=== PATIENT | male | born 1940 | race Caucasian/White ===

== ENCOUNTER 2018-12-15 08:56 | Observation (INO) | payer MEDICARE, OTHER, SELFPAY ==
[2018-12-15] VITALS (13 sets, daily range): BP systolic 107–144; BP diastolic 47–74; PULSE 48–70; RESP 13–21; TEMP 36.6–36.9; O2SAT 93–100; BMI 23.6; BMI 24.3
--- NOTE | 2018-12-15 09:21 | ED.RN ---
PT WAS DIAPHORETIC AND FLUSH PRIOR TO SYNCOPAL EPISODE. PT SAID IT WAS KIND OF CLOUDY.
--- NOTE | 2018-12-15 09:26 | RAD_ITS ---
STUDY: X-RAY CHEST REASON FOR EXAM: Male, 78 years old. Chest pain with syncope today. TECHNIQUE: Single AP portable view of the chest. COMPARISON: July 23, 2015. FINDINGS: Cardiac monitoring leads are present. The lungs are clear and expanded. There is no demonstrated pleural abnormality. There is mild cardiac enlargement. Normal mediastinum and alex. Normal visualized pulmonary arteries. There is atherosclerotic tortuosity of the aortic arch and descending thoracic aorta. Normal visualized thoracic spine. Normal visualized ribs, clavicles, and shoulders. There is no demonstrated abnormality of the visualized soft tissue structures of the upper abdomen. RAD/Chest 1 View (Portable) IMPRESSION: Mild cardiomegaly. Electronically Signed: Beatriz Ospina MD at 9:53 EST , Service support ,
--- NOTE | 2018-12-15 09:26 | EKG12_ITS ---
Test Reason : SYNCOPE Blood Pressure : / mmHG Vent. Rate : 051 BPM Atrial Rate : 051 BPM P-R Int : 184 ms QRS Dur : 090 ms QT Int : 450 ms P-R-T Axes : 075 059 038 degrees QTc Int : 414 ms Sinus bradycardia Otherwise normal ECG Confirmed by KRYSTYNA ADAMSON MD ([id number]), editorial cartoonist SYLVIE NUNO ([id number]) on 12/17/2018 1:05:16 PM Referred By: MR Confirmed By:KRYSTYNA ADAMSON MD
[2018-12-15 09:48] LABS: Absolute Neutrophil Count 3.8 X10^3/uL (2.0-7.7); Basophil# 0.02 X10^3/uL; Basophil% 0.4 % (0-1); Eosinophil# 0.22 X10^3/uL; Eosinophils% 4.4 % (0-5); Hematocrit 35.9 % (40-54); Hemoglobin 11.4 g/dl (13.0-16.5); Mean Corp Hgb Conc 31.8 g/gl (32-36); Mean Corpuscular Volume 100.8 fL (80-94); Mean Platelet Vol. 9.6 fl (6.2-12.0); Monocyte# 0.39 X10^3/uL; Monocyte% 7.8 % (0-10); Neutrophil # 3.75 X10^3/uL (2.7-7.7); Neutrophil % 75.2 % (47-70); Platelet Count 154 K/mm3 (150-450); RBC Distribution Width SD 52.2 fl (35.1-43.9); Red Blood Count 3.56 M/mm3 (4.6-6.2)
[2018-12-15 09:49] LABS: Differential Indicated SCAN CRITERIA MET; POSITIVE COUNT NO; POSITIVE DIFFERENTIAL YES; POSITIVE MORPHOLOGY NO
[2018-12-15 09:56] LABS: Anion Gap 8 (5-15); BUN 55 mg/dL (7-18); Chloride 111 mmol/L (98-107); EST Glomerular Filtration Rate 27 mL/min (>60); Est Glom Filt Rate - Afr Amer 32 mL/min (>60); Estimated Creatinine Clearance 23.96 ml/min; Glucose 120 mg/dL (74-106); Potassium 4.4 mmol/L (3.5-5.1); Sodium Level 141 mmol/L (136-145)
[2018-12-15 10:05] LABS: Differential Comment SCANNED
--- NOTE | 2018-12-15 10:16 | ED.DCSUM_ITS ---
- ER Visit Summary Date of Service: 12/15/18 Chief Complaint: Syncope History of Present Illness: The patient is a 78 M presenting for evaluation secondary to syncope. Patient has a underlying history of coronary artery disease chronic kidney disease and hypertension. Patient states that he shoveled so this morning was actually doing quite well. He was standing in adventism and had a unprovoked episode of syncope. Patient states that he suddenly started to feel foggy and lightheaded, and then his caught him as he passed out. He did not injure himself. He denies any pain currently. He denies any prodrome such as chest pain shortness of breath numbness weakness or visual changes. Patient states that he is on metoprolol for blood pressure control, and did not have any sort of changes in his medications or medication errors. He denies feeling ill recently. Review of systems otherwise negative. Physical Examination: Vital signs notable for heart rate of 48. Well-nourished male no acute distress. No conjunctival pallor. Moist mucous membranes. No JVD. Heart was bradycardic and regular. Lungs clear. Abdomen soft nontender no palpable abdominal masses or pulsatile mass. Extremities nontender nonedematous, peripheral pulses 2+ and symmetric. Skin normal color no rash. Patient was alert and oriented, NIH stroke scale was 0. Test Results: EKG demonstrates sinus bradycardia with a rate of [address] segments normal T waves. CBC shows mild anemia 11.4, chemistry shows chronic renal insufficiency creatinine 2.5 most recent we have in the system was 2.4, troponin negative chest x-ray shows some cardiomegaly Emergency Department Course and Treatment: Patient presented for evaluation secondary to a syncopal episode. Workup was negative as noted above. Patient is [place] syncope positive as he has bradycardia on EKG, coronary disease, and I am also concerned because this was an unprovoked event. I believe he requires admission for observation potential echocardiogram and cardiac consultation. I discussed this with hospitalist. Disposition: Admission Impression: 1. Syncope 2. Sinus bradycardia next line 3. History of coronary artery disease 4. Chronic kidney disease This note was generated with [employer] dictation software. It may contain incorrect words, spelling, and punctuation that were not noted in review of the chart prior to signing ED Disposition - Plan for ED Patient: Chief Complaint: Syncope Referrals: Tip Borden III, MD [Primary Care Provider] -
--- NOTE | 2018-12-15 10:30 | PCM.HP.STD ---
Problem List (1) Syncope Status: Acute (2) Sinus bradycardia Status: Chronic (3) Diabetes mellitus type 2 Status: Chronic (4) CKD (chronic kidney disease), stage III Status: Chronic (5) Coronary artery disease Status: Chronic (6) History of coronary artery stent placement Status: Chronic History of Present Illness Date of Admission: 12/15/18 Chief Complaint: Syncope for about 1 minute The patient is a 78 year old M with history of coronary artery disease history of coronary artery disease status post stents about 10 years ago, CKD stage III, hypertension, diabetes mellitus type 2 diet controlled was brought in by EMS for sudden syncope in the chart. Patient was in usual health before that. He stood up for a few minutes, then felt foggy/cloudiness and then suddenly passed out. His caught him therefore no injury/fall. He denies prodromal symptoms including dizzy, lightheadedness, missed heartbeat/chest pressure or shortness of breath passing out. As per his he was moderately pale. The patient did not had acute cardiac event probably last 10 years including ACS/IA. Denies history of peripheral arterial disease, stroke. EMS EKG shows sinus bradycardia, 45 bpm, AL interval 124 ms, QTC 452 ms. ER EKG shows sinus bradycardia at 45 bpm. EKG normal sinus rhythm at 68 bpm on June 2002. Basic workup was within normal limit except CKD with creatinine 2.5 which is baseline 2.43 on June,. Denies lower urinary tract symptoms, abdominal pain or change in bowel habits. [] Past Medical History Past Medical History (Chronic Problems): Chronic Problems Sinus bradycardia (Chronic) Diabetes mellitus type 2 (Chronic) CKD (chronic kidney disease), stage III (Chronic) Coronary artery disease (Chronic) History of coronary artery stent placement (Chronic) Allergies Penicillins Allergy (Verified 12/15/18 09:05) Unknown Home Medications: Ambulatory Orders Medication Instructions Recorded Aspirin [Aspirin, Baby] 81 mg PO DAILY@0800 12/15/18 Hydrochlorothiazide 12.5 mg PO DAILY 12/15/18 Labetalol [Trandate (Beta Silvestre)] 100 mg PO DAILY 12/15/18 Simvastatin 40 mg PO DAILY 12/15/18 Smoking Status: Never smoker - *Family History Paternal History Items: No pertinent history Review of Systems Constitutional: Denies: Chills, Fever, Weight Change HEENT: Denies: Head Aches, Sinus Congestion, Sinus Drainage Cardiovascular: Reports: Syncope. Denies: Chest Pain, Palpitations Respiratory: Denies: Cough, Shortness of breath at rest, Sputum production Gastrointestinal: Denies: Abdominal Pain, Nausea, Vomiting Genitourinary: Denies: Dysuria Musculoskeletal: Denies: Joint Pain, Joint Tenderness Skin: Denies: Rash, Wounds Neurological: Denies: Numbness, Tingling, Focal weakness Psychiatric: Denies: Anxiety, Depression, Homicidal Ideations, Suicidal Ideations Hematologic/ Lymphatic: Denies: Easy Bruising, Easy Bleeding VTE Information - Inpt Only VTE Present on Admission: No VTE Mechan Device Prophylaxis: None VTE Pharm Prophylaxis ordered?: Yes Patient Problems: Active and Suspected Problems Syncope (Acute) - Physical Exam General: Alert, Oriented x3, Cooperative HEENT: Atraumatic, PERRLA, EOMI, Normocephalic Oral: Dry Mucosa Neck: Supple, No JVD, Negative Carotid Bruits Lungs: Clear to auscultation, Normal air movement, No rhonchi, No wheeze, No rales Cardiovascular: Normal S1, Normal S2, No murmurs, Bradycardic Abdomen: Bowel Sounds Present, Soft, Non Tender, Non-Distended Extremities: No edema, Capillary Refill Less than 3 Seconds Skin: No rashes, No breakdown Musculoskeletal: No Tenderness to Palpation of Joints or Extremities, Arthritic Changes Neurological: Cranial nerves II-XII grossly intact, Deep Tendon Reflexes 2+/4 and Symmetrical, Neuro grossly intact, Motor Exam 5/5 strength throughout Psych/Mental Status: Normal Affect, Appropriate Vital Signs Temp Pulse Resp BP Pulse Ox 97.8 F 54 L 15 118/64 97 12/15/18 09:01 12/15/18 10:09 12/15/18 10:09 12/15/18 09:57 12/15/18 10:09 Oxygen Flow Rate (L/min) 4 Oxygen Delivery Method Room Air Weight: 160 lb Body Mass Index (BMI) 23.6 Laboratory Tests Past 24 Hrs 12/15/18 12/15/18 09:30 09:30 WBC 5.0 RBC 3.56 L Hgb 11.4 L Hct 35.9 L MCV 100.8 H MCH 32.0 MCHC 31.8 L RDW 14.0 RDW Differential 52.2 H Plt Count 154 MPV 9.6 Immature Gran % (Auto) 0.200 Neut % (Auto) 75.2 H Lymph % (Auto) 12.0 L [place] % (Auto) 7.8 Eos % (Auto) 4.4 Baso % (Auto) 0.4 Absolute Neuts (auto) 3.8 Absolute Lymphs (auto) 0.60 L Total Counted Not Reportable Differential Comment SCANNED Sodium 141 Potassium 4.4 Chloride 111 H Carbon Dioxide 22.0 Anion Gap 8 BUN 55 H Creatinine 2.50 H Estim Creat Clear Calc 23.96 Est GFR (MDRD) Af Amer 32 L Est GFR (MDRD) Non-Af 27 L BUN/Creatinine Ratio 22.0 H Glucose 120 H Calcium 8.0 L Troponin I < 0.015 Assessment/Plan All Active Problems Syncope (Acute) The patient is a 78 year old M with history of coronary artery disease history of coronary artery disease status post stents about 10 years ago, CKD stage III, hypertension, diabetes mellitus type 2 diet controlled was brought in by EMS for sudden syncope in the chart. Patient was in usual health before that. He stood up for a few minutes, then felt foggy/cloudiness and then suddenly passed out. His caught him therefore no injury/fall. He denies prodromal symptoms including dizzy, lightheadedness, missed heartbeat/chest pressure or shortness of breath passing out. As per his he was moderately pale. The patient did not had acute cardiac event probably last 10 years including ACS/IA. Denies history of peripheral arterial disease, stroke. No seizure-like movements. Denies recent flulike symptoms, fever. Denies lower urinary tract symptoms, abdominal pain or change in bowel habits. EMS EKG shows sinus bradycardia, 45 bpm, AL interval 124 ms, QTC 452 ms. ER EKG shows sinus bradycardia at 45 bpm. EKG normal sinus rhythm at 68 bpm on June 2002. Basic workup was within normal limit except CKD with creatinine 2.5 which is baseline 2.43 on June,. 1. Syncope and collapse, exact etiology unclear but possible cardiogenic due to sinus bradycardia/medication related: Patient is being admitted in PCU. Patient is on HCTZ and labetalol. Hold labetalol and HCTZ. Cardiac monitoring. Serial troponin enzymes. 2D echo ordered. Patient follows extension specialist Dr. Jaffe and he had echo about Ismael time 2018. Try to get medical record. Chest x-ray shows mild cardiomegaly. IV fluid normal saline 20 mils per hour 2. Coronary artery status post stents, hypertension: Denies chest pain/pressure or shortness of breath. Stable. Rest as above 3. Sinus bradycardia probably secondary to labetalol: Hold it. 4. Diabetes mellitus type 2, diet and exercise controlled: Glucose in BMP is 120. 5. CKD stage III: BUN/creatinine 55/2.5. Stable since June 2015, previous BUN/creatinine 43/2.43 BUN. Slightly elevated probably secondary to dehydration or HCTZ 6. DVT prophylaxis: On Lovenox 30 mg subcu daily adjusted to creatinine clearance. This note was generated with [employer] dictation software. Every effort was made to ensure accuracy, however computerized staff research associate mistakes may persist. Code Visit OBSV E&M: 66358 Initial observation care L3
[2018-12-15 11:56] LABS: Magnesium 2.4 mg/dL (1.6-2.6); Thyroid Stim Hormone (TSH) 1.34 uIU/mL (0.358-3.74)
[2018-12-15] MEDS: 0.9% Normal Saline 1,000 ML 100 ML IV ×2 (12:00→22:00)
[2018-12-15] MEDS: Enoxaparin 30 MG/0.3 ML Syringe SC (14:16)
[2018-12-16 02:05] VITALS: BP 124/74; PULSE 57; RESP 16; TEMP 36.9; O2SAT 97
[2018-12-16 03:16] VITALS: PULSE 49
--- NOTE | 2018-12-16 05:55 | ECHOD_ITS ---
Reason For Study: Syncope Procedure This was a 2D Doppler, Color Flow transthoracic echocardiogram. Exam performed portable in patient room. Left Ventricle Normal LV size. Mild concentric left ventricular hypertrophy. Left ventricular systolic function is normal. The estimated ejection fraction is 60 %. Stage 1 diastolic dysfunction. No regional wall motion abnormalities noted. Right Ventricle Normal RV size. Normal systolic function. Atria Normal left atrium. Normal right atrium. Mitral Valve Normal mitral valve. Mild (1+) eccentric mitral valve insufficiency. Tricuspid Valve Normal tricuspid valve. Mild (1+) tricuspid valve insufficiency. Pulmonary artery systolic pressure is 34 mmHg. Aortic Valve Trisinus/trileaflet aortic valve. Pulmonic Valve Normal pulmonic valve. Great Vessels Normal aortic root. The pulmonary artery is normal size. Normal inferior vena cava. Pericardium/Pleural No pericardial effusion. Medication Performed a rapid injection of agitated mix of 9 cc saline and 1cc air to assess for atrial septal defect. MMode/2D Measurements & Calculations LVIDd: 4.8 cm IVSd: 1.2 cm Ao root diam: 2.5 cm LVIDs: 2.6 cm LVPWd: 1.3 cm RVDd: 3.4 cm FS: 46.3 % LAV(MOD-bp): 62.8 ml LVAd ap4: 27.0 cm2 SV(MOD-sp4): 53.0 ml LAV(MOD-bp) Indexed: 33.8 ml/m2 EDV(MOD-sp4): 75.5 ml LAV(MOD-sp2): 76.0 ml EDV(sp4-el): 75.4 ml LAV(MOD-sp4): 51.0 ml LVAs ap4: 13.4 cm2 ESV(MOD-sp4): 22.5 ml ESV(sp4-el): 22.4 ml EF(MOD-sp4): 70.2 % EF(sp4-el): 70.3 % SV(sp4-el): 53.1 ml LA A4 area: 20.4 cm2 LA dimension(2D): 4.4 cm RA A4 area: 18.5 cm2 Doppler Measurements & Calculations MV E max quintin: 99.9 cm/sec Lat Peak E' Quintin: 7.0 cm/sec Med Peak E' Qiuntin: 7.9 cm/sec MV A max quintin: 84.3 cm/sec E/E' lat: 14.2 E/E' med: 12.6 MV E/A: 1.2 Ao V2 max: 171.7 cm/sec LV V1 max: 113.9 cm/sec PA V2 max: 78.3 cm/sec Ao max P.8 mmHg LV V1 max P.2 mmHg Ao V2 mean: 123.1 cm/sec Ao mean P.7 mmHg Ao V2 VTI: 40.2 cm TR max quintin: 270.1 cm/sec TR max P.2 mmHg Interpretation Summary Normal LV size. Mild concentric left ventricular hypertrophy. Left ventricular systolic function is normal. The estimated ejection fraction is 60 %. Stage 1 diastolic dysfunction. Mild (1+) eccentric mitral valve insufficiency. Pulmonary artery systolic pressure is 34 mmHg. Ordering Physician: Joseluis Hernandez Referring Physician: Tip Borden Performed By: Elin Harrington, ANTHONY, RVT
[2018-12-16 07:13] VITALS: PULSE 52
[2018-12-16 09:00] VITALS: BP 147/73; PULSE 53; RESP 16; TEMP 36.7; O2SAT 98
[2018-12-16 11:25] VITALS: PULSE 57
[2018-12-16 14:11] VITALS: BP 138/82; PULSE 57; RESP 16; TEMP 37.1; O2SAT 98
--- NOTE | 2018-12-16 14:11 | DCINST_ITS ---
- Discharge Diagnoses Current Active Problems: Current Active and Chronic Problems Syncope (Acute) Sinus bradycardia (Chronic) Diabetes mellitus type 2 (Chronic) CKD (chronic kidney disease), stage III (Chronic) Coronary artery disease (Chronic) History of coronary artery stent placement (Chronic) You will use the following diet at home:: No restrictions Your food should be the consistency of: Regular Your liquids should be the consistency of: Regular/Thin Discharge Activity: Return to Normal Activity Call your doctor if you observe: Fever of 101 or Higher, Shortness of breath, Fainting spells, Chest pain Instructions: What Is Syncope?, Understanding Dizziness, Balance Problems, and Fainting, Possible Causes of Dizziness or Fainting Allergies/Adverse Reactions: Allergies Penicillins Allergy (Verified 12/15/18 09:05) Unknown Medications to take at Discharge Aspirin [Aspirin, Baby] 81 mg PO DAILY@0800 12/15/18 Labetalol [Trandate (Beta Silvestre)] 100 mg PO DAILY 12/15/18 Simvastatin 40 mg PO QHS 12/15/18 Primary Care Physician: Tip Borden III, MD [Primary Care Provider] - Within 1 Week Test Results: Test results from this visit will be discussed in further detail at your follow- up appointment, if applicable.
--- NOTE | 2018-12-16 14:11 | PCM.DC.SUM ---
Discharge Date and Diagnosis - Problem List Patient Problems: Active and Suspected Problems Syncope (Acute) Date of Admission: 12/15/18 Date of Discharge: 12/16/18 - Primary Discharge Diagnosis Active and Suspected Problems Syncope (Acute) - Secondary Discharge Diagnosis Chronic Problems Sinus bradycardia (Chronic) Diabetes mellitus type 2 (Chronic) CKD (chronic kidney disease), stage III (Chronic) Coronary artery disease (Chronic) History of coronary artery stent placement (Chronic) Hospital Course and Treatment Imaging Results: 12/16/18 05:55 Echo Complete [ECHO] AM (NON MEDS) Clinical Impression(s) from Imaging Studies Chest X-Ray 12/15/18 09:26 IMPRESSION: Mild cardiomegaly. Electronically Signed: Beatriz Ospina MD at 9:53 EST , Service support , Operations: None Procedures: None Summary of Care Provided: The patient is a 78 year old M presents with syncope. Patient was then mass where he had a syncopal episode when he was standing. Patient was in his normal state of health preceding that. That day, patient had had breakfast but then went and did some shoveling of snow. Patient does endorse that he has been consuming less fluids over the past few weeks due to urinary frequency. Patient was noted to be bradycardic into the 50s but has otherwise remained stable. Orthostatic vital signs were evaluated and were negative. His HCTZ and labetalol were held upon admission. Patient is continue to remain bradycardic but is otherwise feeling well. Patient will be resumed back on his labetalol but advised to hold off on his HCTZ for now. Patient follow-up with his primary care provider in the next coming weeks to see if the HCTZ would need to be resumed or if labetalol would need to be reduced or discontinued. [] Patient Problems: Active and Suspected Problems Syncope (Acute) - Physical Exam General: Alert, No apparent distress HEENT: Atraumatic, Normocephalic Oral: Moist Mucosa, No Gingival or Mucosal Lesions/ Ulcerations Neck: No Nodes, Thyroid Normal Size and Texture Lungs: Clear to auscultation, Normal air movement, No rhonchi, No wheeze Cardiovascular: Regular rate, Regular Rhythm, Normal S1, Normal S2, No murmurs Vital Signs Temp Pulse Resp BP Pulse Ox 36.7 C 57 L 16 147/73 H 98 12/16/18 09:00 12/16/18 11:25 12/16/18 09:00 12/16/18 09:00 12/16/18 09:00 Oxygen Flow Rate (L/min) 4 Oxygen Delivery Method Room Air Weight: 72.575 kg Body Mass Index (BMI) 24.3 Orthostatic Vital Signs Start: 12/15/18 12:10 Freq: q24h Status: Active Protocol: Activity Type Activity Date Activity User E-Sign Co-Sign Detail Recorded Client Recorded Date Recorded By Document 12/15/18 13:39 MLB [id number] 12/15/18 13:40 MLB 12/15/18 13:39 Orthostatic Vitals Standing -Blood Pressure (90/60-120/80) 113/64 -Extremity Use Right Arm -Pulse Rate (60-100) 70 Sitting -Blood Pressure (90/60-120/80) 112/64 -Extremity Use Right Arm -Pulse Rate (60-100) 67 Lying -Blood Pressure (90/60-120/80) 107/61 -Extremity Use Right Arm -Pulse Rate (60-100) 61 Intake and Output for Last 24 Hours 12/14/18 12/15/18 12/16/18 23:59 23:59 23:59 Intake Total 1010 / 1010 1064 / 1064 Balance 1010 / 1010 1064 / 1064 Laboratory Tests Past 24 Hrs 12/15/18 15:30 Troponin I 0.023 Discharge Diet: No Restrictions Discharge Activity: Return to Normal Activity Call your doctor if you observe: Fever of 101 or Higher, Shortness of breath, Fainting spells, Chest pain Home Medications: Medications to take at Discharge Aspirin [Aspirin, Baby] 81 mg PO DAILY@0800 12/15/18 Labetalol [Trandate (Beta Silvestre)] 100 mg PO DAILY 12/15/18 Simvastatin 40 mg PO QHS 12/15/18 Primary Care Physician: Tip Borden III, MD [Primary Care Provider] - Within 1 Week Patient Instructions: What Is Syncope?, Understanding Dizziness, Balance Problems, and Fainting, Possible Causes of Dizziness or Fainting Disposition: Home Minutes spent on discharge:: 32 Patient Condition:: Good Medical Necessity - Tobacco Use Smoking Status: Never smoker Meaningful Use Info Meaningful Use Diagnoses (Choose all that apply): None applicable Code Visit OBSV E&M: 36740 Observation care discharge
--- NOTE | 2018-12-16 14:15 | DS.PCM_ITS ---
Discharge Date and Diagnosis - Problem List Patient Problems: Active and Suspected Problems Syncope (Acute) Date of Admission: 12/15/18 Date of Discharge: 12/16/18 - Primary Discharge Diagnosis Active and Suspected Problems Syncope (Acute) - Secondary Discharge Diagnosis Chronic Problems Sinus bradycardia (Chronic) Diabetes mellitus type 2 (Chronic) CKD (chronic kidney disease), stage III (Chronic) Coronary artery disease (Chronic) History of coronary artery stent placement (Chronic) Hospital Course and Treatment Imaging Results: 12/16/18 05:55 Echo Complete [ECHO] AM (NON MEDS) Clinical Impression(s) from Imaging Studies Chest X-Ray 12/15/18 09:26 IMPRESSION: Mild cardiomegaly. Electronically Signed: Beatriz Ospina MD at 9:53 EST , Service support , Operations: None Procedures: None Summary of Care Provided: The patient is a 78 year old M presents with syncope. Patient was then mass where he had a syncopal episode when he was standing. Patient was in his normal state of health preceding that. That day, patient had had breakfast but then went and did some shoveling of snow. Patient does endorse that he has been consuming less fluids over the past few weeks due to urinary frequency. Patient was noted to be bradycardic into the 50s but has otherwise remained stable. Orthostatic vital signs were evaluated and were negative. His HCTZ and labetalol were held upon admission. Patient is continue to remain bradycardic but is otherwise feeling well. Patient will be resumed back on his labetalol but advised to hold off on his HCTZ for now. Patient follow-up with his primary care provider in the next coming weeks to see if the HCTZ would need to be resumed or if labetalol would need to be reduced or discontinued. [] Patient Problems: Active and Suspected Problems Syncope (Acute) - Physical Exam General: Alert, No apparent distress HEENT: Atraumatic, Normocephalic Oral: Moist Mucosa, No Gingival or Mucosal Lesions/ Ulcerations Neck: No Nodes, Thyroid Normal Size and Texture Lungs: Clear to auscultation, Normal air movement, No rhonchi, No wheeze Cardiovascular: Regular rate, Regular Rhythm, Normal S1, Normal S2, No murmurs Vital Signs Temp Pulse Resp BP Pulse Ox 36.7 C 57 L 16 147/73 H 98 12/16/18 09:00 12/16/18 11:25 12/16/18 09:00 12/16/18 09:00 12/16/18 09:00 Oxygen Flow Rate (L/min) 4 Oxygen Delivery Method Room Air Weight: 72.575 kg Body Mass Index (BMI) 24.3 Orthostatic Vital Signs Start: 12/15/18 12:10 Freq: q24h Status: Active Protocol: Activity Type Activity Date Activity User E-Sign Co-Sign Detail Recorded Client Recorded Date Recorded By Document 12/15/18 13:39 MLB [id number] 12/15/18 13:40 MLB 12/15/18 13:39 Orthostatic Vitals Standing -Blood Pressure (90/60-120/80) 113/64 -Extremity Use Right Arm -Pulse Rate (60-100) 70 Sitting -Blood Pressure (90/60-120/80) 112/64 -Extremity Use Right Arm -Pulse Rate (60-100) 67 Lying -Blood Pressure (90/60-120/80) 107/61 -Extremity Use Right Arm -Pulse Rate (60-100) 61 Intake and Output for Last 24 Hours 12/14/18 12/15/18 12/16/18 23:59 23:59 23:59 Intake Total 1010 / 1010 1064 / 1064 Balance 1010 / 1010 1064 / 1064 Laboratory Tests Past 24 Hrs 12/15/18 15:30 Troponin I 0.023 Discharge Diet: No Restrictions Discharge Activity: Return to Normal Activity Call your doctor if you observe: Fever of 101 or Higher, Shortness of breath, Fainting spells, Chest pain Home Medications: Medications to take at Discharge Aspirin [Aspirin, Baby] 81 mg PO DAILY@0800 12/15/18 Labetalol [Trandate (Beta Silvestre)] 100 mg PO DAILY 12/15/18 Simvastatin 40 mg PO QHS 12/15/18 Primary Care Physician: Tip Borden III, MD [Primary Care Provider] - Within 1 Week Patient Instructions: What Is Syncope?, Understanding Dizziness, Balance Problems, and Fainting, Possible Causes of Dizziness or Fainting Disposition: Home Minutes spent on discharge:: 32 Patient Condition:: Good Medical Necessity - Tobacco Use Smoking Status: Never smoker Meaningful Use Info Meaningful Use Diagnoses (Choose all that apply): None applicable Code Visit OBSV E&M: 46063 Observation care discharge
--- NOTE | 2018-12-16 14:23 | CASEMGMT ---
This RN CM to room to discuss discharge plan with pt at this time and pt states no concerns with going home at this time and states no needs at this time. Pt is sitting up on side of bed anxious for discharge at this time. Pt voices no further questions/concerns/needs at this time. [place] [facility]LE[facility]
--- OUTSIDE RECORDS SUMMARY | 2019-02-17 11:06 | XMS RPT_ITS ---
:1940 Author Organization [facility] Care Team Providers Name Role Phone Cebul III, Tip Primary Care Unavailable David, Joseluis Admitting Unavailable Eder Blackwell Attending Unavailable David, Joseluis Admitting Unavailable David, Joseluis Attending Unavailable Cebul III, Tip Primary Care Unavailable David, Joseluis Consulting Unavailable David, Joseluis Admitting Unavailable Eder Blackwell Attending Unavailable Cebul III, Tip Primary Care Unavailable Eder Blackwell Consulting Unavailable SOFIA KINCAID Attending Unavailable SOFIA KINCAID Referring Unavailable CEBUL III, TIP A Referring Unavailable CEBUL III, TIP A Attending Unavailable CEBUL III, TIP A Referring Unavailable CEBUL III, TIP A Referring Unavailable CEBUL III, TIP A Attending Unavailable CEBUL III, TIP A Referring Unavailable CEBUL III, TIP A Referring Unavailable SOFIA KINCAID Attending Unavailable SOFIA KINCAID Referring Unavailable CEBUL III, TIP A Attending Unavailable SOFIA KINCAID Attending Unavailable SOFIA KINCAID Referring Unavailable CEBUL, TIP Primary Care Unavailable SOFIA KINCAID Attending Unavailable SOFIA KINCAID Referring Unavailable CEBUL, TIP Primary Care Unavailable PROBLEMS PROBLEMS DATE TYPE CONDITION / CODE ATTENDING STATUS SOURCE 10/26/2018 Active Encounter for NA Active [place] screening for Clinic Main malignant neoplasm [place] of colon / Repository Z12.11(ICD-10) 04/06/2018 Active Other shipping and receiving NA Active [place] (current) drug Clinic Main therapy / [place] Z79.899(ICD-10) Repository 03/04/2018 Active Atherosclerotic CODI, 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 [facility] Other [place] coronary [place] artery without Repository angina pectoris / I25.10(ICD-10) 03/04/2018 Active Essential (primary) CODI, Active [place] hypertension / [facility] Other I10(ICD-10) [place] Repository 03/04/2018 Admitting Unknown / CODI, Active [place] [facility] diagnosis UNK(Unknown) [facility] Repository PROCEDURES PROCEDURES No Procedure Records FoundRESULTS RESULTS 12 LEAD ELECTROCARDIOGRAM Observed: 12/17/2018 Status: F Source: [place] 1:05 PM [facility] Cardiovascular Services [address] [place] [id number] 12 Lead EKG 12/15/18 0922 MR#: [id number] Acct: [id number] Name: LELA SALCIDO Rep #: [id number] : 1940 78 From: Jay Ojeda MD Attending Dr: Eder Blackwell DO Status: DIS MIKO Ordering Dr: Aiden Burdick MD Date: 12/15/18 Location: [facility] Sex: M C Admitted: 12/15/18 Test Reason : SYNCOPE Blood Pressure : / mmHG Vent. Rate : 051 BPM Atrial Rate : 051 BPM P-R Int : 184 ms QRS Dur : 090 ms QT Int : 450 ms P-R-T Axes : 075 059 038 degrees QTc Int : 414 ms Sinus bradycardia Otherwise normal ECG Confirmed by JAY OJEDA MD ([id number]), tape editor SYLVIE NUNO ([id number]) on 12/17/2018 1:05:16 PM Referred By: MR Confirmed By:JAY OJEDA MD 12/17/18 1305 Date Jay Ojeda MD CC: Eder Blackwell DO; Tip Borden III, MD; Aiden Burdick Signed CNOV Observed: 12/16/2018 Status: COMPLETED Source: [place] 7:00 PM [facility] REPOSITORY [facility] LELA SALCIDO ([id number]) 1940 M Date Time Provider Department 12/16/18 7:00 PM TIP BORDEN III [facility] During your visit today, we recorded the following information about you: Temperature Pulse Respiration Blood pressure 96.9 degrees 68/minute 10/minute 153/78 Weight 72.6 kg Tip Borden III MD 12/16/2018 7:21 PM Signed SUBJECTIVE: This is a 78 year old male that is here today for 1. Hospital discharge f/u: 12/15/18: orthostatic syncope while standing in zoroastrian. Admitted overnight and given 2 L IV fluids. Doing well now. ER record reviewed. Lab: troponin normal mild qylptc90.4 EKG= sinus bradycardia, 51. creat2.5. 2. hypertension 3. diabetes mellitus II--stable diet and regular walking. 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 simvastatin (ZOCOR) 40 mg tablet TAKE 1 TABLET AT BEDTIME labetalol (TRANDATE) 100 mg tablet Take 1 tablet by mouth twice daily. aspirin, enteric coated (ADULT LOW DOSE ASPIRIN) 81 mg ORAL EC tablet Take one(1) tablet daily, occasional takes 2 tabs daily. Hydrochlorothiazide 12.5 mg capsule Take 1 capsule by mouth once daily. (Patient not taking: Reported on 12/16/2018 ) blood sugar diagnostic (FREESTYLE TEST) test strip Use as instructed once daily No current facility-administered medications on file prior to visit. FAMILY HISTORY Problem Relation Age of Onset - Diabetes Mother - Heart Mother - Heart Father - Hypertension Mother - Heart Brother coronary stent - Prostate Cancer Father - Prostate Cancer Brother - other (diabetes mellitus [Other]) Daughter Social History Substance Use Topics - Smoking status: Never Smoker - Smokeless tobacco: Former User Types: Chew - Alcohol use Yes Comment: occasionally BP 153/78 Pulse 68 Temp 36.1 ?C (96.9 ?F) (Left Tympanic) Resp 10 Wt 72.6 kg (160 lb) BMI 25.06 kg/m? . OBJECTIVE: APPEARANCE Well appearing, alert, in no acute distress, well- hydrated, well nourished. NECK Supple, no adenopathy; thyroid symmetric, normal size, no bruits HEART RRR with normal S1 and S2, no murmurs, no gallops, no JVD appreciated ASSESSMENT: diabetes mellitus II with CKD IV--well controlled orthostatic hypotension--resolved hypertension--not at goal hyperlipidemia--at goal mild anemia due to ASA PLAN: stay well hydrated discontinue HCTZ and simvastatin start amlodipine 5mg daily--nurse BP check in 3 wks start atorvastatin 20 mg every evening same other medications only take asa 81mg daily CLIVE Scanlon MD, III MD 12/16/2018 6:54 PM Signed PLAN: stay well hydrated discontinue HCTZ and simvastatin start amlodipine 5mg daily--nurse BP check in 3 wks start atorvastatin 20 mg every evening same other medications Tip Borden III MD Referring Provider: SELF [200] Allergies As of Date: 12/16/2018 Noted Allergy Reaction AUGMENTIN (AMOXICILLIN-POT CLAVUL*07/26/2015 16 - Unknown Comments: Pt had fever Date Reviewed: 12/16/2018 Reviewed by: Amara Fowler Ma - Fully Assessed Reason for Visit: Hospital Follow Up [177] Primary Visit Diagnosis:Hospital discharge follow-up [Z09] Other Visit Diagnoses: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, without long- term current use of insulin (HCC) [E11.22, N18.4] Essential hypertension, benign [I10] Order(s):amLODIPine (NORVASC) 5 mg tabletTake 1 tablet by mouth once daily.Disp: 30 tabletRfl: 12 atorvastatin (LIPITOR) 20 mg tabletTake 1 tablet by mouth once daily. For cholesterol.Disp: 30 tabletRfl: 12 aspirin, enteric coated (ADULT LOW DOSE ASPIRIN) 81 mg EC tabletTake 1 tablet by mouth once daily.Disp: Rfl: 0 Prescriptions as of 12/16/2018 Sig: ASPIRIN 81 MG TABLET,DELAYED * Take 1 tablet by mouth once d* TAMSULOSIN 0.4 MG CAPSULE Take 1 capsule by mouth daily* LABETALOL 100 MG TABLET Take 1 tablet by mouth twice * AMLODIPINE 5 MG TABLET Take 1 tablet by mouth once d* ATORVASTATIN 20 MG TABLET Take 1 tablet by mouth once d* BLOOD SUGAR DIAGNOSTIC STRIPS Use as instructed once daily Problem List As Of Date 12/16/2018 Noted Resolved Unspecified hemorrhoids without mention of comp* 12/25/2014 BENIGN HYPERTENSION [I10] Hyperlipidemia LDL goal <100 [E78.5] INVALID FOR* Disorders of bursae and tendons in shoulder reg*INVALID FOR*12/25/2014 Controlled type 2 diabetes mellitus with stage *INVALID FOR* Coronary atherosclerosis [I25.10] INVALID FOR* Cyst of epididymis [N50.3] INVALID FOR*05/07/2017 Cancer of skin of neck [C44.40] INVALID FOR* Atherosclerosis of coronary artery of [place] he*INVALID FOR* Hyperkalemia [E87.5] INVALID FOR*05/07/2017 Benign non-nodular prostatic hyperplasia with l*INVALID FOR* Other instructions from your clinician: PLAN: stay well hydrated discontinue HCTZ and simvastatin start amlodipine 5mg daily--nurse BP check in 3 wks start atorvastatin 20 mg every evening same other medications Tip Borden III MD Prescriptions ordered this encounter Disp Refills Start End AMLODIPINE 5 MG TABLET 30 t* 12 12/16/2018 Route: ORAL Sig: Take 1 tablet by mouth once daily. ATORVASTATIN 20 MG TABLET 30 t* 12 12/16/2018 Route: ORAL Sig: Take 1 tablet by mouth once daily. For cholesterol. ASPIRIN 81 MG TABLET,DELAYED RELEASE 0 12/16/2018 Class: Med Update Route: ORAL Sig: Take 1 tablet by mouth once daily. Medications Discontinued During This Encounter simvastatin (ZOCOR) 40 mg tablet 30 t* 11 08/19/2018 12/16/2018 Sig: TAKE 1 TABLET AT BEDTIME Disc: Clinical Decision Hydrochlorothiazide 12.5 mg capsule 30 c* 12 07/17/2018 12/16/2018 Route: ORAL Sig: Take 1 capsule by mouth once daily. Patient not taking: Reported on 12/16/2018 Disc: Clinical Decision aspirin, enteric coated (ADULT LOW D* 0 10/03/2010 12/16/2018 Class: Med Update Route: ORAL Sig: Take one(1) tablet daily, occasional takes 2 tabs daily. Disc: Reason for discontinue is not on file. Encounter Status:Closed by TIP BORDEN III, MD on 12/16/18 PROGRESS Observed: 12/16/2018 Status: COMPLETED Source: [place] 6:33 PM [facility] [place] REPOSIT[facility] ID: [id number] Author: Tip Borden III Service: (none) Author Type: Physician Type: Progress Notes Filed: 12/16/2018 7:21 PM Note Text: SUBJECTIVE: This is a 78 year old male that is here today for 1. Hospital discharge f/u: 12/15/18: orthostatic syncope while standing in zoroastrian. Admitted overnight and given 2 L IV fluids. Doing well now. ER record reviewed. Lab: troponin normal mild fujmqa18.4 EKG= sinus bradycardia, 51. creat2.5. 2. hypertension 3. diabetes mellitus II--stable diet and regular walking. 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 simvastatin (ZOCOR) 40 mg tablet TAKE 1 TABLET AT BEDTIME labetalol (TRANDATE) 100 mg tablet Take 1 tablet by mouth twice daily. aspirin, enteric coated (ADULT LOW DOSE ASPIRIN) 81 mg ORAL EC tablet Take one(1) tablet daily, occasional takes 2 tabs daily. Hydrochlorothiazide 12.5 mg capsule Take 1 capsule by mouth once daily. (Patient not taking: Reported on 12/16/2018 ) blood sugar diagnostic (FREESTYLE TEST) test strip Use as instructed once daily No current facility-administered medications on file prior to visit. FAMILY HISTORY Problem Relation Age of Onset - Diabetes Mother - Heart Mother - Heart Father - Hypertension Mother - Heart Brother coronary stent - Prostate Cancer Father - Prostate Cancer Brother - other (diabetes mellitus [Other]) Daughter Social History Substance Use Topics - Smoking status: Never Smoker - Smokeless tobacco: Former User Types: Chew - Alcohol use Yes Comment: occasionally BP 153/78 Pulse 68 Temp 36.1 ?C (96.9 ?F) (Left Tympanic) Resp 10 Wt 72.6 kg (160 lb) BMI 25.06 kg/m? . OBJECTIVE: APPEARANCE Well appearing, alert, in no acute distress, well-hydrated, well nourished. NECK Supple, no adenopathy; thyroid symmetric, normal size, no bruits HEART RRR with normal S1 and S2, no murmurs, no gallops, no JVD appreciated ASSESSMENT: diabetes mellitus II with CKD IV--well controlled orthostatic hypotension--resolved hypertension--not at goal hyperlipidemia--at goal mild anemia due to ASA PLAN: stay well hydrated discontinue HCTZ and simvastatin start amlodipine 5mg daily--nurse BP check in 3 wks start atorvastatin 20 mg every evening same other medications only take asa 81mg daily Tip Borden III MD ECHOCARDIOGRAM COMPLETE Observed: 12/16/2018 Status: F Source: [place] 3:39 PM [facility] [place] [facility] Cardiovascular [place] [address] Echo Complete 12/16/18819 MR#: [id number] Acct: [id number] Name: LELA SALCIDO Rep #: [id number] : 1940 78 From: Jay Ojeda MD Attending Dr: Eder Blackwell DO Status: ADM MIKO Ordering Dr: Joseluis Hernandez MD Date: 12/16/18 Location: [facility] Sex: M C Admitted: 12/15/18 Reason For Study: Syncope Procedure This was a 2D Doppler, Color Flow transthoracic echocardiogram. Exam performed portable in patient room. Left Ventricle Normal LV size. Mild concentric left ventricular hypertrophy. Left ventricular systolic function is normal. The estimated ejection fraction is 60 %. Stage 1 diastolic dysfunction. No regional wall motion abnormalities noted. Right Ventricle Normal RV size. Normal systolic function. Atria Normal left atrium. Normal right atrium. Mitral Valve Normal mitral valve. Mild (1+) eccentric mitral valve insufficiency. Tricuspid Valve Normal tricuspid valve. Mild (1+) tricuspid valve insufficiency. Pulmonary artery systolic pressure is 34 mmHg. Aortic Valve Trisinus/trileaflet aortic valve. Pulmonic Valve Normal pulmonic valve. Great Vessels Normal aortic root. The pulmonary artery is normal size. Normal inferior vena cava. Pericardium/Pleural No pericardial effusion. Medication Performed a rapid injection of agitated mix of 9 cc saline and 1cc air to assess for atrial septal defect. MMode/2D Measurements AND Calculations LVIDd: 4.8 cm IVSd: 1.2 cm Ao root diam: 2.5 cm LVIDs: 2.6 cm LVPWd: 1.3 cm RVDd: 3.4 cm FS: 46.3 % LAV(MOD-bp): 62.8 ml LVAd ap4: 27.0 cm2 SV(MOD-sp4): 53.0 ml LAV(MOD-bp) Indexed: 33.8 ml/m2 EDV(MOD-sp4): 75.5 ml LAV(MOD-sp2): 76.0 ml EDV(sp4-el): 75.4 ml LAV(MOD-sp4): 51.0 ml LVAs ap4: 13.4 cm2 ESV(MOD-sp4): 22.5 ml ESV(sp4-el): 22.4 ml EF(MOD-sp4): 70.2 % EF(sp4-el): 70.3 % SV(sp4-el): 53.1 ml LA A4 area: 20.4 cm2 LA dimension(2D): 4.4 cm RA A4 area: 18.5 cm2 Doppler Measurements AND Calculations MV E max quintin: 99.9 cm/sec Lat Peak E' Quintin: 7.0 cm/sec Med Peak E' Quintin: 7.9 cm/sec MV A max quintin: 84.3 cm/sec E/E' lat: 14.2 E/E' med: 12.6 MV E/A: 1.2 Ao V2 max: 171.7 cm/sec LV V1 max: 113.9 cm/sec PA V2 max: 78.3 cm/sec Ao max P.8 mmHg LV V1 max P.2 mmHg Ao V2 mean: 123.1 cm/sec Ao mean P.7 mmHg Ao V2 VTI: 40.2 cm TR max quintin: 270.1 cm/sec TR max P.2 mmHg Interpretation Summary Normal LV size. Mild concentric left ventricular hypertrophy. Left ventricular systolic function is normal. The estimated ejection fraction is 60 %. Stage 1 diastolic dysfunction. Mild (1+) eccentric mitral valve insufficiency. Pulmonary artery systolic pressure is 34 mmHg. Ordering Physician: Joseluis Hernandez Referring Physician: Tip Borden Performed By: Elin Harrington, ANTHONY, RVT 12/16/18 1538 Date Jay Ojeda MD CC: Eder Blackwell DO; Tip Borden III, MD; Joseluis Hernandez MD Date Dictated: 12/16/18819 Date Transcribed: 12/16/181537 Visual Stylist: Signed DISCHARGE SUMMARY Observed: 12/16/2018 Status: F Source: [place] 2:16 PM [facility] Medical Records Department [address] [place] [address] Discharge Summary 12/16/18 1411 MR#: [id number] Acct: [id number] Name: LELA SALCIDO Rep #: [id number] : 1940 78 From: Eder Blackwell DO PCP: Tip Borden III, MD Status: ADM MIKO Y Location: [place] [address] Discharge Date and Diagnosis - Problem List Patient Problems: Active and Suspected Problems Syncope (Acute) Date of Admission: 12/15/18 Date of Discharge: 12/16/18 - Primary Discharge Diagnosis Active and Suspected Problems Syncope (Acute) - Secondary Discharge Diagnosis Chronic Problems Sinus bradycardia (Chronic) Diabetes mellitus type 2 (Chronic) CKD (chronic kidney disease), stage III (Chronic) Coronary artery disease (Chronic) History of coronary artery stent placement (Chronic) Hospital Course and Treatment Imaging Results: 12/16/18 05:55 Echo Complete [ECHO] AM (NON MEDS) Clinical Impression(s) from Imaging Studies Chest X-Ray 12/15/18 09:26 IMPRESSION: Mild cardiomegaly. Electronically Signed: Beatriz Ospina MD at 9:53 EST , Service support , Operations: None Procedures: None Summary of Care Provided: The patient is a 78 year old M presents with syncope. Patient was then mass where he had a syncopal episode when he was standing. Patient was in his normal state of health preceding that. That day, patient had had breakfast but then went and did some shoveling of snow. Patient does endorse that he has been consuming less fluids over the past few weeks due to urinary frequency. Patient was noted to be bradycardic into the 50s but has otherwise remained stable. Orthostatic vital signs were evaluated and were negative. His HCTZ and labetalol were held upon admission. Patient is continue to remain bradycardic but is otherwise feeling well. Patient will be resumed back on his labetalol but advised to hold off on his HCTZ for now. Patient follow-up with his primary care provider in the next coming weeks to see if the HCTZ would need to be resumed or if labetalol would need to be reduced or discontinued. [] Patient Problems: Active and Suspected Problems Syncope (Acute) - Physical Exam General: Alert, No apparent distress HEENT: Atraumatic, Normocephalic Oral: Moist Mucosa, No Gingival or Mucosal Lesions/ Ulcerations Neck: No Nodes, Thyroid Normal Size and Texture Lungs: Clear to auscultation, Normal air movement, No rhonchi, No wheeze Cardiovascular: Regular rate, Regular Rhythm, Normal S1, Normal S2, No murmurs Vital Signs Temp Pulse Resp BP Pulse Ox 36.7 C 57 L 16 147/73 H 98 12/16/18 09:00 12/16/18 11:25 12/16/18 09:00 12/16/18 09:00 12/16/18 09:00 Oxygen Flow Rate (L/min) 4 Oxygen Delivery Method Room Air Weight: 72.575 kg Body Mass Index (BMI) 24.3 Orthostatic Vital Signs Start: 12/15/18 12:10 Freq: q24h Status: Active Protocol: Activity Type Activity Date Activity User E-Sign Co-Sign Detail Recorded Client Recorded Date Recorded By Document 12/15/18 13:39 MLB [id number] 12/15/18 13:40 MLB Orthostatic Vitals Standing -Blood Pressure (90/60-120/80) 113/64 -Extremity Use Right Arm -Pulse Rate (60-100) 70 Sitting -Blood Pressure (90/60-120/80) 112/64 Intake and Output for Last 24 Hours Intake Total 1010 / 1010 1064 / 1064 Balance 1010 / 1010 1064 / 1064 Laboratory Tests Past 24 Hrs Troponin I 0.023 Discharge Diet: No Restrictions Discharge Activity: Return to Normal Activity Call your doctor if you observe: Fever of 101 or Higher, Shortness of breath, Fainting spells, Chest pain Home Medications: Medications to take at Discharge Aspirin [Aspirin, Baby] 81 mg PO DAILY@0800 12/15/18 Labetalol [Trandate (Beta Silvestre)] 100 mg PO DAILY 12/15/18 Simvastatin 40 mg PO QHS 12/15/18 Primary Care Physician: Tip Borden III, MD [Primary Care Provider] - Within 1 Week Patient Instructions: What Is Syncope?, Understanding Dizziness, Balance Problems, and Fainting, Possible Causes of Dizziness or Fainting Disposition: Home Minutes spent on discharge:: 32 Patient Condition:: Good Medical Necessity - Tobacco Use Smoking Status: Never smoker Meaningful Use Info Meaningful Use Diagnoses (Choose all that apply): None applicable Code Visit OBSV E AND M: [id number] Observation care discharge 12/16/18 1416 <Electronically signed by Eder Blackwell DO> Date Eder Blackwell DO Cosign Signature (if applicable): Date CC: Eder Blackwell DO; Tip Borden III, MD; Sofia Kincaid MD Signed DISCHARGE INSTRUCTION Observed: 12/16/2018 Status: F Source: [place] 2:11 PM [facility] Medical Records Department [address] [place] [address] Instructions for Home/Discharge Instructions 12/16/18 1410 MR#: [id number] Acct: [id number] Name: LELA SALCIDO Rep #: [id number] : 1940 78 From: Eder Blackwell DO PCP: Tip Borden III, MD Status: ADM MIKO - Discharge Diagnoses Current Active Problems: Current Active and Chronic Problems Syncope (Acute) Sinus bradycardia (Chronic) Diabetes mellitus type 2 (Chronic) CKD (chronic kidney disease), stage III (Chronic) Coronary artery disease (Chronic) History of coronary artery stent placement (Chronic) You will use the following diet at home:: No restrictions Your food should be the consistency of: Regular Your liquids should be the consistency of: Regular/Thin Discharge Activity: Return to Normal Activity Call your doctor if you observe: Fever of 101 or Higher, Shortness of breath, Fainting spells, Chest pain Instructions: What Is Syncope?, Understanding Dizziness, Balance Problems, and Fainting, Possible Causes of Dizziness or Fainting Allergies/Adverse Reactions: Allergies Penicillins Allergy (Verified 12/15/18 09:05) Unknown Medications to take at Discharge Aspirin [Aspirin, Baby] 81 mg PO DAILY@0800 12/15/18 Labetalol [Trandate (Beta Silvestre)] 100 mg PO DAILY 12/15/18 Simvastatin 40 mg PO QHS 12/15/18 Primary Care Physician: Tip Borden III, MD [Primary Care Provider] - Within 1 Week Test Results: Test results from this visit will be discussed in further detail at your follow-up appointment, if applicable. 12/16/18 1411 <Electronically signed by Eder Blackwell DO> Date Eder Blackwell DO CC: Tip Borden III, MD Signed EMERGENCY DEPARTMENT Observed: 12/15/2018 Status: F Source: [place] SUMMARY 4:16 PM [facility] Medical Records Department [address] [place] [address] Emergency Department Summary 12/15/18 1013 MR#: [id number] Acct: [id number] Name: LELA SALCIDO Rep #: [id number] : 1940 78 From: Aiden Burdick MD PCP: Tip Borden III, MD Status: ADM MIKO - ER Visit Summary Date of Service: 12/15/18 Chief Complaint: Syncope History of Present Illness: The patient is a 78 M presenting for evaluation secondary to syncope. Patient has a underlying history of coronary artery disease chronic kidney disease and hypertension. Patient states that he shoveled so this morning was actually doing quite well. He was standing in zoroastrian and had a unprovoked episode of syncope. Patient states that he suddenly started to feel foggy and lightheaded, and then his caught him as he passed out. He did not injure himself. He denies any pain currently. He denies any prodrome such as chest pain shortness of breath numbness weakness or visual changes. Patient states that he is on metoprolol for blood pressure control, and did not have any sort of changes in his medications or medication errors. He denies feeling ill recently. Review of systems otherwise negative. Physical Examination: Vital signs notable for heart rate of 48. Well-nourished male no acute distress. No conjunctival pallor. Moist mucous membranes. No JVD. Heart was bradycardic and regular. Lungs clear. Abdomen soft nontender no palpable abdominal masses or pulsatile mass. Extremities nontender nonedematous, peripheral pulses 2+ and symmetric. Skin normal color no rash. Patient was alert and oriented, NIH stroke scale was 0. Test Results: EKG demonstrates sinus bradycardia with a rate of [address] segments normal T waves. CBC shows mild anemia 11.4, chemistry shows chronic renal insufficiency creatinine 2.5 most recent we have in the system was 2.4, troponin negative chest x-ray shows some cardiomegaly Emergency Department Course and Treatment: Patient presented for evaluation secondary to a syncopal episode. Workup was negative as noted above. Patient is [place] syncope positive as he has bradycardia on EKG, coronary disease, and I am also concerned because this was an unprovoked event. I believe he requires admission for observation potential echocardiogram and cardiac consultation. I discussed this with hospitalist. Disposition: Admission Impression: 1. Syncope 2. Sinus bradycardia next line 3. History of coronary artery disease 4. Chronic kidney disease This note was generated with [employer] software. It may contain incorrect words, spelling, and punctuation that were not noted in review of the chart prior to signing ED Disposition - Plan for ED Patient: Chief Complaint: Syncope Referrals: Tip Borden III, MD [Primary Care Provider] - What to do if you have Problems For any increased pain, shortness of breath, bleeding, nausea or vomiting, chest pain, or any unexpected problems, contact your Primary Care Provider. Call [facility] ([phone]) or report to the closest Emergency Room. Call 911 if necessary. 12/15/18 1616 <Electronically signed by Aiden Burdick MD> Date Aiden Burdick MD Cosigner Signature (If Indicated): Date CC: Tip Borden III, MD TROPONIN-I Collected: 12/15/2018 Status: F Source: [place] 3:[place] PM [facility] [place] Order Comment: 'TROP' Serial specimen #1, #2 or #3: 3 TYPE CODE TESTS RESULT OUT OF RANGE REFERENCE UNITS LAB L501.4010 <0.045 ng/mL Normal 0.023 TROPONIN-I Result Comment: TROPONIN-I EXPECTED VALUES <0.045 Negative 0.045 - 0.590 Consistent with Cardiac Damage > OR = 0.600 Critical Value Not every elevated troponin is indicative of IL. These values should be used with clinical judgement in examining the patient's clinical picture for diagnosis. To establish a diagnosis of IL versus myocardial injury, there must be a demonstrated rise and/or fall in the troponin values, in addition to ischemic symptoms, EKG changes, new regional wall motion abnormality, and/or angiographical evidence. PLEASE NOTE: REFERENCE RANGES EDITED 18 Performed By: #### L501.4010 #### [facility] [address] [place], [address] TROPONIN-I Collected: 12/15/2018 Status: F Source: [place] 12:10 PM [facility] [place] Order Comment: 'TROP' Serial specimen #1, #2 or #3: 2 TYPE CODE TESTS RESULT OUT OF RANGE REFERENCE UNITS LAB L501.4010 <0.045 ng/mL Normal < 0.015 TROPONIN-I Result Comment: TROPONIN-I EXPECTED VALUES <0.045 Negative 0.045 - 0.590 Consistent with Cardiac Damage > OR = 0.600 Critical Value Not every elevated troponin is indicative of IL. These values should be used with clinical judgement in examining the patient's clinical picture for diagnosis. To establish a diagnosis of IL versus myocardial injury, there must be a demonstrated rise and/or fall in the troponin values, in addition to ischemic symptoms, EKG changes, new regional wall motion abnormality, and/or angiographical evidence. PLEASE NOTE: REFERENCE RANGES EDITED 18 Performed By: #### L501.4010 #### [facility] [address] [place], [address] HISTORY AND PHYSICAL Observed: 12/15/2018 Status: F Source: [place] EXAM 11:41 AM [facility] [place] [facility] Medical Records Department [address] [place] [id number] History and Physical 12/15/18 1030 MR#: [id number] Acct: [id number] Name: LELA SALCIDO Rep #: [id number] : 1940 78 From: Joseluis Hernandez MD PCP: Tip Borden III, MD Status: ADM MIKO Y Location: [place] [address] Problem List (1) Syncope Status: Acute (2) Sinus bradycardia Status: Chronic (3) Diabetes mellitus type 2 Status: Chronic (4) CKD (chronic kidney disease), stage III Status: Chronic (5) Coronary artery disease Status: Chronic (6) History of coronary artery stent placement Status: Chronic History of Present Illness Date of Admission: 12/15/18 Chief Complaint: Syncope for about 1 minute The patient is a 78 year old M with history of coronary artery disease history of coronary artery disease status post stents about 10 years ago, CKD stage III, hypertension, diabetes mellitus type 2 diet controlled was brought in by EMS for sudden syncope in the chart. Patient was in usual health before that. He stood up for a few minutes, then felt foggy/cloudiness and then suddenly passed out. His caught him therefore no injury/fall. He denies prodromal symptoms including dizzy, lightheadedness, missed heartbeat/chest pressure or shortness of breath passing out. As per his he was moderately pale. The patient did not had acute cardiac event probably last 10 years including ACS/IL. Denies history of peripheral arterial disease, stroke. EMS EKG shows sinus bradycardia, 45 bpm, NE interval 124 ms, QTC 452 ms. ER EKG shows sinus bradycardia at 45 bpm. EKG normal sinus rhythm at 68 bpm on June 2002. Basic workup was within normal limit except CKD with creatinine 2.5 which is baseline 2.43 on June,. Denies lower urinary tract symptoms, abdominal pain or change in bowel habits. [] Past Medical History Past Medical History (Chronic Problems): Chronic Problems Sinus bradycardia (Chronic) Diabetes mellitus type 2 (Chronic) CKD (chronic kidney disease), stage III (Chronic) Coronary artery disease (Chronic) History of coronary artery stent placement (Chronic) Allergies Penicillins Allergy (Verified 12/15/18 09:05) Unknown Home Medications: Ambulatory Orders Medication Instructions Recorded Aspirin [Aspirin, Baby] 81 mg PO DAILY@0800 12/15/18 Smoking Status: Never smoker - *Family History Paternal History Items: No pertinent history Review of Systems Constitutional: Denies: Chills, Fever, Weight Change HEENT: Denies: Head Aches, Sinus Congestion, Sinus Drainage Cardiovascular: Reports: Syncope. Denies: Chest Pain, Palpitations Respiratory: Denies: Cough, Shortness of breath at rest, Sputum production Gastrointestinal: Denies: Abdominal Pain, Nausea, Vomiting Genitourinary: Denies: Dysuria Musculoskeletal: Denies: Joint Pain, Joint Tenderness Skin: Denies: Rash, Wounds Neurological: Denies: Numbness, Tingling, Focal weakness Psychiatric: Denies: Anxiety, Depression, Homicidal Ideations, Suicidal Ideations Hematologic/ Lymphatic: Denies: Easy Bruising, Easy Bleeding VTE Information - Inpt Only VTE Present on Admission: No VTE Mechan Device Prophylaxis: None VTE Pharm Prophylaxis ordered?: Yes Patient Problems: Active and Suspected Problems Syncope (Acute) - Physical Exam General: Alert, Oriented x3, Cooperative HEENT: Atraumatic, PERRLA, EOMI, Normocephalic Oral: Dry Mucosa Neck: Supple, No JVD, Negative Carotid Bruits Lungs: Clear to auscultation, Normal air movement, No rhonchi, No wheeze, No rales Cardiovascular: Normal S1, Normal S2, No murmurs, Bradycardic Abdomen: Bowel Sounds Present, Soft, Non Tender, Non-Distended Extremities: No edema, Capillary Refill Less than 3 Seconds Skin: No rashes, No breakdown Musculoskeletal: No Tenderness to Palpation of Joints or Extremities, Arthritic Changes Neurological: Cranial nerves II-XII grossly intact, Deep Tendon Reflexes 2+/4 and Symmetrical, Neuro grossly intact, Motor Exam 5/5 strength throughout Psych/Mental Status: Normal Affect, Appropriate Vital Signs Temp Pulse Resp BP Pulse Ox 97.8 F 54 L 15 118/64 97 12/15/18 09:01 12/15/18 10:09 12/15/18 10:09 12/15/18 09:57 12/15/18 10:09 Oxygen Flow Rate (L/min) 4 Oxygen Delivery Method Room Air Weight: 160 lb Body Mass Index (BMI) 23.6 Laboratory Tests Past 24 Hrs Assessment/Plan All Active Problems Syncope (Acute) The patient is a 78 year old M with history of coronary artery disease history of coronary artery disease status post stents about 10 years ago, CKD stage III, hypertension, diabetes mellitus type 2 diet controlled was brought in by EMS for sudden syncope in the chart. Patient was in usual health before that. He stood up for a few minutes, then felt foggy/cloudiness and then suddenly passed out. His caught him therefore no injury/fall. He denies prodromal symptoms including dizzy, lightheadedness, missed heartbeat/chest pressure or shortness of breath passing out. As per his he was moderately pale. The patient did not had acute cardiac event probably last 10 years including ACS/IL. Denies history of peripheral arterial disease, stroke. No seizure-like movements. Denies recent flulike symptoms, fever. Denies lower urinary tract symptoms, abdominal pain or change in bowel habits. EMS EKG shows sinus bradycardia, 45 bpm, NE interval 124 ms, QTC 452 ms. ER EKG shows sinus bradycardia at 45 bpm. EKG normal sinus rhythm at 68 bpm on June 2002. Basic workup was within normal limit except CKD with creatinine 2.5 which is baseline 2.43 on June,. 1. Syncope and collapse, exact etiology unclear but possible cardiogenic due to sinus bradycardia/medication related: Patient is being admitted in PCU. Patient is on HCTZ and labetalol. Hold labetalol and HCTZ. Cardiac monitoring. Serial troponin enzymes. 2D echo ordered. Patient follows kiln packer Dr. Jaffe and he had echo about Ismael2017. Try to get medical record. Chest x-ray shows mild cardiomegaly. IV fluid normal saline 20 mils per hour 2. Coronary artery status post stents, hypertension: Denies chest pain/pressure or shortness of breath. Stable. Rest as above 3. Sinus bradycardia probably secondary to labetalol: Hold it. 4. Diabetes mellitus type 2, diet and exercise controlled: Glucose in BMP is 120. 5. CKD stage III: BUN/creatinine 55/2.5. Stable since June 2015, previous BUN/creatinine 43/2.43 BUN. Slightly elevated probably secondary to dehydration or HCTZ 6. DVT prophylaxis: On Lovenox 30 mg subcu daily adjusted to creatinine clearance. This note was generated with evly dictation software. Every effort was made to ensure accuracy, however computerized vegetable packer mistakes may persist. Code Visit OBSV E AND M: [id number] Initial observation care L3 12/15/18 1141 <Electronically signed by Joseluis Hernandez MD> Date Joseluis Hernandez MD Cosigner Signature: Date (if applicable) CC: Tip Borden III, MD; Joselusi Hernandez MD Signed CBC W/DIFF, AUTOMATED Collected: 12/15/2018 Status: F Source: [place] 9:30 AM [facility] [place] TYPE CODE TESTS RESULT OUT OF RANGE REFERENCE UNITS LAB L100.1000 4.4-11.0 K/mm3 Normal WBC 5.0 LAB L100.1200 4.6-6.2 M/mm3 Low RBC 3.56 LAB L100.1300 13.0-16.5 g/dl Low HGB 11.4 LAB L100.1400 40-54 % Low HCT 35.9 LAB L100.1500 80-94 fL High MCV 100.8 LAB L100.1600 27.0-32.0 pg Normal MCH 32.0 LAB L100.1700 32-36 g/gl Low MCHC 31.8 LAB L100.1810 11.6-14.6 % Normal RDW CV 14.0 LAB L100.1820 35.1-43.9 fl High RDW SD 52.2 LAB L100.1900 150-450 K/mm3 Normal PLT 154 LAB L100.2000 6.2-12.0 fl Normal MPV 9.6 LAB L100.2100 47-70 % High NEUT% 75.2 LAB L100.2200 19-41 % Low LY% 12.0 LAB L100.2300 0-10 % Normal MONO% 7.8 LAB L100.2400 0-5 % Normal EO% 4.4 LAB L100.2500 0-1 % Normal BASO% 0.4 LAB L100.2550 0.0-0.9 % Normal IM GRAN % 0.200 Result Comment: IG% - Immature Granulocytes (promyelocytes, myelocytes and metamyelocytes) > 1% indicates that a LEFT SHIFT is Present. LAB L100.2620 2.0-7.7 X10 3/uL Normal Absolute Neut 3.8 LAB L100.2720 0.83-4.51 X10 3/ul Low Absolute Lymph 0.60 LAB L100.4500 Normal SMEAR COMMENT SCANNED Performed By: #### L100.0100 #### [facility] [place], [address] BASIC METABOLIC Collected: 12/15/2018 Status: F Source: [place] PROFILE (BMP) 9:30 AM [facility] [place] TYPE CODE TESTS RESULT OUT OF RANGE REFERENCE UNITS LAB L501.0100 74-106 mg/dL High GLU 120 Result Comment: Fasting Glucose result from 100 to 125 mg/dL suggests IMPAIRED HOMEOSTASIS per A.D.A. criteria. Please note revised GLUCOSE reference range effective 2017. LAB L501.1000 7-18 mg/dL High BUN 55 LAB L501.1100 0.70-1.30 mg/dL High CREAT,SERUM 2.50 Result Comment: The validity of the calculated GFR AND GFRAA in patients over 70 years has not been determined. Clinical correlation is essential. LAB L501.1110 >60 mL/min Low EST GFR 27 Result Comment: Non- GFR Calc LAB L501.1115 >60 mL/min Low EST GFR - AA 32 Result Comment: GFR Calc LAB L501.1255 ml/min Normal Estimated CRCL 23.96 LAB L501.1300 10-20 RATIO High BUN/CRE 22.0 LAB L501.2200 8.5-10 mg/dL Low .1 CA 8.0 LAB L501.5300 136-14 mmol/L Normal 5 NA 141 LAB L501.5600 3.5-5. mmol/L Normal 1 K 4.4 LAB L501.5900 98-107 mmol/L High CL 111 LAB L501.6100 21.0-3 mmol/L Normal 2.0 CO2 22.0 LAB L501.6200 5-15 Normal GAP 8 Performed By: #### L500.2500, L501.4010 #### [facility] [address], [address] TROPONIN-I Collected: 12/15/2018 Status: F Source: [place] 9:30 AM [facility] [place] [place] TYPE CODE TESTS RESULT OUT OF RANGE REFERENCE UNITS LAB L501.4010 <0.045 ng/mL Normal < 0.015 TROPONIN-I Result Comment: TROPONIN-I EXPECTED VALUES <0.045 Negative 0.045 - 0.590 Consistent with Cardiac Damage > OR = 0.600 Critical Value Not every elevated troponin is indicative of IL. These values should be used with clinical judgement in examining the patient's clinical picture for diagnosis. To establish a diagnosis of IL versus myocardial injury, there must be a demonstrated rise and/or fall in the troponin values, in addition to ischemic symptoms, EKG changes, new regional wall motion abnormality, and/or angiographical evidence. PLEASE NOTE: REFERENCE RANGES EDITED 18 Performed By: #### L500.2500, L501.4010 #### [facility] [address] [place], [address] MAGNESIUM Collected: 12/15/2018 Status: F Source: [place] 9:30 AM [facility] [place] TYPE CODE TESTS RESULT OUT OF RANGE REFERENCE UNITS LAB L501.5200 1.6-2.6 mg/dL Normal MG 2.4 Performed By: #### L501.5200, L501.9520 #### [facility] [address] [place], [address] THYROID STIM HORMONE Collected: 12/15/2018 Status: F Source: [place] (TSH) 9:30 AM [facility] [place] TYPE CODE TESTS RESULT OUT OF RANGE REFERENCE UNITS LAB L501.9520 0.358-3.74 uIU/mL Normal TSH 1.34 Performed By: #### L501.5200, L501.9520 #### [facility] [address] [place], [address] CHEST 1 VIEW Observed: 12/15/2018 Status: F Source: [place] (PORTABLE) 9:27 AM [facility] [place] [facility] Imaging Services [address] [place] [address] Chest 1 View (Portable) MR#: [id number] Acct: [id number] Name: LELA SALCIDO Rep #: [id number] : 1940 M 78 From: Beatriz Ospina MD PCP: Tip Borden III, MD Status: REG ER Study: Chest 1 View (Portable) Date of Exam: 12/15/18 Exam# [id number] Ordering Dr: Aiden Burdick MD STUDY: X-RAY CHEST REASON FOR EXAM: Male, 78 years old. Chest pain with syncope today. TECHNIQUE: Single AP portable view of the chest. COMPARISON: July 23, 2015. FINDINGS: Cardiac monitoring leads are present. The lungs are clear and expanded. There is no demonstrated pleural abnormality. There is mild cardiac enlargement. Normal mediastinum and alex. Normal visualized pulmonary arteries. There is atherosclerotic tortuosity of the aortic arch and descending thoracic aorta. Normal visualized thoracic spine. Normal visualized ribs, clavicles, and shoulders. There is no demonstrated abnormality of the visualized soft tissue structures of the upper abdomen. RAD/Chest 1 View (Portable) IMPRESSION: Mild cardiomegaly. Electronically Signed: Beatriz Ospina MD at 9:53 EST , Service support , CC: Tip Borden III, MD; Aiden Burdick Visual Stylist: Signed EKG1 Observed: 11/04/2018 Status: F Source: [place] 2:11 PM [facility] REPOSITORY NAME : LELA SALCIDO PID : [id number] : 1940 Gender : Male Race : ORD : Procedure Date : Nov 04 2018 14:11:47 Edit Date : Nov 05 2018 16:28:48 Diagnosis:SINUS BRADYCARDIA OTHERWISE NORMAL ECG NO SIGNIFICANT CHANGE FROM PREVIOUS ECG Confirmed by SOFIA KINCAID MD ([id number]) on 11/05/2018 4:28:40 PM Ventricular Rate : 55 BPM Atrial Rate : 55 BPM P-R Interval : 170 ms QRS Duration : 98 ms Q-T Interval : 438 ms QTC Calculation(Bezet) : 419 ms P Pel[place] : 61 degrees R Pel[place] : 71 degrees T [place] : 42 degrees Test Reason : Location : 136 : [place] Overread By : SOFIA KINCAID MD Edited By : SOFIA KINCAID MD Referred By : SOFIA KINCAID Acquired by : DOTTIE HANCOCK Observed: 11/04/2018 Status: COMPLETED Source: [place] 2:00 PM [facility] REPOSITORY Nurse Visit (CAWSTR) OMARILELA ([id number]) 1940 M Date Time Provider Department 11/04/18 2:00 PM [facility] During your visit today, we recorded the following information about you: Galileo Song MA 11/05/2018 1:43 PM Signed EKG completed and given to Dr Kincaid for review. Galileo Song MA Referring Provider: SOFIA KINCAID [[id number]] Allergies As of Date: 11/04/2018 Noted Allergy Reaction AUGMENTIN (AMOXICILLIN-POT CLAVUL*07/26/2015 16 - Unknown Comments: Pt had fever Date Reviewed: 11/04/2018 Reviewed by: Galileo Song MA - Fully Assessed Reason for Visit: Allied Health Visit [5] Visit Diagnoses:ASHD (arteriosclerotic heart disease) [I25.10] Hypertension, essential [I10] Prescriptions as of 11/04/2018 Sig: * ASPIRIN 81 MG TABLET,DELAYED * Take one(1) tablet daily, occ* BLOOD SUGAR DIAGNOSTIC STRIPS Use as instructed once daily HYDROCHLOROTHIAZIDE 12.5 MG C* Take 1 capsule by mouth once * LABETALOL 100 MG TABLET Take 1 tablet by mouth twice * SIMVASTATIN 40 MG TABLET TAKE 1 TABLET AT BEDTIME TAMSULOSIN 0.4 MG CAPSULE Take 1 capsule by mouth daily* Problem List As Of Date 11/04/2018 Noted Resolved Unspecified hemorrhoids without mention of comp* 12/25/2014 BENIGN HYPERTENSION [I10] Hyperlipidemia LDL goal <100 [E78.5] INVALID FOR* Disorders of bursae and tendons in shoulder reg*INVALID FOR*12/25/2014 Type 2 diabetes mellitus with stage 3 chronic k*INVALID FOR* Coronary atherosclerosis [I25.10] INVALID FOR* Cyst of epididymis [N50.3] INVALID FOR*05/07/2017 Cancer of skin of neck [C44.40] INVALID FOR* Atherosclerosis of coronary artery of [place] he*INVALID FOR* Hyperkalemia [E87.5] INVALID FOR*05/07/2017 Benign non-nodular prostatic hyperplasia with l*INVALID FOR* Visit Notes: >> Galileo Gonzalezershot STEPHANIE Phani Nov 05, 2018 1:42 PM Status: Signed EKG completed and given to Dr Kinciad for review. Galileo Song MA Encounter Status:Closed by NOHEMI STEPHANIEGALILEO on 11/05/18 CNOV Observed: 11/04/2018 Status: COMPLETED Source: [place] 1:30 PM [facility] REPOSITORY Office Visit (CAWSTR) OMARILELA Navarrete ([id number]) 1940 M Date Time Provider Department 11/04/18 1:30 PM SOFIA KINCAID CAWSTR During your visit today, we recorded the following information about you: Pulse Blood pressure Weight Height 62/minute 123/71 74.2 kg 1.702 m Sofia Kincaid MD 11/04/2018 4:37 PM Signed PERTINENT CARDIAC HISTORY ASHD - PCI Cx/RCA 2007 HTN HL DM CRF ADHERENCE TO GUIDELINES YULIYA-I or ARB for HF with prior LVEF<40 (NQF 0081) - CRF ASA or Plavix for ASHD (NQF 0067) - met Beta silvestre for ASHD with prior IL or prior LVEF<40 (NQF 0070) - N/A Beta silvestre for HF with prior LVEF<40 (NQF 0083) - N/A YULIYA-I or ARB for ASHD with DM or prior LVEF<40 (NQF 0066) - CRF Statin therapy for ASHD or FHL or DM - met BMI documented and plan if >25 (NQF 0421) - lifestyle recommendation form Tobacco use screening and referral (NQF 0028) - lifestyle recommendation form Recommendation for whole food, plant based diet - lifestyle recommendation form CLINICAL IMPRESSION/PLAN: Lela Navarrete Omari is doing well. His coronary disease is stable. Blood pressure is well-controlled. I recommend he continue his current medication. If there is increased chest pain or shortness of breath or if he develops exercise intolerance, he has been advised to contact me. I recommend he be seen in 12 months or as needed. Written and verbal health teaching given to patient, patient verbalizes understanding and agrees with treatment plan. DIAGNOSIS FOR VISIT: ASHD HISTORY OF PRESENT ILLNESS Lela Salcido returns for follow-up of his coronary disease and hypertension. He reports stable exercise tolerance. He's had no chest discomfort. He denies orthopnea, edema, syncope, palpitations, TIAs, amaurosis and claudication. ALLERGIES: ALLERGIES Allergen Reactions - Augmentin [Amoxicil* Unknown Pt had fever CURRENT OUTPATIENT MEDICATIONS: tamsulosin ER (FLOMAX) 0.4 mg cap Take 1 capsule by mouth daily at bedtime. simvastatin (ZOCOR) 40 mg tablet TAKE 1 TABLET AT BEDTIME Hydrochlorothiazide 12.5 mg capsule Take 1 capsule by mouth once daily. labetalol (TRANDATE) 100 mg tablet Take 1 tablet by mouth twice daily. blood sugar diagnostic (FREESTYLE TEST) test strip Use as instructed once daily aspirin, enteric coated (ADULT LOW DOSE ASPIRIN) 81 mg ORAL EC tablet Take one(1) tablet daily, occasional takes 2 tabs daily. PHYSICAL EXAMINATION: VITAL SIGNS: BP 123/71 Pulse 62 Ht 5' 7 (1.70m) Wt 163 lb 9.6 oz (74.2kg) BMI 25.62 kg/(m2). Chest: Clear to auscultation. Trachea is midline. Air entry is equal. Cardiac: Regular rhythm. S1 and S2 are normal. PMI is nondisplaced. There are no murmurs, rubs or gallops. Carotids are brisk without bruits. JVP is less than 10 cm. Abdomen: Soft and nontender. There are no pulsatile masses or bruits. No liver enlargement. Bowel sounds are active. Extremities: No edema. Pulses are intact and symmetrical. Recent labs were reviewed. Renal function is stable, but moderately impaired. LDL was 48. EKG shows sinus bradycardia and is otherwise within normal limits and unchanged. Electronically Signed: Sofia Kincaid MD November 04, 2018 1:27 PM CC: CLIVE Scanlon MD, MD 11/04/2018 1:28 PM Signed LIFESTYLE CHANGE A healthy lifestyle is the most important component of your overall treatment plan. Please give serious thought to the following areas and commit to making mcc changes. EAT A WHOLE FOOD, PLANT BASED DIET The nutrition your body gets is more important than the medicine you take. What matters most is the overall way you eat. We encourage you to minimize the use of animal products (which include dairy and all meats except fatty fish) and use whole, unprocessed plant foods to provide your protein, vitamins and other nutrients. We have a lot of information to share with you on this topic. This is not a diet. It is a way of life that you will keep with you. EXERCISE REGULARLY It is not important to spend hours in the gym, lifting weights and perspiring heavily. A total of 2-3 hours per week of aerobic (causing you to be moderately short of breath) exercise is sufficient to improve your health. Talk to us before you begin a new exercise program, if you have heart disease or experience shortness of breath or chest pain. REDUCE STRESS Chronic emotional and physical stress leads to disease. Ways of reducing stress include meditation, visualization, prayer, yoga and other forms of relaxation therapy. Consistency is the kemp. Find a technique that works for you and do it every day. CULTIVATE RELATIONSHIPS Loneliness and isolation have a major negative impact on health. Seek out others who can love, care for and nurture you. Avoid hurtful relationships. MAINTAIN IDEAL BODY WEIGHT The best way to do this is to do all the things above. Our bodies naturally find the right weight if we keep moving and feed ourselves the right food. If your BMI is greater than 25, we strongly recommend a referral to a weight management program. Please speak to us or your family physician about available programs. AVOID NICOTINE IN ALL FORMS This includes all tobacco products, whether chewed, smoked, vaped, or rubbed on the skin. Smoking cessation programs, which can make use of tobacco substitutes, medications to suppress cravings and behavior management, are available. Please contact your family physician about programs in your area. Referring Provider: SOFIA KINCAID [[id number]] Allergies As of Date: 11/04/2018 Noted Allergy Reaction AUGMENTIN (AMOXICILLIN-POT CLAVUL*07/26/2015 16 - Unknown Comments: Pt had fever Date Reviewed: 11/04/2018 Reviewed by: Galileo Song MA - Fully Assessed Reason for Visit: Established Patient [175] Primary Visit Diagnosis:ASHD (arteriosclerotic heart disease) [I25.10] Other Visit Diagnosis:Hypertension, essential [I10] Order(s):ECG COMPLETE W INTERPRETATION [ECG01] Order #: [id number] FUTURE Prescriptions as of 11/04/2018 Sig: TAMSULOSIN 0.4 MG CAPSULE Take 1 capsule by mouth daily* SIMVASTATIN 40 MG TABLET TAKE 1 TABLET AT BEDTIME HYDROCHLOROTHIAZIDE 12.5 MG C* Take 1 capsule by mouth once * LABETALOL 100 MG TABLET Take 1 tablet by mouth twice * BLOOD SUGAR DIAGNOSTIC STRIPS Use as instructed once daily * ASPIRIN 81 MG TABLET,DELAYED * Take one(1) tablet daily, occ* Problem List As Of Date 11/04/2018 Noted Resolved Unspecified hemorrhoids without mention of comp* 12/25/2014 BENIGN HYPERTENSION [I10] Hyperlipidemia LDL goal <100 [E78.5] INVALID FOR* Disorders of bursae and tendons in shoulder reg*INVALID FOR*12/25/2014 Type 2 diabetes mellitus with stage 3 chronic k*INVALID FOR* Coronary atherosclerosis [I25.10] INVALID FOR* Cyst of epididymis [N50.3] INVALID FOR*05/07/2017 Cancer of skin of neck [C44.40] INVALID FOR* Atherosclerosis of coronary artery of [place] he*INVALID FOR* Hyperkalemia [E87.5] INVALID FOR*05/07/2017 Benign non-nodular prostatic hyperplasia with l*INVALID FOR* Other instructions from your clinician: LIFESTYLE CHANGE A healthy lifestyle is the most important component of your overall treatment plan. Please give serious thought to the following areas and commit to making shipping and receiving changes. EAT A WHOLE FOOD, PLANT BASED DIET The nutrition your body gets is more important than the medicine you take. What matters most is the overall way you eat. We encourage you to minimize the use of animal products (which include dairy and all meats except fatty fish) and use whole, unprocessed plant foods to provide your protein, vitamins and other nutrients. We have a lot of information to share with you on this topic. This is not a diet. It is a way of life that you will keep with you. EXERCISE REGULARLY It is not important to spend hours in the gym, lifting weights and perspiring heavily. A total of 2-3 hours per week of aerobic (causing you to be moderately short of breath) exercise is sufficient to improve your health. Talk to us before you begin a new exercise program, if you have heart disease or experience shortness of breath or chest pain. REDUCE STRESS Chronic emotional and physical stress leads to disease. Ways of reducing stress include meditation, visualization, prayer, yoga and other forms of relaxation therapy. Consistency is the kemp. Find a technique that works for you and do it every day. CULTIVATE RELATIONSHIPS Loneliness and isolation have a major negative impact on health. Seek out others who can love, care for and nurture you. Avoid hurtful relationships. MAINTAIN IDEAL BODY WEIGHT The best way to do this is to do all the things above. Our bodies naturally find the right weight if we keep moving and feed ourselves the right food. If your BMI is greater than 25, we strongly recommend a referral to a weight management program. Please speak to us or your family physician about available programs. AVOID NICOTINE IN ALL FORMS This includes all tobacco products, whether chewed, smoked, vaped, or rubbed on the skin. Smoking cessation programs, which can make use of tobacco substitutes, medications to suppress cravings and behavior management, are available. Please contact your family physician about programs in your area. Encounter Status:Closed by SOFIA KINCAID MD on 11/04/18 PROGRESS Observed: 11/04/2018 Status: COMPLETED Source: [place] 1:27 PM [facility] REPOSITORY [facility] ID: [id number] Author: Sofia Kincaid Service: (none) Author Type: Physician Type: Progress Notes Filed: 11/04/2018 4:37 PM Note Text: PERTINENT CARDIAC HISTORY ASHD - PCI Cx/RCA 2007 HTN HL DM CRF ADHERENCE TO GUIDELINES YULIYA-I or ARB for HF with prior LVEF<40 (NQF 0081) - CRF ASA or Plavix for ASHD (NQF 0067) - met Beta silvestre for ASHD with prior IL or prior LVEF<40 (NQF 0070) - N/A Beta silvestre for HF with prior LVEF<40 (NQF 0083) - N/A YULIYA-I or ARB for ASHD with DM or prior LVEF<40 (NQF 0066) - CRF Statin therapy for ASHD or FHL or DM - met BMI documented and plan if >25 (NQF 0421) - lifestyle recommendation form Tobacco use screening and referral (NQF 0028) - lifestyle recommendation form Recommendation for whole food, plant based diet - lifestyle recommendation form CLINICAL IMPRESSION/PLAN: Lela Salcido is doing well. His coronary disease is stable. Blood pressure is well-controlled. I recommend he continue his current medication. If there is increased chest pain or shortness of breath or if he develops exercise intolerance, he has been advised to contact me. I recommend he be seen in 12 months or as needed. Written and verbal health teaching given to patient, patient verbalizes understanding and agrees with treatment plan. DIAGNOSIS FOR VISIT: ASHD HISTORY OF PRESENT ILLNESS Lela Salcido returns for follow-up of his coronary disease and hypertension. He reports stable exercise tolerance. He's had no chest discomfort. He denies orthopnea, edema, syncope, palpitations, TIAs, amaurosis and claudication. ALLERGIES: ALLERGIES Allergen Reactions - Augmentin [Amoxicil* Unknown Pt had fever CURRENT OUTPATIENT MEDICATIONS: tamsulosin ER (FLOMAX) 0.4 mg cap Take 1 capsule by mouth daily at bedtime. simvastatin (ZOCOR) 40 mg tablet TAKE 1 TABLET AT BEDTIME Hydrochlorothiazide 12.5 mg capsule Take 1 capsule by mouth once daily. labetalol (TRANDATE) 100 mg tablet Take 1 tablet by mouth twice daily. blood sugar diagnostic (FREESTYLE TEST) test strip Use as instructed once daily aspirin, enteric coated (ADULT LOW DOSE ASPIRIN) 81 mg ORAL EC tablet Take one(1) tablet daily, occasional takes 2 tabs daily. PHYSICAL EXAMINATION: VITAL SIGNS: BP 123/71 Pulse 62 Ht 5' 7 (1.70m) Wt 163 lb 9.6 oz (74.2kg) BMI 25.62 kg/(m2). Chest: Clear to auscultation. Trachea is midline. Air entry is equal. Cardiac: Regular rhythm. S1 and S2 are normal. PMI is nondisplaced. There are no murmurs, rubs or gallops. Carotids are brisk without bruits. JVP is less than 10 cm. Abdomen: Soft and nontender. There are no pulsatile masses or bruits. No liver enlargement. Bowel sounds are active. Extremities: No edema. Pulses are intact and symmetrical. Recent labs were reviewed. Renal function is stable, but moderately impaired. LDL was 48. EKG shows sinus bradycardia and is otherwise within normal limits and unchanged. Electronically Signed: Sofia Kincaid MD November 04, 2018 1:27 PM CC: Tip Borden III MD FECAL OCCULT BLD Collected: 10/26/2018 Status: F Source: [facility] 7:00 AM [facility] REPOSITORY TYPE CODE TESTS RESULT OUT OF REFERENCE UNITS RANGE LAB IFO Negative Immuno Negative FOB Result Comment: This test was developed and its performance characteristics determined by [facility]'s [facility] [place] ([facility]). It has not been cleared or approved by the FDA. [facility] is regulated under CLIA as qualified to perform high-complexity testing. This test is used for clinical purposes. It should not be regarded as investigational or for research. Performed By: #### IFOBT #### [facility] [address] [place], [place] [address] CNOV Observed: 10/23/2018 Status: COMPLETED Source: [place] 3:20 PM [facility] REPOSITORY Office Visit (FAMPWS) LELA SALCIDO ([id number]) 1940 M Date Time Provider Department 10/23/18 3:20 PM [facility]ORD[facility] III [facility] During your visit today, we recorded the following information about you: Pulse Respiration Blood pressure Weight 52/minute 16/minute 139/72 72.6 kg Tip Borden III MD 10/23/2018 3:17 PM Signed SUBJECTIVE: This is a 78 year old male that is here today for Chronic Medical Conditions. 1. diabetes mellitus--very disciplined diet. Still walking daily 2. hypertension. no chest pain, angina, QUIROZ PAST MEDICAL HISTORY Diagnosis Date - Benign non-nodular prostatic hyperplasia with lower urinary tract symptoms 07/19/2016 - Cyst of epididymis 06/23/2015 - Diverticulosis of colon (without mention of hemorrhage) Diverticulosis - Essential hypertension, benign - Hyperlipidemia LDL goal <100 11/10/2005 - Mild renal insufficiency 06/29/2014 - Other and unspecified hyperlipidemia - Type 2 diabetes mellitus with stage 3 chronic kidney disease (HCC) 11/10/2005 - Type II or unspecified type diabetes mellitus without mention of complication, not stated as uncontrolled - Unspecified hemorrhoids without mention of complication Hemorrhoids Current Outpatient Prescriptions on File Prior to Visit: simvastatin (ZOCOR) 40 mg tablet TAKE 1 TABLET AT BEDTIME Hydrochlorothiazide 12.5 mg capsule Take 1 capsule by mouth once daily. labetalol (TRANDATE) 100 mg tablet Take 1 tablet by mouth twice daily. tamsulosin ER (FLOMAX) 0.4 mg cp24 Take 1 capsule by mouth daily at bedtime. blood sugar diagnostic (FREESTYLE TEST) test strip Use as instructed once daily aspirin, enteric coated (ADULT LOW DOSE ASPIRIN) 81 mg ORAL EC tablet Take one(1) tablet daily, occasional takes 2 tabs daily. No current facility-administered medications on file prior to visit. FAMILY HISTORY Problem Relation Age of Onset - Diabetes Mother - Heart Mother - Heart Father - Hypertension Mother - Heart Brother coronary stent - Prostate Cancer Father - Prostate Cancer Brother - other (diabetes mellitus [Other]) Daughter Social History Substance Use Topics - Smoking status: Never Smoker - Smokeless tobacco: Former User Types: Chew - Alcohol use Yes Comment: occasionally BP 139/72 (BP Site: Left Arm, BP Position: Sitting, BP Cuff Size: Regular Adult) Pulse (!) 52 Resp 16 Wt 72.6 kg (160 lb) BMI 25.06 kg/m? OBJECTIVE: APPEARANCE Well appearing, alert, in no acute distress, well- hydrated, well nourished. Lab Results for LELA SALCIDO ( ) as of 10/23/2018 15:10 Ref. Range 10/12/2018 07:45 Hemoglobin A1C Latest Ref Range: 4.3 - 5.6 % 5.7 (H) Estimated Average Glucose Latest Units: mg/dL 117 ASSESSMENT: diabetes mellitus II--at goal hypertension--at goal PLAN: healthy diabetic diet and regular exercise same medications stool for colon cancer screening CLIVE Scanlon MD, III MD 10/23/2018 3:15 PM Signed PLAN: healthy diabetic diet and regular exercise same medications stool for colon cancer screening Tip Borden III MD Referring Provider: TIP BORDEN III [[id number]] Allergies As of Date: 10/23/2018 Noted Allergy Reaction AUGMENTIN (AMOXICILLIN-POT CLAVUL*07/26/2015 16 - Unknown Comments: Pt had fever Date Reviewed: 10/23/2018 Reviewed by: Jailene Esquivel - Fully Assessed Reason for Visit: Recheck [92] Cmt: 6 month Primary Visit Diagnosis:Type 2 diabetes mellitus with stage 3 chronic kidney disease, without long-term current use of insulin (HCC) [E11.22, N18.3] Other Visit Diagnoses:Essential hypertension, benign [I10] Hyperlipidemia LDL goal <100 [E78.5] Benign non-nodular prostatic hyperplasia with lower urinary tract symptoms [N40.1] Screening for colon cancer [Z12.11] Order(s):tamsulosin ER (FLOMAX) 0.4 mg capTake 1 capsule by mouth daily at bedtime.Disp: 30 capsuleRfl: 11 FECAL OCCULT BLOOD TEST [SQIFOBT] Order #: [id number] FUTURE Prescriptions as of 10/23/2018 Sig: TAMSULOSIN 0.4 MG CAPSULE Take 1 capsule by mouth daily* SIMVASTATIN 40 MG TABLET TAKE 1 TABLET AT BEDTIME HYDROCHLOROTHIAZIDE 12.5 MG C* Take 1 capsule by mouth once * LABETALOL 100 MG TABLET Take 1 tablet by mouth twice * BLOOD SUGAR DIAGNOSTIC STRIPS Use as instructed once daily * ASPIRIN 81 MG TABLET,DELAYED * Take one(1) tablet daily, occ* Problem List As Of Date 10/23/2018 Noted Resolved Unspecified hemorrhoids without mention of comp* 12/25/2014 BENIGN HYPERTENSION [I10] Priority: Moderate Hyperlipidemia LDL goal <100 [E78.5] INVALID FOR* Priority: Moderate Disorders of bursae and tendons in shoulder reg*INVALID FOR*12/25/2014 Type 2 diabetes mellitus with stage 3 chronic k*INVALID FOR* Priority: Moderate Coronary atherosclerosis [I25.10] INVALID FOR* Priority: Severe Cyst of epididymis [N50.3] INVALID FOR*05/07/2017 Cancer of skin of neck [C44.40] INVALID FOR* Atherosclerosis of coronary artery of [place] he*INVALID FOR* Hyperkalemia [E87.5] INVALID FOR*05/07/2017 Benign non-nodular prostatic hyperplasia with l*INVALID FOR* Other instructions from your clinician: PLAN: healthy diabetic diet and regular exercise same medications stool for colon cancer screening Tip Borden III MD Prescriptions ordered this encounter Disp Refills Start End TAMSULOSIN 0.4 MG CAPSULE 30 c* 11 10/23/2018 Route: ORAL Sig: Take 1 capsule by mouth daily at bedtime. Medications Discontinued During This Encounter tamsulosin ER (FLOMAX) 0.4 mg cp24 30 c* 11 01/21/2018 10/23/2018 Sig: Take 1 capsule by mouth daily at bedtime. Disc: Reason for discontinue is not on file. Encounter Status:Closed by TIP BORDEN III, MD on 10/23/18 PROGRESS Observed: 10/23/2018 Status: COMPLETED Source: [place] 3:08 PM [facility] REPOSITORY [facility] ID: [id number] Author: Tip Borden III Service: (none) Author Type: Physician Type: Progress Notes Filed: 10/23/2018 3:17 PM Note Text: SUBJECTIVE: This is a 78 year old male that is here today for Chronic Medical Conditions. 1. diabetes mellitus--very disciplined diet. Still walking daily 2. hypertension. no chest pain, angina, QUIROZ PAST MEDICAL HISTORY Diagnosis Date - Benign non-nodular prostatic hyperplasia with lower urinary tract symptoms 07/19/2016 - Cyst of epididymis 06/23/2015 - Diverticulosis of colon (without mention of hemorrhage) Diverticulosis - Essential hypertension, benign - Hyperlipidemia LDL goal <100 11/10/2005 - Mild renal insufficiency 06/29/2014 - Other and unspecified hyperlipidemia - Type 2 diabetes mellitus with stage 3 chronic kidney disease (HCC) 11/10/2005 - Type II or unspecified type diabetes mellitus without mention of complication, not stated as uncontrolled - Unspecified hemorrhoids without mention of complication Hemorrhoids Current Outpatient Prescriptions on File Prior to Visit: simvastatin (ZOCOR) 40 mg tablet TAKE 1 TABLET AT BEDTIME Hydrochlorothiazide 12.5 mg capsule Take 1 capsule by mouth once daily. labetalol (TRANDATE) 100 mg tablet Take 1 tablet by mouth twice daily. tamsulosin ER (FLOMAX) 0.4 mg cp24 Take 1 capsule by mouth daily at bedtime. blood sugar diagnostic (FREESTYLE TEST) test strip Use as instructed once daily aspirin, enteric coated (ADULT LOW DOSE ASPIRIN) 81 mg ORAL EC tablet Take one(1) tablet daily, occasional takes 2 tabs daily. No current facility-administered medications on file prior to visit. FAMILY HISTORY Problem Relation Age of Onset - Diabetes Mother - Heart Mother - Heart Father - Hypertension Mother - Heart Brother coronary stent - Prostate Cancer Father - Prostate Cancer Brother - other (diabetes mellitus [Other]) Daughter Social History Substance Use Topics - Smoking status: Never Smoker - Smokeless tobacco: Former User Types: Chew - Alcohol use Yes Comment: occasionally BP 139/72 (BP Site: Left Arm, BP Position: Sitting, BP Cuff Size: Regular Adult) Pulse (!) 52 Resp 16 Wt 72.6 kg (160 lb) BMI 25.06 kg/m? OBJECTIVE: APPEARANCE Well appearing, alert, in no acute distress, well-hydrated, well nourished. Lab Results for LELA SALCIDO ( ) as of 10/23/2018 15:10 Ref. Range 10/12/2018 07:45 Hemoglobin A1C Latest Ref Range: 4.3 - 5.6 % 5.7 (H) Estimated Average Glucose Latest Units: mg/dL 117 ASSESSMENT: diabetes mellitus II--at goal hypertension--at goal PLAN: healthy diabetic diet and regular exercise same medications stool for colon cancer screening Tip Borden III HEMOGLOBIN A1C Collected: 10/12/2018 Status: F Source: [place] 7:45 AM [facility] REPOSITORY TYPE CODE TESTS RESULT OUT OF REFERENCE UNITS RANGE LAB HGBA1C 4.3-5.6 % High Hemoglobin A1c 5.7 Result Comment: [place] [employer] guidelines indicate that patients with HgbA1c in the range 5.7-6.4% are at increased risk for development of diabetes, and intervention by lifestyle modification may be beneficial. HgbA1c greater or equal to 6.5% is considered diagnostic of diabetes. LAB HBA0 mg/dL Est. Average Glucose 117 Result Comment: eAG: (Estimated average glucose) is a calculated value from HgbA1c and is appliance service representative of the average blood glucose level in the last 2-3 month period. Performed By: #### HBA1C #### [facility] [address] [place] [id number] CNPTOUTREACH Observed: 10/08/2018 Status: COMPLETED Source: [place] 12:00 AM [facility] REPOSITORY Patient Outreach (FAMPST) OMARILELA Rosalba ([id number]) 1940 M Date Time Provider Department 10/08/18 TIP BORDEN III During your visit today, we recorded the following information about you: Allergies As of Date: 10/08/2018 Noted Allergy Reaction AUGMENTIN (AMOXICILLIN-POT CLAVUL*07/26/2015 16 - Unknown Comments: Pt had fever Date Reviewed: 04/15/2018 Reviewed by: Monica ([facility]) STEPHANIE Lake - Fully Assessed Visit Diagnosis:Medication management [Z79.899] Order(s):HGB A1C [[id number]] Order #: [id number] FUTURE Prescriptions as of 10/08/2018 Sig: * ASPIRIN 81 MG TABLET,DELAYED * Take one(1) tablet daily, occ* BLOOD SUGAR DIAGNOSTIC STRIPS Use as instructed once daily HYDROCHLOROTHIAZIDE 12.5 MG C* Take 1 capsule by mouth once * LABETALOL 100 MG TABLET Take 1 tablet by mouth twice * SIMVASTATIN 40 MG TABLET TAKE 1 TABLET AT BEDTIME X TAMSULOSIN 0.4 MG CAPSULE Take 1 capsule by mouth daily* Problem List As Of Date 10/08/2018 Noted Resolved Unspecified hemorrhoids without mention of comp* 12/25/2014 BENIGN HYPERTENSION [I10] Hyperlipidemia LDL goal <100 [E78.5] INVALID FOR* Disorders of bursae and tendons in shoulder reg*INVALID FOR*12/25/2014 Type 2 diabetes mellitus with stage 3 chronic k*INVALID FOR* Coronary atherosclerosis [I25.10] INVALID FOR* Cyst of epididymis [N50.3] INVALID FOR*05/07/2017 Cancer of skin of neck [C44.40] INVALID FOR* Atherosclerosis of coronary artery of [place] he*INVALID FOR* Hyperkalemia [E87.5] INVALID FOR*05/07/2017 Benign non-nodular prostatic hyperplasia with l*INVALID FOR* Encounter Status:Closed by ZULEIKA JONES on 11/08/18 CNNURSE Observed: 08/22/2018 Status: COMPLETED Source: [place] 2:15 PM [facility] REPOSITORY Nurse Visit (FAMPWS) OMARILELA Navarrete ([id number]) 1940 M Date Time Provider Department 08/22/18 2:15 PM [place] NURSE ARISTEO During your visit today, we recorded the following information about you: Temperature 97.8 degrees Bob Escobar RESOLUTION EXPERT 08/22/2018 1:40 PM Signed 78 year old male here for INACTIVATED INFLUENZA VACCINE. 2721-3260 Season Patient is identified by name and date of : Yes [] CONTRAINDICATIONS color enhanced section Age less than 6 months? No Allergy to eggs, chicken, chicken feathers, or chicken dander? No Allergy to thimerosal (a preservative) or formaldehyde, gelatin? No History of severe reaction to any vaccine component or a previous dose of influenza vaccination? No History of Guillain-Claverack Syndrome within 6 weeks after a previous influenza vaccine? No Patient is not moderately or severely ill? No Current temperature greater or equal to 100.4F? No History of Bone Marrow Transplant prior 6 months or solid organ transplant in the past 3 months ? No History of fainting after a prior injection or medical procedure? No- ? If patient has fainted in the past, the CDC recommends sitting or lying down for 15 minutes after the vaccination. [] VERIFICATION color enhanced section Was the answer Yes for any of the above contraindications? No contraindications present. Acceptable to proceed with vaccine. Patient/guardian agrees the above answers are true to the best of their knowledge? Yes Flu vaccine information sheet given? Yes See immunization activity in [facility] for details of immunizations adminstered today. Patient age: [age] year old For The 1795-1526 Flu Season 6-35 months old: Fluzone 0.25 ml - IM (Preservative Free) 3 years of age: Fluzone 0.5 ml - IM (Preservative Free) 3 years and older: Fluzone 0.5 ml- IM-(with Preservatives) 65+ years old: 2-49 years old Fluzone High-Dose 0.5 ml - IM (Preservative Free) FLUMIST- intranasal REMEMBER: If patient is less than 9 years of age and this is the first vaccine of Influenza to be received in any flu season, they should receive a second dose in one months time. Referring Provider: TIP BORDEN III [[id number]] Allergies As of Date: 08/22/2018 Noted Allergy Reaction AUGMENTIN (AMOXICILLIN-POT CLAVUL*07/26/2015 16 - Unknown Comments: Pt had fever Date Reviewed: 04/15/2018 Reviewed by: Monica ([facility]) STEPHANIE Lake - Fully Assessed Reason for Visit: Imm/Inj [58] Cmt: Flu Vaccine Primary Visit Diagnosis:Need for vaccination [Z23] Order(s):INFLUENZA SEASONAL HIGH DOSE AGE 65+ [[id number]] Order #: [id number] Prescriptions as of 08/22/2018 Sig: SIMVASTATIN 40 MG TABLET TAKE 1 TABLET AT BEDTIME HYDROCHLOROTHIAZIDE 12.5 MG C* Take 1 capsule by mouth once * LABETALOL 100 MG TABLET Take 1 tablet by mouth twice * TAMSULOSIN 0.4 MG CAPSULE Take 1 capsule by mouth daily* BLOOD SUGAR DIAGNOSTIC STRIPS Use as instructed once daily * ASPIRIN 81 MG TABLET,DELAYED * Take one(1) tablet daily, occ* Problem List As Of Date 08/22/2018 Noted Resolved Unspecified hemorrhoids without mention of comp* 12/25/2014 BENIGN HYPERTENSION [I10] Priority: Moderate Hyperlipidemia LDL goal <100 [E78.5] INVALID FOR* Priority: Moderate Disorders of bursae and tendons in shoulder reg*INVALID FOR*12/25/2014 Type 2 diabetes mellitus with stage 3 chronic k*INVALID FOR* Priority: Moderate Coronary atherosclerosis [I25.10] INVALID FOR* Priority: Severe Cyst of epididymis [N50.3] INVALID FOR*05/07/2017 Cancer of skin of neck [C44.40] INVALID FOR* Atherosclerosis of coronary artery of [place] he*INVALID FOR* Hyperkalemia [E87.5] INVALID FOR*05/07/2017 Benign non-nodular prostatic hyperplasia with l*INVALID FOR* Encounter Status:Closed by BOB ESCOBAR LPN on 08/22/18 PROGRESS Observed: 08/22/2018 Status: COMPLETED Source: [place] 1:39 PM [facility] REPOSITORY [facility] ID: [id number] Author: Bob Escobar LPN Service: (none) Author Type: (none) Type: Progress Notes Filed: 08/22/2018 1:40 PM Note Text: 78 year old male here for INACTIVATED INFLUENZA VACCINE. 8715-1038 Season Patient is identified by name and date of : Yes [] CONTRAINDICATIONS color enhanced section Age less than 6 months? No Allergy to eggs, chicken, chicken feathers, or chicken dander? No Allergy to thimerosal (a preservative) or formaldehyde, gelatin? No History of severe reaction to any vaccine component or a previous dose of influenza vaccination? No History of Guillain-Claverack Syndrome within 6 weeks after a previous influenza vaccine? No Patient is not moderately or severely ill? No Current temperature greater or equal to 100.4F? No History of Bone Marrow Transplant prior 6 months or solid organ transplant in the past 3 months ? No History of fainting after a prior injection or medical procedure? No- ? If patient has fainted in the past, the CDC recommends sitting or lying down for 15 minutes after the vaccination. [] VERIFICATION color enhanced section Was the answer Yes for any of the above contraindications? No contraindications present. Acceptable to proceed with vaccine. Patient/guardian agrees the above answers are true to the best of their knowledge? Yes Flu vaccine information sheet given? Yes See immunization activity in [facility] for details of immunizations adminstered today. Patient age: [age] year old For The 3168-7468 Flu Season 6-35 months old: Fluzone 0.25 ml - IM (Preservative Free) 3 years of age: Fluzone 0.5 ml - IM (Preservative Free) 3 years and older: Fluzone 0.5 ml- IM-(with Preservatives) 65+ years old: 2-49 years old Fluzone High-Dose 0.5 ml - IM (Preservative Free) FLUMIST- intranasal REMEMBER: If patient is less than 9 years of age and this is the first vaccine of Influenza to be received in any flu season, they should receive a second dose in one months time. PROGRESS Observed: 04/15/2018 Status: COMPLETED Source: [place] 2:23 PM [facility] REPOSITORY HNO ID: [id number] Author: Tip Borden III Service: (none) Author Type: Physician Type: Progress Notes Filed: 04/15/2018 6:35 PM Note Text: SUBJECTIVE: This is a 78 year old male that is here today for Chronic Medical Conditions. 1. diabetes mellitus with CKD III: good diet, reg exercise. lost 3 lbs 2. CKD III. Walks 5 mi/day. No chest pain, angina, QUIROZ, abd pain, change in BM. 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 blood sugar diagnostic (FREESTYLE TEST) test strip Use as instructed once daily simvastatin (ZOCOR) 40 mg tablet Take 1 tablet by mouth daily at bedtime. Hydrochlorothiazide 12.5 mg capsule Take 1 capsule by mouth once daily. labetalol (TRANDATE) 200 mg tablet Take 0.5 tablets by mouth twice daily. aspirin, enteric coated (ADULT LOW DOSE ASPIRIN) 81 mg ORAL EC tablet Take one(1) tablet daily, occasional takes 2 tabs daily. No current facility-administered medications on file prior to visit. FAMILY HISTORY Problem Relation Age of Onset - Diabetes Mother - Heart Mother - Heart Father - Hypertension Mother - Heart Brother coronary stent - Prostate Cancer Father - Prostate Cancer Brother - diabetes mellitus [Other] [OTHER] Daughter Social History Substance Use Topics - Smoking status: Never Smoker - Smokeless tobacco: Former User Types: Chew - Alcohol use Yes Comment: occasionally BP 124/67 Pulse (!) 55 Resp 18 Wt 72.6 kg (160 lb) BMI 25.06 kg/m? OBJECTIVE: APPEARANCE Well appearing, alert, in no acute distress, well-hydrated, well nourished. NECK Supple, no adenopathy; thyroid symmetric, normal size, no bruits HEART RRR with normal S1 and S2, no murmurs, no gallops, no JVD appreciated LUNG clear to auscultation ABDOMEN bowel sounds normoactive, no bruits, soft, non-tender, non-distended, without organomegaly or palpable masses, no tenderness to palpation BACK: no pain to palpation EXTREMITIES Extremities normal, No deformities, No skin discoloration, No edema, Normal pulses bilaterally. and Feet: Shoes and socks removed, No deformities, ulcers, calluses, normal distal pulses and sensitive to 10 gm monofilament NEURO Awake, alert and oriented x 3, Normal gait and No involuntary motions. Lab Results for LELA SALCIDO ( ) as of 04/15/2018 14:40 Ref. Range 04/06/2018 07:39 04/06/2018 08:00 Sodium Latest Ref Range: 136 - 144 mmol/L 140 Potassium Latest Ref Range: 3.7 - 5.1 mmol/L 4.8 Chloride Latest Ref Range: 97 - 105 mmol/L 105 CO2 Latest Ref Range: 22 - 30 mmol/L 23 BUN Latest Ref Range: 9 - 24 mg/dL 42 (H) Creatinine Latest Ref Range: 0.73 - 1.22 mg/dL 2.29 (H) Glucose Latest Ref Range: 74 - 99 mg/dL 90 Calcium Latest Ref Range: 8.5 - 10.2 mg/dL 9.1 Anion Gap Latest Ref Range: 9 - 18 mmol/L 12 eGFR- Unknown 34 eGFR-All Other Races Latest Units: . 28 Cholesterol, Total Latest Ref Range: <200 mg/dL 100 Triglyceride Latest Ref Range: <150 mg/dL 36 Fasting Time Latest Units: hrs 12 HDL Cholesterol Latest Ref Range: >39 mg/dL 45 LDL Cholesterol Latest Ref Range: <100 mg/dL 48 VLDL Cholesterol Latest Ref Range: <30 mg/dL 7 TC:HDL Ratio Latest Ref Range: <5.10 2.22 LDL:HDL Ratio Latest Ref Range: <2.54 1.07 Non HDL Cholesterol Latest Ref Range: <130 mg/dL 55 Creatinine, Ur Random (UCRR) Latest Ref Range: 20 - 300 mg/dL 44.7 Hematocrit Latest Ref Range: 39.0 - 51.0 % 36.4 (L) Hemoglobin A1C Latest Ref Range: 4.3 - 5.6 % 5.7 (H) Estimated Average Glucose Latest Units: mg/dL 117 WBC Latest Ref Range: 3.70 - 11.00 k/uL 4.75 RBC Latest Ref Range: 4.20 - 6.00 m/uL 3.54 (L) Hemoglobin Latest Ref Range: 13.0 - 17.0 g/dL 11.2 (L) Platelet Count Latest Ref Range: 150 - 400 k/uL 185 MCV Latest Ref Range: 80.0 - 100.0 fL 102.8 (H) MCH Latest Ref Range: 26.0 - 34.0 pG 31.6 MCHC Latest Ref Range: 30.5 - 36.0 g/dL 30.8 MPV Latest Ref Range: 9.0 - 12.7 fL 10.0 RDW-CV Latest Ref Range: 11.5 - 15.0 % 13.8 Absolute nRBC Latest Ref Range: <0.01 k/uL <0.01 Albumin/Creat Ratio Latest Ref Range: 0 - 30 mg/g Not calculated Albumin, Urine Random Latest Ref Range: 0.0 - 23.0 mg/L <12.0 ASSESSMENT: diabetes mellitus II with CKD III--at goal/stable hypertension--at goal hyperlipidemia--at goal PLAN: healthy diet and regular exercise same medications return to office with labs 6 mos CLIVE Scanlon MD III CNOV Observed: 04/15/2018 Status: COMPLETED Source: [place] 2:00 PM [facility] REPOSITORY Office Visit (FAMPWS) OMARILELA Navarrete ([id number]) 1940 M Date Time Provider Department 04/15/18 2:00 PM TIP BORDEN III FAMTristenWS During your visit today, we recorded the following information about you: Pulse Respiration Blood pressure Weight 55/minute 18/minute 124/67 72.6 kg Tip Borden III MD 04/15/2018 6:35 PM Signed SUBJECTIVE: This is a 78 year old male that is here today for Chronic Medical Conditions. 1. diabetes mellitus with CKD III: good diet, reg exercise. lost 3 lbs 2. CKD III. Walks 5 mi/day. No chest pain, angina, QUIROZ, abd pain, change in BM. 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 blood sugar diagnostic (FREESTYLE TEST) test strip Use as instructed once daily simvastatin (ZOCOR) 40 mg tablet Take 1 tablet by mouth daily at bedtime. Hydrochlorothiazide 12.5 mg capsule Take 1 capsule by mouth once daily. labetalol (TRANDATE) 200 mg tablet Take 0.5 tablets by mouth twice daily. aspirin, enteric coated (ADULT LOW DOSE ASPIRIN) 81 mg ORAL EC tablet Take one(1) tablet daily, occasional takes 2 tabs daily. No current facility-administered medications on file prior to visit. FAMILY HISTORY Problem Relation Age of Onset - Diabetes Mother - Heart Mother - Heart Father - Hypertension Mother - Heart Brother coronary stent - Prostate Cancer Father - Prostate Cancer Brother - diabetes mellitus [Other] [OTHER] Daughter Social History Substance Use Topics - Smoking status: Never Smoker - Smokeless tobacco: Former User Types: Chew - Alcohol use Yes Comment: occasionally BP 124/67 Pulse (!) 55 Resp 18 Wt 72.6 kg (160 lb) BMI 25.06 kg/m? OBJECTIVE: APPEARANCE Well appearing, alert, in no acute distress, well- hydrated, well nourished. NECK Supple, no adenopathy; thyroid symmetric, normal size, no bruits HEART RRR with normal S1 and S2, no murmurs, no gallops, no JVD appreciated LUNG clear to auscultation ABDOMEN bowel sounds normoactive, no bruits, soft, non-tender, non-distended, without organomegaly or palpable masses, no tenderness to palpation BACK: no pain to palpation EXTREMITIES Extremities normal, No deformities, No skin discoloration, No edema, Normal pulses bilaterally. and Feet: Shoes and socks removed, No deformities, ulcers, calluses, normal distal pulses and sensitive to 10 gm monofilament NEURO Awake, alert and oriented x 3, Normal gait and No involuntary motions. Lab Results for LELA SALCIDO ( ) as of 04/15/2018 14:40 Ref. Range 04/06/2018 07:39 04/06/2018 08:00 Sodium Latest Ref Range: 136 - 144 mmol/L 140 Potassium Latest Ref Range: 3.7 - 5.1 mmol/L 4.8 Chloride Latest Ref Range: 97 - 105 mmol/L 105 CO2 Latest Ref Range: 22 - 30 mmol/L 23 BUN Latest Ref Range: 9 - 24 mg/dL 42 (H) Creatinine Latest Ref Range: 0.73 - 1.22 mg/dL 2.29 (H) Glucose Latest Ref Range: 74 - 99 mg/dL 90 Calcium Latest Ref Range: 8.5 - 10.2 mg/dL 9.1 Anion Gap Latest Ref Range: 9 - 18 mmol/L 12 eGFR- Unknown 34 eGFR-All Other Races Latest Units: . 28 Cholesterol, Total Latest Ref Range: <200 mg/dL 100 Triglyceride Latest Ref Range: <150 mg/dL 36 Fasting Time Latest Units: hrs 12 HDL Cholesterol Latest Ref Range: >39 mg/dL 45 LDL Cholesterol Latest Ref Range: <100 mg/dL 48 VLDL Cholesterol Latest Ref Range: <30 mg/dL 7 TC:HDL Ratio Latest Ref Range: <5.10 2.22 LDL:HDL Ratio Latest Ref Range: <2.54 1.07 Non HDL Cholesterol Latest Ref Range: <130 mg/dL 55 Creatinine, Ur Random (UCRR) Latest Ref Range: 20 - 300 mg/dL 44.7 Hematocrit Latest Ref Range: 39.0 - 51.0 % 36.4 (L) Hemoglobin A1C Latest Ref Range: 4.3 - 5.6 % 5.7 (H) Estimated Average Glucose Latest Units: mg/dL 117 WBC Latest Ref Range: 3.70 - 11.00 k/uL 4.75 RBC Latest Ref Range: 4.20 - 6.00 m/uL 3.54 (L) Hemoglobin Latest Ref Range: 13.0 - 17.0 g/dL 11.2 (L) Platelet Count Latest Ref Range: 150 - 400 k/uL 185 MCV Latest Ref Range: 80.0 - 100.0 fL 102.8 (H) MCH Latest Ref Range: 26.0 - 34.0 pG 31.6 MCHC Latest Ref Range: 30.5 - 36.0 g/dL 30.8 MPV Latest Ref Range: 9.0 - 12.7 fL 10.0 RDW-CV Latest Ref Range: 11.5 - 15.0 % 13.8 Absolute nRBC Latest Ref Range: <0.01 k/uL <0.01 Albumin/Creat Ratio Latest Ref Range: 0 - 30 mg/g Not calculated Albumin, Urine Random Latest Ref Range: 0.0 - 23.0 mg/L <12.0 ASSESSMENT: diabetes mellitus II with CKD III--at goal/stable hypertension--at goal hyperlipidemia--at goal PLAN: healthy diet and regular exercise same medications return to office with labs 6 mos CLIVE Scanlon MD, III MD Frank A Cebul, III MD 04/15/2018 2:46 PM Signed PLAN: healthy diet and regular exercise same medications return to office with labs 6 mos Tip Borden III MD Referring Provider: SELF [200] Allergies As of Date: 04/15/2018 Noted Allergy Reaction AUGMENTIN (AMOXICILLIN-POT CLAVUL*07/26/2015 16 - Unknown Comments: Pt had fever Date Reviewed: 04/15/2018 Reviewed by: Monica ([facility]) STEPHANIE Lake - Fully Assessed Reason for Visit: Physical [83] Primary Visit Diagnosis:Hyperlipidemia LDL goal <100 [E78.5] Other Visit Diagnoses:Essential hypertension, benign [I10] Type 2 diabetes mellitus with stage 3 chronic kidney disease, without long-term current use of insulin (HCC) [E11.22, N18.3] Atherosclerosis of coronary artery of [place] heart without angina pectoris, unspecified vessel or lesion type [I25.10] Order(s):labetalol (TRANDATE) 100 mg tabletTake 1 tablet by mouth twice daily.Disp: 60 tabletRfl: 11 Prescriptions as of 04/15/2018 Sig: TAMSULOSIN 0.4 MG CAPSULE Take 1 capsule by mouth daily* BLOOD SUGAR DIAGNOSTIC STRIPS Use as instructed once daily SIMVASTATIN 40 MG TABLET Take 1 tablet by mouth daily * HYDROCHLOROTHIAZIDE 12.5 MG C* Take 1 capsule by mouth once * * ASPIRIN 81 MG TABLET,DELAYED * Take one(1) tablet daily, occ* LABETALOL 100 MG TABLET Take 1 tablet by mouth twice * Problem List As Of Date 04/15/2018 Noted Resolved Unspecified hemorrhoids without mention of comp* 12/25/2014 BENIGN HYPERTENSION [I10] Priority: Moderate Hyperlipidemia LDL goal <100 [E78.5] INVALID FOR* Priority: Moderate Disorders of bursae and tendons in shoulder reg*INVALID FOR*12/25/2014 Type 2 diabetes mellitus with stage 3 chronic k*INVALID FOR* Priority: Moderate Coronary atherosclerosis [I25.10] INVALID FOR* Priority: Severe Cyst of epididymis [N50.3] INVALID FOR*05/07/2017 Cancer of skin of neck [C44.40] INVALID FOR* Atherosclerosis of coronary artery of [place] he*INVALID FOR* Hyperkalemia [E87.5] INVALID FOR*05/07/2017 Benign non-nodular prostatic hyperplasia with l*INVALID FOR* Other instructions from your clinician: PLAN: healthy diet and regular exercise same medications return to office with labs 6 mos Tip Borden III MD Prescriptions ordered this encounter Disp Refills Start End LABETALOL 100 MG TABLET 60 t* 11 04/15/2018 Route: ORAL Sig: Take 1 tablet by mouth twice daily. Medications Discontinued During This Encounter labetalol (TRANDATE) 200 mg tablet 60 t* 3 06/20/2017 04/15/2018 Class: Med Update Route: ORAL Sig: Take 0.5 tablets by mouth twice daily. Disc: Clinical Decision Encounter Status:Closed by TIP BORDEN III, MD on 04/15/18 PROGRESS Observed: 04/10/2018 Status: COMPLETED Source: [place] 6:32 PM [facility] REPOSITORY HNO ID: [id number] Author: Tip Borden III Service: (none) Author Type: Physician Type: Progress Notes Filed: 04/10/2018 6:32 PM Note Text: good diabetic control with stable renal function. Will discuss in detail at upcoming appt Tip Borden III MD ALBUMIN/CREAT RATIO Collected: 04/06/2018 Status: F Source: [place] 8:00 AM [facility] REPOSITORY TYPE CODE TESTS RESULT OUT OF REFERENCE UNITS RANGE LAB UCRR 20-300 mg/dL 44.7 Creatinine,Ur ine,Ran LAB UALBR 0.0-23.0 mg/L <12.0 Albumin Urine Random LAB UALBCR 0-30 mg/g Not Albumin/Creat calculated Ratio Performed By: #### UACR #### [facility] [address], [place] [address] CBC Collected: 04/06/2018 Status: F Source: [place] 7:39 AM [facility] REPOSITORY TYPE CODE TESTS RESULT OUT OF REFERENCE UNITS RANGE LAB WBC 3.70-11.00 k/uL WBC 4.75 LAB RBC 4.20-6.00 m/uL Low RBC 3.54 LAB HGB 13.0-17.0 g/dL Low Hemoglobin 11.2 LAB HCT 39.0-51.0 % Low Hematocrit 36.4 LAB MCV 80.0-100.0 fL MCV High 102.8 LAB MCH 26.0-34.0 pG MCH 31.6 LAB MCHC 30.5-36.0 g/dL MCHC 30.8 LAB RDWCV 11.5-15.0 % RDW-CV 13.8 LAB PLTCT 150-400 k/uL Platelet Count 185 LAB MPV 9.0-12.7 fL MPV 10.0 LAB ABSNUC <0.01 k/uL Absolute nRBC <0.01 Performed By: #### CBC, BMP, LIPB, HBA1C #### [facility] [address] [place], [place] [address] BASIC METABOLIC PANL Collected: 04/06/2018 Status: F Source: [place] 7:39 AM [facility] REPOSITORY TYPE CODE TESTS RESULT OUT OF REFERENCE UNITS RANGE LAB GLU 74-99 mg/dL Glucose 90 Result Comment: The [place] Diabetes Association (ADA) provides guidance for cutoff values for fasting glucose and random glucose. The ADA defines fasting as no caloric intake for at least 8 hours. Fas ting plasma glucose results between 100 to 125 mg/dL indicate increased risk for diabetes (prediabetes). Fasting plasma glucose results greater than or equal to 126 mg/dL meet the criteria for diagnosis of diabetes. In the absence of unequivocal hyperglycemia, results should be confirmed by repeat testing. In a patient with classic symptoms of hyperglycemia or hyperglycemic crisis, random plasma glucose results greater than or equal to 200 mg/dL meet the criteria for diagnosis of diabetes. Reference: Standards of Medical Care in Diabetes 2016, [place] [employer] Association. Diabetes Care. 2016.39(Suppl 1). LAB BUN 9-24 mg/dL BUN High 42 LAB CRET 0.73-1.22 mg/dL Creatinine High 2.29 LAB NA 136-144 mmol/L Sodium 140 LAB K 3.7-5.1 mmol/L Potassium 4.8 LAB CL 97-105 mmol/L Chloride 105 LAB CO2 22-30 mmol/L CO2 23 LAB AGAP 9-18 mmol/L Anion Gap 12 LAB CA 8.5-10.2 mg/dL Calcium, Total 9.1 LAB GFRAA eGFR- Amer. 34 LAB GFRNAA . eGFR-All Other Races 28 Result Comment: eGFR (Estimated GFR) Units of measure: mL/min/1.73 meters squared eGFR is derived from the reexpressed MDRD Study equation using the following parameters: serum creatinine, age, gender and race. The creatinine assay has been calibrated to be traceable to IDMS. An eGFR <60 mL/min/1.73m2 for >3 months is consistent with chronic kidney disease. Refer to KDOQI guidelines for clinical interpretation. In patients with unstable renal function, e.g. those with acute kidney injury, the eGFR may not accurately reflect actual GFR. Performed By: #### CBC, BMP, LIPB, HBA1C #### [facility] [address] [place] [id number] LIPID PANEL, BASIC Collected: 04/06/2018 Status: F Source: [place] 7:39 AM [facility] REPOSITORY TYPE CODE TESTS RESULT OUT OF REFERENCE UNITS RANGE LAB CHOL <200 mg/dL Cholesterol 100 Result Comment: <200 mg/dL, Desirable 200-239 mg/dL, Borderline high >239 mg/dL, High LAB TRIGLY <150 mg/dL Triglyceride 36 Result Comment: <150 mg/dL, Normal 150-199 mg/dL, Borderline high 200-499 mg/dL, High >499 mg/dL, Very high LAB HDL >39 mg/dL HDL-Cholesterol 45 Result Comment: 40-59 mg/dL, Acceptable >59 mg/dL, High: Negative risk factor for coronary heart disease <40 mg/dL, Low: Positive risk factor for coronary heart disease LAB LDL <100 mg/dL LDL-Cholesterol 48 Result Comment: <100 mg/dL, Optimal 100-129 mg/dL, Near optimal/above optimal 130-159 mg/dL, Borderline high 160-189 mg/dL, High >189 mg/dL, Very high Secondary prevention optimal LDL Cholesterol levels are recommended to be < 70 mg/dL LAB NONHDL <130 mg/dL Non HDL Cholesterol 55 Result Comment: <130 mg/dL, Optimal 130-159 mg/dL, Near optimal/above optimal 160-189 mg/dL, Borderline high 190-219 mg/dL, High >219 mg/dL, Very high Secondary prevention optimal non HDL Cholesterol levels are recommended to be < 100 mg/dL LAB FT hrs Fasting Time 12 LAB VLDL <30 mg/dL VLDL Cholesterol 7 LAB TCHDL <5.10 TC:HDL Ratio 2.22 LAB LDLHDL <2.54 LDL:HDL Ratio 1.07 Result Comment: Reference: 1. National Cholesterol Education Program ATP III Guideline At-A-Glance Quick Desk Reference: National Heart, Lung, and Blood [place]. National Institutes of Health. 2001: NIH Publication No. 01-3305. 2. An International Atherosclerosis Society position paper: global recommendations for the management of dyslipidemia: executive summary, Atherosclerosis. 2014: 232(2):410-413. Performed By: #### CBC, BMP, LIPB, HBA1C #### [facility] [address] [place], [place] [address] HEMOGLOBIN A1C Collected: 04/06/2018 Status: F Source: [place] 7:39 AM [facility] REPOSITORY TYPE CODE TESTS RESULT OUT OF REFERENCE UNITS RANGE LAB HGBA1C 4.3-5.6 % High Hemoglobin A1c 5.7 LAB HBA0 mg/dL Est. Average Glucose 117 Result Comment: eAG: (Estimated average glucose) is a calculated value from HgbA1c and is appliance service representative of the average blood glucose level in the last 2-3 month period. Performed By: #### CBC, BMP, LIPB, HBA1C #### [facility] [address] [place], [place] [address] CNPTOUTREACH Observed: 04/02/2018 Status: COMPLETED Source: [place] 12:00 AM [facility] REPOSITORY Patient Outreach (INTMWH) LELA SALCIDO ([id number]) 1940 M Date Time Provider Department 04/02[facility] During your visit today, we recorded the following information about you: Allergies As of Date: 04/02/2018 Noted Allergy Reaction AUGMENTIN (AMOXICILLIN-POT CLAVUL*07/26/2015 16 - Unknown Comments: Pt had fever Date Reviewed: 03/04/2018 Reviewed by: Sherita Tenorio) Leticia - Fully Assessed Visit Diagnosis:Medication management [Z79.899] Order(s):CBC [SQCBC] Order #: [id number] FUTURE ALBUMIN/CREAT RATIO RND UR [SQUACR] Order #: [id number] FUTURE BASIC METABOLIC PNL [SQBMP] Order #: [id number] FUTURE HGB A1C [RNOKK0Q] Order #: [id number] FUTURE LIPID PANEL BASIC [SQLIPB] Order #: [id number] FUTURE Prescriptions as of 04/02/2018 Sig: TAMSULOSIN 0.4 MG CAPSULE Take 1 capsule by mouth daily* BLOOD SUGAR DIAGNOSTIC STRIPS Use as instructed once daily X SIMVASTATIN 40 MG TABLET Take 1 tablet by mouth daily * X HYDROCHLOROTHIAZIDE 12.5 MG C* Take 1 capsule by mouth once * X LABETALOL 200 MG TABLET Take 0.5 tablets by mouth twi* * ASPIRIN 81 MG TABLET,DELAYED * Take one(1) tablet daily, occ* Problem List As Of Date 04/02/2018 Noted Resolved Unspecified hemorrhoids without mention of comp* 12/25/2014 BENIGN HYPERTENSION [I10] Priority: Moderate Hyperlipidemia LDL goal <100 [E78.5] INVALID FOR* Priority: Moderate Disorders of bursae and tendons in shoulder reg*INVALID FOR*12/25/2014 Type 2 diabetes mellitus with stage 3 chronic k*INVALID FOR* Priority: Moderate Coronary atherosclerosis [I25.10] INVALID FOR* Priority: Severe Cyst of epididymis [N50.3] INVALID FOR*05/07/2017 Cancer of skin of neck [C44.40] INVALID FOR* Atherosclerosis of coronary artery of [place] he*INVALID FOR* Hyperkalemia [E87.5] INVALID FOR*05/07/2017 Benign non-nodular prostatic hyperplasia with l*INVALID FOR* Encounter Status:Closed by ZULEIKA JONES on 09/06/18 PROGRESS Observed: 03/04/2018 Status: COMPLETED Source: [place] 3:27 PM [facility] REPOSITORY O ID: [id number] Author: Sofia Kincaid Service: (none) Author Type: Physician Type: Progress Notes Filed: 03/04/2018 5:46 PM Note Text: PERTINENT CARDIAC HISTORY ASHD - PCI Cx/RCA 2007 HTN HL DM CRF ADHERENCE TO GUIDELINES YULIYA-I or ARB for HF with prior LVEF<40 (NQF 0081) - CRF ASA or Plavix for ASHD (NQF 0067) - met Beta silvestre for ASHD with prior IL or prior LVEF<40 (NQF 0070) - N/A Beta silvestre for HF with prior LVEF<40 (NQF 0083) - N/A YULIYA-I or ARB for ASHD with DM or prior LVEF<40 (NQF 0066) - CRF Statin therapy for ASHD or FHL or DM - met BMI documented and plan if >25 (NQF 0421) - lifestyle recommendation form Tobacco use screening and referral (NQF 0028) - lifestyle recommendation form Recommendation for whole food, plant based diet - lifestyle recommendation form CLINICAL IMPRESSION/PLAN: Lela Salcido is doing well. He's been advised to continue his current medication. I've encouraged him to be active and let us know of any chest discomfort. I will see him in 8 months or as needed. Written and verbal health teaching given to patient, patient verbalizes understanding and agrees with treatment plan. DIAGNOSIS FOR VISIT: ASHD Hypertension HISTORY OF PRESENT ILLNESS Lela Salcido returns for follow-up of his coronary disease and hypertension. He reports stable exercise tolerance. He's had no chest discomfort. He denies orthopnea, edema, syncope, palpitations, TIAs, amaurosis ALLERGIES: ALLERGIES Allergen Reactions - Augmentin [Amoxicil* Unknown Pt had fever CURRENT OUTPATIENT MEDICATIONS: tamsulosin ER (FLOMAX) 0.4 mg cp24 Take 1 capsule by mouth daily at bedtime. blood sugar diagnostic (FREESTYLE TEST) test strip Use as instructed once daily simvastatin (ZOCOR) 40 mg tablet Take 1 tablet by mouth daily at bedtime. Hydrochlorothiazide 12.5 mg capsule Take 1 capsule by mouth once daily. labetalol (TRANDATE) 200 mg tablet Take 0.5 tablets by mouth twice daily. aspirin, enteric coated (ADULT LOW DOSE ASPIRIN) 81 mg ORAL EC tablet Take one(1) tablet daily, occasional takes 2 tabs daily. PHYSICAL EXAMINATION: VITAL SIGNS: BP 146/78 Pulse 54 Wt 163 lb 12.8 oz (74.3kg) Chest: Clear to percussion and auscultation. Trachea is midline. Air entry is equal. Cardiac: Regular rhythm. S1 and S2 are normal. PMI is nondisplaced. There are no murmurs, rubs or gallops. Carotids are brisk without bruits. JVP is less than 10 cm. Abdomen: Soft and nontender. There are no pulsatile masses or bruits. No liver enlargement. Bowel sounds are active. Extremities: No edema. Pulses are intact and symmetrical. Recent labs reviewed. Renal function is moderately, but improved. LDL was 30 and TSH normal. Electronically Signed: Sofia Kincaid MD March 04, 2018 3:27 PM CC: Tip Borden, III MD SPEAROV Observed: 03/04/2018 Status: COMPLETED Source: [place] 3:00 PM CLINIC OTHER CAMPUS REPOSITORY Office Visit (AGCARDWST) SALCIDOLELA PHAM ([id number]) 1940 M Date Time Provider Department 03/04/18 3:00 PM SOFIA KINCAID AGCARDWST During your visit today, we recorded the following information about you: Pulse Blood pressure Weight 54/minute 146/78 74.3 kg Sofia Kincaid MD 03/04/2018 5:46 PM Signed PERTINENT CARDIAC HISTORY ASHD - PCI Cx/RCA 2007 HTN HL DM CRF ADHERENCE TO GUIDELINES YULIYA-I or ARB for HF with prior LVEFANDlt;40 (NQF 0081) - CRF ASA or Plavix for ASHD (NQF 0067) - met Beta silvestre for ASHD with prior IL or prior LVEFANDlt;40 (NQF 0070) - N/A Beta silvestre for HF with prior LVEFANDlt;40 (NQF 0083) - N/A YULIYA-I or ARB for ASHD with DM or prior LVEFANDlt;40 (NQF 0066) - CRF Statin therapy for ASHD or FHL or DM - met BMI documented and plan if ANDgt;25 (NQF 0421) - lifestyle recommendation form Tobacco use screening and referral (NQF 0028) - lifestyle recommendation form Recommendation for whole food, plant based diet - lifestyle recommendation form CLINICAL IMPRESSION/PLAN: Lela Salcido is doing well. He's been advised to continue his current medication. I've encouraged him to be active and let us know of any chest discomfort. I will see him in 8 months or as needed. Written and verbal health teaching given to patient, patient verbalizes understanding and agrees with treatment plan. DIAGNOSIS FOR VISIT: ASHD Hypertension HISTORY OF PRESENT ILLNESS Lela Salcido returns for follow-up of his coronary disease and hypertension. He reports stable exercise tolerance. He's had no chest discomfort. He denies orthopnea, edema, syncope, palpitations, TIAs, amaurosis ALLERGIES: ALLERGIES Allergen Reactions - Augmentin [Amoxicil* Unknown Pt had fever CURRENT OUTPATIENT MEDICATIONS: tamsulosin ER (FLOMAX) 0.4 mg cp24 Take 1 capsule by mouth daily at bedtime. blood sugar diagnostic (FREESTYLE TEST) test strip Use as instructed once daily simvastatin (ZOCOR) 40 mg tablet Take 1 tablet by mouth daily at bedtime. Hydrochlorothiazide 12.5 mg capsule Take 1 capsule by mouth once daily. labetalol (TRANDATE) 200 mg tablet Take 0.5 tablets by mouth twice daily. aspirin, enteric coated (ADULT LOW DOSE ASPIRIN) 81 mg ORAL EC tablet Take one(1) tablet daily, occasional takes 2 tabs daily. PHYSICAL EXAMINATION: VITAL SIGNS: BP 146/78 Pulse 54 Wt 163 lb 12.8 oz (74.3kg) Chest: Clear to percussion and auscultation. Trachea is midline. Air entry is equal. Cardiac: Regular rhythm. S1 and S2 are normal. PMI is nondisplaced. There are no murmurs, rubs or gallops. Carotids are brisk without bruits. JVP is less than 10 cm. Abdomen: Soft and nontender. There are no pulsatile masses or bruits. No liver enlargement. Bowel sounds are active. Extremities: No edema. Pulses are intact and symmetrical. Recent labs reviewed. Renal function is moderately, but improved. LDL was 30 and TSH normal. Electronically Signed: Sofia Kincaid MD March 04, 2018 3:27 PM CC: CLIVE Scanlon MD, MD 03/04/2018 3:28 PM Signed LIFESTYLE CHANGE A healthy lifestyle is the most important component of your overall treatment plan. Please give serious thought to the following areas and commit to making mcc changes. EAT A WHOLE FOOD, PLANT BASED DIET The nutrition your body gets is more important than the medicine you take. What matters most is the overall way you eat. We encourage you to minimize the use of animal products (which include dairy and all meats except fatty fish) and use whole, unprocessed plant foods to provide your protein, vitamins and other nutrients. We have a lot of information to share with you on this topic. We also hold Shared Medical Appointments, where you can come visit with Dr. Kincaid in the company of other patients and spend over an hour talking about the challenges of changing the way you eat. This is not a ANDquot;dietANDquot;. It is a way of life that you will keep with you. EXERCISE REGULARLY It is not important to spend hours in the gym, lifting weights and perspiring heavily. A total of 2-3 hours per week of aerobic (causing you to be moderately short of breath) exercise is sufficient to improve your health. Talk to us before you begin a new exercise program, if you have heart disease or experience shortness of breath or chest pain. REDUCE STRESS Chronic emotional and physical stress leads to disease. Ways of reducing stress include meditation, visualization, prayer, yoga and other forms of relaxation therapy. Consistency is the kemp. Find a technique that works for you and do it every day. CULTIVATE RELATIONSHIPS Loneliness and isolation have a major negative impact on health. Seek out others who can love, care for and nurture you. Avoid hurtful relationships. MAINTAIN IDEAL BODY WEIGHT The best way to do this is to do all the things above. Our bodies naturally find the right weight if we keep moving and feed ourselves the right food. If your BMI is greater than 25, we strongly recommend a referral to a weight management program. Please speak to us or your family physician about available programs. AVOID NICOTINE IN ALL FORMS This includes all tobacco products, whether chewed, smoked, vaped, or rubbed on the skin. Smoking cessation programs, which can make use of tobacco substitutes, medications to suppress cravings and behavior management, are available. Please contact your family physician about programs in your area. Referring Provider: SOFIA KINCAID [[id number]] Allergies As of Date: 03/04/2018 Noted Allergy Reaction AUGMENTIN (AMOXICILLIN-POT CLAVUL*07/26/2015 16 - Unknown Comments: Pt had fever Date Reviewed: 03/04/2018 Reviewed by: Sherita (Wanda) Leticia - Fully Assessed Reason for Visit: Recheck [92] Primary Visit Diagnosis:ASHD (arteriosclerotic heart disease) [I25.10] Other Visit Diagnosis:Hypertension, essential [I10] Prescriptions as of 03/04/2018 Sig: TAMSULOSIN 0.4 MG CAPSULE Take 1 capsule by mouth daily* BLOOD SUGAR DIAGNOSTIC STRIPS Use as instructed once daily SIMVASTATIN 40 MG TABLET Take 1 tablet by mouth daily * HYDROCHLOROTHIAZIDE 12.5 MG C* Take 1 capsule by mouth once * LABETALOL 200 MG TABLET Take 0.5 tablets by mouth twi* * ASPIRIN 81 MG TABLET,DELAYED * Take one(1) tablet daily, occ* Problem List As Of Date 03/04/2018 Noted Resolved Unspecified hemorrhoids without mention of comp* 12/25/2014 BENIGN HYPERTENSION [I10] Priority: Moderate Hyperlipidemia LDL goal <100 [E78.5] INVALID FOR* Priority: Moderate Disorders of bursae and tendons in shoulder reg*INVALID FOR*12/25/2014 Type 2 diabetes mellitus with stage 3 chronic k*INVALID FOR* Priority: Moderate Coronary atherosclerosis [I25.10] INVALID FOR* Priority: Severe Cyst of epididymis [N50.3] INVALID FOR*05/07/2017 Cancer of skin of neck [C44.40] INVALID FOR* Atherosclerosis of coronary artery of [place] he*INVALID FOR* Hyperkalemia [E87.5] INVALID FOR*05/07/2017 Benign non-nodular prostatic hyperplasia with l*INVALID FOR* Other instructions from your clinician: LIFESTYLE CHANGE A healthy lifestyle is the most important component of your overall treatment plan. Please give serious thought to the following areas and commit to making shipping and receiving changes. EAT A WHOLE FOOD, PLANT BASED DIET The nutrition your body gets is more important than the medicine you take. What matters most is the overall way you eat. We encourage you to minimize the use of animal products (which include dairy and all meats except fatty fish) and use whole, unprocessed plant foods to provide your protein, vitamins and other nutrients. We have a lot of information to share with you on this topic. We also hold Shared Medical Appointments, where you can come visit with Dr. Kincaid in the company of other patients and spend over an hour talking about the challenges of changing the way you eat. This is not a diet. It is a way of life that you will keep with you. EXERCISE REGULARLY It is not important to spend hours in the gym, lifting weights and perspiring heavily. A total of 2-3 hours per week of aerobic (causing you to be moderately short of breath) exercise is sufficient to improve your health. Talk to us before you begin a new exercise program, if you have heart disease or experience shortness of breath or chest pain. REDUCE STRESS Chronic emotional and physical stress leads to disease. Ways of reducing stress include meditation, visualization, prayer, yoga and other forms of relaxation therapy. Consistency is the kemp. Find a technique that works for you and do it every day. CULTIVATE RELATIONSHIPS Loneliness and isolation have a major negative impact on health. Seek out others who can love, care for and nurture you. Avoid hurtful relationships. MAINTAIN IDEAL BODY WEIGHT The best way to do this is to do all the things above. Our bodies naturally find the right weight if we keep moving and feed ourselves the right food. If your BMI is greater than 25, we strongly recommend a referral to a weight management program. Please speak to us or your family physician about available programs. AVOID NICOTINE IN ALL FORMS This includes all tobacco products, whether chewed, smoked, vaped, or rubbed on the skin. Smoking cessation programs, which can make use of tobacco substitutes, medications to suppress cravings and behavior management, are available. Please contact your family physician about programs in your area. Encounter Status:Closed by SOFIA KINCAID MD on 03/04/18 ALLERGIES ALLERGIES DATE TYPE / CODE NAME / CODE REACTION SEVERITY SOURCE 12/15/2018 Drug Penicillins/[id number] Unknown Unknown [place] Allergy/416 0476(RXNORM) [facility] [id number]([facility]) Repository 07/26/2015 DRUG/[id number] AMOXICILLIN-POT UNKNOWN [facility] 003([facility] CLAVULANATE [facility]) Repository /[id number] AMOXICILLIN-POT [facility] 6([facility]) Repository ENCOUNTERS ENCOUNTERS ADMIT/DISCHARGE ACCOUNT NUMBER ADMITTING ENCOUNTER LOCATION SOURCE CLASS 12/16/2018/12/17/19 [id number] Ambulatory [address] Repository 12/15/2018/12/16/19 [id number] [facility] [place] [address] [place] [address] ding:PCURoom Repository : [id number]: 1 12/15/2018 [id number] [facility], Ambulatory BMSBuilding: Pina Joseluis BMS.[facility] Repository 12/15/2018 [id number] [facility] BMSBuilding: [place] Joseluis [facility] Repository 11/04/2018/11/05/20 [id number] Ambulatory [address] Repository 11/04/2018 [id number] Ambulatory [facility] MEDICAL Repository ANDERSONBuildi ng:CAGWS 10/26/2018/10/26/20 [id number] Ambulatory [address] [place] Repository 10/23/2018/10/24/20 [id number] Ambulatory [address] [place] Repository 10/12/2018/10/12/20 [id number] Ambulatory [address] [place] Repository 08/22/2018/08/23/20 [id number] Ambulatory [place] [facility] Main [place] Repository 04/15/2018/04/16/20 [id number] Ambulatory [address] [place] Repository 04/06/2018/04/06/20 [id number] Ambulatory [address] [place] Repository 03/04/2018/03/04/20 [id number] Ambulatory [address] Other [place] Repository 03/04/2018/03/04/20 [id number] Ambulatory [address] Repository CENTERBuildi ng:PIPERWS PAYERS PAYERS ENCOUNTER GUARANTOR PAYER SUBSCRIBER SOURCE 12/15/2018 LELA T Primary LELA T [place] [id number] Insurance:MEDICARE JENKINSDOB: Community STIBB PART A [facility] [id number] Number: Repository [id number]: [phone] [id number] [phone] () Date:2018-12-15 12/15/2018 Secondary LELA T [place] [facility] CARE [id number] [id number] Hospital Number: Repository [id number] Date:[id number], [place] [address]QI: 12/15/2018 Tertiary NOT GIVENUNK [place] Insurance:SELF PAY [facility] Number: Effective Repository Date:2018-12-15 12/15/2018 LELA T Primary NOT GIVENUNK [place] [id number] Insurance:SELF PAY [place], [place] Number: Effective Repository [id number]: 330) Date:2018-12-15 [phone] (HP) 12/15/2018 LELA T Primary LELA T [place] [id number] Insurance:MEDICARE JENKINSDOB: Community STIBBS PART A [id number] Number: Repository [id number]: [phone] [phone] (HP) Date:2018-12-15 12/15/2018 Secondary LELA T [place] [facility] C[facility] [id number] [id number] Hospital Number: Repository [id number] Date:[id number], [place] [address]NP: 12/15/2018 Tertiary NOT GIVENUNK [place] Insurance:SELF PAY [facility]: Effective Repository Date:2018-12-15 11/04/2018 LELA T Primary LELA T [facility] JENKINSDOB: Insurance:MEDICARE A JENKINSDOB: Health System AND BPolicy Number: [id number] Repository [id number] Date: [address]wy: (HP) 11/04/2018 Secondary LELA T [facility] CHOICEPolicy Number: [id number] Repository [id number] Date: 03/04/2018 LELA T Primary LELA T [facility] JENKINSDOB: Insurance:MEDICARE A JENKINSDOB: Health System AND BPolicy Number: [id number] Repository [place] [id number] [place] Date: [address]Wdx: (HP) 03/04/2018 Secondary LELA T [facility] Insurance:[facility] CHOICEPolicy Number: [id number] Repository [id number] Date:
== END 2018-12-16 12:50 | disposition home or self-care (01) ==
LOC: ED 10:13 → PCU 11:11
PROVIDERS: Admitting Provider Internal Medicine; Emergency Provider Emergency Medicine; Family Provider Family Medicine; PCP Family Medicine
DX: R55 Syncope and collapse (principal); E11.22 Type 2 diabetes mellitus with diabetic chronic kidney disease; N18.3 Chronic kidney disease, stage 3 (moderate); I25.10 Atherosclerotic heart disease of native coronary artery without angina pectoris; Z95.5 Presence of coronary angioplasty implant and graft; I12.9 Hypertensive chronic kidney disease with stage 1 through stage 4 chronic kidney disease, or unspecified chronic kidney disease; R29.700 NIHSS score 0
CPT/HCPCS: 36415; 71045; 80048; 83735; 84443; 84484; 85025; 93005; 93306; 96360; 96361; 96372; 99218; 99285; J7030; J7040; A4216; G0378

== ENCOUNTER 2019-10-06 06:59 | Observation (INO) | payer MEDICARE, OTHER, SELFPAY ==
[2018-12-15 11:26] VITALS: BMI 24.3
[2019-10-06] VITALS (12 sets, daily range): BP systolic 113–131; BP diastolic 50–67; PULSE 49–72; RESP 12–20; TEMP 36.6–36.9; O2SAT 94–100; BMI 22.2; BMI 22.3; BMI 25.0
[2019-10-06] MEDS: Ondansetron 4 MG/2 ML Vial IV (07:15)
--- NOTE | 2019-10-06 07:15 | CT_ITS ---
STUDY: CT BRAIN WITHOUT CONTRAST REASON FOR EXAM: Male, 79 years old. Unresponsive following CPR. RADIATION DOSAGE (If Supplied By Facility): CTDIvol = ( 44.99 ) mGy, DLP = ( 779.24 ) mGycm TECHNIQUE: Transaxial CT imaging of the brain was performed without administration of intravenous contrast material. Individualized dose optimization techniques were used for this CT. COMPARISON: No relevant priors. FINDINGS: Normal soft tissue structures. Normal calvarium. There is mild cerebral atrophy with widening of the extra-axial spaces and ventricular dilatation. Normal white matter tracts of the cerebral hemispheres. Tiny area of decreased attenuation is seen in the left basal ganglion suggestive of a small lacunar infarct. Normal brainstem. Normal cerebellum. There is no intracranial hemorrhage. There are no findings of an acute ischemic infarction. Atherosclerotic calcification of the cavernous portions of the internal carotid arteries bilaterally as well as the vertebral arteries. Opacification of the right maxillary sinus and mucosal thickening of the left maxillary sinus. CT/Brain/Head without Contrast IMPRESSION: Chronic involutional changes of the brain. 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 Electronically Signed: Gustabo Burgess, at 8:14 EST , Service support ,
--- NOTE | 2019-10-06 07:16 | EKG12_ITS ---
Test Reason : CODEBLUE Blood Pressure : / mmHG Vent. Rate : 049 BPM Atrial Rate : 049 BPM P-R Int : 190 ms QRS Dur : 092 ms QT Int : 442 ms P-R-T Axes : 080 064 040 degrees QTc Int : 399 ms Sinus bradycardia Low voltage QRS Borderline ECG Confirmed by SNOW KEEN, KRYSTYNA ([id number]), clinical editor MATHEUS REMY ([id number]) on 10/07/2019 1:49:09 PM Referred By: JANETTE Confirmed By:KRYSTYNA ADAMSON MD
--- NOTE | 2019-10-06 07:16 | RAD_ITS ---
STUDY: X-RAY CHEST REASON FOR EXAM: Male, 79 years old. CPR following collapse. TECHNIQUE: Single AP portable view of the chest. COMPARISON: Comparison is made with prior examination in general a 22,019. FINDINGS: EKG electrodes are seen. The lungs are clear and expanded. There is no demonstrated pleural abnormality. Normal size heart. Normal mediastinum and alex. Normal visualized pulmonary arteries. Normal visualized aortic arch and descending thoracic aorta. There are diffuse degenerative changes of the visualized thoracic spine. Normal visualized ribs, clavicles, and shoulders. There is no demonstrated abnormality of the visualized soft tissue structures of the upper abdomen. RAD/Chest 1 View (Portable) IMPRESSION: No acute abnormality is seen. Electronically Signed: Gustabo Burgess, at 8:14 EST , Service support ,
--- NOTE | 2019-10-06 07:20 | EKG12_ITS ---
Test Reason : REPEAT Blood Pressure : / mmHG Vent. Rate : 047 BPM Atrial Rate : 047 BPM P-R Int : 180 ms QRS Dur : 096 ms QT Int : 470 ms P-R-T Axes : 071 062 044 degrees QTc Int : 415 ms Sinus bradycardia Otherwise normal ECG Confirmed by SNOW KEEN, KRYSTYNA ([id number]), editorial assistant MATHEUS REMY ([id number]) on 10/07/2019 1:49:35 PM Referred By: JANETTE Confirmed By:KRYSTYNA ADAMSON MD
[2019-10-06] MEDS: 0.9% Normal Saline 1,000 ML 1000 ML IV (07:23)
[2019-10-06 07:25] LABS: Absolute Lymphocyte Count 1.16 X10^3/uL (0.83-4.51); Absolute Neutrophil Count 4.8 X10^3/uL (2.0-7.7); Basophil# 0.08 X10^3/uL; Basophil% 1.1 % (0-1); Eosinophil# 0.49 X10^3/uL; Eosinophils% 6.8 % (0-5); Hematocrit 36.4 % (40-54); Hemoglobin 11.7 g/dL (13.0-16.5); Lymphocyte # 1.16 X10^3/ul (4.0); Lymphocyte % 16.1 % (19-41); Mean Corp Hgb Conc 32.1 g/dL (32-36); Mean Corpuscular Hgb 32.6 pg (27.0-32.0); Mean Corpuscular Volume 101.4 fL (80-94); Mean Platelet Vol. 9.9 fl (6.2-12.0); Monocyte% 9.7 % (0-10); NRBC Flagged by Analyzer 0 % (0-5); Neutrophil # 4.76 X10^3/uL (2.7-7.7); Neutrophil % 65.9 % (47-70); Platelet Count 224 K/mm3 (150-450); RBC Distribution Width CV 13.5 % (11.6-14.6); RBC Distribution Width SD 50.4 fl (35.1-43.9); Red Blood Count 3.59 M/mm3 (4.6-6.2); White Blood Count 7.2 K/mm3 (4.4-11.0)
[2019-10-06 07:29] LABS: International Normalized Ratio 1.1; Prothrombin Time (Protime)PT. 14.3 SECONDS (11.7-14.9)
[2019-10-06 07:30] LABS: Partial Thromboplast Time 30.4 Seconds (24.1-36.2)
--- NOTE | 2019-10-06 07:35 | EKG12_ITS ---
Test Reason : REPEAT Blood Pressure : / mmHG Vent. Rate : 049 BPM Atrial Rate : 049 BPM P-R Int : 186 ms QRS Dur : 090 ms QT Int : 464 ms P-R-T Axes : 078 064 048 degrees QTc Int : 419 ms Sinus bradycardia Otherwise normal ECG Confirmed by SNOW KEEN, KRYSTYNA ([id number]), social media editor MATHEUS REMY ([id number]) on 10/07/2019 1:49:55 PM Referred By: JANETTE Confirmed By:KRYSTYNA ADAMSON MD
[2019-10-06 07:40] LABS: ALB/GLOB Ratio 1.1 RATIO (0.9-2.4); AST(SGOT) 18 U/L (15-37); Alanine Aminotransfer ALT/SGPT 16 U/L (16-61); Albumin, Serum 3.7 g/dL (3.2-5.0); Alkaline Phosphatase 71 U/L (45-117); Anion Gap 7 (5-15); BUN 49 mg/dL (7-18); Calcium,Total 8.5 mg/dL (8.5-10.1); Chloride 114 mmol/L (98-107); Creatinine, Serum 2.45 mg/dL (0.70-1.30); EST Glomerular Filtration Rate 27 mL/min (>60); Est Glom Filt Rate - Afr Amer 33 mL/min (>60); Estimated Creatinine Clearance 26.02 ml/min; Globulin 3.3 g/dL (2.2-4.2); Glucose 137 mg/dL (74-106); Lipase 202 U/L (73-393); Magnesium 2.2 mg/dL (1.6-2.6); Potassium 4.5 mmol/L (3.5-5.1); Sodium Level 141 mmol/L (136-145)
[2019-10-06 07:41] LABS: Lactic Acid 1.6 mmol/L (0.4-2.0)
[2019-10-06 08:12] LABS: Mucous, Urine 0 SEEN /hpf (<or=2+)
[2019-10-06 08:15] LABS: Color, Urine Yellow (Yellow); Glucose, Dipstick Normal (Normal); Ketone-Dipstick Negative (Negative); Leukocyte Esterase-Dipstick Negative /ul (Negative); Nitrite-Dipstick Negative (Negative); Occult Blood-Urine Negative /ul (Negative); Protein-Dipstick 30 mg/dl (Negative); Urine Bilirubin Dipstick Negative (Negative); Urine Clarity Clear (Clear); Urine Urobilinogen Normal (Normal)
--- NOTE | 2019-10-06 08:19 | CON.PCM_ITS ---
Problem List (1) Syncope Status: Acute (2) CKD (chronic kidney disease), stage III Status: Chronic (3) Coronary artery disease Status: Chronic (4) Diabetes mellitus type 2 Status: Chronic (5) History of coronary artery stent placement Status: Chronic (6) Sinus bradycardia Status: Chronic Reason for Consult Date of Consultation: 10/06/19 Reason for Consultation: Syncope, sinus bradycardia, coronary artery disease status post stenting, hypertension, diabetes, chronic renal insufficiency History of Present Illness: The patient is a 79 year old M, former patient of Dr. Cardoso, who is in normal health up until this morning when he went to [facility]. While kneeling during the mass, the patient became diaphoretic, pale, slumped over and lost consciousness. Patient was evaluated by an attendant at the [facility], and felt that the patient had a weak pulse and began CPR. Patient then spontaneously awoke, was quite lethargic and was transferred to [facility] ER. Initial EKG in the field showed sinus bradycardia no acute changes. Repeat EKG in the ER showed sinus bradycardia, no acute changes. Patient gradually recovered mentally, and denied any claudia-event chest pain, angina, shortness of breath, dyspnea on exertion or recent decrease in his exercise capacity. CT of his head was done with the following results:Chronic involutional changes of the brain. 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 On further history the patient walks on a daily basis and has had no change in his exercise capacity. His presenting symptoms when he underwent angioplasty and stenting at the [facility] about 8 years ago where fatigue and shortness of breath which completely resolved after his stents. He has had no recurrence of the symptoms. On further history in November 2018 the patient was admitted for a similar syncopal episode but did not require CPR at that time. At that time an echocardiogram was performed which showed an EF of 60%, RVSP of 34 mmHg, and 1+ mitral regurgitation. He supposedly had a stress test but I cannot locate that in the computer. It may be done as an outpatient. He reports that it was a non-walking nuclear stress test. Further history the patient has BPH and requires Flomax therapy and is currently on labetalol. [] Past Medical History Allergies/Adverse Reactions: Allergies Penicillins Allergy (Verified 10/06/19 07:16) Unknown STATES SHE DOESN'T THINK HE'S ALLERGIC TO ANYTHING, PT UNABLE TO ANSWER. Home Medications: Ambulatory Orders Medication Instructions Recorded Aspirin [Aspirin, Baby] 81 mg PO DAILY@0800 12/15/18 Labetalol [Trandate (Beta Ayanna)] 50 mg PO BID 12/15/18 Simvastatin 40 mg PO QHS 12/15/18 Tamsulosin HCl [Flomax] 0.4 mg PO DAILY 12/16/18 Past Medical History (Chronic Problems): Chronic Problems Sinus bradycardia (Chronic) Diabetes mellitus type 2 (Chronic) CKD (chronic kidney disease), stage III (Chronic) Coronary artery disease (Chronic) History of coronary artery stent placement (Chronic) - *Family History Paternal History Items: No pertinent history Smoking Status: Former smoker Review of Systems - Review of Systems General: Denies: Fever, Night Sweats, Fatigue Cardiovascular: Reports: Syncope. Denies: Chest Discomfort, Shortness of Breath, Orthopnea, PND, Peripheral Edema, Palpitations, Lightheadedness, Dizziness, Near Syncope Respiratory: Denies: Cough, Sputum Production, Hemoptysis Gastrointestinal: Denies: Hematemesis, Hematochezia, Melena Genitourinary: Denies: Dysuria, Hematuria Skin: Denies: Rash Subjectve: Patient laying in bed, no acute distress. Objective: Vital Signs Temp Pulse Resp BP Pulse Ox 98.4 F 53 L 16 120/59 L 100 10/06/19 07:00 10/06/19 08:00 10/06/19 08:00 10/06/19 08:00 10/06/19 08:00 Oxygen Flow Rate (L/min) 2 Oxygen Delivery Method Nasal Cannula Weight: 168 lb 10.458 oz Body Mass Index (BMI) 22.2 General: Awake, Alert, Oriented x 3 HEENT: PERRL, EOMI, Sclera Non Icteric Neck: Supple, Good ROM, No Lymph Node Enlargement Lungs: Clear to auscultation Cardiovascular: Regular Rhythm, Normal S1, Normal S2, No Murmurs, No Rubs, No Gallops Vascular: No Carotid Bruits, Normal Femoral Pulses, Normal Radial Pulses, Normal Dorsalis Pedal Pulse, Normal Posterior Tibial Pulses Abdomen: Bowel Sounds Present, Soft, Non Tender, No HSM, No Organomegaly Extremities: No Cyanosis, No Clubbing, No edema Neurological: No Focal Motor or Sensory Deficit 10/06/19 07:05: WBC 7.2, RBC 3.59 L, Hgb 11.7 L, Hct 36.4 L, MCV 101.4 H, MCH 32.6 H, MCHC 32.1, Plt Count 224, MPV 9.9, Immature Gran % (Auto) 0.400, Neut % (Auto) 65.9, Lymph % (Auto) 16.1 L, Tift % (Auto) 9.7, Eos % (Auto) 6.8 H, Baso % (Auto) 1.1 H, Absolute Neuts (auto) 4.8, Nucleated RBC % 0 10/06/19 07:05: PT 14.3, INR 1.1, APTT 30.4 10/06/19 07:05: Sodium 141, Potassium 4.5, Chloride 114 H, Carbon Dioxide 20.0 L , Anion Gap 7, BUN 49 H, Creatinine 2.45 H, Est GFR (MDRD) Af Amer 33 L, Est GFR (MDRD) Non-Af 27 L, BUN/Creatinine Ratio 20.0, Glucose 137 H, Calcium 8.5, Magnesium 2.2, Total Bilirubin 0.50, Troponin I < 0.015 10/06/19 07:05: Lactic Acid 1.6 10/06/19 08:05: Urine Color Yellow, Urine Clarity Clear, Urine pH 6.0, Ur Specific [place] 1.010, Urine Protein 30 H, Urine Glucose (UA) Normal, Urine Ketones Negative, Urine Occult Blood Negative, Urine Nitrite Negative, Urine Bilirubin Negative, Urine Urobilinogen Normal, Ur Leukocyte Esterase Negative Rhythm: EKG: Sinus bradycardia, no acute changes. ECHO: Pending Stress Test: Pending Cardiac Cath: PCI: CT Surgery: Holter monitor: EPS: PPM: CXR: Chest CT Scan: Assessment/Plan 1. Syncope: Patient has had 2 episodes of syncope in the last 12 months, this time requiring CPR superimposed on known sinus bradycardia, beta-ayanna use, a nd Flomax use. In addition his CT scan demonstrates a small lacunar infarct, the timing of which is at this point uncertain. He is only on aspirin, and not on Plavix. Patient has had no recurrent symptoms concerning for coronary disease that he had 8 years ago when he had his stents placed at the [facility]. At this point I would recommend admitting the patient to PCU telemetry, ruling o ut for myocardial infarction with troponins x3, and if they are negative, would recommend a modified Ham walking treadmill echocardiogram to evaluate for chronotropic competence, ischemia, blood pressure response to exercise, and exercise duration. If his stress test is grossly abnormal, he may require repeat catheterization. Would also recommend obtaining the old records from Dr. Jaffe's office with respect to his previous stress test and previous angioplasty 8 years ago. If the patient has good chronotropic competence, I would recommend switching him from labetalol to Coreg which is process in the serum given his chronic renal insufficiency. The patient may have accumulation of beta-ayanna superimposed upon Flomax inducing hypotension. The patient has poor chronotropic competence, he may require a dual-chamber pacemaker prior to discharge to avoid future syncopal episodes. In addition I recommend obtaining a TSH and T4 if not already done so. 2. Hyperlipidemia: Recommend obtaining a fasting lipid profile. 3. Chronic renal insufficiency: Patient has chronic renal insufficiency which may be problematic with respect to different medications being process for the kidneys. Would recommend discontinuation of labetalol and switching him to Coreg 3.125 mg p.o. twice daily. Should the patient require catheterization, we may want to do coronaries only or staged interventional procedure if indicated. 4. Discussed with Dr. Dc. Thank you very much for the opportunity to put dissipate in the cardiac care of your patient. Code Visit Inpatient E&M: 19714 Init Hosp L2
--- NOTE | 2019-10-06 08:21 | ED.VISSUMM ---
- ER Visit Summary Date of Service: 10/06/19 Chief Complaint: Unresponsive History of Present Illness: The patient is a 79 M who has a previous medical history of coronary artery disease with PCI approximately 7 years ago, hypertension (treated with labetalol) and BPH. He takes a daily aspirin. 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 He states he had a normal weekend felt well. Today he got up had a bowel movement. He went to [employer] and was kneeling playing with the [employer] when he states he got very hot and collapsed. His and a friend were nearby note that he was very pale. Friend stated he had a very weak pulse so he began CPR. Patient reportedly got very red and then his color returned. A bystander who was a physician happened to be there noted that his pulse became stronger. EMS was called and noted normal blood sugar and sinus bradycardia. He had emesis. Patient denies any chest pain shortness of breath palpitations at the current time of examination or at the time of the event. No reported pain or injuries. Patient had a prior syncopal episode in November of this year. tells me that his heart rate is typically around 50. He notes chronic kidney disease with a baseline creatinine around 2.4. Physical Examination: Afebrile vital signs stable Gen: Well-nourished well-developed Head: Normocephalic atraumatic Eyes: Perrl EOMI ENT: TMs clear no rhinorrhea moist mucous membranes Neck: Supple no lymphadenopathy no JVD nontender CVS: Regular rate rhythm no murmurs normal S1-S2 Respiratory: No distress clear to auscultation bilaterally chest nontender Abdomen: Soft nontender nondistended normal bowel sounds no masses Back: Nontender Extremity: Nontender no edema Skin: Pale and slightly diaphoretic no rash Neuro: Lethargic but alert orientated ?3 CN II-XII intact normal strength sensation reflexes gait cerebellar Test Results: Serial EKGs continued to show sinus bradycardia no evolving ACS. Slightly anemic at 11.7. Troponin negative. Lactic acid 1.6. Normal electrolytes including magnesium of 2.2. Creatinine 2.45. Chest x-ray negative CT the brain was suggestive of a small lacunar infarct.. Emergency Department Course and Treatment: I spoke with Dr. Sinclair and we reviewed the EKGs. Dr. Sinclair did come to the emergency department to evaluate the patient. Our plan will be to admit the patient and rule him out for ACS. We will plan on cardiac stress testing. Recommendation to hold labetalol. Impression: 1. Syncope 2. Sinus bradycardia 3. Chronic kidney disease 4. Rule out small lacunar infarct This note was generated with Or[employer] dictation software. It may contain incorrect words, spelling, and punctuation that were not noted in review of the chart prior to signing ED Disposition - Plan for ED Patient: Referrals: Tip Borden III, MD [Primary Care Provider] -
[2019-10-06 08:22] LABS: Bacteria RARE /hpf (None Seen); Red Blood Cells-Urine 0-5 SEEN /hpf (0-5); Squamous Epithelial Cells - UA 0-5 SEEN /hpf (0-5); White Blood Cells 0-5 SEEN /hpf (0-5)
[2019-10-06] MEDS: 0.9% Normal Saline 1,000 ML 150 ML IV (08:31)
--- NOTE | 2019-10-06 08:44 | ECHOD_ITS ---
Reason For Study: CAD/ASHD Procedure This was a 2D Doppler, Color Flow transthoracic echocardiogram. Exam performed portable in patient room. Left Ventricle Normal size and thickness. The estimated ejection fraction is 65 %. Stage 1 diastolic dysfunction. No regional wall motion abnormalities noted. Right Ventricle Mildly dilated right ventricle. Normal systolic function. Atria The left atrium is mildly enlarged. The right atrium is mildly enlarged. Normal atrial septum. Mitral Valve The mitral valve is structurally normal. No prolapse or stenosis seen. Trivial mitral valve insufficiency. Tricuspid Valve Normal tricuspid valve. Trivial tricuspid valve insufficiency. Right ventricular systolic pressure estimated to be 37 mmHg. Aortic Valve Normal aortic valve. Trisinus/trileaflet aortic valve. Pulmonic Valve The pulmonic valve is not well visualized. Great Vessels Normal aortic root. Normal arch. Normal inferior vena cava. Inferior vena cava collapse with sniff. Pericardium/Pleural No pericardial effusion. MMode/2D Measurements & Calculations LVIDd: 4.9 cm IVSd: 0.83 cm Ao root diam: 3.3 cm LVIDs: 3.1 cm LVPWd: 0.98 cm RVDd: 3.8 cm FS: 36.5 % LAV(MOD-bp): 58.5 ml LVAd ap4: 30.6 cm2 SV(MOD-sp4): 64.3 ml LAV(MOD-bp) Indexed: 29.3 ml/m2 EDV(MOD-sp4): 97.5 ml LAV(MOD-sp2): 49.1 ml EDV(sp4-el): 97.0 ml LAV(MOD-sp4): 70.1 ml LVAs ap4: 16.1 cm2 ESV(MOD-sp4): 33.2 ml ESV(sp4-el): 31.3 ml EF(MOD-sp4): 65.9 % EF(sp4-el): 67.7 % SV(sp4-el): 65.7 ml LA A4 area: 23.4 cm2 LA dimension(2D): 4.2 cm RA A4 area: 21.3 cm2 Time Measurements MV dec time: 0.20 sec Doppler Measurements & Calculations MV E max quintin: 84.5 cm/sec Lat Peak E' Quintin: 9.3 cm/sec Med Peak E' Quintin: 9.5 cm/sec MV A max quintin: 104.6 cm/sec E/E' lat: 9.1 E/E' med: 8.9 MV E/A: 0.81 Ao V2 max: 193.6 cm/sec LV V1 max: 133.0 cm/sec PA V2 max: 113.4 cm/sec Ao max P.0 mmHg LV V1 max P.1 mmHg TR max quintin: 282.2 cm/sec TR max P.8 mmHg Interpretation Summary The estimated ejection fraction is 65 %. Stage 1 diastolic dysfunction. Mildly dilated right ventricle. The left atrium is mildly enlarged. The right atrium is mildly enlarged. Trivial mitral valve insufficiency. Trivial tricuspid valve insufficiency. Right ventricular systolic pressure estimated to be 37 mmHg. Compared to echo report dated 12/16/2018, no appreciable changes noted. Ordering Physician: Juanjo Sinclair Referring Physician: AKOSUA PLATT Performed By: Kat Rodas RDCS
[2019-10-06 09:16] LABS: Cholesterol 99 mg/dL (200); High Density Lipoprotein 49 mg/dL; T4 Free Direct 0.91 ng/dL (0.76-1.46); Thyroid Stim Hormone (TSH) 1.64 uIU/mL (0.358-3.74); Triglycerides 37 mg/dL; Very Low Density Lipoprotein 7 mg/dL (5-40)
--- NOTE | 2019-10-06 14:23 | PCM.HP.STD ---
History of Present Illness Date of Admission: 10/06/19 Chief Complaint: Syncope The patient is a 79 year old M with a PMH as below who presents to the hospital after having a syncopal episode in congregational today. He goes to congregational every morning and had been okay on the days prior. However today he was kneeling and felt hot and took off his jacket and then he slumped over. He does not recall anything that happened after that until he was in the ambulance. Per bystander report, he had CPR done because they thought that he was not breathing and/or did not have a pulse. However there was a doctor in attendance at congregational and when he came to the scene bystanders told him that the pulse was weak and he told him to discontinue CPR, and when he woke up in the ambulance he was completely back to baseline and felt well enough to want to go home. Cardiology was consulted in the ED because of the report of an arrest and CPR, they want to obtain troponins as well is to cardiac work-up including an echo and a possible stress test. In the ER his lab work was normal and his EKG demonstrated sinus bradycardia. Past Medical History Past Medical History (Chronic Problems): Chronic Problems Sinus bradycardia (Chronic) Diabetes mellitus type 2 (Chronic) CKD (chronic kidney disease), stage III (Chronic) Coronary artery disease (Chronic) History of coronary artery stent placement (Chronic) Allergies Penicillins Allergy (Verified 10/06/19 07:16) Unknown STATES SHE DOESN'T THINK HE'S ALLERGIC TO ANYTHING, PT UNABLE TO ANSWER. Home Medications: Ambulatory Orders Medication Instructions Recorded Aspirin [Aspirin, Baby] 81 mg PO DAILY@0800 12/15/18 Labetalol [Trandate (Beta Silvestre)] 50 mg PO BID 12/15/18 Simvastatin 40 mg PO QHS 12/15/18 Tamsulosin HCl [Flomax] 0.4 mg PO DAILY 12/16/18 Surgical History: herniorrhaphy Smoking Status: Former smoker Tobacco Use: Cigarettes Alcohol: None Drugs: None - *Family History Paternal History Items: Heart Disease Maternal History Items: Diabetes Review of Systems Constitutional: Denies: Chills, Fever, Weight Change HEENT: Denies: Head Aches, Sinus Congestion, Sinus Drainage Cardiovascular: Denies: Chest Pain, Palpitations Respiratory: Denies: Cough, Shortness of breath at rest, Sputum production Gastrointestinal: Denies: Abdominal Pain, Nausea, Vomiting Genitourinary: Denies: Dysuria Musculoskeletal: Denies: Joint Pain, Joint Tenderness Skin: Denies: Rash, Wounds Neurological: Denies: Numbness, Tingling, Focal weakness Psychiatric: Denies: Anxiety, Depression Hematologic/ Lymphatic: Denies: Easy Bruising, Easy Bleeding VTE Information - Inpt Only VTE Present on Admission: No - Physical Exam Vitals/I&O's: Vital Signs Temp Pulse Resp BP Pulse Ox 97.9 F 62 18 113/52 L 95 10/06/19 10:00 10/06/19 12:00 10/06/19 10:00 10/06/19 10:00 10/06/19 11:13 Oxygen Flow Rate (L/min) 2 Oxygen Delivery Method Room Air Weight: 159 lb 8.56 oz Body Mass Index (BMI) 25.0 Intake and Output for Last 24 Hours 10/04/19 10/05/19 10/06/19 23:59 23:59 23:59 Intake Total 1055 / 1055 Balance 1055 / 1055 General: Alert, Oriented x3, Cooperative, No apparent distress HEENT: Atraumatic, PERRLA, EOMI, Normocephalic Oral: Moist Mucosa Neck: Supple, No JVD Lungs: Clear to auscultation, Normal air movement, No rhonchi, No wheeze, No rales Cardiovascular: Regular rate, Regular Rhythm, Normal S1, Normal S2, No murmurs Abdomen: Soft, Non Tender, Non-Distended, No Hepato-splenomegaly Extremities: No edema, Capillary Refill Less than 3 Seconds Skin: No rashes, No breakdown Neurological: Neuro grossly intact, Sensory exam intact to light touch and pain Psych/Mental Status: Normal Affect, Appropriate Laboratory Results 10/06/19 07:05: WBC 7.2, RBC 3.59 L, Hgb 11.7 L, Hct 36.4 L, MCV 101.4 H, MCH 32.6 H, MCHC 32.1, RDW Std Deviation 50.4 H, RDW Coeff of Eduardo 13.5, Plt Count 224, MPV 9.9, Immature Gran % (Auto) 0.400, Neut % (Auto) 65.9, Lymph % (Auto) 16.1 L, [place] % (Auto) 9.7, Eos % (Auto) 6.8 H, Baso % (Auto) 1.1 H, Absolute Neuts (auto) 4.8, Absolute Lymphs (auto) 1.16, Nucleated RBC % 0 10/06/19 07:05: PT 14.3, INR 1.1, APTT 30.4 10/06/19 07:05: Sodium 141, Potassium 4.5, Chloride 114 H, Carbon Dioxide 20.0 L, Anion Gap 7, BUN 49 H, Creatinine 2.45 H, Estim Creat Clear Calc 26.02, Est GFR (MDRD) Af Amer 33 L, Est GFR (MDRD) Non-Af 27 L, BUN/Creatinine Ratio 20.0, Glucose 137 H, Calcium 8.5, Magnesium 2.2, Total Bilirubin 0.50, AST 18, ALT 16, Alkaline Phosphatase 71, Troponin I < 0.015, Total Protein 7.0, Albumin 3.7, Globulin 3.3, Albumin/Globulin Ratio 1.1, Lipase 202 10/06/19 07:05: Lactic Acid 1.6 10/06/19 07:05: Triglycerides 37, Cholesterol 99, LDL Cholesterol 43, VLDL Cholesterol 7, HDL Cholesterol 49, TSH 1.64, Free T4 0.91 10/06/19 08:05: Urine Color Yellow, Urine Clarity Clear, Urine pH 6.0, Ur Specific [place] 1.010, Urine Protein 30 H, Urine Glucose (UA) Normal, Urine Ketones Negative, Urine Occult Blood Negative, Urine Nitrite Negative, Urine Bilirubin Negative, Urine Urobilinogen Normal, Ur Leukocyte Esterase Negative, Urine RBC 0-5 SEEN, Urine WBC 0-5 SEEN, Ur Squamous Epith Cells 0-5 SEEN, Urine Bacteria RARE, Urine Mucus 0 SEEN 10/06/19 10:15: Troponin I < 0.015 10/06/19 13:10: Troponin I < 0.015 Current Medications Aspirin (Aspirin, Baby) 81 mg PO DAILY@0800 [facility] Heparin Sodium (Porcine) (Heparin Na) 5,000 unit SC Q8 [facility] Sodium Chloride () 1,000 mls @ 100 mls/hr IV .Q10H [facility] Non-Formulary Medication (Simvastatin) 40 mg PO QHS [facility] Sodium Chloride () 10 - 40 ml IV UD PRN PRN Reason: SALINE FLUSH Tamsulosin HCl (Flomax) 0.4 mg PO DAILY [facility] Assessment/Plan All Active Problems Syncope (Acute) 1. Syncope/CAD status post stents in 2007/HTN/HLD/sinus bradycardia -We will completely discontinue his labetalol -Proceed with an echo and a stress test -Serial troponins are negative so far -Appreciate cardiology assistance -Continue with aspirin -Continue with telemetry -Likely vasovagal, will continue with IV fluids that will lower the rate from 150 to 100 -He walks 3 to 5 miles every day and follows up with his primary care physician regularly -Continue with Lipitor 2. BPH -Stable -Continue with Flomax 3. Diet-controlled DM 2/CKD stage III -We will monitor -Creatinine is at baseline of 2.45 DVT: Heparin Code Visit OBSV E&M: 46701 Initial observation care L3
[2019-10-06] MEDS: 0.9% Normal Saline 1,000 ML 100 ML IV (15:09)
[2019-10-06] MEDS: Heparin Injection (Vial) 5,000 UNIT/ML VIAL 5000 UNIT SC ×2 (15:10→22:48)
[2019-10-06] MEDS: Atorvastatin Calcium 20 MG Tablet PO (22:52)
[2019-10-07] VITALS (9 sets, daily range): BP systolic 101–157; BP diastolic 45–70; PULSE 56–70; RESP 16–18; TEMP 36.6–37.3; O2SAT 97–100
[2019-10-07] MEDS: 0.9% Normal Saline 1,000 ML 100 ML IV (00:25)
[2019-10-07] MEDS: Aspirin 81 MG TAB.CHEW PO (05:07)
--- NOTE | 2019-10-07 05:55 | EKG12_ITS ---
Test Reason : AM EKG Blood Pressure : / mmHG Vent. Rate : 060 BPM Atrial Rate : 060 BPM P-R Int : 174 ms QRS Dur : 094 ms QT Int : 430 ms P-R-T Axes : 071 060 034 degrees QTc Int : 430 ms Normal sinus rhythm Low voltage QRS Borderline ECG When compared with ECG of 06-OCT-2019 07:34, MANUAL COMPARISON REQUIRED, DATA IS UNCONFIRMED Confirmed by JAMA STANFORD ([id number]), editor farm journal MATHEUS REMY ([id number]) on 10/10/2019 11:37:19 AM Referred By: DR ARMENTA Confirmed By:JAMA STANFORD
[2019-10-07 07:33] LABS: Absolute Lymphocyte Count 0.56 X10^3/uL (0.83-4.51); Absolute Neutrophil Count 3.7 X10^3/uL (2.0-7.7); Basophil# 0.03 X10^3/uL; Basophil% 0.6 % (0-1); Eosinophil# 0.14 X10^3/uL; Eosinophils% 2.9 % (0-5); Hemoglobin 10.7 g/dL (13.0-16.5); Lymphocyte # 0.56 X10^3/ul (4.0); Lymphocyte % 11.6 % (19-41); Mean Corp Hgb Conc 31.5 g/dL (32-36); Mean Corpuscular Hgb 32.2 pg (27.0-32.0); Mean Corpuscular Volume 102.4 fL (80-94); Mean Platelet Vol. 9.4 fl (6.2-12.0); Monocyte# 0.35 X10^3/uL; Monocyte% 7.2 % (0-10); NRBC Flagged by Analyzer 0 % (0-5); Neutrophil # 3.73 X10^3/uL (2.7-7.7); Neutrophil % 77.3 % (47-70); POSITIVE DIFFERENTIAL YES; Platelet Count 161 K/mm3 (150-450); RBC Distribution Width CV 13.4 % (11.6-14.6); RBC Distribution Width SD 50.8 fl (35.1-43.9); Red Blood Count 3.32 M/mm3 (4.6-6.2); White Blood Count 4.8 K/mm3 (4.4-11.0)
[2019-10-07 07:37] LABS: Differential Indicated SCAN CRITERIA MET
[2019-10-07 07:50] LABS: Anion Gap 6 (5-15); BUN 40 mg/dL (7-18); BUN/Creat Ratio 17.9 RATIO (10-20); Calcium,Total 8.4 mg/dL (8.5-10.1); Chloride 119 mmol/L (98-107); Creatinine, Serum 2.24 mg/dL (0.70-1.30); EST Glomerular Filtration Rate 30 mL/min (>60); Est Glom Filt Rate - Afr Amer 36 mL/min (>60); Estimated Creatinine Clearance 24.59 ml/min; Glucose 98 mg/dL (74-106); Potassium 4.5 mmol/L (3.5-5.1); Sodium Level 145 mmol/L (136-145)
--- NOTE | 2019-10-07 08:00 | STE_ITS ---
Reason For Study: ARRHYTHMIA Stress Results Protocol: MODIFIED HAM Maximum Predicted HR: 140 bpm Target HR: 119 bpm % Maximum Predicted HR: 86 % DurationHeart Rate Stage (mm:ss) (bpm) BP Comment BASELINE 65 138/64 STAGE 0 3:00 96 130/70 STAGE 1/2 3:00 100 140/80 STAGE 1 3:00 105 146/80 STAGE 2 2:00 121 / NO CHEST PAIN RECOVERY 70 138/68 Stress Duration: 11:00 mm:ss Maximum Stress HR: 121 bpm Baseline Echocardiogram Findings The estimated ejection fraction is 65 %. Stress Echo Wall motion Data Resting WM Intermediate WM Stress WM Resting Wall Motion Wall Motion Stress No regional wall motion No regional wall motion abnormalities noted. abnormalities noted. EKG Data The baseline ECG displays normal sinus rhythm. The maximum heart rate attained was 123 beats per minute. This was 87% of maximum predicted heart rate. The patient exercised into stage 2 of the Ham protocol. No clinical angina was noted. No arrhythmias noted. Interpretation Summary The estimated ejection fraction is 65 %. Normal, adequate, modified Ham treadmill echocardiogram. Negative for ischemia by EKG and echocardiographic criteria. No anginal symptoms noted. No arrhythmias noted. Appropriate blood pressure response to exercise. Good chronotropic response to exercise. Average exercise capacity for age. Final LVEF is 75%. Test terminated due to the attainment of target heart rate. No complications. Ordering Physician: Juanjo Sinclair Referring Physician: Juanjo Sinclair MD Performed By: Sada Galan, ANTHONY, RVT
[2019-10-07] MEDS: 0.9% Saline Lock 10 ML Syringe IV (08:07)
--- NOTE | 2019-10-07 09:31 | PN.CARD_ITS ---
Subjectve: Patient seen and examined this morning. Telemetry showed normal sinus rhythm with rare PACs and bursts of atrial fibrillation which was self terminating. No angina. Troponins negative x3. Stress test on this morning showed excellent chronotropic competence, no anginal symptoms, no wall motion abnormalities, essentially normal. Orthostatics negative this morning. Objective: Vital Signs Temp Pulse Resp BP Pulse Ox 98.4 F 60 18 145/45 H 97 10/07/19 08:08 10/07/19 08:10 10/07/19 08:08 10/07/19 08:10 10/07/19 08:08 Oxygen Flow Rate (L/min) 2 Oxygen Delivery Method Room Air Weight: 159 lb 8.56 oz Body Mass Index (BMI) 25.0 Orthostatic Vital Signs Start: 10/07/19 08:32 Freq: q24h Status: Active Protocol: Activity Type Activity Date Activity User E-Sign Co-Sign Detail Recorded Client Recorded Date Recorded By Document 10/07/19 08:10 AEC [id number] 10/07/19 08:32 AEC 10/07/19 08:10 Orthostatic Vitals Standing -Blood Pressure (90/60-120/80) 149/59 H -Extremity Use Right Arm -Pulse Rate (60-100) 64 Sitting -Blood Pressure (90/60-120/80) 149/64 H -Extremity Use Right Arm -Pulse Rate (60-100) 60 Lying -Blood Pressure (90/60-120/80) 145/45 H -Extremity Use Right Arm -Pulse Rate (60-100) 60 Intake and Output for Last 24 Hours 10/05/19 10/06/19 10/07/19 23:59 23:59 23:59 Intake Total 1969.5 / 1969.5 1715.00 / 1715.00 Output Total 725 / 725 625 / 625 Balance 1244.5 / 1244.5 1090.00 / 1090.00 General: Awake, Alert, Oriented x 3 HEENT: PERRL, EOMI, Sclera Non Icteric Neck: Supple, Good ROM, No Lymph Node Enlargement Lungs: Clear to auscultation Cardiovascular: Regular Rhythm, Normal S1, Normal S2, No Murmurs, No Rubs, No Gallops Vascular: No Carotid Bruits, Normal Femoral Pulses, Normal Radial Pulses, Normal Dorsalis Pedal Pulse, Normal Posterior Tibial Pulses Abdomen: Bowel Sounds Present, Soft, Non Tender, No HSM, No Organomegaly Extremities: No Cyanosis, No Clubbing, No edema Neurological: No Focal Motor or Sensory Deficit 10/06/19 10:15: Troponin I < 0.015 10/06/19 13:10: Troponin I < 0.015 10/07/19 07:20: WBC 4.8, RBC 3.32 L, Hgb 10.7 L, Hct 34.0 L, MCV 102.4 H, MCH 32.2 H, MCHC 31.5 L, Plt Count 161, MPV 9.4, Immature Gran % (Auto) 0.400, Neut % (Auto) 77.3 H, Lymph % (Auto) 11.6 L, [place] % (Auto) 7.2, Eos % (Auto) 2.9, Baso % (Auto) 0.6, Absolute Neuts (auto) 3.7, Nucleated RBC % 0 10/07/19 07:20: Sodium 145, Potassium 4.5, Chloride 119 H, Carbon Dioxide 20.0 L , Anion Gap 6, BUN 40 H, Creatinine 2.24 H, Est GFR (MDRD) Af Amer 36 L, Est GFR (MDRD) Non-Af 30 L, BUN/Creatinine Ratio 17.9, Glucose 98, Calcium 8.4 L Rhythm: EKG: ECHO: LVEF of 65%. Stress Test: Negative stress test. Excellent chronotropic competence. Cardiac Cath: PCI: CT Surgery: Holter monitor: EPS: PPM: CXR: Chest CT Scan: Medical Necessity - Tobacco Use Smoking Status: Former smoker Tobacco Use: Cigarettes Assessment/Plan 1. Syncope: Patient has had 2 episodes of syncope in the last 12 months, this time requiring CPR superimposed on known sinus bradycardia, beta-ayanna use, and Flomax use. In addition his CT scan demonstrates a small lacunar infarct, the timing of which is at this point uncertain. He is only on aspirin, and not on Plavix. Patient has had no recurrent symptoms concerning for coronary disease that he had 8 years ago when he had his stents placed at the [facility]. At this point I would recommend admitting the patient to PCU telemetry, ruling out for myocardial infarction with troponins x3, and if they are negative, would recommend a modified Ham walking treadmill echocardiogram to evaluate for chronotropic competence, ischemia, blood pressure response to exercise, and exercise duration. If his stress test is grossly abnormal, he may require repeat catheterization. Would also recommend obtaining the old records from Dr. Jaffe's office with respect to his previous stress test and previous angioplasty 8 years ago. Patient's labetalol was discontinued, and he feels much better. Heart rate is much improved. Modified Ham stress echocardiogram was negative for inducible ischemia with excellent chronotropic competence. No indication for repeat catheterization at this time. Orthostatics are negative. TSH and T4 within normal limits. 2. Hyperlipidemia: LDL is 43 and HDL is 49. Continue statin based medications. 3. Chronic renal insufficiency: Patient has chronic renal insufficiency which may be problematic with respect to different medications being process for the kidneys. Would recommend discontinuation of labetalol and switching him to Coreg 3.125 mg p.o. twice daily. Would recommend starting Coreg this morning, waiting 2 hours, and then obtaining a repeat orthostatic blood pressure. If this is negative, the patient may be discharged home. 4. Discussed with Randolph. Thank you very much for the opportunity to put dissipate in the cardiac care of your patient. Patient may be follow-up with Dr. Sinclair going forward. Code Visit Inpatient E&M: 49084 Subs Hosp L3
[2019-10-07] MEDS: Carvedilol 3.125 MG TABLET PO (11:52)
--- NOTE | 2019-10-07 14:33 | DCINST_ITS ---
You will use the following diet at home:: Cardiac Your food should be the consistency of: Regular Your liquids should be the consistency of: Regular/Thin Discharge Activity: Return to Normal Activity Call your doctor if you observe: Fever of 101 or Higher, Shortness of breath, Dizziness, Fainting spells, Swelling in the ankles, Chest pain, Increased palpitations (irregular heartbeat) Allergies/Adverse Reactions: Allergies Penicillins Allergy (Verified 10/06/19 07:16) Unknown STATES SHE DOESN'T THINK HE'S ALLERGIC TO ANYTHING, PT UNABLE TO ANSWER. Medications to take at Discharge Aspirin [Aspirin, Baby] 81 mg PO DAILY@0800 12/15/18 Simvastatin 40 mg PO QHS 12/15/18 Tamsulosin HCl [Flomax] 0.4 mg PO DAILY 12/16/18 Carvedilol [Coreg (Beta Silvestre)] 3.125 mg PO BID #60 tab 10/07/19 The following prescriptions were given: Carvedilol [Coreg (Beta Silvestre)] 3.125 mg PO BID #60 tab Transmission Status: Pending to [facility] Primary Care Physician: Tip Borden III, MD [Primary Care Provider] - Please follow up with your Primary Care Physician in: 3-5 days Test Results: Test results from this visit will be discussed in further detail at your follow- up appointment, if applicable.
--- NOTE | 2019-10-07 14:37 | PCM.DC.SUM ---
Discharge Date and Diagnosis Date of Admission: 10/06/19 Date of Discharge: 10/07/19 - Secondary Discharge Diagnosis Chronic Problems Sinus bradycardia (Chronic) Diabetes mellitus type 2 (Chronic) CKD (chronic kidney disease), stage III (Chronic) Coronary artery disease (Chronic) History of coronary artery stent placement (Chronic) Hospital Course and Treatment Imaging Results: CT Brain: IMPRESSION: Chronic involutional changes of the brain. 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 CXR: IMPRESSION: No acute abnormality is seen. Echo: Interpretation Summary The estimated ejection fraction is 65 %. Stage 1 diastolic dysfunction. Mildly dilated right ventricle. The left atrium is mildly enlarged. The right atrium is mildly enlarged. Trivial mitral valve insufficiency. Trivial tricuspid valve insufficiency. Right ventricular systolic pressure estimated to be 37 mmHg. Compared to echo report dated 12/16/2018, no appreciable changes noted. Stress Echo: Stress Results Protocol: MODIFIED HAM Maximum Predicted HR: 140 bpm Target HR: 119 bpm % Maximum Predicted HR: 86 % DurationHeart Rate Stage (mm:ss) (bpm) BP Comment BASELINE 65 138/64 STAGE 0 3:00 96 130/70 STAGE 1/2 3:00 100 140/80 STAGE 1 3:00 105 146/80 STAGE 2 2:00 121 / NO CHEST PAIN RECOVERY 70 138/68 Stress Duration: 11:00 mm:ss Maximum Stress HR: 121 bpm Baseline Echocardiogram Findings The estimated ejection fraction is 65 %. Stress Echo Wall motion Data Resting WM Intermediate WM Stress WM Resting Wall Motion Wall Motion Stress No regional wall motion No regional wall motion abnormalities noted. abnormalities noted. EKG Data The baseline ECG displays normal sinus rhythm. The maximum heart rate attained was 123 beats per minute. This was 87% of maximum predicted heart rate. The patient exercised into stage 2 of the Ham protocol. No clinical angina was noted. No arrhythmias noted. Interpretation Summary The estimated ejection fraction is 65 %. Normal, adequate, modified Ham treadmill echocardiogram. Negative for ischemia by EKG and echocardiographic criteria. No anginal symptoms noted. No arrhythmias noted. Appropriate blood pressure response to exercise. Good chronotropic response to exercise. Average exercise capacity for age. Final LVEF is 75%. Test terminated due to the attainment of target heart rate. No complications. Operations: None Procedures: 2-D Echocardiogram, Stress test Summary of Care Provided: Per HPI: The patient is a 79 year old M with a PMH as below who presents to the hospital after having a syncopal episode in [facility] today. He goes to [facility] every morning and had been okay on the days prior. However today he was kneeling and felt hot and took off his jacket and then he slumped over. He does not recall anything that happened after that until he was in the ambulance. Per bystander report, he had CPR done because they thought that he was not breathing and/or did not have a pulse. However there was a doctor in attendance at [facility] and when he came to the scene bystanders told him that the pulse was weak and he told him to discontinue CPR, and when he woke up in the ambulance he was completely back to baseline and felt well enough to want to go home. Cardiology was consulted in the ED because of the report of an arrest and CPR, they want to obtain troponins as well is to cardiac work-up including an echo and a possible stress test. In the ER his lab work was normal and his EKG demonstrated sinus bradycardia. Hospital Course: 1. Syncope/CAD status post stents in 2007/HTN/HLD/sinus [id number]-old male who is in pretty good health who walks 3 to 5 miles every day was at [facility] when he got hot, lightheaded and then passed out. There is a report of asystole and CPR was started by nonmedical personnel. There was a doctor who did arrive on the scene who stated to stop CPR as the patient had had a pulse the entire time. He came to when he was in the ambulance remembers everything from that point. There was no seizure-like activity. He had something similar like this though not as severe back in November which was felt to be vasovagal. He does have labetalol on his home med list which could have contributed especially since he also has some kidney disease which can lead to an overdose like effect of the labetalol. He was switched to Coreg 3.125 mg p.o. twice daily by cardiology today after he had a normal echo and a normal stress echo. He was able to have a compensatory response and his heart rate to exercise and therefore he was reinstituted on his beta-silvestre. 2 hours after getting his beta-silvestre he had orthostatic vital signs obtained which were also normal. He denies being symptomatic of any lightheadedness or dizziness. He also had 3- troponins. I discussed the case with him as well as his , and we discussed the risks and benefits of discharge. They expressed understanding, and agreed to discharge. He will follow-up with his primary care physician in 3 to 5 days. 2. His other medical diagnoses were evaluated and his home medications were continued where appropriate - Physical Exam Vitals/I&O's: Vital Signs Temp Pulse Resp BP Pulse Ox 97.8 F 56 L 16 154/70 H 98 10/07/19 11:53 10/07/19 14:07 10/07/19 11:53 10/07/19 14:07 10/07/19 11:53 Oxygen Flow Rate (L/min) 2 Oxygen Delivery Method Room Air Weight: 159 lb 8.56 oz Body Mass Index (BMI) 25.0 Orthostatic Vital Signs Start: 10/07/19 08:32 Freq: q24h Status: Active Protocol: Activity Type Activity Date Activity User E-Sign Co-Sign Detail Recorded Client Recorded Date Recorded By Document 10/07/19 14:07 AEC [id number] 10/07/19 14:11 AEC 10/07/19 14:07 Orthostatic Vitals Standing -Blood Pressure (90/60-120/80) 142/52 H -Extremity Use Right Arm -Pulse Rate (60-100) 59 L Sitting -Blood Pressure (90/60-120/80) 157/69 H -Extremity Use Right Arm -Pulse Rate (60-100) 57 L Lying -Blood Pressure (90/60-120/80) 154/70 H -Extremity Use Right Arm -Pulse Rate (60-100) 56 L Intake and Output for Last 24 Hours 10/05/19 10/06/19 10/07/19 23:59 23:59 23:59 Intake Total 1969.5 / 1969.5 1715.00 / 1715.00 Output Total 725 / 725 625 / 625 Balance 1244.5 / 1244.5 1090.00 / 1090.00 General: Alert, Oriented x3, Cooperative, No apparent distress HEENT: Atraumatic, PERRLA, EOMI, Normocephalic Oral: Moist Mucosa Neck: Supple, No JVD Lungs: Clear to auscultation, Normal air movement, No rhonchi, No wheeze, No rales Cardiovascular: Regular rate, Regular Rhythm, Normal S1, Normal S2, No murmurs Abdomen: Soft, Non Tender, Non-Distended, No Hepato-splenomegaly Extremities: No edema, Capillary Refill Less than 3 Seconds Skin: No rashes, No breakdown Neurological: Neuro grossly intact, Sensory exam intact to light touch and pain Psych/Mental Status: Normal Affect, Appropriate Laboratory Results 10/07/19 07:20: WBC 4.8, RBC 3.32 L, Hgb 10.7 L, Hct 34.0 L, MCV 102.4 H, MCH 32.2 H, MCHC 31.5 L, RDW Std Deviation 50.8 H, RDW Coeff of Eduardo 13.4, Plt Count 161, MPV 9.4, Immature Gran % (Auto) 0.400, Neut % (Auto) 77.3 H, Lymph % (Auto) 11.6 L, [place] % (Auto) 7.2, Eos % (Auto) 2.9, Baso % (Auto) 0.6, Absolute Neuts (auto) 3.7, Absolute Lymphs (auto) 0.56 L, Nucleated RBC % 0, Differential Comment COMMENT 10/07/19 07:20: Sodium 145, Potassium 4.5, Chloride 119 H, Carbon Dioxide 20.0 L, Anion Gap 6, BUN 40 H, Creatinine 2.24 H, Estim Creat Clear Calc 24.59, Est GFR (MDRD) Af Amer 36 L, Est GFR (MDRD) Non-Af 30 L, BUN/Creatinine Ratio 17.9, Glucose 98, Calcium 8.4 L Current Medications Aspirin (Aspirin, Baby) 81 mg PO DAILY@0800 [facility] Last Admin: 10/07/19 05:07 Dose: 81 mg Documented by: Atorvastatin Calcium (Lipitor) 20 mg PO QHS [facility] Last Admin: 10/06/19 22:52 Dose: 20 mg Documented by: Carvedilol (Coreg) 3.125 mg PO BID [facility] Last Admin: 10/07/19 11:52 Dose: 3.125 mg Documented by: Heparin Sodium (Porcine) (Heparin Na) 5,000 unit SC Q8 [facility] Last Admin: 10/07/19 03:48 Dose: Not Given Documented by: Sodium Chloride () 1,000 mls @ 100 mls/hr IV .Q10H [facility] Last Infusion: 10/07/19 08:06 Dose: 0 mls/hr Documented by: Sodium Chloride () 10 - 40 ml IV UD PRN PRN Reason: SALINE FLUSH Last Admin: 10/07/19 08:07 Dose: 10 ml Documented by: Tamsulosin HCl (Flomax) 0.4 mg PO DAILY [facility] Last Admin: 10/07/19 13:06 Dose: Not Given Documented by: Discharge Activity: Return to Normal Activity Call your doctor if you observe: Fever of 101 or Higher, Shortness of breath, Dizziness, Fainting spells, Swelling in the ankles, Chest pain, Increased palpitations (irregular heartbeat) Home Medications: Medications to take at Discharge Aspirin [Aspirin, Baby] 81 mg PO DAILY@0800 12/15/18 Simvastatin 40 mg PO QHS 12/15/18 Tamsulosin HCl [Flomax] 0.4 mg PO DAILY 12/16/18 Carvedilol [Coreg (Beta Silvestre)] 3.125 mg PO BID #60 tab 10/07/19 Following Prescrptions Were Given to Patient: Carvedilol [Coreg (Beta Silvestre)] 3.125 mg PO BID #60 tab Transmission Status: Pending to [facility] Primary Care Physician: Tip Borden III, MD [Primary Care Provider] - Please follow up with your Primary Care Physician in: 3-5 days Disposition: Home Minutes spent on discharge:: 35 Patient Condition:: Stable Medical Necessity - Tobacco Use Smoking Status: Former smoker Tobacco Use: Cigarettes Meaningful Use Info Meaningful Use Diagnoses (Choose all that apply): None applicable Code Visit OBSV E&M: 63164 Observation care discharge
--- NOTE | 2019-10-07 15:14 | PHA.DC.MC ---
Pharmacy Service has performed discharge medication reconciliation and counseling for this patient. 1. CARVEDILOL 3.125MG PO BID The patient's discharge medication list was reviewed for discrepancies and discrepancies were resolved. Home Medications Aspirin [Aspirin, Baby] 81 mg PO DAILY@0800 12/15/18 Simvastatin 40 mg PO QHS 12/15/18 Tamsulosin HCl [Flomax] 0.4 mg PO DAILY 12/16/18 Carvedilol [Coreg (Beta Silvestre)] 3.125 mg PO BID #60 tab 10/07/19 The patient was counseled on the following discharge medications and changes in medications for homegoing were reviewed. The Reason for Use, instructions for use, and potential side effects were reviewed for all new medications. The patient's questions regarding all of their medications were answered. The patient was able to verbally demonstrate an understanding of their discharge medications.
== END 2019-10-07 14:34 | disposition home or self-care (01) ==
LOC: ED 07:31 → PCU 10-07 06:53
PROVIDERS: Internal Medicine Cardiovascular Disease; Admitting Provider Family Medicine; Emergency Provider Emergency Medicine; Family Provider Family Medicine; PCP Family Medicine; Visit Provider Family Medicine
DX: R55 Syncope and collapse (principal); R00.1 Bradycardia, unspecified; E78.5 Hyperlipidemia, unspecified; I12.9 Hypertensive chronic kidney disease with stage 1 through stage 4 chronic kidney disease, or unspecified chronic kidney disease; I08.1 Rheumatic disorders of both mitral and tricuspid valves; E11.22 Type 2 diabetes mellitus with diabetic chronic kidney disease; N18.3 Chronic kidney disease, stage 3 (moderate); I25.10 Atherosclerotic heart disease of native coronary artery without angina pectoris; Z95.5 Presence of coronary angioplasty implant and graft; Z79.899 Other long term (current) drug therapy; Z79.82 Long term (current) use of aspirin; N40.0 Benign prostatic hyperplasia without lower urinary tract symptoms; Z87.891 Personal history of nicotine dependence
CPT/HCPCS: 36415; 36592; 70450; 71045; 80048; 80053; 80061; 81001; 83605; 83690; 83735; 84439; 84443; 84484; 85025; 85610; 85730; 93005; 93017; 93306; 93350; 96361; 96372; 96374; 97161; 97165; 99218; 99285; J7030; A4216; G0378; J2405

== ENCOUNTER → 2021-03-03 13:59 | Outpatient (CLI) | payer MEDICARE, OTHER, SELFPAY ==
[2021-03-03 12:58] VITALS: BMI 27.2
[2021-03-03 14:50] LABS: Absolute Lymphocyte Count 0.85 X10^3/uL (0.83-4.51); Absolute Neutrophil Count 4.8 X10^3/uL (2.0-7.7); Basophil# 0.06 X10^3/uL; Basophil% 0.9 % (0-1); Eosinophil# 0.32 X10^3/uL; Eosinophils% 4.9 % (0-5); Hematocrit 43.1 % (40-54); Hemoglobin 13.3 g/dL (13.0-16.5); Lymphocyte # 0.85 X10^3/ul (4.0); Lymphocyte % 12.9 % (19-41); Mean Corp Hgb Conc 30.9 g/dL (32-36); Mean Corpuscular Hgb 31.8 pg (27.0-32.0); Mean Corpuscular Volume 103.1 fL (80-94); Mean Platelet Vol. 9.9 fl (6.2-12.0); Monocyte# 0.54 X10^3/uL; Monocyte% 8.2 % (0-10); NRBC Flagged by Analyzer 0 % (0-5); Neutrophil % 72.8 % (47-70); Platelet Count 218 K/mm3 (150-450); RBC Distribution Width CV 14.2 % (11.6-14.6); Red Blood Count 4.18 M/mm3 (4.6-6.2); White Blood Count 6.6 K/mm3 (4.4-11.0)
[2021-03-03 15:33] LABS: Anion Gap 6 (5-15); BUN 53 mg/dL (7-18); BUN/Creat Ratio 18.3 RATIO (10-20); Calcium,Total 8.6 mg/dL (8.5-10.1); Chloride 111 mmol/L (98-107); EST Glomerular Filtration Rate 22 mL/min (>60); Est Glom Filt Rate - Afr Amer 27 mL/min (>60); Glucose 128 mg/dL (74-106); Magnesium 2.5 mg/dL (1.6-2.6); Potassium 4.1 mmol/L (3.5-5.1); Sodium Level 138 mmol/L (136-145); T4 Free Direct 0.96 ng/dL (0.76-1.46); Thyroid Stim Hormone (TSH) 1.12 uIU/mL (0.358-3.74)
== END ==
PROVIDERS: PCP Family Medicine; Referring Provider Nurse Practitioner Family; Visit Provider Nurse Practitioner Family
DX: I48.0 Paroxysmal atrial fibrillation (principal); I25.10 Atherosclerotic heart disease of native coronary artery without angina pectoris; R00.1 Bradycardia, unspecified; Z95.5 Presence of coronary angioplasty implant and graft
CPT/HCPCS: 36415; 80048; 83735; 84439; 84443; 85025

== ENCOUNTER → 2021-03-17 06:49 | Outpatient (CLI) | payer MEDICARE, OTHER, SELFPAY ==
[2021-03-03 12:58] VITALS: BMI 27.2
--- NOTE | 2021-03-17 06:50 | ECHOD_ITS ---
Reason For Study: CAD, A. fib Procedure This was a 2D Doppler, Color Flow transthoracic echocardiogram. Exam performed in department. Left Ventricle Normal LV size. The estimated ejection fraction is 70 %. Unable to assess diastolic dysfunction. No regional wall motion abnormalities noted. Right Ventricle Normal RV size. Normal systolic function. Atria The left atrium is moderately enlarged. The right atrium is moderately enlarged. No doppler evidence for ASD. Mitral Valve There is no mitral valve stenosis. No mitral valve insufficiency. Tricuspid Valve There is no tricuspid stenosis. Trivial tricuspid valve insufficiency. Pulmonary artery systolic pressure is 40 mmHg. Aortic Valve Trisinus/trileaflet aortic valve. There is no aortic stenosis. No aortic valve insufficiency. Pulmonic Valve There is no pulmonic valvular stenosis. No pulmonic valve insufficiency. Great Vessels Normal aortic root. Pericardium/Pleural No pericardial effusion. Medication Negative bubble on previous echo. MMode/2D Measurements & Calculations LVIDd: 4.1 cm IVSd: 1.4 cm Ao root diam: 2.6 cm LVIDs: 2.1 cm LVPWd: 1.3 cm RVDd: 2.8 cm FS: 49.3 % LAV(MOD-bp): 82.0 ml LA A4 area: 25.3 cm2 LA dimension(2D): 4.0 cm LAV(MOD-bp) Indexed: 44.0 ml/m2 LAV(MOD-sp2): 78.6 ml LAV(MOD-sp4): 83.4 ml RA A4 area: 24.9 cm2 Doppler Measurements & Calculations MV E max shadi: 102.4 cm/sec Ao V2 max: 156.9 cm/sec LV V1 max: 109.7 cm/sec Ao max P.9 mmHg LV V1 max P.8 mmHg PA V2 max: 100.1 cm/sec TR max shadi: 279.5 cm/sec TR max P.3 mmHg ECHO/Echo Complete Interpretation Summary The estimated ejection fraction is 70 %. Unable to assess diastolic dysfunction. The left atrium is moderately enlarged. The right atrium is moderately enlarged. Ordering Physician: Sandeep Harrington Referring Physician: CLIVE Borden M.D. Performed By: Hazel Gray RDCS
--- NOTE | 2021-03-17 13:26 | STRESSREP ---
Stress Test Report Date: 03/17/2021 Procedure: Pharmacologic stress nuclear imaging study Indications: Atrial fibrillation, CAD Consent: Per the patient Procedure: The patient underwent pharmacologic (Regadenoson) evaluation with a peak heart rate of 131 beats per minute (94%predicted maximal heart rate) and a peak blood pressure of 128/74 mmHg. The baseline ECG demonstrated atrial fibrillation. EKG during lexiscan infusion revealed no significant ischemic changes. EKG post infusion revealed no significant ischemic changes [There were no cardiac dysrhythmias pretest, during pharmacologic infusion, or recovery]. [There was no complaint of chest discomfort during pharmacologic infusion or recovery]. The examination was discontinued secondary to completion of protocol. Impression: 1. Lexiscan stress test test is negative for Lexiscan infusion induced EKG changes of ischemia. 2. Lexiscan stress test test is negative for Lexiscan infusion induced chest pain. 3. Results of the nuclear portion of the test is as below Myocardial perfusion imaging study: Technique: The patient was injected with [] millicuries of technetium 99m Cardiolite and subsequently rest SPECT Cardiolite nuclear imaging was obtained in the horizontal long, vertical long, and short axis views. The patient underwent pharmacologic [Regadenoson 0.4mg] evaluation. Please see above for details. The patient was injected with [] millicuries of technetium 99m Cardiolite and subsequently stress SPECT Cardiolite nuclear imaging was obtained in the horizontal long, vertical long, and short axis views. A gated Cardiolite study at peak stress was obtained. Interpretation: Rest and stress SPECT Cardiolite nuclear imaging status post realignment, normalization, and attenuation correction demonstrate mild decrease in the radioisotope uptake in the inferior wall prior to attenuation correction on both the rest and stress images. After attenuation correction there is normal myocardial radioisotope uptake. There is suggestive of diaphragmatic attenuation artifact. Gated images reveal no significant regional wall motion abnormalities. The reported LVEF is greater than 70%. Impression: 1. There is no evidence of significant ischemia or infarction. 2. Estimated ejection fraction is greater than 70%. This note was generated with [employer] software. It may contain incorrect words, spelling, and punctuation that were not noted in checking the note before signing.
== END ==
PROVIDERS: PCP Family Medicine; Visit Provider Nurse Practitioner Family
DX: I25.10 Atherosclerotic heart disease of native coronary artery without angina pectoris (principal); I48.0 Paroxysmal atrial fibrillation; Z95.5 Presence of coronary angioplasty implant and graft
CPT/HCPCS: 78452; 93017; 93306; A9500; A4216; J2785

== ENCOUNTER → 2021-06-22 08:40 | Outpatient (CLI) | payer MEDICARE, OTHER, SELFPAY ==
[2021-03-03 12:58] VITALS: BMI 27.2
--- NOTE | 2021-06-22 08:46 | US_ITS ---
STUDY: RENAL ULTRASOUND - COMPLETE REASON FOR EXAM: Male, 81 years old. CKD4 TECHNIQUE: Ultrasound evaluation of the kidneys was performed with real-time and static singh-scale imaging. COMPARISON: None. FINDINGS: RIGHT KIDNEY: Normal location of the right kidney, which is normal in size. The right kidney measures 12 cm x 4.9 cm x 6 cm. There is echogenic cortex of the right kidney suggestive of medical renal disease.. The renal cortex measures 1.1 cm. Multiple renal cysts are seen. The largest measures 3.5 cm x 3.3 size by 2.7 cm. 5 mm calculus is seen in the mid pole calyx. There is no right hydronephrosis. DISTAL RIGHT URETER: There is non-visualization of the distal right ureter. There is no demonstrated right ureterovesical junction calculus. There is a visualized right ureteral jet. LEFT KIDNEY: with mild renal atrophy. The left kidney measures 8.6 cm x 4.2 cm x 3.2 cm. There is diffuse thinning of the renal cortex. Increased cortical echotexture in keeping with medical renal disease. The renal cortex measures 1 cm. Multiple cysts are seen. The biggest measures 2.1 cm x 3 cm x 1.9 cm. There are no left renal calculi. There is no left hydronephrosis. DISTAL LEFT URETER: There is non-visualization of the distal left ureter. There is no demonstrated left ureterovesical junction calculus. There is a visualized left ureteral jet. BLADDER: The distended urinary bladder has a volume of 82 ml. There is a normal wall thickness of the distended urinary bladder. There is no demonstrated mass within the urinary bladder. There are no demonstrated bladder calculi. US/Kidney and Bladder IMPRESSION: Mild degree of the left renal atrophy. Echogenic renal cortex bilaterally in keeping with medical renal disease. Electronically Signed: Gustabo Burgess MD at 15:14 EDT , Service support ,
== END ==
PROVIDERS: PCP Family Medicine; Referring Provider Internal Medicine Nephrology; Visit Provider Internal Medicine Nephrology
DX: N18.4 Chronic kidney disease, stage 4 (severe) (principal)
CPT/HCPCS: 76770

== ENCOUNTER → 2021-07-28 07:59 | Outpatient (CLI) | payer MEDICARE, OTHER, SELFPAY ==
[2021-03-03 12:58] VITALS: BMI 27.2
[2021-07-28 08:22] LABS: Hematocrit 36.3 % (40-54); Mean Corp Hgb Conc 30.3 g/dL (32-36); Mean Corpuscular Volume 105.5 fL (80-94); Mean Platelet Vol. 9.6 fl (6.2-12.0); Platelet Count 212 K/mm3 (150-450); RBC Distribution Width SD 58.4 fl (35.1-43.9); Red Blood Count 3.44 M/mm3 (4.6-6.2); White Blood Count 6.4 K/mm3 (4.4-11.0)
[2021-07-28 08:45] LABS: Albumin, Serum 3.7 g/dL (3.2-5.0); BUN 54 mg/dL (7-18); BUN/Creat Ratio 18.4 RATIO (10-20); Calcium,Total 8.2 mg/dL (8.5-10.1); Chloride 113 mmol/L (98-107); Creatinine, Serum 2.93 mg/dL (0.70-1.30); EST Glomerular Filtration Rate 22 mL/min (>60); Est Glom Filt Rate - Afr Amer 27 mL/min (>60); Glucose 93 mg/dL (74-106); Phosphorus 4.2 mg/dL (2.5-4.9); Potassium 5.3 mmol/L (3.5-5.1); Sodium Level 138 mmol/L (136-145)
[2021-07-28 10:52] LABS: PTHIN 338.2 pg/mL (18.4-80.1)
== END ==
PROVIDERS: PCP Family Medicine; Referring Provider Internal Medicine Nephrology; Visit Provider Internal Medicine Nephrology
DX: N18.4 Chronic kidney disease, stage 4 (severe) (principal)
CPT/HCPCS: 36415; 80069; 83970; 85027

== ENCOUNTER → 2021-08-04 13:49 | Outpatient (CLI) | payer MEDICARE, OTHER, SELFPAY ==
[2021-08-04 14:44] LABS: Anion Gap 5 (5-15); BUN 54 mg/dL (7-18); BUN/Creat Ratio 20.8 RATIO (10-20); Calcium,Total 8.6 mg/dL (8.5-10.1); Chloride 114 mmol/L (98-107); Creatinine, Serum 2.59 mg/dL (0.70-1.30); EST Glomerular Filtration Rate 25 mL/min (>60); Est Glom Filt Rate - Afr Amer 31 mL/min (>60); Glucose 115 mg/dL (74-106); Potassium 5.4 mmol/L (3.5-5.1); Sodium Level 139 mmol/L (136-145)
== END ==
PROVIDERS: PCP Family Medicine; Referring Provider Internal Medicine Nephrology; Visit Provider Internal Medicine Nephrology
DX: E87.5 Hyperkalemia (principal)
CPT/HCPCS: 36415; 80048

== ENCOUNTER → 2021-08-12 12:54 | Outpatient (CLI) | payer MEDICARE, OTHER, SELFPAY ==
--- NOTE | 2021-08-12 13:37 | VDUE_ITS ---
Reason For Study: CKD stage 4 Right Arm Left Arm Right Cephalic Vein at the wrist measures Left Cephalic Vein at the wrist measures 0.16 x 0.16 cm. 0.21 x 0.22 cm. Right Cephalic Vein in the forearm measures Left Cephalic Vein in the forearm measures 0.14 x 0.15 cm. 0.16 x 0.18 cm. Right Cephalic Vein below antecub measures Left Cephalic Vein below antecub measures 0.20 x 0.21 cm. 0.22 x 0.24 cm. Right Cephalic Vein above antecub measures Left Cephalic Vein above antecub measures 0.24 x 0.24 cm. 0.36 x 0.38 cm. Right Cephalic Vein mid bicep measures 0.25 Left Cephalic Vein at mid bicep measures x 0.26 cm. 0.30 x 0.29 cm. Right Cephalic Vein at the shoulder measures Left Cephalic Vein at the shoulder measures 0.23 x 0.24 cm. 0.34 x 0.36 cm. Right Basilic Vein at the origin measures Basilic vein at origin measures 0.41 x 0.42 0.38 x 0.37 cm. cm. Right Basilic Vein mid bicep measures 0.29 x Basilic vein at bicep measures 0.40 x 0.41 0.29 cm. cm. Right Basilic Vein above antecub measures Basilic vein above antecub measures 0.46 x 0.36 x 0.37 cm. 0.45 cm. Right Brachial artery measures 0.46 x 0.48 Left Brachial artery measures 0.43 x 0.44 cm cm with a velocity of 73.4 cm/sec. with a velocity of 98.1 cm/sec. Right Radial artery measures 0.19 x 0.22 cm Left Radial artery measures 0.22 x 0.23 cm with a velocity of 73.7 cm/sec. with a velocity of 73.4 cm/sec. VL/Saphenous Vein Mapping, Bilat Interpretation Summary Patent and compressible bilateral upper extremity cephalic and basilic veins wi th dimensions as noted Normal flow bilateral radial and brachial arteries Ordering Physician: Kalee Bertrand Referring Physician: Bravo Kearney Performed By: Ariadna Baez RVT ?
== END ==
PROVIDERS: PCP Family Medicine; Visit Provider Internal Medicine Nephrology
DX: Z01.818 Encounter for other preprocedural examination (principal); N18.4 Chronic kidney disease, stage 4 (severe)
CPT/HCPCS: 93970; 93985

== ENCOUNTER 2021-08-29 05:21 | Day surgery (SDC) | payer MEDICARE, OTHER, SELFPAY ==
[2021-08-22 12:17] LABS: Hematocrit 38.3 % (40-54); Hemoglobin 12.1 g/dL (13.0-16.5); Mean Corp Hgb Conc 31.6 g/dL (32-36); Mean Corpuscular Volume 104.4 fL (80-94); Mean Platelet Vol. 10.1 fl (6.2-12.0); Platelet Count 191 K/mm3 (150-450); RBC Distribution Width CV 14.4 % (11.6-14.6); RBC Distribution Width SD 54.7 fl (35.1-43.9); Red Blood Count 3.67 M/mm3 (4.6-6.2); White Blood Count 5.6 K/mm3 (4.4-11.0)
[2021-08-22 12:51] LABS: Anion Gap 8 (5-15); BUN 45 mg/dL (7-18); BUN/Creat Ratio 16.2 RATIO (10-20); Calcium,Total 8.7 mg/dL (8.5-10.1); Chloride 113 mmol/L (98-107); Creatinine, Serum 2.77 mg/dL (0.70-1.30); EST Glomerular Filtration Rate 23 mL/min (>60); Est Glom Filt Rate - Afr Amer 28 mL/min (>60); Glucose 107 mg/dL (74-106); Potassium 4.1 mmol/L (3.5-5.1); Sodium Level 140 mmol/L (136-145)
[2021-08-29] VITALS (9 sets, daily range): BP systolic 71–123; BP diastolic 46–73; PULSE 55–81; RESP 16–20; TEMP 35.9–36.9; O2SAT 97–100; BMI 24.0
--- NOTE | 2021-08-29 05:51 | PCM.HP.BLA ---
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 Accompanied by: Is patient in pain?: No Allergies Penicillins Allergy (Verified 08/16/21 12:52) Unknown Medications aspirin 81 mg PO DAILY@0800 12/15/18 [History Confirmed 08/16/21] tamsulosin 0.4 mg PO DAILY 12/16/18 [History Confirmed 08/16/21] amlodipine 5 mg tablet 5 mg PO DAILY 10/20/19 [History Confirmed 08/16/21] atorvastatin 20 mg tablet 20 mg PO tab 02/13/20 [History Confirmed 08/16/21] carvedilol 3.125 mg tablet 3.125 mg PO BID #60 tab 09/02/20 [Rx Confirmed 08/16/21] rivaroxaban 15 mg tablet 15 mg PO DAILY tablet 08/16/21 [History Confirmed 08/16/21] [facility] [place] Medical History (Updated 08/16/21 @ 13:[address] Lela Borden MD) Atherosclerosis of coronary artery of [place] heart without angina pectoris CKD (chronic kidney disease), stage III Diabetes mellitus type 2 Paroxysmal atrial fibrillation Sinus bradycardia Syncope Surgical History History of coronary artery stent placement (2007) Family History Mother Diabetes Social History Smoking Status: Former smoker alcohol intake: never substance use type: does not use caffeine: No HPI HPI HPI: LELA LYONS, is a 81 M who presents to the office today for surgical consultation regarding arteriovenous hemodialysis fistula creation. The patient is referred by Dr. Kalee Bertrand and a written copy my surgical consult recommendations will be returned to her. 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 According to the patient's daughter he has a creatinine clearance of 20 cc/min. The patient is right arm dominant. He has had 2 coronary stents. His atrial fibrillation. He is on a low-dose aspirin and Xarelto therapy. August 12, 2021 Reason For Study: CKD stage 4 Right Arm Left Arm Right Cephalic Vein at the wrist measures Left Cephalic Vein at the wrist measures 0.16 x 0.16 cm. 0.21 x 0.22 cm. Right Cephalic Vein in the forearm measures Left Cephalic Vein in the forearm measures 0.14 x 0.15 cm. 0.16 x 0.18 cm. Right Cephalic Vein below antecub measures Left Cephalic Vein below antecub measures 0.20 x 0.21 cm. 0.22 x 0.24 cm. Right Cephalic Vein above antecub measures Left Cephalic Vein above antecub measures 0.24 x 0.24 cm. 0.36 x 0.38 cm. Right Cephalic Vein mid bicep measures 0.25 Left Cephalic Vein at mid bicep measures x 0.26 cm. 0.30 x 0.29 cm. Right Cephalic Vein at the shoulder measures Left Cephalic Vein at the shoulder measures 0.23 x 0.24 cm. 0.34 x 0.36 cm. Right Basilic Vein at the origin measures Basilic vein at origin measures 0.41 x 0.42 0.38 x 0.37 cm. cm. Right Basilic Vein mid bicep measures 0.29 x Basilic vein at bicep measures 0.40 x 0.41 0.29 cm. cm. Right Basilic Vein above antecub measures Basilic vein above antecub measures 0.46 x 0.36 x 0.37 cm. 0.45 cm. Right Brachial artery measures 0.46 x 0.48 Left Brachial artery measures 0.43 x 0.44 cm cm with a velocity of 73.4 cm/sec. with a velocity of 98.1 cm/sec. Right Radial artery measures 0.19 x 0.22 cm Left Radial artery measures 0.22 x 0.23 cm with a velocity of 73.7 cm/sec. with a velocity of 73.4 cm/sec. VL/Saphenous Vein Mapping, Bilat Interpretation Summary Patent and compressible bilateral upper extremity cephalic and basilic veins with dimensions as noted Normal flow bilateral radial and brachial arteries Ordering Physician: Kalee Bertrand Referring Physician: Bravo Kearney Performed By: Ariadna Baez RVT ? 08/12/21 1520Date Lela Borden MD ROS General General: Yes fatigue; No weight change, appetite, colon cancer, breast cancer or weakness HEENT HEENT: No difficulty swallowing, eye injury, eye surgery, swollen glands or hoarseness Endo Endocrine: Yes diabetes mellitus; No thyroid disease, thyroid cancer, Hair loss, heat intolerance or cold intolerance Skin Skin: No rash or changing moles Breast Breast: No left breast lump, right breast lump, nipple discharge, breast pain, abnormal mammogram, abnormal US or breast enlargement Musc Musculoskeletal: Yes gout; No back problems, arthritis, rheumatoid arthritis or joint pain Cardio Cardiovascular: Yes heart disease, high blood pressure and heart stent; No murmur, pacemaker, atrial fibrillation, heart attack, palpitations, shortness of breat with exertion or chest pain Psych Psychiatric: No depression, anxiety or hearing voices Resp Respiratory: No shortness of breath, No sleep apnea, No cough, No COPD, No asthma, No emphysema and No wheezing Gastro Gastrointestinal: No abdominal pain, No nausea or vomiting, No diarrhea, No constipation, No blood in stool, No acid reflux, No hemorrhoids, No ulcers, No gallbladder problem and No black,tarry stools Itma Hematologic: Yes blood thinners, No blood disorders, No bleeding, No anemia and No blood clots Neuro Neurologic: No system reviewed and no additional complaints, except as documented, No as per HPI, No abnormal gait, No abnormal hearing, No abnormal movements, No abnormal speech, No behavioral changes, No burning sensations, No confusion, No convulsions, No disequilibrium, No dizziness, No localized weakness, No frequent falls, No headache(s), No lack of coordination, No loss of vision, No memory loss, No numbness, No other visual disturbances, No radicular pain, No restless legs, No sensory deficit, No syncope, No tingling, No tremor(s), No weakness and No other Exam Const General: cooperative, healthy appearing and comfortable Nutritional Appearance: average body habitus Orientation: alert and awake [facility] [place] Head: normal to inspection Eyes General: appearance normal, both eyes and all related structures Neck Neck: normal visual inspection Resp Effort & Inspection: normal respiratory effort Cardio Rate: regular rate Rhythm: regular rhythm GI Palpation: soft and no hepatosplenomegaly Musc Cervical Spine: normal cervical lordosis Skin General: no rashes or lesions noted Neuro General: patient alert, patient awake and patient oriented x3 Extrem General: normal to inspection Other: Left forearm 2-3+ radial pulse. The cephalic vein is present and there is slightly medially in the volar forearm. There is an anticipated sidebranch in the distal third. Psych Appearance: grossly normal COVID (Procedure Consent) Procedure Criteria Procedure Criteria: Yes Elective The surgeon/proceduralist and patient have discussed in detail the risk of exposure to and/or potential harm posed by the COVID-19 virus with having a surgery/procedure at this time versus the risk of delaying the surgery/procedure. It is not possible to know either the risk of delaying the surgery or procedure or chance of getting an infection with perfect accuracy, but a joint decision was made between the patient and the surgeon/proceduralist to proceed at this time with the scheduled surgery/procedure as indicated on the consent form. Assessment and Plan Assessment and Plan (1) Paroxysmal atrial fibrillation: Status: Chronic Comment: Detected 03/03/2021; (2) Chronic renal failure, stage 4 (severe): Status: Chronic (3) History of coronary artery stent placement: Status: Chronic Plan - Dr. Lela Borden MD: I recommended the patient a left forearm radiocephalic arteriovenous paralysis fistula creation. I will perform ultrasound mapping and plan inspection and sidebranch ligation the time of his surgery. We will have him hold his Xarelto 1 day preoperatively. He is aware of the technique, benefit, risk of alternatives. We will schedule and expedite his care. I very much appreciate the kind opportunity of assisting with the surgical care. Copy: Dr. Kalee Bertrand and Dr. Bravo Borden M.D., F.A.C.S. Plan Details Other Medications: Changed: From: rivaroxaban must administer with evening meal 15 mg PO DAILY 30 tabs 12RF To: rivaroxaban must administer with evening meal 15 mg PO DAILY I have re-examined the patient. There are no clinical changes since date of exam. Lela Borden M.D., F.A.C.S.
[2021-08-29 06:35] LABS: Bedside Glucose 100 mg/dL (70-110)
--- NOTE | 2021-08-29 07:08 | EX.PCM.DISCH ---
Discharge Instructions Procedure Fistula Diet Discharge Diet: Renal Diet Activity Discharge Activity: May Not Drive (for 2-3 days or while taking narcotic pain medications.), May Shower and May Take a Tub Bath (in 5 days.) Lifting Restrictions: 5 pounds Keep extremity elevated above heart level: - (Keep arm elevated above the heart level for 3 days.) Dressing / Incision Call your doctor if your incision/area has: Continuous Slow Oozing, Sudden Increased Bleeding (apply pressure and call your doctor.), Increased Pain/ Swelling, Increased Redness and Foul Smelling Discharge Call your doctor if you observe: Fever of 101 or Higher Suture Line Care: Avoid Pulling/Pushing and Avoid Pinching/Bending Cleanse incision/area with: Keep Dressing Clean & Dry Additional Dressing/Incision Instructions:: Change or remove dressing in one day. May protect with a gauze bandaid. Follow Up Care Please Follow Up With: Frederick Borden MD When: Call [phone] to make an appointment for suture removal and follow up in 1 week. Test Results: Test results from this visit will be discussed in further detail at your follow-up appointment, if applicable. Discharge Plan Admission Attending Provider: Frederick Borden Primary Care Provider: Torey Kearney Discharge Orders/Prescriptions Prescriptions: No Action amlodipine 5 mg tablet 5 mg PO DAILY RF: 0 atorvastatin 20 mg tablet 20 mg PO DAILY RF: 0 carvedilol 3.125 mg tablet 3.125 mg PO BID Qty: 60 RF: 11 rivaroxaban 15 mg tablet 15 mg PO DAILY RF: 0 aspirin 81 MG tablet,chewable 81 mg PO DAILY@0800 RF: 0 tamsulosin 0.4 MG capsule 0.4 mg PO QHS RF: 0 calcitriol 0.25 mcg Capsule 0.25 mcg PO DAILY RF: 0
[2021-08-29] MEDS: Lidocaine 1% (30 ml sdv) 30 ML Vial (07:40)
[2021-08-29] MEDS: Bupivacaine Mpf 0.5% 30 ML VIAL (07:40)
[2021-08-29] MEDS: Heparin Injection (Vial) 5,000 UNIT/ML VIAL 5000 UNIT (08:30)
--- NOTE | 2021-08-29 08:42 | OP.PCM_ITS ---
Problems Associated Problem List Diagnoses (1) Chronic renal failure, stage 4 (severe): Report of Operation Date of Procedure: 08/29/21 Pre-Operative Diagnosis: Stage IV chronic renal insufficiency Post-Operative Diagnosis: Same Surgery/Procedure Performed:: Left forearm radiocephalic arteriovenous hemodialysis fistula creation Description of Surgical Findings:: Timeout and informed consent was obtained. 81-year-old gent was taken the operating placed on the table underwent monitored anesthesia care. Clean procedure no antibiotics required. The left upper extremity was sterilely prepped and draped. Ultrasound mapping had previously been performed. 1% lidocaine mixed 50-50 with 0.5% Marcaine was used as a local anesthetic. 7 cc was used. A slightly oblique transverse incision was created sharp blunt dissection was used to identify the cephalic vein which is dissected free for distance. Then sharp and blunt dissection was used to identify the radial artery and circumferential control was obtained and the vessel loop applied. The patient received 6000 units of heparin intravenously. The vein was ligated distally at a small branch site. Using Hussein scissors I spatulated that at the side of the bifurcation. The vein had been marked. It was irrigated with heparinized saline. Peripheral vascular clamps were placed on the radial artery and 11 blade was used to make an arteriotomy which was extended with Hussein scissors. A end-to-side anastomosis was created with a running 7-0 Prolene. Prior to completion of this good antegrade retrograde flow. The anastomosis was completed there is good pulsatile flow. I then used a 7-0 Prolene just to help secure the vein in a nice curvilinear fashion. I used a single 7-0 Prolene for repair suture. Hemostasis was intact. There appeared to be a good curvilinear positional lie. There was a pulse and upon Doppler good flow throughout the fistula. Hemostasis was nicely intact. The wound was closed with a deep layer of interrupted 3-0 Vicryl and then a running subicular 4 Monocryl. Telfa and tape dressings applied. Sponge and instrument and needle counts were reported the surgeon be correct Specimens none. Drains none. Blood loss minimal. The patient tolerated the procedure well was taken back to the recovery room in satisfactory condition. Hand was viable at the completion no apparent complic ation. Frederick Borden M.D., F.A.C.S. Surgeon: Frederick Borden
--- NOTE | 2021-08-29 09:17 | EKG12_ITS ---
Test Reason : POST OP PAUSES Blood Pressure : / mmHG Vent. Rate : 061 BPM Atrial Rate : 220 BPM P-R Int : 000 ms QRS Dur : 086 ms QT Int : 416 ms P-R-T Axes : 000 066 044 degrees QTc Int : 418 ms Atrial fibrillation Low voltage QRS Abnormal ECG When compared with ECG of 07-OCT-2019 05:50, Atrial fibrillation has replaced Sinus rhythm Confirmed by SNOW KEEN, KRYSTYNA ([id number]), supervising editor trailer RONA DAHL ([id number]) on 09/06/2021 10:26:06 AM Referred By: Frederick Borden Confirmed By:KRYSTYNA ADAMSON MD
--- NOTE | 2021-08-29 09:30 | SUR.PHASEI ---
PATIENT HAD AN AFIB RHYTHM WITH PAUSES WHEN HE CAME TO PACU. FRANCISCO JAVIER Huber NURSE ANESTHESIST GAVE .1 OF ROBINAL TO HELP CORRECT IT. SHE ALSO ORDERED A [address] CALDERON IS AWARE AND VIEWED THE EKG AT THIS TIME AND IT LOOKS BETTER, AFIB WITHOUT PAUSES CURRENTLY. HE STATES OK TO RETURN TO AC.
== END 2021-08-29 10:40 | disposition home or self-care (01) ==
LOC: SDC 05:23 → AC 05:23
PROVIDERS: PCP Family Medicine; Referring Provider Surgery; Visit Provider Surgery
PROC: (CPT 36821; principal; 2021-08-29 07:15)
DX: Z49.02 Encounter for fitting and adjustment of peritoneal dialysis catheter (principal); E11.22 Type 2 diabetes mellitus with diabetic chronic kidney disease; I48.0 Paroxysmal atrial fibrillation; N18.4 Chronic kidney disease, stage 4 (severe); I12.9 Hypertensive chronic kidney disease with stage 1 through stage 4 chronic kidney disease, or unspecified chronic kidney disease; I25.10 Atherosclerotic heart disease of native coronary artery without angina pectoris; N25.81 Secondary hyperparathyroidism of renal origin; Z79.01 Long term (current) use of anticoagulants; Z79.82 Long term (current) use of aspirin; Z79.899 Other long term (current) drug therapy; Z87.891 Personal history of nicotine dependence; Z95.5 Presence of coronary angioplasty implant and graft
CPT/HCPCS: 01844; 36821; 36415; 80048; 82962; 85027; 93005; J7040; J2405

== ENCOUNTER → 2021-10-27 07:55 | Outpatient (CLI) | payer MEDICARE, OTHER, SELFPAY ==
[2021-10-27 08:56] LABS: Hematocrit 36.3 % (40-54); Hemoglobin 11.5 g/dL (13.0-16.5); Mean Corp Hgb Conc 31.7 g/dL (32-36); Mean Corpuscular Hgb 32.8 pg (27.0-32.0); Mean Corpuscular Volume 103.4 fL (80-94); Mean Platelet Vol. 10.5 fl (6.2-12.0); Platelet Count 230 K/mm3 (150-450); RBC Distribution Width CV 13.8 % (11.6-14.6); RBC Distribution Width SD 52.6 fl (35.1-43.9); Red Blood Count 3.51 M/mm3 (4.6-6.2); White Blood Count 7.6 K/mm3 (4.4-11.0)
[2021-10-27 09:24] LABS: Albumin, Serum 3.6 g/dL (3.2-5.0); BUN 50 mg/dL (7-18); BUN/Creat Ratio 18.1 RATIO (10-20); Calcium,Total 8.6 mg/dL (8.5-10.1); Chloride 111 mmol/L (98-107); Creatinine, Serum 2.76 mg/dL (0.70-1.30); EST Glomerular Filtration Rate 24 mL/min (>60); Est Glom Filt Rate - Afr Amer 29 mL/min (>60); Glucose 88 mg/dL (74-106); Phosphorus 3.9 mg/dL (2.5-4.9); Potassium 4.2 mmol/L (3.5-5.1); Sodium Level 141 mmol/L (136-145)
[2021-10-27 09:35] LABS: PTHIN 210.4 pg/mL (18.4-80.1)
[2021-10-27 11:07] LABS: Protein, Urine (Random) 24.7 mg/dL (<11.9); Protein:Creat Ratio 815 mg/g CRE (0-200)
== END ==
PROVIDERS: PCP Family Medicine; Referring Provider Internal Medicine Nephrology; Visit Provider Internal Medicine Nephrology
DX: E11.22 Type 2 diabetes mellitus with diabetic chronic kidney disease (principal); N18.4 Chronic kidney disease, stage 4 (severe); N25.81 Secondary hyperparathyroidism of renal origin
CPT/HCPCS: 36415; 80069; 82570; 83970; 84156; 85027

== ENCOUNTER 2021-11-14 15:01 | Emergency (ER) | payer MEDICARE, OTHER, SELFPAY ==
[2021-11-14 15:02] VITALS: BP 158/113; PULSE 100; RESP 14; TEMP 36.7; O2SAT 98; BMI 25.7
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
--- NOTE | 2021-11-14 16:00 | CT_ITS ---
STUDY: CT ABDOMEN AND PELVIS WITHOUT CONTRAST REASON FOR EXAM: Male, 81 years old. Hip swelling, trauma, on Xarelto RADIATION DOSAGE (If Supplied By Facility): CTDIvol = ( 10.46 ) mGy, DLP = ( 1048.06 ) mGycm TECHNIQUE: Transaxial images were obtained from the dome of the diaphragm to the symphysis pubis without oral contrast, and without intravenous contrast. Sagittal and coronal images were reconstructed. Individualized dose optimization techniques were used for this CT. COMPARISON: None. FINDINGS: Mild right pleural effusion with basilar atelectasis. The visualized portions of the heart are within normal limits. Up to 16 mm cysts in the liver. Thickened and edematous wall of the gallbladder. No significant dilatation of extrahepatic biliary system. Normal spleen. Normal pancreas. Normal bilateral adrenal glands. Up to 3.2 cm cysts in the right kidney. Up to 1.9 cm cysts in the left kidney. Normal visualized stomach. Normal small intestine. Diverticulosis of the colon. The appendix is visualized and appears normal. Calcified abdominal aorta. Normal inferior vena cava. Normal retroperitoneum. Normal urinary bladder. Fatty left inguinal hernia. The right cecum partially extends into the right inguinal canal. Normal abdominal wall. Degenerative vertebral changes. Subcutaneous edema is slight hematoma lateral to the left hip. CT/Abdomen/Pelvis without Cont IMPRESSION: Subcutaneous edema/hematoma lateral to the left hip. No acute bony injury. Right pleural effusion with basilar atelectasis. Hepatic cysts and bilateral renal cysts. Colonic diverticulosis. Right cecum is partially in the right glenohumeral canal. Fatty left inguinal canal. Electronically Signed: Dutch Yu DO at 17:40 EST Tel [phone], Service support ,
[2021-11-14 18:06] VITALS: BP 139/79; PULSE 64; RESP 18; O2SAT 99
--- NOTE | 2021-11-14 18:07 | ED.RN ---
THIS NURSE REVIEWED D/C INSTRUCTIONS WITH PT AND . BOTH VERBALIZED UNDERSTANDING OF INSTRUCTIONS. SLING APPLIED. PT TOLERATED WELL. PT DENIES FURTHER QUESTIONS. PT ASSISTED TO VEHICLE VIA W/C
== END 2021-11-14 18:08 | disposition home or self-care (01) ==
PROVIDERS: Emergency Provider Emergency Medicine; PCP Family Medicine
DX: S43.402A Unspecified sprain of left shoulder joint, initial encounter (principal); S70.02XA Contusion of left hip, initial encounter; I25.10 Atherosclerotic heart disease of native coronary artery without angina pectoris; Z87.891 Personal history of nicotine dependence; V87.7XXA Person injured in collision between other specified motor vehicles (traffic), initial encounter; Y93.01 Activity, walking, marching and hiking
CPT/HCPCS: 70450; 71045; 72125; 73060; 74176; 99284

== ENCOUNTER 2022-01-25 08:11 | Outpatient (CLI) | payer MEDICARE, OTHER, SELFPAY ==
[2022-01-25 09:09] LABS: Hematocrit 37.2 % (40-54); Hemoglobin 11.6 g/dL (13.0-16.5); Mean Corp Hgb Conc 31.2 g/dL (32-36); Mean Corpuscular Hgb 31.9 pg (27.0-32.0); Mean Corpuscular Volume 102.2 fL (80-94); Mean Platelet Vol. 10.4 fl (6.2-12.0); Platelet Count 213 K/mm3 (150-450); RBC Distribution Width CV 13.8 % (11.6-14.6); RBC Distribution Width SD 52.3 fl (35.1-43.9); Red Blood Count 3.64 M/mm3 (4.6-6.2); White Blood Count 5.6 K/mm3 (4.4-11.0)
[2022-01-25 09:41] LABS: PTHIN 243.5 pg/mL (18.4-80.1)
[2022-01-25 09:51] LABS: Albumin, Serum 3.6 g/dL (3.2-5.0); BUN 56 mg/dL (7-18); BUN/Creat Ratio 20.4 RATIO (10-20); Calcium,Total 8.8 mg/dL (8.5-10.1); Chloride 112 mmol/L (98-107); Creatinine, Serum 2.74 mg/dL (0.70-1.30); EST Glomerular Filtration Rate 24 mL/min (>60); Est Glom Filt Rate - Afr Amer 29 mL/min (>60); Glucose 103 mg/dL (74-106); Potassium 4.3 mmol/L (3.5-5.1); Sodium Level 139 mmol/L (136-145)
== END 2022-01-25 23:59 | disposition home or self-care (01) ==
LOC: LAB 08:13
PROVIDERS: PCP Family Medicine; Visit Provider Internal Medicine Nephrology
DX: N25.81 Secondary hyperparathyroidism of renal origin (principal); N18.4 Chronic kidney disease, stage 4 (severe)
CPT/HCPCS: 36415; 80069; 83970; 85027

== ENCOUNTER 2022-02-16 09:16 | Day surgery (SDC) | payer MEDICARE, OTHER, SELFPAY ==
[2022-02-09 09:02] LABS: Hematocrit 36.5 % (40-54); Hemoglobin 11.5 g/dL (13.0-16.5); Mean Corp Hgb Conc 31.5 g/dL (32-36); Mean Corpuscular Hgb 31.6 pg (27.0-32.0); Mean Corpuscular Volume 100.3 fL (80-94); Mean Platelet Vol. 10.1 fl (6.2-12.0); Platelet Count 238 K/mm3 (150-450); RBC Distribution Width CV 13.8 % (11.6-14.6); RBC Distribution Width SD 51.2 fl (35.1-43.9); Red Blood Count 3.64 M/mm3 (4.6-6.2)
[2022-02-09 09:25] LABS: Anion Gap 7 (5-15); BUN 49 mg/dL (7-18); BUN/Creat Ratio 16.3 RATIO (10-20); Calcium,Total 8.8 mg/dL (8.5-10.1); Chloride 115 mmol/L (98-107); Creatinine, Serum 3.01 mg/dL (0.70-1.30); EST Glomerular Filtration Rate 21 mL/min (>60); Est Glom Filt Rate - Afr Amer 26 mL/min (>60); Glucose 83 mg/dL (74-106); Potassium 4.1 mmol/L (3.5-5.1); Sodium Level 141 mmol/L (136-145)
[2022-02-15 07:58] VITALS: BMI 25.4
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
--- NOTE | 2022-02-16 11:58 | OP.PCM_ITS ---
Problems Associated Problem List Diagnoses (1) Problem with dialysis access: Report of Operation Date of Procedure: 02/16/22 Pre-Operative Diagnosis: Failure to mature left forearm radiocephalic arteriovenous hemodialysis fistula Post-Operative Diagnosis: High-grade proximal fistula venous stenosis and moderate arterial anastomotic stenosis Surgery/Procedure Performed:: Left upper extremity carbon dioxide fistulogram with 6 x 80 mm EverCross angioplasty Description of Surgical Findings:: Timeout informed consent was obtained. 81-year-old gentleman was taken to the special procedures lab placed on the table. 50 mcg of fentanyl and 1 mg Versed were given as intravenous sedation. The left extremity sterilely prepped and draped. Ultrasound was used to identify the cephalic vein closer to the antecubital space. Under ultrasound guidance 2% lidocaine was instilled as a local anesthetic then retrograde with flow micropuncture needle inserted under ultrasound guidance micropuncture wire. 6 [place] short sheath was inserted. Using 035 angled Glidewire and a 4 [place] glide cath access was gained to the radial artery proximal to the anastomosis., Dioxide fistulogram was obtained using 8 cc of carbon dioxide. This demonstrated 90% stenosis of a portion of the very proximal fistula. There also appeared to be approximately 50% stenosis at the arterial anastomosis. The patient received 5000 units of heparin. A 6 x 80 mm EverCross balloon was placed into the radial artery and balloon angioplasty performed of the arterial anastomosis radial artery proximal to the anastomosis and the proximal portion of the fistula. This was held for 4 minutes. The balloon was repositioned reinsufflated 3-4 different times this area was treated. Then the balloon was withdrawn to the to the sheath and balloon angioplasty of the mid forearm portion of the fistula performed to assist with liver maturation. A 4 [place] glide cath was reinserted fistulogram was obtained with carbon dioxide of the forearm upper arm and chest area. This demonstrated clinical improvement sheath was removed U suture of 4-0 nylon was placed there was excellent pulse thrill and bruit at the completion no apparent complication blood loss was minimal. Specimens none. Drains none. Blood loss minimal Images demonstrate a left forearm radiocephalic arteriovenous hemodialysis fistula there is 50% stenosis at the anastomosis and there was a focal area of proximal fistula 90% venous stenosis. Subsequent to the 6 by EverCross balloon angioplasty there is improved arterial anastomotic stricturing to about 5 mm. There appears to be resolved venous stenosis. There is adequate balloon maturation of the proximal half of the forearm fistula. There is good outflow through the upper arm cephalic and basilic vein there is good central venous outflow Frederick Borden M.D., F.A.C.S. Surgeon: Frederick Borden Type of Anesthesia: IV Sedation and Local
== END 2022-02-16 23:59 | disposition home or self-care (01) ==
LOC: CLSP 09:17
PROVIDERS: PCP Family Medicine; Referring Provider Surgery; Visit Provider Surgery
DX: T82.898A Other specified complication of vascular prosthetic devices, implants and grafts, initial encounter (principal); N18.4 Chronic kidney disease, stage 4 (severe); I48.0 Paroxysmal atrial fibrillation; I12.9 Hypertensive chronic kidney disease with stage 1 through stage 4 chronic kidney disease, or unspecified chronic kidney disease; Z87.891 Personal history of nicotine dependence; E78.00 Pure hypercholesterolemia, unspecified; I25.10 Atherosclerotic heart disease of native coronary artery without angina pectoris; Z95.5 Presence of coronary angioplasty implant and graft; Z79.899 Other long term (current) drug therapy; Z79.82 Long term (current) use of aspirin
CPT/HCPCS: 36415; 36902; 76937; 80048; 85027; 99152; 99153; Q9967; C1725; C1769

== ENCOUNTER → 2022-04-26 | Outpatient (CLI) | payer MEDICARE, OTHER, SELFPAY ==
[2022-04-26 11:08] LABS: Hematocrit 33.5 % (40-54); Hemoglobin 10.5 g/dL (13.0-16.5); Mean Corp Hgb Conc 31.3 g/dL (32-36); Mean Corpuscular Hgb 31.4 pg (27.0-32.0); Mean Corpuscular Volume 100.3 fL (80-94); Mean Platelet Vol. 9.9 fl (6.2-12.0); Platelet Count 255 K/mm3 (150-450); RBC Distribution Width CV 14.6 % (11.6-14.6); RBC Distribution Width SD 53.7 fl (35.1-43.9); Red Blood Count 3.34 M/mm3 (4.6-6.2); White Blood Count 7.2 K/mm3 (4.4-11.0)
[2022-04-26 11:50] LABS: Albumin, Serum 3.2 g/dL (3.2-5.0); BUN 51 mg/dL (7-18); BUN/Creat Ratio 16.1 RATIO (10-20); Calcium,Total 8.9 mg/dL (8.5-10.1); Chloride 109 mmol/L (98-107); Creatinine, Serum 3.17 mg/dL (0.70-1.30); EST Glomerular Filtration Rate 20 mL/min (>60); Est Glom Filt Rate - Afr Amer 24 mL/min (>60); Ferritin 141 ng/mL (26-388); Glucose 105 mg/dL (74-106); Iron 43 ug/dL (65-175); Iron Binding Capacity,Total 214 ug/dL (250-450); Phosphorus 3.5 mg/dL (2.5-4.9); Potassium 4.3 mmol/L (3.5-5.1); Sodium Level 140 mmol/L (136-145)
[2022-04-26 11:52] LABS: PTHIN 165.7 pg/mL (18.4-80.1)
[2022-04-26 11:55] LABS: Vitamin D,25 Hydroxy 43.8 ng/mL
== END | disposition home or self-care (01) ==
LOC: LAB 10:42
PROVIDERS: PCP Family Medicine; Visit Provider Internal Medicine Nephrology
DX: N18.4 Chronic kidney disease, stage 4 (severe) (principal); N25.81 Secondary hyperparathyroidism of renal origin; D63.8 Anemia in other chronic diseases classified elsewhere
CPT/HCPCS: 36415; 80069; 82306; 82728; 83540; 83550; 83970; 85027

== ENCOUNTER → 2022-05-31 | Outpatient (CLI) | payer MEDICARE, OTHER, SELFPAY ==
[2022-05-31 12:23] LABS: Hematocrit 34.8 % (40-54); Hemoglobin 10.9 g/dL (13.0-16.5); Mean Corp Hgb Conc 31.3 g/dL (32-36); Mean Corpuscular Hgb 31.9 pg (27.0-32.0); Mean Corpuscular Volume 101.8 fL (80-94); Mean Platelet Vol. 10.1 fl (6.2-12.0); Platelet Count 205 K/mm3 (150-450); RBC Distribution Width CV 14.9 % (11.6-14.6); RBC Distribution Width SD 56.7 fl (35.1-43.9); Red Blood Count 3.42 M/mm3 (4.6-6.2); White Blood Count 6.6 K/mm3 (4.4-11.0)
[2022-05-31 12:53] LABS: PTHIN 108.9 pg/mL (18.4-80.1)
[2022-05-31 12:57] LABS: Albumin, Serum 3.6 g/dL (3.2-5.0); BUN 47 mg/dL (7-18); BUN/Creat Ratio 16.4 RATIO (10-20); Chloride 112 mmol/L (98-107); Creatinine, Serum 2.87 mg/dL (0.70-1.30); EST Glomerular Filtration Rate 23 mL/min (>60); Est Glom Filt Rate - Afr Amer 27 mL/min (>60); Ferritin 113 ng/mL (26-388); Glucose 98 mg/dL (74-106); Iron 51 ug/dL (65-175); Iron Binding Capacity,Total 324 ug/dL (250-450); PERCENT IRON SATURATION 15.7 % (15.0-55.0); Phosphorus 3.8 mg/dL (2.5-4.9); Potassium 4.4 mmol/L (3.5-5.1); Sodium Level 138 mmol/L (136-145)
== END | disposition home or self-care (01) ==
LOC: LAB 10:54
PROVIDERS: PCP Family Medicine; Referring Provider Internal Medicine Nephrology; Visit Provider Internal Medicine Nephrology
DX: N18.4 Chronic kidney disease, stage 4 (severe) (principal); N25.81 Secondary hyperparathyroidism of renal origin; D63.8 Anemia in other chronic diseases classified elsewhere
CPT/HCPCS: 36415; 80069; 82728; 83540; 83550; 83970; 85027

== ENCOUNTER → 2022-08-29 | Outpatient (CLI) | payer MEDICARE, OTHER, SELFPAY ==
[2022-08-29 08:15] LABS: Hematocrit 37.7 % (40-54); Hemoglobin 11.6 g/dL (13.0-16.5); Mean Corp Hgb Conc 30.8 g/dL (32-36); Mean Corpuscular Hgb 31.4 pg (27.0-32.0); Mean Corpuscular Volume 101.9 fL (80-94); Platelet Count 189 K/mm3 (150-450); RBC Distribution Width CV 14.6 % (11.6-14.6); RBC Distribution Width SD 55.1 fl (35.1-43.9)
[2022-08-29 08:47] LABS: PTHIN 151.7 pg/mL (18.4-80.1)
[2022-08-29 09:03] LABS: Albumin, Serum 3.5 g/dL (3.2-5.0); BUN 47 mg/dL (7-18); BUN/Creat Ratio 16.3 RATIO (10-20); Calcium,Total 8.9 mg/dL (8.5-10.1); Chloride 110 mmol/L (98-107); Creatinine, Serum 2.88 mg/dL (0.70-1.30); EST Glomerular Filtration Rate 22 mL/min (>60); Est Glom Filt Rate - Afr Amer 27 mL/min (>60); Ferritin 108 ng/mL (26-388); Glucose 90 mg/dL (74-106); Iron 75 ug/dL (65-175); Iron Binding Capacity,Total 242 ug/dL (250-450); Phosphorus 3.8 mg/dL (2.5-4.9); Potassium 4.3 mmol/L (3.5-5.1); Sodium Level 142 mmol/L (136-145)
== END | disposition home or self-care (01) ==
LOC: LAB 07:57
PROVIDERS: PCP Family Medicine; Referring Provider Internal Medicine Nephrology; Visit Provider Internal Medicine Nephrology
DX: N18.4 Chronic kidney disease, stage 4 (severe) (principal); D63.1 Anemia in chronic kidney disease
CPT/HCPCS: 36415; 80069; 82728; 83540; 83550; 83970; 85027

== ENCOUNTER → 2022-12-06 | Outpatient (CLI) | payer MEDICARE, OTHER, SELFPAY ==
[2022-12-06 12:17] LABS: Hematocrit 37.7 % (40-54); Hemoglobin 12.2 g/dL (13.0-16.5); Mean Corp Hgb Conc 32.4 g/dL (32-36); Mean Corpuscular Hgb 32.9 pg (27.0-32.0); Mean Corpuscular Volume 101.6 fL (80-94); Mean Platelet Vol. 9.5 fl (6.2-12.0); Platelet Count 306 K/mm3 (150-450); RBC Distribution Width CV 14.3 % (11.6-14.6); RBC Distribution Width SD 53.7 fl (35.1-43.9); Red Blood Count 3.71 M/mm3 (4.6-6.2); White Blood Count 8.7 K/mm3 (4.4-11.0)
[2022-12-06 12:24] LABS: Protein, Urine (Random) 155.1 mg/dL (<11.9); Protein:Creat Ratio 1791 mg/g CRE (0-200)
[2022-12-06 13:07] LABS: PTHIN 217.8 pg/mL (18.4-80.1)
[2022-12-06 13:17] LABS: Albumin, Serum 3.2 g/dL (3.2-5.0); BUN 41 mg/dL (7-18); BUN/Creat Ratio 13.4 RATIO (10-20); Calcium,Total 8.7 mg/dL (8.5-10.1); Chloride 111 mmol/L (98-107); Creatinine, Serum 3.05 mg/dL (0.70-1.30); EST Glomerular Filtration Rate 21 mL/min (>60); Est Glom Filt Rate - Afr Amer 25 mL/min (>60); Ferritin 362 ng/mL (26-388); Glucose 97 mg/dL (74-106); Iron 35 ug/dL (65-175); Iron Binding Capacity,Total 184 ug/dL (250-450); Phosphorus 3.1 mg/dL (2.5-4.9); Potassium 4.3 mmol/L (3.5-5.1); Sodium Level 139 mmol/L (136-145)
== END | disposition home or self-care (01) ==
LOC: LAB 10:47
PROVIDERS: PCP Family Medicine; Referring Provider Internal Medicine Nephrology; Visit Provider Internal Medicine Nephrology
DX: E11.22 Type 2 diabetes mellitus with diabetic chronic kidney disease (principal); N18.4 Chronic kidney disease, stage 4 (severe); N25.81 Secondary hyperparathyroidism of renal origin; D63.8 Anemia in other chronic diseases classified elsewhere
CPT/HCPCS: 36415; 80069; 82570; 82728; 83540; 83550; 83970; 84156; 85027

== ENCOUNTER → 2023-03-14 | Outpatient (CLI) | payer MEDICARE, OTHER, SELFPAY ==
[2023-03-14 11:14] LABS: Hematocrit 40.3 % (40-54); Hemoglobin 12.2 g/dL (13.0-16.5); Mean Corp Hgb Conc 30.3 g/dL (32-36); Mean Corpuscular Volume 105.8 fL (80-94); Platelet Count 218 K/mm3 (150-450); RBC Distribution Width CV 14.6 % (11.6-14.6); RBC Distribution Width SD 57.1 fl (35.1-43.9); Red Blood Count 3.81 M/mm3 (4.6-6.2); White Blood Count 6.3 K/mm3 (4.4-11.0)
[2023-03-14 11:54] LABS: PTHIN 138.5 pg/mL (18.4-80.1)
[2023-03-14 12:09] LABS: Albumin, Serum 3.8 g/dL (3.2-5.0); BUN 61 mg/dL (7-18); Calcium,Total 9.2 mg/dL (8.5-10.1); Chloride 110 mmol/L (98-107); Creatinine, Serum 3.21 mg/dL (0.70-1.30); EST Glomerular Filtration Rate 20 mL/min (>60); Est Glom Filt Rate - Afr Amer 24 mL/min (>60); Ferritin 133 ng/mL (26-388); Glucose 106 mg/dL (74-106); Iron 79 ug/dL (65-175); Iron Binding Capacity,Total 294 ug/dL (250-450); Potassium 4.5 mmol/L (3.5-5.1); Sodium Level 136 mmol/L (136-145)
== END | disposition home or self-care (01) ==
LOC: LAB 10:34
PROVIDERS: PCP Family Medicine; Referring Provider Internal Medicine Nephrology; Visit Provider Internal Medicine Nephrology
DX: N25.81 Secondary hyperparathyroidism of renal origin (principal); N18.4 Chronic kidney disease, stage 4 (severe); D63.8 Anemia in other chronic diseases classified elsewhere
CPT/HCPCS: 36415; 80069; 82728; 83540; 83550; 83970; 85027

== ENCOUNTER → 2023-03-28 | Outpatient (CLI) | payer MEDICARE, OTHER, SELFPAY ==
[2023-03-28 10:35] LABS: Absolute Lymphocyte Count 0.75 X10^3/uL (0.83-4.51); Absolute Neutrophil Count 4.5 X10^3/uL (2.0-7.7); Basophil# 0.05 X10^3/uL; Basophil% 0.8 % (0-1); Eosinophil# 0.38 X10^3/uL; Eosinophils% 6.1 % (0-5); Hematocrit 38.6 % (40-54); Hemoglobin 12.3 g/dL (13.0-16.5); Lymphocyte # 0.75 X10^3/ul (0.83-4.51); Mean Corp Hgb Conc 31.9 g/dL (32-36); Mean Corpuscular Hgb 32.9 pg (27.0-32.0); Mean Corpuscular Volume 103.2 fL (80-94); Mean Platelet Vol. 9.8 fl (6.2-12.0); Monocyte# 0.58 X10^3/uL; Monocyte% 9.3 % (0-10); NRBC Flagged by Analyzer 0 % (0-5); Neutrophil # 4.48 X10^3/uL (2.7-7.7); Neutrophil % 71.5 % (47-70); Platelet Count 195 K/mm3 (150-450); RBC Distribution Width CV 14.1 % (11.6-14.6); RBC Distribution Width SD 53.1 fl (35.1-43.9); Red Blood Count 3.74 M/mm3 (4.6-6.2); White Blood Count 6.3 K/mm3 (4.4-11.0)
[2023-03-28 11:03] LABS: Anion Gap 7 (5-15); BUN 60 mg/dL (7-18); BUN/Creat Ratio 17.4 RATIO (10-20); Calcium,Total 9.1 mg/dL (8.5-10.1); Chloride 110 mmol/L (98-107); Creatinine, Serum 3.44 mg/dL (0.70-1.30); EST Glomerular Filtration Rate 18 mL/min (>60); Est Glom Filt Rate - Afr Amer 22 mL/min (>60); Glucose 112 mg/dL (74-106); Potassium 4.6 mmol/L (3.5-5.1); Sodium Level 138 mmol/L (136-145)
== END | disposition home or self-care (01) ==
LOC: PAVLAB 10:19
PROVIDERS: PCP Family Medicine; Referring Provider Physician Assistant; Visit Provider Physician Assistant
DX: T82.898A Other specified complication of vascular prosthetic devices, implants and grafts, initial encounter (principal)
CPT/HCPCS: 36415; 80048; 85025

== ENCOUNTER 2023-04-04 10:17 | Day surgery (SDC) | payer MEDICARE, OTHER, SELFPAY ==
[2023-04-03 07:47] VITALS: BMI 24.3
--- NOTE | 2023-04-04 11:43 | HP.PCM_ITS ---
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: No Is patient in pain?: No Allergies Penicillins Allergy (Verified 03/28/23 10:09) Unknown Medications tamsulosin 0.4 mg capsule 0.4 mg PO QHS 12/16/18 [History Confirmed 03/28/23] calcitriol 0.25 mcg capsule 0.25 mcg PO DAILY 08/19/21 [History Confirmed 03/28/23] finasteride 5 mg tablet 5 mg PO DAILY 08/22/22 [History Confirmed 03/28/23] amlodipine 5 mg tablet 5 mg PO DAILY #90 tabs 03/28/23 [Rx Confirmed 03/28/23] atorvastatin 20 mg tablet 20 mg PO DAILY #90 tabs 03/28/23 [Rx Confirmed 03/28/23] carvedilol 3.125 mg tablet 3.125 mg PO BID #180 tabs 03/28/23 [Rx Confirmed 03/28/23] rivaroxaban 15 mg tablet 15 mg PO DAILY #90 tabs 03/28/23 [Rx Confirmed 03/28/23] PFSH Medical History? Anemia Atherosclerosis of coronary artery of [place] heart without angina pectoris Diabetes Essential hypertension Former smoker History of renal disease Hyperlipidemia Longstanding persistent atrial fibrillation Loss of consciousness Loss of hearing Paroxysmal atrial fibrillation Problem with dialysis access Sinus bradycardia Syncope Urinary retention Wears dentures Wears glasses Surgical History? History of arteriovenostomy for renal dialysis History of coronary artery stent placement (2007) Hx of colonoscopy Hx of inguinal hernia repair Hx of left cataract extraction Hx of right cataract extraction Family History? Mother Diabetes Social History? Smoking Status:? Former smoker alcohol intake:? never substance use type:? does not use caffeine:? No HPI HPI Surgical H&P: Yes HPI: Patient is an 82 y/o M I am following for a left forearm radiocephalic hemodialysis fistula which was created 08/29/21. Patient is being referred to our office for a high-pitched bruit. Patient is not currently on dialysis, however he recently had his 2 month follow-up with Dr. Bertrand. Patient recently had a fistulogram by Dr. Borden on 02/16/22 which demonstrated high-grade proximal fistula venous stenosis and moderate arterial anastomotic stenosis. This area was treated with a 6 x 80 mm EverCross angioplasty. Patient denies any concerns or issues with the fistula otherwise. He notes his renal function has remained stable. ROS General General: Yes fatigue; No weight change, appetite, colon cancer, breast cancer or weakness HEENT HEENT: No difficulty swallowing, eye injury, eye surgery, swollen glands or hoarseness Endo Endocrine: Yes diabetes mellitus; No thyroid disease, thyroid cancer, Hair loss, heat intolerance or cold intolerance Skin Skin: No rash or changing moles Breast Breast: No left breast lump, right breast lump, nipple discharge, breast pain, abnormal mammogram, abnormal US or breast enlargement Musc Musculoskeletal: Yes gout; No back problems, arthritis, rheumatoid arthritis or joint pain Cardio Cardiovascular: Yes heart disease, high blood pressure and heart stent; No murmur, pacemaker, atrial fibrillation, heart attack, palpitations, shortness of breat with exertion or chest pain Psych Psychiatric: No depression, anxiety or hearing voices Resp Respiratory: No shortness of breath, No sleep apnea, No cough, No COPD, No asthma, No emphysema and No wheezing Gastro Gastrointestinal: No abdominal pain, No nausea or vomiting, No diarrhea, No constipation, No blood in stool, No acid reflux, No hemorrhoids, No ulcers, No gallbladder problem and No black,tarry stools Tima Hematologic: Yes blood thinners, No blood disorders, No bleeding, No anemia and No blood clots Neuro Neurologic: No system reviewed and no additional complaints, except as documented, No as per HPI, No abnormal gait, No abnormal hearing, No abnormal movements, No abnormal speech, No behavioral changes, No burning sensations, No confusion, No convulsions, No disequilibrium, No dizziness, No localized weakness, No frequent falls, No headache(s), No lack of coordination, No loss of vision, No memory loss, No numbness, No other visual disturbances, No radicular pain, No restless legs, No sensory deficit, No syncope, No tingling, No tremor(s), No weakness and No other Exam Const General: cooperative, healthy appearing, comfortable and no acute distress [facility] Head: normal to inspection Eyes General: appearance normal, both eyes and all related structures Neck Neck: normal visual inspection Neck mass: No Resp Effort & Inspection: normal respiratory effort Auscultation: clear to auscultation bilaterally Cardio Rate: regular rate Rhythm: regular rhythm GI Inspection: normal to inspection Palpation: soft Auscultation: normal bowel sounds Musc Cervical Spine: normal cervical lordosis Skin General: no rashes or lesions noted Neuro General: no focal motor deficits Extrem General: normal to inspection Other: left forearm AV fistula- good pulse, diminished thrill and high-pitched bruit noted. Psych Appearance: grossly normal Affect: normal affect Assessment and Plan Assessment and Plan (1) Problem with dialysis access: ?Status:?Acute ?Plan: Pleasant 82 y/o M who presents with a high-pitched bruit from a left forearm radiocephalic arteriovenous fistula. Patient is being monitored by his innovation manager for routine appointments. He was last evaluated in our office on 02/23/22. With the patient not currently on dialysis, I would recommend a non- urgent fistulogram of the left forearm fistula. Dr. Borden will plan to perform a non-urgent left forearm fistulogram with carbon dioxide. Procedure details, risks and benefits have been explained. Patient notes he had a moderate amount of discomfort throughout the procedure and would like consideration of using more sedation during the procedure. Patient and his have had the opportunity to ask and have questions answered. Patient verbally understands and agrees with the plan. Patient will need to hold his Xarelto for 2 days prior to the procedure. Patient will also need to obtain a CBC and BMP today prior to the procedure. I have examined the patient and the H&P has been reviewed. There are no clinical changes since date of exam. Frederick Borden M.D., F.A.C.S.
--- NOTE | 2023-04-04 13:15 | OP.PCM_ITS ---
Report of Operation Date of Procedure: 04/04/23 Pre-Operative Diagnosis: Failing left forearm radiocephalic arteriovenous hemod ialysis fistula Post-Operative Diagnosis: High-grade cephalic vein venous stenosis 2 locations in the distal and mid left forearm Surgery/Procedure Performed:: Left upper extremity car monoxide fistulogram with 6 x 80 mm EverCross angioplasty and 6 x 20 mm conquest angioplasty Description of Surgical Findings:: Timeout informed consent was obtained. 82-year-old gentleman was taken to the special procedures lab placed upon the table the left upper extremity sterilely prepped and draped he received 50 mcg of fentanyl and 1/2 mg Versed is intravenous sedation 2% lidocaine was instilled as local anesthetic close to the arterial anastomosis and then antegrade with flow micropuncture needle inserted micropuncture wire inserted 6 [place] short sheath was inserted. Using 8 cc of carbon dioxide per injection fistulogram was obtained of the forearm upper arm and outflow area. This demonstrated to focal areas of stenosis within the cephalic vein in the forearm 1 more distally that appeared to be approximately 3 cm long and 1 in the mid forearm felt to be about a centimeter long. An 035 angled Glidewire was advanced past it 6 x 80 mm EverCross balloon was placed balloon angioplasty was performed and got the balloon to a face this was held for 3 minutes it was deflated repeat images obtained this demonstrated persistent stenosis in the mid forearm lesion so then a 6 x 20 mm conquest balloon was inserted and balloon angioplasty was formed actually of both original sites and this was done up to 35 herrera of pressure. Several different insufflations were required. Final image was taken with 2 cc of contrast. [place] that I had significant inadequate improvement. There was return of a palpable thrill sheath was removed few suture of 4-0 nylon was placed no apparent complication blood loss was minimal Fistulogram demonstrates left forearm radiocephalic arteriovenous hemodialysis fistula with 2 areas of venous stenosis 1 distally in the forearm closer to the arterial anastomosis and 1 in the mid forearm. Both appear to respond to the balloon angioplasty. There appeared to be good upper arm venous outflow and good central venous outflow. If the patient requires future repeat intervention that might consider utilizing a 7 mm diameter balloon or if need be possible even a cutting balloon. Frederick Borden M.D., F.A.C.S. Surgeon: Frederick Borden Type of Anesthesia: IV Sedation and Local
== END 2023-04-04 14:20 | disposition home or self-care (01) ==
LOC: CLSP 10:19
PROVIDERS: PCP Family Medicine; Referring Provider Surgery; Visit Provider Surgery
DX: T82.898A Other specified complication of vascular prosthetic devices, implants and grafts, initial encounter (principal); I48.11 Longstanding persistent atrial fibrillation; I25.10 Atherosclerotic heart disease of native coronary artery without angina pectoris; I10 Essential (primary) hypertension; E78.5 Hyperlipidemia, unspecified; Z87.891 Personal history of nicotine dependence; Z95.5 Presence of coronary angioplasty implant and graft; Z79.899 Other long term (current) drug therapy; X58.XXXA Exposure to other specified factors, initial encounter
CPT/HCPCS: 36902; 99152; 99153; Q9967; C1725; C1769

== ENCOUNTER → 2023-05-16 | Outpatient (CLI) | payer MEDICARE, OTHER, SELFPAY ==
[2023-05-16 08:45] LABS: Hemoglobin 11.2 g/dL (13.0-16.5); Mean Corp Hgb Conc 31.1 g/dL (32-36); Mean Corpuscular Hgb 32.7 pg (27.0-32.0); Mean Platelet Vol. 9.8 fl (6.2-12.0); Platelet Count 191 K/mm3 (150-450); RBC Distribution Width CV 14.3 % (11.6-14.6); RBC Distribution Width SD 55.2 fl (35.1-43.9); Red Blood Count 3.43 M/mm3 (4.6-6.2); White Blood Count 8.7 K/mm3 (4.4-11.0)
[2023-05-16 09:20] LABS: 24 Hour Urine Protein 1058.5 mg/24HR (<150 MG/24HR); 24HR. UA Prot. Total Volume 2900 mL; Urine Protein (24 Hour) 36.5 mg/dL (<11.9)
[2023-05-16 09:29] LABS: PTHIN 97.1 pg/mL (18.4-80.1)
[2023-05-16 09:36] LABS: Albumin, Serum 3.4 g/dL (3.2-5.0); BUN 59 mg/dL (7-18); BUN/Creat Ratio 14.6 RATIO (10-20); Chloride 110 mmol/L (98-107); Cholesterol 83 mg/dL (200); Creatinine, Serum 4.03 mg/dL (0.70-1.30); EST Glomerular Filtration Rate 15 mL/min (>60); Est Glom Filt Rate - Afr Amer 18 mL/min (>60); Ferritin 228 ng/mL (26-388); Glucose 98 mg/dL (74-106); High Density Lipoprotein 46 mg/dL; Iron 17 ug/dL (65-175); Iron Binding Capacity,Total 240 ug/dL (250-450); Phosphorus 3.5 mg/dL (2.5-4.9); Potassium 4.3 mmol/L (3.5-5.1); Sodium Level 137 mmol/L (136-145); Triglycerides 44 mg/dL; Very Low Density Lipoprotein 9 mg/dL (5-40)
[2023-05-16 09:41] LABS: Hemoglobin A1c 5.7 % (3.8-5.6)
[2023-05-16 09:44] LABS: Creat.Clear Total Volume 2900 mL; Creatinine Clearance 16 ml/min (100-200); Creatinine Urine 31.9 mg/dL (NO RANGE EST.); EST Glomerular Filtration Rate 15 mL/min (>60); Est Glom Filt Rate - Afr Amer 18 mL/min (>60)
== END | disposition home or self-care (01) ==
PROVIDERS: PCP Family Medicine; Referring Provider Internal Medicine Nephrology; Visit Provider Internal Medicine Nephrology
DX: I48.0 Paroxysmal atrial fibrillation (principal); E11.22 Type 2 diabetes mellitus with diabetic chronic kidney disease; N18.4 Chronic kidney disease, stage 4 (severe); I25.10 Atherosclerotic heart disease of native coronary artery without angina pectoris
CPT/HCPCS: 80061; 80069; 81050; 82575; 82728; 83036; 83540; 83550; 83970; 84156; 85027

== ENCOUNTER → 2023-06-19 | Outpatient (CLI) | payer MEDICARE, OTHER, SELFPAY ==
[2023-06-19 10:12] LABS: Hematocrit 34.9 % (40-54); Hemoglobin 11.1 g/dL (13.0-16.5); Mean Corp Hgb Conc 31.8 g/dL (32-36); Mean Corpuscular Hgb 33.2 pg (27.0-32.0); Mean Corpuscular Volume 104.5 fL (80-94); Mean Platelet Vol. 10.2 fl (6.2-12.0); Platelet Count 193 K/mm3 (150-450); RBC Distribution Width CV 14.6 % (11.6-14.6); RBC Distribution Width SD 56.9 fl (35.1-43.9); Red Blood Count 3.34 M/mm3 (4.6-6.2)
[2023-06-19 10:51] LABS: PTHIN 105.8 pg/mL (18.4-80.1)
[2023-06-19 10:54] LABS: Albumin, Serum 3.7 g/dL (3.2-5.0); BUN 57 mg/dL (7-18); BUN/Creat Ratio 14.5 RATIO (10-20); Calcium,Total 8.8 mg/dL (8.5-10.1); Chloride 114 mmol/L (98-107); Creatinine, Serum 3.93 mg/dL (0.70-1.30); EST Glomerular Filtration Rate 16 mL/min (>60); Est Glom Filt Rate - Afr Amer 19 mL/min (>60); Ferritin 157 ng/mL (26-388); Glucose 98 mg/dL (74-106); Iron Binding Capacity,Total 283 ug/dL (250-450); Potassium 4.1 mmol/L (3.5-5.1); Sodium Level 139 mmol/L (136-145)
[2023-06-19 11:06] LABS: Hepatitis B Surface Antigen Non-Reactive (Nonreactive)
== END | disposition home or self-care (01) ==
PROVIDERS: PCP Family Medicine; Referring Provider Internal Medicine Nephrology; Visit Provider Internal Medicine Nephrology
DX: N18.5 Chronic kidney disease, stage 5 (principal); N25.81 Secondary hyperparathyroidism of renal origin; D63.8 Anemia in other chronic diseases classified elsewhere
CPT/HCPCS: 36415; 80069; 82728; 83550; 83970; 85027; 87340

== ENCOUNTER 2023-08-10 07:17 | Observation (INO) | payer MEDICARE, OTHER, SELFPAY ==
[2023-08-10] VITALS (12 sets, daily range): BP systolic 113–141; BP diastolic 64–76; PULSE 62–98; RESP 16–18; TEMP 36.3–37.2; O2SAT 86–100; BMI 19.7; BMI 24.3
--- NOTE | 2023-08-10 07:31 | EKG12_ITS ---
Test Reason : SYNCOPE Blood Pressure : / mmHG Vent. Rate : 057 BPM Atrial Rate : 000 BPM P-R Int : 000 ms QRS Dur : 092 ms QT Int : 460 ms P-R-T Axes : 000 075 031 degrees QTc Int : 447 ms Atrial fibrillation with slow ventricular response Low voltage QRS Abnormal ECG Confirmed by SNOW KEEN, KRYSTYNA ([id number]), loan expeditor KRYSTLE LUDWIG ([id number]) on 08/14/2023 2:07:09 PM Referred By: SEBASTIAN Confirmed By:KRYSTYNA ADAMSON MD
[2023-08-10 07:45] LABS: Absolute Lymphocyte Count 1.43 X10^3/uL (0.83-4.51); Basophil# 0.08 X10^3/uL; Basophil% 0.9 % (0-1); Eosinophil# 0.36 X10^3/uL; Eosinophils% 4.1 % (0-5); Hematocrit 35.7 % (40-54); Hemoglobin 11.3 g/dL (13.0-16.5); Lymphocyte # 1.43 X10^3/ul (0.83-4.51); Lymphocyte % 16.3 % (19-41); Mean Corp Hgb Conc 31.7 g/dL (32-36); Mean Corpuscular Hgb 33.3 pg (27.0-32.0); Mean Corpuscular Volume 105.3 fL (80-94); Monocyte# 0.85 X10^3/uL; Monocyte% 9.7 % (0-10); NRBC Flagged by Analyzer 0 % (0-5); Neutrophil # 5.99 X10^3/uL (2.7-7.7); Platelet Count 227 K/mm3 (150-450); RBC Distribution Width SD 55.1 fl (35.1-43.9); Red Blood Count 3.39 M/mm3 (4.6-6.2); White Blood Count 8.8 K/mm3 (4.4-11.0)
--- NOTE | 2023-08-10 07:50 | RAD_ITS ---
STUDY: X-RAY CHEST REASON FOR EXAM: Male, 83 years old. syncope TECHNIQUE: Single AP portable view of the chest. COMPARISON: 11/14/2021 FINDINGS: EKG leads overlie the chest The lungs are clear and expanded. There is no demonstrated pleural abnormality. Normal size heart. Normal mediastinum and alex. Normal visualized pulmonary arteries. Normal visualized aortic arch and descending thoracic aorta. There are diffuse degenerative changes of the visualized thoracic spine. Normal visualized ribs, clavicles, and shoulders. There is no demonstrated abnormality of the visualized soft tissue structures of the upper abdomen. RAD/Chest 1 View (Portable) IMPRESSION: No acute pulmonary process Electronically Signed: Gwyn Rowe MD at 8:12 EDT ,
[2023-08-10 08:05] LABS: AST(SGOT) 15 U/L (15-37); Alanine Aminotransfer ALT/SGPT 15 U/L (16-61); Albumin, Serum 3.5 g/dL (3.2-5.0); Alkaline Phosphatase 70 U/L (45-117); Anion Gap 5 (5-15); BUN 30 mg/dL (7-18); BUN/Creat Ratio 9.4 RATIO (10-20); Calcium,Total 8.5 mg/dL (8.5-10.1); Chloride 99 mmol/L (98-107); Creatinine, Serum 3.19 mg/dL (0.70-1.30); EST Glomerular Filtration Rate 20 mL/min (>60); Est Glom Filt Rate - Afr Amer 24 mL/min (>60); Estimated Creatinine Clearance 14.34 ml/min; Globulin 3.5 g/dL (2.2-4.2); Glucose 150 mg/dL (74-106); Lipase 43 U/L (13-75); Potassium 3.5 mmol/L (3.5-5.1); Sodium Level 136 mmol/L (136-145); Troponin-I HS (w/2H Reflex) 7 pg/mL (3.0-78.0)
--- NOTE | 2023-08-10 08:07 | EX.ED.DYSGE1 ---
HPI History of Present Illness Chief Complaint: Syncope Informant: patient, family and EMS Narrative Narrative: She is an 83-year-old male with history of end-stage renal disease on hemodialysis (Sunday), hypertension, longstanding atrial fibrillation on Xarelto as well as carvedilol, BPH, hypertension and hyperlipidemia seen after an episode of syncope versus cardiac arrest. Patient states he woke up around 430 this morning which is typical for him. He was at the [facility] when suddenly he passed out. Patient states before this he felt funny, he was sweaty and everything was quiet. A bystander did not feel a pulse and started CPR. Patient woke up about a minute later. EMS was called. Afterwards patient did have an episode of vomiting. He did have a full session of dialysis yesterday. He states he had a similar episode of syncope last winter. He does not know what came of that. He currently denies any complaints had some mild nausea. Family the bedside does know he looks a little pale. He denies any black or blood in his stool. Denies any headache or vision changes. Denies any change with urination. [facility] Medical History Anemia Atherosclerosis of coronary artery of [place] heart without angina pectoris Diabetes Essential hypertension Former smoker History of renal disease Hyperlipidemia Longstanding persistent atrial fibrillation Loss of consciousness Loss of hearing Paroxysmal atrial fibrillation Problem with dialysis access Sinus bradycardia Syncope Urinary retention Wears dentures Wears glasses Home Medications tamsulosin 0.4 mg capsule 0.4 mg PO QHS 12/16/18 [History Last Taken 08/09/23] finasteride 5 mg tablet 5 mg PO DAILY 08/22/22 [History Last Taken 08/09/23] amlodipine 5 mg tablet 5 mg PO DAILY #90 tabs 03/28/23 [Rx Last Taken 08/09/23] atorvastatin 20 mg tablet 20 mg PO DAILY #90 tabs 03/28/23 [Rx Last Taken 08/09/23] carvedilol 3.125 mg tablet 3.125 mg PO BID #180 tabs 03/28/23 [Rx Last Taken 08/09/23] rivaroxaban 15 mg tablet 15 mg PO DAILY #90 tabs 03/28/23 [Rx Last Taken 08/09/23] Allergy/AdvReac Type Severity Reaction Status Date / Time Penicillins Allergy Unknown Verified 08/10/23 07:19 Family History Mother Diabetes Surgical History History of arteriovenostomy for renal dialysis History of coronary artery stent placement (2007) Hx of colonoscopy Hx of inguinal hernia repair Hx of left cataract extraction Hx of right cataract extraction Status post repair of arteriovenous fistula Social History Smoking Status: Former smoker alcohol intake: never substance use type: does not use caffeine: No ROS ROS ED Constitutional Constitutional ED: Reports sweats and other Details: syncope ; Denies chills or fever(s) Eyes Eyes: Denies blurry vision or change in vision ENT ENT ED: Denies sore throat Cardiovascular Cardiovascular: Denies chest pain or palpitations Respiratory/Chest Respiratory/Chest: Denies cough or dyspnea Gastrointestinal Gastrointestinal: Reports nausea and vomiting; Denies abdominal pain Musculoskeletal Musculoskeletal: Denies arthralgias or myalgias Integumentary Denies rash Neurologic Neurologic: Denies headache(s), paresthesias or weakness Hematologic/Lymphatic Hematologic/Lymphatic: Reports easy bleeding and easy bruising EXAM Physical Exam Const Vital Signs: 08/10/23 07:19 08/10/23 07:22 08/10/23 10:00 Temperature 97.7 F L Temperature Source Oral Pulse Rate 62 82 Respiratory Rate 16 16 Respiratory Effort Normal Respiratory Pattern Normal Blood Pressure 139/66 H 133/76 H Blood Pressure Mean 90 95 Pulse Ox 100 97 Oxygen Delivery Method Room Air Room Air 08/10/23 08:30 08/10/23 09:30 Temperature Temperature Source Pulse Rate 62 70 Respiratory Rate 16 16 Respiratory Effort Respiratory Pattern Blood Pressure 123/68 H 129/68 H Blood Pressure Mean 86 88 Pulse Ox 98 97 Oxygen Delivery Method Room Air Room Air Positive well nourished and well developed General Appearance ED: well developed, NAD and pallor HEENT Reports TM's clear and moist mucous membranes Tympanic Membrane ED: Yes TM's clear Eyes PERRL and EOMs intact bilaterally General Eye ED: Yes pale conjunctiva Neck supple and no JVD Chest Wall inspection of chest normal and palpation of chest normal Resp normal respiratory effort Auscultation: diminished lung sounds left lower Cardio no murmurs Rate: bradycardia Rhythm: abnormal rhythm GI normal to inspection, nondistended, normoactive bowel sounds and non-tender Extremity normal to inspection Extremity Narrative: AV Fistula of the left forearm with palpable thrill General Extremety ED: Negative for edema or tenderness General Extremity: Negative for edema Neuro oriented x3 and no sensory deficits noted Sensorium / Orientation: alert Motor Exam: strength 5/5 throughout; Negative for general weakness Psych mental status grossly normal Skin no rashes or lesions noted and no wounds General Skin Exam: pallor MDM MDM MDM Narrative Medical decision making narrative: After syncopal episode versus cardiac arrest. He received bystander CPR. Vital signs are currently normal. He complains only of some mild nausea and vomiting. EKG shows atrial fibrillation with slow ventricular response. EKG is not consistent with electrolyte derangement associated with missed dialysis check CMP. Will check for signs of ACS. His work-up is largely normal. He does have multiple laboratory [place] such as chronic anemia and CKD however he is at his baseline. His lactate is normal. He was more bradycardic upon arrival (on telemetry when I first saw him his heart rate was in the high 40s to low 50s) however on repeat evaluation his color is improved and his heart rate is now in 70s. I have a low suspicion that he actually had a true cardiac arrest however I am concerned that he had an episode of either symptomatic bradycardia or possibly sick sinus syndrome is on the differential. Vasovagal syncope is also possible. Patient's presentation, bradycardia and comorbidities I do think he benefit from observation overnight. This is discussed with admitting physician, Dr. Blackwell. Patient's urinalysis does show 10-25 white blood cells but no nitrates bacteria. Will send for culture but I do not think this requires treatment at this time. History & Record Review Additional record(s) reviewed:: Prior inpatient record (Syncopal episode at [facility] in 2020, thought to be secondary to his beta-ayanna and was switched to Coreg at that time. Had normal stress test and echocardiogram at that time.) Lab Data Attestation: I reviewed the patient's lab results. Labs: Laboratory Results - last 24 hr 08/10/23 08/10/23 07:37 10:05 WBC 8.8 RBC 3.39 L Hgb 11.3 L Hct 35.7 L MCV 105.3 H MCH 33.3 H MCHC 31.7 L RDW Std Deviation 55.1 H RDW Coeff of Eduardo 14.0 Plt Count 227 MPV 10.0 Immature Gran % (Auto) 1.000 H Neut % (Auto) 68.0 Lymph % (Auto) 16.3 L [place] % (Auto) 9.7 Eos % (Auto) 4.1 Baso % (Auto) 0.9 Absolute Neuts (auto) 6.0 Absolute Lymphs (auto) 1.43 Nucleated RBC % 0 Sodium 136 Potassium 3.5 Chloride 99 Carbon Dioxide 32.0 Anion Gap 5 BUN 30 H Creatinine 3.19 H Estim Creat Clear Calc 14.34 Est GFR (MDRD) Af Amer 24 L Est GFR (MDRD) Non-Af 20 L BUN/Creatinine Ratio 9.4 L Glucose 150 H Lactic Acid 1.7 Calcium 8.5 Total Bilirubin 0.70 AST 15 ALT 15 L Alkaline Phosphatase 70 Troponin I High Sens 7 6 Total Protein 7.0 Albumin 3.5 Globulin 3.5 Albumin/Globulin Ratio 1.0 Lipase 43 Urine Color Yellow Urine Clarity Clear Urine pH 8.0 Ur Specific [place] 1.010 Urine Protein 100 H Urine Glucose (UA) 100 H Urine Ketones Negative Urine Occult Blood 10 H Urine Nitrite Negative Urine Bilirubin Negative Urine Urobilinogen Normal Ur Leukocyte Esterase 100 H Urine RBC 0-5 SEEN Urine WBC 10-25 SEEN Ur Squamous Epith Cells 0 SEEN Urine Bacteria 0 SEEN Urine Mucus 0 SEEN Radiography Chest X-Ray - ED: 1 View Diagnostic Testing: Clinical Impression(s) from Imaging Studies Chest X-Ray 08/10/23 07:50 IMPRESSION: No acute pulmonary process Electronically Signed: Gwyn Rowe MD at 8:12 EDT , Rhythm Strip Rhythm Strip: A-fib Rate: 57 Ectopy: None EKG Initial EKG: Attestation: I personally reviewed and interpreted this EKG as follows: Interpretation: Atrial Fibrillation Comments: Atrial fibrillation with slow ventricular response at a rate of 57 bpm Normal axis Low voltage QRS Normal ST segments Discharge Plan Dx/Rx/DC Orders Clinical Impression: Sinus bradycardia, Syncope and collapse, ESRD on dialysis Disposition Disposition: Acute Care Hospital [facility] Discharge Date/Time: 08/10/23 11:22
[2023-08-10 08:18] LABS: Lactic Acid 1.7 mmol/L (0.4-1.9)
[2023-08-10 09:42] LABS: Reflex Troponin-HS? (from REC) Y
[2023-08-10 10:12] LABS: Bacteria 0 SEEN /hpf (None Seen); Mucous, Urine 0 SEEN /hpf (<or=2+); Squamous Epithelial Cells - UA 0 SEEN /hpf (0-5)
[2023-08-10 10:14] LABS: Color, Urine Yellow (Yellow); Glucose, Dipstick 100 mg/dl (Normal); Ketone-Dipstick Negative (Negative); Leukocyte Esterase-Dipstick 100 /ul (Negative); Nitrite-Dipstick Negative (Negative); Occult Blood-Urine 10 /ul (Negative); Protein-Dipstick 100 mg/dl (Negative); Urine Bilirubin Dipstick Negative (Negative); Urine Clarity Clear (Clear); Urine Urobilinogen Normal (Normal)
[2023-08-10 10:21] LABS: Red Blood Cells-Urine 0-5 SEEN /hpf (0-5); White Blood Cells 10-25 SEEN /hpf (0-5)
[2023-08-10 10:44] LABS: Troponin-I HS 6 pg/mL (3.0-78.0)
--- NOTE | 2023-08-10 11:24 | NURSING ---
ROOM 115, OBS DR GILES SYNCOPE, BRADYCARDIA
--- NOTE | 2023-08-10 13:30 | HP.PCM.HOS_ITS ---
HPI - General General Date of Admission: 08/10/23 Date of Service: 08/10/23 Chief Complaint: syncope HPI Narrative LELA LYONS, is a 83 M who presents with a syncopal episode. Earlier this morning, patient was at [employer] and felt funny and thinks sounded differently and then he passed out. Patient did not have a palpable pulse and patient received CPR for about a minutes that he came to. Patient was brought to the emergency room and evaluated and his work-up was unremarkable. Patient states that he has been feeling fine as of late. Patient was noted to be bradycardic in the emergency room but no other acute process noted. [facility] Medical History Anemia Atherosclerosis of coronary artery of [place] heart without angina pectoris Diabetes Essential hypertension Former smoker History of renal disease Hyperlipidemia Longstanding persistent atrial fibrillation Loss of consciousness Loss of hearing Paroxysmal atrial fibrillation Problem with dialysis access Sinus bradycardia Syncope Urinary retention Wears dentures Wears glasses Home Medications tamsulosin 0.4 mg capsule 0.4 mg PO QHS 12/16/18 [History Last Taken 08/09/23] finasteride 5 mg tablet 5 mg PO DAILY 08/22/22 [History Last Taken 08/09/23] amlodipine 5 mg tablet 5 mg PO DAILY #90 tabs 03/28/23 [Rx Last Taken 08/09/23] atorvastatin 20 mg tablet 20 mg PO DAILY #90 tabs 03/28/23 [Rx Last Taken 08/09/23] carvedilol 3.125 mg tablet 3.125 mg PO BID #180 tabs 03/28/23 [Rx Last Taken 08/09/23] rivaroxaban 15 mg tablet 15 mg PO DAILY #90 tabs 03/28/23 [Rx Last Taken 08/09/23] Allergy/AdvReac Type Severity Reaction Status Date / Time Penicillins Allergy Unknown Verified 08/10/23 07:19 Family History Mother Diabetes Surgical History History of arteriovenostomy for renal dialysis History of coronary artery stent placement (2007) Hx of colonoscopy Hx of inguinal hernia repair Hx of left cataract extraction Hx of right cataract extraction Status post repair of arteriovenous fistula Social History Smoking Status: Former smoker alcohol intake: never substance use type: does not use caffeine: No ROS ROS Narrative All review of systems were negative except as mentioned above in the history of present illness and the other review of systems. Vital Signs Vital Signs Vital Signs: 08/10/23 07:19 08/10/23 07:22 08/10/23 11:17 Temperature 36.5 C L Temperature Source Oral Pulse Rate 62 93 Pulse Rate [Lying] Pulse Rate [Sitting (for 1 minute prior to obtaining)] Pulse Rate [Standing (for 1 minute prior to obtaining)] Respiratory Rate 16 18 Respiratory Effort Normal Respiratory Depth Respiratory Pattern Normal Blood Pressure 139/66 H 131/73 H Blood Pressure [Lying] Blood Pressure [Sitting (for 1 minute prior to obtaining)] Blood Pressure [Standing (for 1 minute prior to obtaining)] Blood Pressure Mean 90 92 Blood Pressure Mean [Lying] Blood Pressure Mean [Sitting (for 1 minute prior to obtaining)] Blood Pressure Mean [Standing (for 1 minute prior to obtaining)] Blood Pressure Source Blood Pressure Position Blood Pressure Location Pulse Ox 100 98 Oxygen Delivery Method Room Air Room Air Oxygen Flow Rate (L/min) 08/10/23 11:18 08/10/23 10:00 08/10/23 08:30 Temperature 36.6 C Temperature Source Temporal Pulse Rate 84 82 62 Pulse Rate [Lying] Pulse Rate [Sitting (for 1 minute prior to obtaining)] Pulse Rate [Standing (for 1 minute prior to obtaining)] Respiratory Rate 16 16 16 Respiratory Effort Respiratory Depth Respiratory Pattern Blood Pressure 131/73 H 133/76 H 123/68 H Blood Pressure [Lying] Blood Pressure [Sitting (for 1 minute prior to obtaining)] Blood Pressure [Standing (for 1 minute prior to obtaining)] Blood Pressure Mean 92 95 86 Blood Pressure Mean [Lying] Blood Pressure Mean [Sitting (for 1 minute prior to obtaining)] Blood Pressure Mean [Standing (for 1 minute prior to obtaining)] Blood Pressure Source Blood Pressure Position Blood Pressure Location Pulse Ox 98 97 98 Oxygen Delivery Method Room Air Room Air Room Air Oxygen Flow Rate (L/min) 08/10/23 09:30 08/10/23 12:10 08/10/23 12:13 Temperature 36.3 C L Temperature Source Temporal Pulse Rate 70 84 Pulse Rate [Lying] 84 Pulse Rate [Sitting (for 1 minute prior to obtaining)] 82 Pulse Rate [Standing (for 1 minute prior to obtaining)] 98 Respiratory Rate 16 18 Respiratory Effort Respiratory Depth Respiratory Pattern Blood Pressure 129/68 H 125/71 H Blood Pressure [Lying] 125/71 H Blood Pressure [Sitting (for 1 minute prior to obtaining)] 113/66 Blood Pressure [Standing (for 1 minute prior to obtaining)] 130/69 H Blood Pressure Mean 88 89 Blood Pressure Mean [Lying] 89 Blood Pressure Mean [Sitting (for 1 minute prior to obtaining)] 81 Blood Pressure Mean [Standing (for 1 minute prior to obtaining)] 89 Blood Pressure Source Monitor Blood Pressure Position Semi-Fowlers Blood Pressure Location Right Arm Pulse Ox 97 97 Oxygen Delivery Method Room Air Room Air Oxygen Flow Rate (L/min) 08/10/23 12:19 08/10/23 13:15 08/10/23 13:22 Temperature Temperature Source Pulse Rate Pulse Rate [Lying] Pulse Rate [Sitting (for 1 minute prior to obtaining)] Pulse Rate [Standing (for 1 minute prior to obtaining)] Respiratory Rate Respiratory Effort Normal Non-Labored Respiratory Depth Normal Respiratory Pattern Normal Blood Pressure Blood Pressure [Lying] Blood Pressure [Sitting (for 1 minute prior to obtaining)] Blood Pressure [Standing (for 1 minute prior to obtaining)] Blood Pressure Mean Blood Pressure Mean [Lying] Blood Pressure Mean [Sitting (for 1 minute prior to obtaining)] Blood Pressure Mean [Standing (for 1 minute prior to obtaining)] Blood Pressure Source Blood Pressure Position Blood Pressure Location Pulse Ox 86 91 Oxygen Delivery Method Room Air Nasal Cannula Oxygen Flow Rate (L/min) 3 6 Weight Weight: 68.402 kg Body Mass Index (BMI) 24.3 Physical Exam Narrative - Physical Exam General: Alert, Oriented x3, Cooperative HEENT: Atraumatic, PERRLA, EOMI, Normocephalic Oral: Moist Mucosa, No Gingival or Mucosal Lesions/ Ulcerations Neck: Supple, No JVD, Negative Carotid Bruits Lungs: Clear to auscultation, Normal air movement Cardiovascular: Regular rate, Normal S1, Normal S2, No murmurs Abdomen: Bowel Sounds Present, Soft, Non Tender, Non-Distended, No Hepato- splenomegaly Extremities: No clubbing, No cyanosis, No edema, Capillary Refill Less than 3 Seconds Skin: No rashes, No breakdown Musculoskeletal: No Tenderness to Palpation of Joints or Extremities Neurological: Neuro grossly intact Psych/Mental Status: Normal Affect, Appropriate Results Lab / Micro Data Attestation: I reviewed the patient's lab results. 08/10/23 07:37 08/10/23 07:37 Labs: Laboratory Results - last 24 hr 08/10/23 07:37: WBC 8.8, RBC 3.39 L, Hgb 11.3 L, Hct 35.7 L, MCV 105.3 H, MCH 33.3 H, MCHC 31.7 L, RDW Std Deviation 55.1 H, RDW Coeff of Eduardo 14.0, Plt Count 227, MPV 10.0, Immature Gran % (Auto) 1.000 H, Neut % (Auto) 68.0, Lymph % (Auto) 16.3 L, [place] % (Auto) 9.7, Eos % (Auto) 4.1, Baso % (Auto) 0.9, Absolute Neuts (auto) 6.0, Absolute Lymphs (auto) 1.43, Nucleated RBC % 0, Sodium 136, Potassium 3.5, Chloride 99, Carbon Dioxide 32.0, Anion Gap 5, BUN 30 H, Creatinine 3.19 H, Estim Creat Clear Calc 14.34, Est GFR (MDRD) Af Amer 24 L, Est GFR (MDRD) Non-Af 20 L, BUN/Creatinine Ratio 9.4 L, Glucose 150 H, Lactic Acid 1.7, Calcium 8.5, Total Bilirubin 0.70, AST 15, ALT 15 L, Alkaline Phosphatase 70, Troponin I High Sens 7, Total Protein 7.0, Albumin 3.5, Globulin 3.5, Albumin/Globulin Ratio 1.0, Lipase 43 08/10/23 10:05: Troponin I High Sens 6, Urine Color Yellow, Urine Clarity Clear, Urine pH 8.0, Ur Specific [place] 1.010, Urine Protein 100 H, Urine Glucose (UA) 100 H, Urine Ketones Negative, Urine Occult Blood 10 H, Urine Nitrite Negative, Urine Bilirubin Negative, Urine Urobilinogen Normal, Ur Leukocyte Esterase 100 H , Urine RBC 0-5 SEEN, Urine WBC 10-25 SEEN, Ur Squamous Epith Cells 0 SEEN, Urine Bacteria 0 SEEN, Urine Mucus 0 SEEN Rhythm Strip Rhythm Strip: A-fib Rate: 57 Ectopy: None Radiology Impression Chest X-Ray 08/10/23 07:50 IMPRESSION: No acute pulmonary process Electronically Signed: Gwyn Rowe MD at 8:12 EDT , Assessment & Plan Assessment/Plan (1) Syncope and collapse: PLAN: Doubt cardiac arrhythmia. Suspect vasovagal. Orthostatic vital signs are negative. Transiently, the patient's heart rate was low but will continue to monitor. Hold off on his current labetalol for now. (2) Hypoxia: PLAN: Was not hypoxic initially upon arrival. Chest x-ray was unremarkable. We will check a D-dimer and if elevated for age, check a CT angiogram (patient is already on hemodialysis.) PLAN: Plan Chronic conditions * End-stage renal disease: On hemodialysis. Patient to be discharged tomorrow and then he could be discharged time at 1230. * Hyperlipidemia: Continue with statin. * Atrial fibrillation: Hold carvedilol. Continue anticoagulation with apixaban. * BPH: Since he is not orthostatic at this time we will resume his finasteride and tamsulosin * Hypertension: Continue with amlodipine. VTE prophylaxis: Not indicated as patient is observation but also is already anticoagulated. CODE STATUS: Source of the patient's patient is DNR Com[facility] Care arrest. Charges/Coding Visit Charges Inpatient E&M: 10461 Init Hosp L2
[2023-08-10 14:46] LABS: Troponin-I HS 7 pg/mL (3.0-78.0)
[2023-08-10 16:05] LABS: D-Dimer Quantitative (DVT/PE) < 0.27 FEU/ug/m (0.27-0.49)
--- NOTE | 2023-08-10 16:12 | CASEMGMT ---
LESA BALLESTEROS called [facility] to see if patient can have HD tomorrow after discharge. Per Carly at [facility], patient can have HD Sunday if patient is there at 1100. LESA BALLESTEROS updated nursing and hospitalist.
[2023-08-10] MEDS: Tamsulosin HCl 0.4 MG Capsule PO (20:56)
[2023-08-11 02:48] VITALS: BP 123/72; PULSE 64; RESP 16; TEMP 37.2; O2SAT 98
[2023-08-11 06:36] VITALS: BP 119/80; PULSE 76; RESP 16; TEMP 37.1; O2SAT 100
[2023-08-11 06:41] VITALS: BMI 23.7
--- NOTE | 2023-08-11 08:13 | PN.HOSP_ITS ---
Reason for Visit Reason for Visit: Diagnoses Hypoxemia (08/10/23) Syncope and collapse (08/10/23) Subjective Subjective No events overnight. Objective Data Objective Data Vital Signs: Vital Signs Temp Pulse Resp BP Pulse Ox O2 Del Method O2 Flow Rate 37.1 C 76 16 119/80 100 Room Air 6 08/11/23 06:36 08/11/23 06:36 08/11/23 06:36 08/11/23 06:36 08/11/23 06:36 08/11/23 06:36 08/10/23 13:22 Oxygen Flow Rate (L/min) 6 Oxygen Delivery Method Room Air Weight: 67 kg Body Mass Index (BMI) 23.7 Intake & Output: Intake and Output for Last 24 Hours 08/09/23 08/10/23 08/11/23 23:59 23:59 23:59 Intake Total 240 / 420 480 / 480 Balance 240 / 420 480 / 480 Lab / Micro Data 08/10/23 07:37 08/11/23 07:33 Labs: Laboratory Results - last 24 hr 08/10/23 07:37: Lactic Acid 1.7 08/10/23 10:05: Troponin I High Sens 6, Urine Color Yellow, Urine Clarity Clear, Urine pH 8.0, Ur Specific [place] 1.010, Urine Protein 100 H, Urine Glucose (UA) 100 H, Urine Ketones Negative, Urine Occult Blood 10 H, Urine Nitrite Negative, Urine Bilirubin Negative, Urine Urobilinogen Normal, Ur Leukocyte Esterase 100 H , Urine RBC 0-5 SEEN, Urine WBC 10-25 SEEN, Ur Squamous Epith Cells 0 SEEN, Urine Bacteria 0 SEEN, Urine Mucus 0 SEEN 08/10/23 13:40: Troponin I High Sens 7 08/10/23 15:15: D-Dimer Quant (PE/DVT) < 0.27 L Radiography Diagnostic Testing: Radiology Impression Chest X-Ray 08/10/23 07:50 IMPRESSION: No acute pulmonary process Electronically Signed: Gwyn Rowe MD at 8:12 EDT , Rhythm Strip Rhythm Strip: A-fib Rate: 57 Ectopy: None Physical Exam Const alert and no apparent distress Resp normal respiratory effort, no retractions and no use of accessory muscles Cardio regular rate, regular rhythm, S1 normal heart sound and S2 normal heart sound GI normal to inspection, nondistended, normoactive bowel sounds and soft to palpation Assessment & Plan Assessment/Plan (1) Syncope and collapse: PLAN: Doubt cardiac arrhythmia. Suspect vasovagal. Orthostatic vital signs are negative. Transiently, the patient's heart rate was low but will continue to monitor. Hold off on his current labetalol for now. Was bradycardic down into the 60s. Tele reviewed and no arrhythmias (other than chronic afib) Will continue carvedilol, hold amlodipine. (2) Hypoxia: PLAN: Resolved Unclear etiology Was not hypoxic initially upon arrival. Chest x-ray was unremarkable. D-dimer negative. PLAN: Plan Chronic conditions * End-stage renal disease: On hemodialysis. Patient to be discharged tomorrow and then he could be discharged time at 1230. * Hyperlipidemia: Continue with statin. * Atrial fibrillation: Hold carvedilol. Continue anticoagulation with apixaban. * BPH: Since he is not orthostatic at this time we will resume his finasteride and tamsulosin * Hypertension: Continue with amlodipine. VTE prophylaxis: Not indicated as patient is observation but also is already anticoagulated. CODE STATUS: Source of the patient's patient is DNR Comfort Care arrest.
[2023-08-11 08:16] LABS: Anion Gap 6 (5-15); BUN 41 mg/dL (7-18); Calcium,Total 8.8 mg/dL (8.5-10.1); Chloride 104 mmol/L (98-107); Creatinine, Serum 3.41 mg/dL (0.70-1.30); EST Glomerular Filtration Rate 18 mL/min (>60); Est Glom Filt Rate - Afr Amer 22 mL/min (>60); Estimated Creatinine Clearance 14.55 ml/min; Glucose 123 mg/dL (74-106); Potassium 3.7 mmol/L (3.5-5.1); Sodium Level 138 mmol/L (136-145)
--- NOTE | 2023-08-11 09:02 | DS.PCM_ITS ---
Providers Date of Admission: 08/10/23 Primary Care Physician: Dr. Torey Kearney MD Consultations 08/10/23 11:44 Consult: Nephrology Routine Consulting Provider: Kalee Bertrand Reason for Consult: CKD EMERGENT Consult: No MD Notified: Yes Date Notified: 08/10/23 Time Notified: 11:45 Method of Notification: Text Comments:: Dr Bertrand Reason For Visit: syncope Diagnosis Discharge Diagnosis (1) Syncope and collapse: Status: Acute Code(s): R55 - Syncope and collapse Plan: Doubt cardiac arrhythmia. Suspect vasovagal. Orthostatic vital signs are negative. Transiently, the patient's heart rate was low but will continue to monitor. Hold off on his current labetalol for now. Was bradycardic down into the 60s. Tele reviewed and no arrhythmias (other than chronic afib) Will continue carvedilol, hold amlodipine. (2) Hypoxia: Status: Acute Code(s): R09.02 - Hypoxemia Plan: Resolved Unclear etiology Was not hypoxic initially upon arrival. Chest x-ray was unremarkable. D-dimer negative. Plan Chronic conditions * End-stage renal disease: On hemodialysis. Patient to be discharged tomorrow and then he can have his chair time at 1230. * Hyperlipidemia: Continue with statin. * Atrial fibrillation: Hold carvedilol. Continue anticoagulation with apixaban. * BPH: Since he is not orthostatic at this time we will resume his finasteride and tamsulosin * Hypertension: Continue with amlodipine. VTE prophylaxis: Not indicated as patient is observation but also is already anticoagulated. CODE STATUS: Source of the patient's patient is DNR Comfort Care arrest. Medications at Discharge Home Medications tamsulosin 0.4 mg capsule 0.4 mg PO QHS 12/16/18 finasteride 5 mg tablet 5 mg PO DAILY 08/22/22 atorvastatin 20 mg tablet 20 mg PO DAILY #90 tabs 03/28/23 carvedilol 3.125 mg tablet 3.125 mg PO BID #180 tabs 03/28/23 rivaroxaban 15 mg tablet 15 mg PO DAILY #90 tabs 03/28/23 Hospital Course Operations None Procedures None Summary of Care Provided Minutes Spent on Discharge: 28 Hospital Course: Patient had a syncopal episode while at [employer]. Patient stated that he had eaten in the morning was sitting and then felt off and felt noises were muffled and then passed out. No pulses palpated and patient had bystander CPR performed. Patient came to and was feeling fine. I do not feel the patient had cardiac arrest but more likely a vasovagal episode. The etiology of the episode is unclear. Patient was not bradycardic but was probably hypotensive in the field though he was not hypotensive in the hospital. Will hold off on amlodipine moving forward. Patient did have orthostatic vital signs that were performed and negative. Weight / BMI Weight Weight: 67 kg Body Mass Index (BMI) 23.7 ABG / Lab / Microbiology Data 08/10/23 07:37 08/11/23 07:33 Laboratory: Laboratory Results - last 24 hr 08/10/23 10:05: Troponin I High Sens 6, Urine Color Yellow, Urine Clarity Clear, Urine pH 8.0, Ur Specific [place] 1.010, Urine Protein 100 H, Urine Glucose (UA) 100 H, Urine Ketones Negative, Urine Occult Blood 10 H, Urine Nitrite Negative, Urine Bilirubin Negative, Urine Urobilinogen Normal, Ur Leukocyte Esterase 100 H , Urine RBC 0-5 SEEN, Urine WBC 10-25 SEEN, Ur Squamous Epith Cells 0 SEEN, Urine Bacteria 0 SEEN, Urine Mucus 0 SEEN 08/10/23 13:40: Troponin I High Sens 7 08/10/23 15:15: D-Dimer Quant (PE/DVT) < 0.27 L 08/11/23 07:33: Sodium 138, Potassium 3.7, Chloride 104, Carbon Dioxide 28.0, Anion Gap 6, BUN 41 H, Creatinine 3.41 H, Estim Creat Clear Calc 14.55, Est GFR (MDRD) Af Amer 22 L, Est GFR (MDRD) Non-Af 18 L, BUN/Creatinine Ratio 12.0, Glucose 123 H, Calcium 8.8 D/C Instructions Discharge Diet: Low fat / Low cholesterol Meaningful Use Info Meaningful Use Diagnoses (Choose all that apply): None applicable Discharge Plan Admission Admit Date/Time: 08/10/23 10:57 Primary Reason for Your Visit: Syncope Attending Provider: Eder Blackwell Primary Care Provider: Torey Kearney Consulting Providers: Kalee Bertrand Instructions Additional Instructions / Restrictions: You had a syncopal episode. The reason for syncopal episode is unclear. A bystander could not get a pulse on you but I do not feel that you went to cardiac arrest but were likely hypotensive (low blood pressure). Blood pressure was okay as well as her heart rate here. I am going to hold off on your amlodipine (Norvasc) for the time being. Discharge Orders/Prescriptions Prescriptions: Continued finasteride 5 mg tablet 5 mg PO DAILY tamsulosin 0.4 MG capsule 0.4 mg PO QHS atorvastatin 20 mg tablet 20 mg PO DAILY Qty: 90 3RF carvedilol 3.125 mg tablet 3.125 mg PO BID Qty: 180 3RF rivaroxaban 15 mg tablet 15 mg PO DAILY Qty: 90 3RF Rx Instructions: must administer with evening meal Discontinued amlodipine 5 mg tablet 5 mg PO DAILY Qty: 90 3RF Referrals / Follow Up: Torey Kearney MD [Primary Care Provider] - Within 2 Weeks Disposition Disposition (needs filled in before D/C Order can be placed): Home, Self Care Charges/Coding Visit Charges Inpatient E&M: 75343 Disch Hosp
[2023-08-11 10:35] VITALS: BP 128/80; PULSE 73; RESP 16; TEMP 37; O2SAT 97
== END 2023-08-11 09:06 | disposition home or self-care (01) ==
LOC: ED 11:08 → PCU 11:11
PROVIDERS: Emergency Provider Emergency Medicine; PCP Family Medicine
DX: R55 Syncope and collapse (principal); Z99.2 Dependence on renal dialysis; E11.22 Type 2 diabetes mellitus with diabetic chronic kidney disease; I12.0 Hypertensive chronic kidney disease with stage 5 chronic kidney disease or end stage renal disease; N18.6 End stage renal disease; I48.11 Longstanding persistent atrial fibrillation; Z87.891 Personal history of nicotine dependence; I25.10 Atherosclerotic heart disease of native coronary artery without angina pectoris; E78.5 Hyperlipidemia, unspecified; R00.1 Bradycardia, unspecified; R11.10 Vomiting, unspecified; Z79.01 Long term (current) use of anticoagulants; N40.0 Benign prostatic hyperplasia without lower urinary tract symptoms; I10 Essential (primary) hypertension
CPT/HCPCS: 36415; 71045; 80048; 80053; 81001; 83605; 83690; 84484; 85025; 85379; 87077; 87086; 87088; 93005; 99221; 99285; A4216; G0378

== ENCOUNTER 2023-08-17 07:38 | Emergency (ER) | payer MEDICARE, OTHER, SELFPAY ==
[2023-08-17 07:39] VITALS: BP 119/70; PULSE 71; RESP 14; TEMP 35.9; O2SAT 85; BMI 24.9
--- NOTE | 2023-08-17 08:06 | RAD_ITS ---
STUDY: X-RAY CHEST REASON FOR EXAM: Male, 83 years old. Near syncope . Atrial fibrillation. TECHNIQUE: Single AP portable view of the chest. COMPARISON: Comparison is made with prior study dated August 10, 2023. FINDINGS: EKG electrodes are seen. The lungs are clear and expanded. There is no demonstrated pleural abnormality. Normal size heart. Normal mediastinum and alex. Normal visualized pulmonary arteries. Normal visualized aortic arch and descending thoracic aorta. There are diffuse degenerative changes of the visualized thoracic spine. Normal visualized ribs, clavicles, and shoulders. There is no demonstrated abnormality of the visualized soft tissue structures of the upper abdomen. RAD/Chest 1 View (Portable) IMPRESSION: No acute abnormality is seen. Electronically Signed: Gustabo uBrgess MD at 8:27 EDT ,
--- NOTE | 2023-08-17 08:06 | EKG12_ITS ---
Test Reason : WEAKNESS Blood Pressure : / mmHG Vent. Rate : 060 BPM Atrial Rate : 000 BPM P-R Int : 000 ms QRS Dur : 094 ms QT Int : 464 ms P-R-T Axes : 000 083 033 degrees QTc Int : 464 ms Atrial fibrillation Low voltage QRS Abnormal ECG Confirmed by HEMALATHA KEEN, CELINA ([id number]), copy editor KRYSTLE LUDWIG ([id number]) on 08/21/2023 10:19:04 AM Referred By: Confirmed By:LOBO PENNY MD
--- NOTE | 2023-08-17 08:08 | EDS_ITS ---
HPI History of Present Illness Chief Complaint: Weakness Informant: patient and EMS Narrative Narrative: 83-year-old male with a history of end-stage renal disease on dialysis (TThS), persistent atrial fibrillation, CAD presenting following an episode of near sync ope. Patient states that he arrived at [facility] for the morning mass at around 0515. He states he been sitting most of the time and around 630 began to feel very poorly. He states that he was sweaty and felt like he might pass out. He denied any abdominal symptoms or pain. He denies any shortness of breath or neurologic changes. He states that he went downstairs and after about 15 minutes started to feel better. 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 He is on Xarelto and denies missing any doses. He denies history of congestive heart failure. The patient reportedly has had an echocardiogram that showed an ejection fraction of 70%. At the time of examination the patient states that he feels good and seems to be back to his normal self. [facility] Medical History Anemia Atherosclerosis of coronary artery of [place] heart without angina pectoris Diabetes Essential hypertension Former smoker History of renal disease Hyperlipidemia Longstanding persistent atrial fibrillation Loss of consciousness Loss of hearing Paroxysmal atrial fibrillation Problem with dialysis access Sinus bradycardia Syncope Urinary retention Wears dentures Wears glasses Home Medications tamsulosin 0.4 mg capsule 0.4 mg PO QHS prostate 12/16/18 [History Last Taken 08/09/23] finasteride 5 mg tablet 5 mg PO DAILY prostate 08/22/22 [History Last Taken 08/09/23] atorvastatin 20 mg tablet 20 mg PO DAILY cholesterol #90 tabs 03/28/23 [Rx Last Taken 08/09/23] rivaroxaban 15 mg tablet 15 mg PO DAILY blood thinner #90 tabs 03/28/23 [Rx Last Taken 08/09/23] carvedilol 3.125 mg tablet 3.125 mg PO BID blood pressure #60 tabs 08/15/23 [Rx Last Taken Unknown] Allergy/AdvReac Type Severity Reaction Status Date / Time Penicillins Allergy Unknown Verified 08/17/23 07:43 Family History Mother Diabetes Surgical History History of arteriovenostomy for renal dialysis History of coronary artery stent placement (2007) Hx of colonoscopy Hx of inguinal hernia repair Hx of left cataract extraction Hx of right cataract extraction Status post repair of arteriovenous fistula Social History Smoking Status: Former smoker alcohol intake: never substance use type: does not use caffeine: No ROS ROS ED Constitutional Constitutional ED: Reports sweats; Denies chills, fever(s) or weight loss Eyes Eyes: Denies blurry vision, change in vision or diplopia ENT ENT ED: Denies ear pain, rhinorrhea or sore throat Cardiovascular Cardiovascular: Reports other Details: Near syncope see HPI ; Denies chest pain, orthopnea, palpitations or racing heartbeat Respiratory/Chest Respiratory/Chest: Denies cough, dyspnea, dyspnea on exertion or orthopnea Gastrointestinal Gastrointestinal: Denies abdominal pain, diarrhea, nausea or vomiting Genitourinary Genitourinary ED: Denies dysuria, hematuria or urinary frequency Musculoskeletal Musculoskeletal: Denies arthralgias, back pain, myalgias or neck pain Integumentary Denies abscess or rash Neurologic Neurologic: Denies headache(s) or weakness Psychiatric Psychiatric: Denies anxiety, depression, suicidal ideation or suicidal thoughts Endocrine Endocrinology: Denies polydipsia, polyphagia or polyuria Allergic/Immunologic Allergic/Immunologic ED: Denies mouth swelling, tongue swelling or urticaria EXAM Physical Exam Const Vital Signs: 08/17/23 07:39 08/17/23 07:49 08/17/23 09:29 Temperature 96.6 F L Temperature Source Temporal Pulse Rate 71 69 Respiratory Rate 14 18 Respiratory Pattern Normal Blood Pressure 119/70 138/72 H Blood Pressure Mean 86 94 Pulse Ox 85 99 Oxygen Delivery Method Room Air Room Air Positive well nourished and well developed General Appearance ED: well developed HEENT Reports normocephalic, head/scalp atraumatic and moist mucous membranes Eyes PERRL and EOMs intact bilaterally Neck no lymphadenopathy, supple and no JVD Resp normal respiratory effort and clear to auscultation bilaterally Cardio no murmurs Rate: bradycardia Rhythm: abnormal rhythm irregularly irregular GI normal to inspection, nondistended, normoactive bowel sounds and non-tender Palpation: soft Back/Spine no CVA tenderness and normal ROM Extremity normal to inspection General Extremety ED: Negative for edema General Extremity: Negative for edema Neuro oriented x3 and CN's II-XII intact bilaterally Sensorium / Orientation: alert Motor Exam: strength 5/5 throughout Psych mental status grossly normal Mood & Affect: Negative for depressed or tearful Skin no rashes or lesions noted and no wounds MDM MDM MDM Narrative Medical decision making narrative: My interpretation of the chest x-ray is no acute process. Hemoglobin 12.3 creatinine 2.83 and he is due for dialysis tomorrow. 2 sets of cardiac enzymes were normal. Magnesium sodium potassium within the normal limits. He is remained in a rate controlled atrial fibrillation rhythm. I have not seen any significant bradycardic events. He is asymptomatic at the current time. Plan will be to have the patient discharged home. Return if worsening or concerns Lab Data Attestation: I reviewed the patient's lab results. Labs: Laboratory Results - last 24 hr 08/17/23 08/17/23 07:44 09:44 WBC 7.0 RBC 3.12 L Hgb 10.3 L Hct 33.3 L MCV 106.7 H MCH 33.0 H MCHC 30.9 L RDW Std Deviation 55.5 H RDW Coeff of Eduardo 14.1 Plt Count 212 MPV 10.1 Immature Gran % (Auto) 0.700 Neut % (Auto) 76.8 H Lymph % (Auto) 10.9 L Alexander % (Auto) 7.5 Eos % (Auto) 3.4 Baso % (Auto) 0.7 Absolute Neuts (auto) 5.3 Absolute Lymphs (auto) 0.76 L Nucleated RBC % 0 Sodium 136 Potassium 3.7 Chloride 101 Carbon Dioxide 31.0 Anion Gap 4 L BUN 25 H Creatinine 2.83 H Estim Creat Clear Calc 17.53 Est GFR (MDRD) Af Amer 28 L Est GFR (MDRD) Non-Af 23 L BUN/Creatinine Ratio 8.8 L Glucose 170 H Calcium 8.4 L Magnesium 2.2 Troponin I High Sens 7 9 Radiography Diagnostic Testing: Clinical Impression(s) from Imaging Studies Chest X-Ray 08/17/23 08:06 IMPRESSION: No acute abnormality is seen. Electronically Signed: Gustabo Burgess MD at 8:27 EDT , EKG Initial EKG: Attestation: I personally reviewed and interpreted this EKG as follows: Comments: Atrial fibrillation with a ventricular rate of 60 bpm. This appears grossly unchanged from EKG dated 10 August 2023 Differential Diagnosis Chest pain/SOB: ACS, pneumothorax, pneumonia, aortic dissection and CHF Discharge Plan Triage Chief Complaint: Weakness ED Provider: Juanjo Dc Dx/Rx/DC Orders Clinical Impression: Coronary artery disease, Near syncope, Longstanding persistent atrial fibrillation, ESRD on dialysis Instructions: ED Near-Fainting, Uncertain Cause Prescriptions: No Action finasteride 5 mg tablet 5 mg PO DAILY carvedilol 3.125 mg tablet 3.125 mg PO BID Qty: 60 11RF tamsulosin 0.4 MG capsule 0.4 mg PO QHS atorvastatin 20 mg tablet 20 mg PO DAILY Qty: 90 3RF rivaroxaban 15 mg tablet 15 mg PO DAILY Qty: 90 3RF Rx Instructions: must administer with evening meal Primary Care Provider: Torey Kearney Referrals: Torey Kearney MD [Primary Care Provider] - 1-2 Weeks Disposition Disposition: Home, Self Care
[2023-08-17 08:27] LABS: Absolute Lymphocyte Count 0.76 X10^3/uL (0.83-4.51); Absolute Neutrophil Count 5.3 X10^3/uL (2.0-7.7); Basophil# 0.05 X10^3/uL; Basophil% 0.7 % (0-1); Eosinophil# 0.24 X10^3/uL; Eosinophils% 3.4 % (0-5); Hematocrit 33.3 % (40-54); Hemoglobin 10.3 g/dL (13.0-16.5); Lymphocyte # 0.76 X10^3/ul (0.83-4.51); Lymphocyte % 10.9 % (19-41); Mean Corp Hgb Conc 30.9 g/dL (32-36); Mean Corpuscular Volume 106.7 fL (80-94); Mean Platelet Vol. 10.1 fl (6.2-12.0); Monocyte# 0.52 X10^3/uL; Monocyte% 7.5 % (0-10); NRBC Flagged by Analyzer 0 % (0-5); Neutrophil # 5.34 X10^3/uL (2.7-7.7); Neutrophil % 76.8 % (47-70); Platelet Count 212 K/mm3 (150-450); RBC Distribution Width CV 14.1 % (11.6-14.6); RBC Distribution Width SD 55.5 fl (35.1-43.9); Red Blood Count 3.12 M/mm3 (4.6-6.2)
[2023-08-17 08:33] LABS: Anion Gap 4 (5-15); BUN 25 mg/dL (7-18); BUN/Creat Ratio 8.8 RATIO (10-20); Calcium,Total 8.4 mg/dL (8.5-10.1); Chloride 101 mmol/L (98-107); Creatinine, Serum 2.83 mg/dL (0.70-1.30); EST Glomerular Filtration Rate 23 mL/min (>60); Est Glom Filt Rate - Afr Amer 28 mL/min (>60); Estimated Creatinine Clearance 17.53 ml/min; Glucose 170 mg/dL (74-106); Magnesium 2.2 mg/dL (1.6-2.6); Potassium 3.7 mmol/L (3.5-5.1); Sodium Level 136 mmol/L (136-145); Troponin-I HS 7 pg/mL (3.0-78.0)
[2023-08-17 09:29] VITALS: BP 138/72; PULSE 69; RESP 18; O2SAT 99
[2023-08-17 10:10] LABS: Troponin-I HS 9 pg/mL (3.0-78.0)
[2023-08-17 10:36] VITALS: BP 144/74; PULSE 68; RESP 18; O2SAT 98
== END 2023-08-17 10:38 | disposition home or self-care (01) ==
PROVIDERS: Emergency Provider Emergency Medicine; PCP Family Medicine; Visit Provider Emergency Medicine
DX: I25.10 Atherosclerotic heart disease of native coronary artery without angina pectoris (principal); Z99.2 Dependence on renal dialysis; N18.6 End stage renal disease; I48.19 Other persistent atrial fibrillation; R55 Syncope and collapse; Z87.891 Personal history of nicotine dependence; Z95.5 Presence of coronary angioplasty implant and graft
CPT/HCPCS: 71045; 80048; 83735; 84484; 85025; 93005; 99285; A4216

== ENCOUNTER 2023-08-27 08:18 | Day surgery (SDC) | payer MEDICARE, OTHER, SELFPAY ==
[2023-08-20 11:20] LABS: Hematocrit 34.7 % (40-54); Hemoglobin 10.8 g/dL (13.0-16.5); Mean Corp Hgb Conc 31.1 g/dL (32-36); Mean Corpuscular Hgb 33.2 pg (27.0-32.0); Mean Corpuscular Volume 106.8 fL (80-94); Mean Platelet Vol. 9.9 fl (6.2-12.0); Platelet Count 207 K/mm3 (150-450); RBC Distribution Width CV 14.2 % (11.6-14.6); RBC Distribution Width SD 55.8 fl (35.1-43.9); Red Blood Count 3.25 M/mm3 (4.6-6.2)
[2023-08-20 11:58] LABS: Anion Gap 5 (5-15); BUN 30 mg/dL (7-18); BUN/Creat Ratio 8.8 RATIO (10-20); Calcium,Total 8.4 mg/dL (8.5-10.1); Chloride 104 mmol/L (98-107); EST Glomerular Filtration Rate 18 mL/min (>60); Est Glom Filt Rate - Afr Amer 22 mL/min (>60); Glucose 88 mg/dL (74-106); Potassium 3.8 mmol/L (3.5-5.1); Sodium Level 137 mmol/L (136-145)
[2023-08-24 06:51] VITALS: BMI 25.0
--- NOTE | 2023-08-27 09:24 | PCM.HP.BLA ---
History and Physical Date of Admission: 08/27/23 Chief Complaint: UPDATE h&p FOR FISTULOGRAM 08/27 Insurance Risk Manager Required: No Is patient in pain?: No Allergies Penicillins Allergy (Verified 08/22/23 13:10) Unknown Medications tamsulosin 0.4 mg capsule 0.4 mg PO QHS prostate 12/16/18 [History Confirmed 08/22/23] finasteride 5 mg tablet 5 mg PO DAILY prostate 08/22/22 [History Confirmed 08/22/23] atorvastatin 20 mg tablet 20 mg PO DAILY cholesterol #90 tabs 03/28/23 [Rx Confirmed 08/22/23] rivaroxaban 15 mg tablet 15 mg PO DAILY blood thinner #90 tabs 03/28/23 [Rx Confirmed 08/22/23] carvedilol 3.125 mg tablet 3.125 mg PO BID blood pressure #60 tabs 08/15/23 [Rx Confirmed 08/22/23] PFSH Medical History Anemia Atherosclerosis of coronary artery of [place] heart without angina pectoris Diabetes ESRD on dialysis Essential hypertension Former smoker History of renal disease Hyperlipidemia Longstanding persistent atrial fibrillation Loss of consciousness Loss of hearing Paroxysmal atrial fibrillation Problem with dialysis access Sinus bradycardia Syncope Urinary retention Wears dentures Wears glasses Surgical History History of arteriovenostomy for renal dialysis History of coronary artery stent placement (2007) Hx of colonoscopy Hx of inguinal hernia repair Hx of left cataract extraction Hx of right cataract extraction Status post repair of arteriovenous fistula Family History Mother Diabetes Social History Smoking Status: Former smoker alcohol intake: never substance use type: does not use caffeine: No HPI HPI HPI: Patient is an 83 y/o M I am seeing for post-treatment bleeding. Patient has a left forearm radiocephalic hemodialysis fistula which was created 08/29/[address] Borden. Patient recently had a left forearm carbon dioxide fistulogram with 6 x 80 mm [employer] angioplasty and 6 x 20 mm [facility] angioplasty by Dr. Borden on 04/04/23. Findings included high-grade cephalic vein venous stenosis x 2 locations in the distal and mid left forearm. Patient was recently started on dialysis 2 weeks following his last office visit on 05/30/23. Patient notes since he started the dialysis center has had difficulty with post-treatment bleeding. He notes he is on Xarelto managed by Dr. jOeda. Patient is wondering if the blood thinner has anything to do with the increase in post-treatment bleeding. Patient notes he is able to successfully complete all treatments. Patient notes it will commonly take approximately 20-30 minutes to stop the bleeding post-treatment. Since patient's last visit he has had 2 syncopal episodes, which sent him to the ED. First syncopal episode occurred at [employer] where a bystander administered CPR due to no palpation of pulse. CPR was performed for a minute and the patient became responsive again. Patient then had another near syncopal episode 1 week later. 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 Patient was taken off of amlodipine. He is currently on carvedilol BID. He notes he feels improved since being taken off of the amlodipine. Patient continues to be on Xarelto 15 mg for Afib. He also had a follow-up with his PCP earlier this week. No changes were made. A carotid ultrasound was ordered and is to be completed on 09/05 per patient. ROS General General: Yes fatigue; No weight change, appetite, colon cancer, breast cancer or weakness HEENT HEENT: No difficulty swallowing, eye injury, eye surgery, swollen glands or hoarseness Endo Endocrine: Yes diabetes mellitus; No thyroid disease, thyroid cancer, Hair loss, heat intolerance or cold intolerance Skin Skin: No rash or changing moles Breast Breast: No left breast lump, right breast lump, nipple discharge, breast pain, abnormal mammogram, abnormal US or breast enlargement Musc Musculoskeletal: Yes gout; No back problems, arthritis, rheumatoid arthritis or joint pain Cardio Cardiovascular: Yes heart disease, high blood pressure and heart stent; No murmur, pacemaker, atrial fibrillation, heart attack, palpitations, shortness of breat with exertion or chest pain Psych Psychiatric: No depression, anxiety or hearing voices Resp Respiratory: No shortness of breath, No sleep apnea, No cough, No COPD, No asthma, No emphysema and No wheezing Gastro Gastrointestinal: No abdominal pain, No nausea or vomiting, No diarrhea, No constipation, No blood in stool, No acid reflux, No hemorrhoids, No ulcers, No gallbladder problem and No black,tarry stools Tima Hematologic: Yes blood thinners, No blood disorders, No bleeding, No anemia and No blood clots Neuro Neurologic: No system reviewed and no additional complaints, except as documented, No as per HPI, No abnormal gait, No abnormal hearing, No abnormal movements, No abnormal speech, No behavioral changes, No burning sensations, No confusion, No convulsions, No disequilibrium, No dizziness, No localized weakness, No frequent falls, No headache(s), No lack of coordination, No loss of vision, No memory loss, No numbness, No other visual disturbances, No radicular pain, No restless legs, No sensory deficit, No syncope, No tingling, No tremor(s), No weakness and No other Exam Const General: cooperative, healthy appearing and comfortable [facility] Head: normal to inspection Eyes General: appearance normal, both eyes and all related structures Neck Neck: normal visual inspection Neck mass: No Resp Effort & Inspection: normal respiratory effort Auscultation: clear to auscultation bilaterally Cardio Rhythm: abnormal rhythm and other (Currently in asymptomatic A Fib) GI Inspection: normal to inspection Palpation: soft Musc Cervical Spine: normal cervical lordosis Skin General: no rashes or lesions noted Neuro General: no focal motor deficits and CN's II-XI intact bilaterally Extrem Other: Left forearm AV fistula- good pulse, whistling bruit noted within the inferior portion of the fistula superior to the anastomosis, thrill noted. Psych Appearance: grossly normal Affect: normal affect Assessment and Plan Assessment and Plan (1) Problem with dialysis access: Status: Acute Qualifiers: Encounter type: initial encounter Qualified Code(s): T82.898A - Other specified complication of vascular prosthetic devices, implants and grafts, initial encounter Plan: Patient has a left forearm radiocephalic AV fistula. Patient has been on dialysis for approximately 2 months. Patient has a nicely matured fistula with a new onset of possible stenosis near the access sites. Dr. Borden will plan to perform a non-urgent left forearm fistulogram. Patient is maintained on Xarelto and will hold this medication for 3 days prior to the procedure. Patient has been evaluated by cardiology and his PCP, who both agree on the discontinuation of the amlodipine. Patient has had the opportunity to ask and have questions answered. Patient verbally understands and agrees with the plan. I have examined the patient and the H&P has been reviewed. There are no clinical changes since date of exam. Frederick Borden M.D., F.A.C.S.
--- NOTE | 2023-08-27 10:55 | PCM.OPRPT ---
Report of Operation Date of Procedure: 08/27/23 Pre-Operative Diagnosis: Diminished flow left forearm radiocephalic hemodialysis fistula Post-Operative Diagnosis: Moderate left forearm fistula anastomotic stenosis. High-grade mid forearm venous stenosis Surgery/Procedure Performed:: Left upper extremity fistulogram with 6 x 2 conquest anastomotic and mid forearm fistula angioplasty Description of Surgical Findings:: Timeout informed consent was obtained. 83-year-old gentleman was taken to the special procedures lab placed on the table. He received 50 mcg of fentanyl 1 mg of Versed his sedation. Left upper extremity was sterilely prepped and draped. Ultrasound was used to gain access to the fistula closer to the antecubital space retrograde with flow. 2% lidocaine was instilled as a local anesthetic. Micropuncture needle inserted retrograde with flow. Micropuncture wire inserted. 6 Indonesian short sheath dilator was inserted. A 035 Glidewire and glide catheter was inserted. Using Isovue contrast a fistulogram was obtained in the forearm. This demonstrated some slight venous kinking close to the anastomosis to a moderate degree. In the mid forearm there appeared to be high-grade 90% venous stenosis over 2 cm in length. A 6 x 2 conquest balloon was inserted and balloon angioplasty was performed of the arterial anastomosis and very proximal portion of the position fistula. Several repositionings of the balloon was performed. Then the balloon was withdrawn to the mid venous portion of the fistula and again several different insufflations were performed at this point all the way up to 30 herrera of pressure. Each insufflation was held for 2 to 3 minutes. He tolerated the procedure well. Follow-up studies were obtained through the balloon demonstrating dramatic improvement in the fistula. Then through the sheath fistulogram was continued throughout the upper arm and outflow chest area. Sheath was removed few suture of 4-0 nylon was placed the fistula had a very strong pulse thrill and bruit no apparent complication of blood loss was minimal. Images demonstrate a left forearm radiocephalic arteriovenous hemodialysis fistula. The fistula creation is somewhat proximal to the wrist area. There is some slight kinking of the vein and some moderate stenosis. This was improved subsequent to the 6 x 20 mm conquest angioplasty. There was high-grade venous stenosis in the mid forearm fistula that was resolved subsequent to the angioplasty. There was good upper arm and central venous outflow. Future treatment involve Cutting Balloon angioplasty for the mid forearm or upsizing to a 7 x 2 mm balloon or potential use for drug coated balloon treatment. He appeared to respond adequately to the high-pressure conquest angioplasty so ongoing conservative measures will be pursued. Frederick Borden M.D., F.A.C.S. Surgeon: Frederick Borden Type of Anesthesia: IV Sedation and Local
== END 2023-08-27 12:00 | disposition home or self-care (01) ==
LOC: CLSP 08:20
PROVIDERS: PCP Family Medicine; Referring Provider Surgery; Visit Provider Surgery
DX: T82.898A Other specified complication of vascular prosthetic devices, implants and grafts, initial encounter (principal); Z99.2 Dependence on renal dialysis; N18.6 End stage renal disease; I12.0 Hypertensive chronic kidney disease with stage 5 chronic kidney disease or end stage renal disease; I48.0 Paroxysmal atrial fibrillation; I87.2 Venous insufficiency (chronic) (peripheral); E78.5 Hyperlipidemia, unspecified; I25.10 Atherosclerotic heart disease of native coronary artery without angina pectoris; Z79.899 Other long term (current) drug therapy; Z79.01 Long term (current) use of anticoagulants; Z87.891 Personal history of nicotine dependence; Z95.5 Presence of coronary angioplasty implant and graft; X58.XXXA Exposure to other specified factors, initial encounter
CPT/HCPCS: 36415; 36902; 76937; 80048; 85027; 99152; 99153; Q9967; C1725; C1769

== ENCOUNTER 2023-11-23 06:20 | Observation (INO) | payer MEDICARE, OTHER, SELFPAY ==
[2023-11-23] VITALS (8 sets, daily range): BP systolic 93–135; BP diastolic 72–96; PULSE 80–94; RESP 14–18; TEMP 35.7–36.8; O2SAT 96–100; BMI 26.0; BMI 24.8
--- OUTSIDE RECORDS SUMMARY | 2023-11-23 06:42 | XMS RPT_ITS | CCD ---
Author Name Unknown Address [address] [place] [address] Organization [facility] Care Team Providers Care Dance Instructor Name Role Phone SOFIA KINCAID E Unavailable Unavailable SOFIA KINCAID E Unavailable Unavailable CODI SOFIA Unavailable Unavailable GIOVANY KINCAIDNETH Unavailable Unavailable CEBUL, AKOSUA Unavailable Unavailable GIOVANY KINCAIDNETH Unavailable Unavailable SOFIA KINCAID Unavailable Unavailable CEBUL, AKOSUA Unavailable Unavailable Yovany Kearney MD Primary Care Provider Yovany Kearney MD Primary Care Provider Yovany Kearney MD Primary Care Provider YOVANY KEARNEY Primary Care Unavailab YOVANY Dunbar Attending UnavailCORNELIA Stewart Attending Unavailable YOVANY KEARNEY Primary Care Unavailab YOVANY Dunabr Primary Care Unavailab YOVANY Dunbar Referring Unavailab YOVANY Dunbar Primary Care Unavailab YOVANY Dunbar Referring Unavailab YOVANY Dunbar Attending Unavailab YOVANY Dunbar Primary Care Unavailab samantha Allergies Allergy Classification Reported Allergen(s) Allergy Type Date of Onset Reaction(s) Facility (20 sources) AMOXICILLIN-POT CLAVULANATE; Translations: [AMOXICILLIN-POT CLAVULANATE] Propensity to adverse reactions to drug (disorder) 5 Unknown [facility] Other [facility] Medications Completed/Discontinued Medications Medication Drug Class(es) Dates Sig (Normalized) Sig (Original) amLODIPine 5 mg oral tablet (14 sources) Dihydropyridine Calcium Channel Silvestre Start: 10-27-2021 End: 10-30-2023 take 1 tablet by mouth once daily amLODIPine (NORVASC) 5 mg tablet Indications: Essential hypertension, benign Take 1 tablet by mouth once daily. 90 tablet 1 05/03/2023 08/20/2023 Discontinued Problems Active Problems Problem Classification Problem Date Documented Date Episodic/Chronic Cardiac dysrhythmias (20 sources) Paroxysmal atrial fibrillation; Translations: [Paroxysmal atrial fibrillation] Onset: 1 Chronic Chronic kidney disease (20 sources) Chronic kidney disease stage 4; Translations: [Chronic kidney disease, stage 4 (severe)] Onset: 9 Chronic Coronary atherosclerosis and other heart disease (20 sources) Atherosclerotic heart disease of tangirnaq coronary artery without angina pectoris; Translations: [Coronary atherosclerosis] Onset: 8 Chronic Delirium, dementia, and amnestic and other cognitive disorders (17 sources) Senile asthenia; Translations: [Age-related physical debility] Onset: 2 12-16-2021 Chronic Diabetes mellitus with complications (20 sources) Type 2 diabetes mellitus; Translations: [Type 2 diabetes mellitus with diabetic chronic kidney disease] Onset: 5 Chronic Disorders of lipid metabolism (20 sources) Hyperlipidemia; Translations: [Hyperlipidemia, unspecified] Onset: 5 Chronic Essential hypertension (20 sources) Essential (primary) hypertension; Translations: [Benign essential hypertension] Onset: 8 Chronic Hyperplasia of prostate (20 sources) Benign prostatic hyperplasia; Translations: [Benign prostatic hyperplasia with lower urinary tract symptoms] Onset: 6 Chronic Hypertension with complications and secondary hypertension (2 sources) 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; Translations: [Hypertensive heart and chronic kidney disease without heart failure, with stage 5 chronic kidney disease, or end stage renal disease] Onset: 3 11-09-2023 Chronic Immunizations and screening for infectious disease (10 sources) Vaccination needed; Translations: [Encounter for immunization] Onset: 3 Episodic Other aftercare (20 sources) Long-term current use of anticoagulant; Translations: [residential (current) use of anticoagulants] Onset: 2 Episodic Other circulatory disease (1 source) Low blood pressure; Translations: [Hypotension, unspecified] 08-20-2023 Episodic Other circulatory disease (1 source) Hypotension, unspecified; Translations: [Hypotension, unspecified hypotension type] Onset: 3 Episodic Other diseases of kidney and ureters (7 sources) Hyperparathyroidism due to renal insufficiency; Translations: [Secondary hyperparathyroidism of renal origin] Onset: 3 08-20-2023 Chronic Other diseases of kidney and ureters (1 source) Secondary hyperparathyroidism of renal origin; Translations: [Secondary hyperparathyroidism of renal origin (HCC)] Onset: 3 Chronic Syncope (4 sources) Syncope and collapse; Translations: [Syncope and collapse] Onset: 3 08-20-2023 Episodic Unclassified (1 source) Unknown / UNK(Unknown) Onset: 8 Past or Other Problems Problem Classification Problem Date Documented Da te Episodic/Chronic E Codes: Fall (17 sources) Fall in home; Translations: [Unspecified fall, initial encounter] Onset: 12-16-2021 12-16-2021 Episodic Mycoses (9 sources) Onychomycosis; Translations: [Tinea unguium] Onset: 05-03-2023 05-03-2023 Episodic Other aftercare (1 source) residential (current) use of anticoagulants; Translations: [Chronic anticoagulation] Onset: 12-14-2021 Episodic Other nervous system disorders (17 sources) Abnormal gait; Translations: [Unsteadiness on feet] Onset: 12-16-2021 12-16-2021 Episodic Other non-epithelial cancer of skin (17 sources) 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; Translations: [Unspecified malignant neoplasm of skin of scalp and neck] Onset: 07-02-2015 07-02-2015 Episodic Results Test Name Value Interpretation Reference Range Facil ity Vital Signs Date Time Vital Sign Value Performing Clinician Romulo martinez 11-09-2023 12:55-0500 Body weight 71.76 kg Cornelia Podlogar BRICKMASON SUPERVISOR.GLASS CUTTER HELPER Work Phone: [facility] 11-09-2023 12:55-0500 Diastolic blood pressure 72 mm[Hg] Cornelia Podlogar BRICKMASON SUPERVISOR.DELMA Work Phone: [facility] 11-09-2023 12:55-0500 Heart rate 73 /min Cornelia Podlogar BRICKMASON SUPERVISOR.GLASS CUTTER HELPER Work Phone: [facility] 11-09-2023 12:55-0500 Respiratory rate 16 /min Cornelia Podlogar BRICKMASON SUPERVISOR.GLASS CUTTER HELPER Work Phone: [facility] 11-09-2023 12:55-0500 Systolic blood pressure 126 mm[Hg] Cornelia Podlogar BRICKMASON SUPERVISOR.GLASS CUTTER HELPER Work Phone: [facility] 08-20-2023 08:37-0400 Body weight 70.31 kg Yovany Kearney MD Work Phone: [facility] 08-20-2023 08:37-0400 Diastolic blood pressure 76 mm[Hg] Yovany Kearney MD Work Phone: [facility] 08-20-2023 08:37-0400 Heart rate 73 /min Yovany Kearney MD Work Phone: [facility] 08-20-2023 08:37-0400 Respiratory rate 16 /min Yovany Kearney MD Work Phone: [facility] 08-20-2023 08:37-0400 SaO2% (BldA) [Mass fraction] 98 % Yovany Kearney MD Work Phone: [facility] 08-20-2023 08:37-0400 Systolic blood pressure 130 mm[Hg] Yovany Kearney MD Work Phone: [facility] 10-31-2022 08:34-0500 Body weight 73.3 kg Yovany Kearney MD Work Phone: [facility] 10-31-2022 08:34-0500 Diastolic blood pressure 72 mm[Hg] Yovany Kearney MD Work Phone: [facility] 10-31-2022 08:34-0500 Heart rate 73 /min Yovany Kearney MD Work Phone: [facility] 10-31-2022 08:34-0500 Respiratory rate 16 /min Yovany Kearney MD Work Phone: [facility] 10-31-2022 08:34-0500 SaO2% (BldA) [Mass fraction] 100 % Yovany Kearney MD Work Phone: [facility] 10-31-2022 08:34-0500 Systolic blood pressure 132 mm[Hg] Yovany Kearney MD Work Phone: [facility] 04-27-2022 14:37-0400 Diastolic blood pressure 64 mm[Hg] Yovany Kearney MD Work Phone: [facility] 04-27-2022 14:37-0400 Systolic blood pressure 136 mm[Hg] Yovany Kearney MD Work Phone: [facility] 04-27-2022 14:03-0400 Body weight 73.94 kg Yovany Kearney MD Work Phone: [facility] 04-27-2022 14:03-0400 Heart rate 65 /min Yovany Kearney MD Work Phone: [facility] 04-27-2022 14:03-0400 Respiratory rate 16 /min Yovany Kearney MD Work Phone: [facility] 04-27-2022 14:03-0400 SaO2% (BldA) [Mass fraction] 97 % Yovany Kearney MD Work Phone: [facility] Encounters Encounter Date Encounter Type Care Provider Facility Start: 11-09-2023 End: 11-09-2023 ambulatory CORNELIA PODLOGAR Facility:[facility] Start: 11-09-2023 End: 11-09-2023 Patient encounter procedure Cornelia Podlogkiara BRICKMASON SUPERVISOR.GLASS CUTTER HELPER Work Phone: [facility] Procedures Date Procedure Procedure Detail Performing Clinician Start: 11-09-2023 PFIZER-BIONTECH COVI D-19 VACCINE ( SEASON) AGE 12+ YR Cornelia Podlogkiara BRICKMASON SUPERVISOR.GLASS CUTTER HELPER Work Phone: Start: 08-20-2023 INFLUENZA VACCINE, P RSV FREE, AGE 65+ YR, HIGH DOSE, QUADRIVALENT (FLUZONE HIGH-DOSE) Yovany Kearney MD Work Phone: Start: 10-31-2022 PFIZER-BIONTECH COVI D-19 BIVALENT BOOSTER VACCINE, AGE 12+ YR Yovany Kearney MD Work Phone: Start: 10-31-2022 INFLUENZA SEASONAL QUADRIVALENT HIGH DOSE AGE 65+ Yovany Kearney MD Work Phone: Plan of Treatment Date Care Activity Detail Author Start: 11-05-2024 Glaucoma screening Dilated Retinal E xam [facility] Start: 08-20-2024 Hepatitis B surface antibody level LDL Cholesterol [facility] Start: 05-03-2024 3 comp foot exam completed DIABETIC FOOT EXAM [facility] Start: 05-03-2024 Diabetic foot examination Diabetic F oot Exam [facility] Start: 05-03-2024 Urine microalbumin profile [facility] Immunizations Immunization Date Immunization Notes Care Provider Fa cility 11-09-2023 COVID-19 vaccine, ag e 12+ yr, season (PFIZER-BIONTECH) Cornelia Leonardologkiara BRICKMASON SUPERVISOR.GLASS CUTTER HELPER Work Phone: [facility] 08-20-2023 influenza (HD-IIV4) vaccine, age 65+ yr, high dose, quadrivalent, PF (FLUZONE HIGH-DOSE) Yovany Kearney MD Work Phone: [facility] 05-08-2023 COVID-19 vaccine, ag e 12+ yr, bivalent (PFIZER-BIONTECH) Yovany Kearney MD Work Phone: [facility] 10-31-2022 COVID-19 booster vaccine, age 12+ yr, bivalent (PFIZER-BIONTECH) Yovany Kearney MD Work Phone: [facility] 10-31-2022 influenza, high-dose , quadrivalent vaccine (FLUZONE HIGH DOSE QUADRIVALENT) Yovany Kearney MD Work Phone: [facility] 07-20-2022 zoster vaccine recombinant Mi Nurse Work Phone: [facility] Work Phone: 05-11-2022 zoster vaccine recombinant Mi Nurse Work Phone: [facility] Work Phone: 10-14-2021 influenza, high-dose , quadrivalent vaccine (FLUZONE HIGH DOSE QUADRIVALENT) Yovany Kearney MD Work Phone: [facility] 01-20-2021 COVID-19 vaccine, fu ll dose (MODERNA) Yovany Kearney MD Work Phone: [facility] 12-23-2020 COVID-19 vaccine, fu ll dose (MODERNA) Yovany Kearney MD Work Phone: [facility] 09-18-2020 influenza, high-dose , quadrivalent vaccine (FLUZONE HIGH DOSE QUADRIVALENT) Yovany Kearney MD Work Phone: [facility] 09-22-2019 influenza, high dose seasonal, preservative-free Yovany Kearney MD Work Phone: [facility] 08-22-2018 influenza, high dose seasonal, preservative-free Yovany Kearney MD Work Phone: [facility] Work Phone: 08-13-2017 influenza, high dose seasonal, preservative-free Yovany Kearney MD Work Phone: [facility] 02-05-2017 pneumococcal polysaccharide vaccine, 23 valent Yovany Kearney MD Work Phone: [facility] Work Phone: 09-16-2015 influenza, high dose seasonal, preservative-free Yovany Kearney MD Work Phone: [facility] 06-23-2015 pneumococcal conjuga te vaccine, 13 valent Yovany Kearney MD Work Phone: [facility] 08-31-2014 influenza, seasonal, injectable Yovany Kearney MD Work Phone: [facility] 08-27-2013 influenza virus vaccine, unspecified formulation Yovany Kearney MD Work Phone: [facility] Work Phone: 11-27-2012 zoster vaccine, live Gabriel Kearney MD Work Phone: [facility] 09-14-2012 influenza virus vaccine, unspecified formulation Yovany Kearney MD Work Phone: [facility] 09-11-2011 influenza virus vaccine, unspecified formulation Yovany Kearney MD Work Phone: [facility] Work Phone: 08-25-2010 influenza virus vaccine, unspecified formulation Yovany Kearney MD Work Phone: [facility] 09-10-2009 influenza virus vaccine, unspecified formulation Yovany Kearney MD Work Phone: [facility] Work Phone: 05-18-2009 tetanus and diphther ia toxoids, adsorbed, preservative free, for adult use (2 Lf of tetanus toxoid and 2 Lf of diphtheria toxoid) Yovany Kearney MD Work Phone: [facility] 10-10-2008 influenza virus vaccine, unspecified formulation Yovany Kearney MD Work Phone: [facility] Work Phone: 11-10-2005 influenza virus vaccine, unspecified formulation Yovany Kearney MD Work Phone: [facility] Work Phone: 10-01-2004 influenza virus vaccine, whole virus Yovany Kearney MD Work Phone: [facility] 12-14-2003 pneumococcal polysaccharide vaccine, 23 valent Yovany Kearney MD Work Phone: [facility] Payers Date Payer Category Payer Private Health Insurance [facility] CHOICE PLUS [id number] 2021-Present [phone] [address] [place] [id number] O [id number] 2021 Private Health Insurance [facility] CHOICE PLUS [id number] 2021-Present [phone] [address] [place] [address] O [id number] 2021 Unknown [id number] 2004 Medicare MEDICARE MEDICAR E A AND B [id number] 2004-Present [phone] [place] [address] Medicare [id number] 2004 Medicare MEDICARE MEDICAR E A AND B [id number] 2004-Present [phone] [place] [address] Medicare [id number] 2004 Medicare [id number] Medicare [id number] Social History Date Type Detail Facility Start: 04-27-2021 End: 10-31-2022 Tobacco smoking status NHIS Ex-smoker [facility] Work Phone: End: 04-27-1961 History of tobacco use Current smoker [facility] Work Phone: Start: 04-27-2021 End: 10-31-2022 Tobacco use and exposure Former smokeless tobacco user [facility] Work Phone: History of tobacco use [facility] Work Phone: Start: 04-27-2022 End: 11-09-2023 Alcohol intake Ex-drinker (finding) [facility] Start: 04-27-2022 End: 10-31-2022 Tobacco Comment not active user [facility] Start: 1940 Sex Assigned At Not on file C [facility] Start: 04-17-2022 End: 04-27-2022 Exposure to SARS-CoV-2 (event) Not sure [facility] Start: 05-03-2023 End: 11-09-2023 History of Social function [facility] Work Phone: Start: 05-03-2023 End: 11-09-2023 Tobacco use panel [facility] Work Phone: Adult Depression Screening Assessment 0 [facility] Work Phone: Medical Equipment Procedure Code Equipment Code Equipment Origin al Text Equipment Identifier Dates Use as instructe d once daily Start: 10-27-2021 End: 03-12-2023 Clinical Notes 07-19-2016 to 11-09-2023 Cornelia Samson APRN.GLASS CUTTER HELPER - 11/09/2023 1:07 PM ESTTelephone Encounter - Irina Rey LPN - 09/18/2023 9:58 AM EDTTelephone Encounter - Princess Baker RN - 09/07/2023 3:29 PM EDT Note Date & Type Note Facility 11-09-2023 Note HNO ID: [id number] Author: Cornelia Samson APRN.GLASS CUTTER HELPER Service: ? Author Type: Nurse Practitioner Type: Progress Notes Filed: 11/09/2023 2:28 PM Note Text: 11/09/2023 Patient presents with: F/U 6 months SUBJECTIVE: This is a 83 year old that is here today for Above Complaints. DIABETES MELLITUS: Since our last visit he denies excessive thirst or increased frequency of urination, chest pain or dyspnea , numbness, tingling or pain in extremities, new or unusual visual symptoms, low sugar/hypoglycemic reactions, weight loss/gain, lightheadedness/dizziness, and bowel changes/loose stools Follows a diabetic diet most of the time. He reports checking his glucose on a three times per week schedule with sugars in the less than 100 range. Patient's last HgA1C was Hemoglobin A1C (%) Date Value 08/20/2023 5.4 10/31/2022 6.1 10/27/2021 6.1 04/23/2021 6.4 ) Last Ophthalmology exam was within the past 3 months ESRD: Following with Dr. Bertrand. Receiving dialysis three days a week. CAD/A-fib: follows with [facility] cardiology with last office visit on 08/15/2023. No medication changes at that time. Taking Xeralto as prescribed. Denies bleeding symptoms, SOB, dyspnea, chest pain, palpitations or leg edema BPH: follow with Dr. Rothman. Last office visit in April. Taking medications as prescribed without side effects. Getting up 1-2 times per night. Denies other urinary symptoms PAST MEDICAL HISTORY Diagnosis Date Basal cell carcinoma (BCC) of skin of neck 06/2015 Benign non-nodular prostatic hyperplasia with lower urinary tract symptoms 07/19/2016 Chronic anticoagulation CKD (chronic kidney disease), stage IV (HCC) Dr. Bertrand Coronary artery disease involving tangirnaq coronary artery of tangirnaq heart without angina pectoris [facility] Cyst of epididymis 06/23/2015 Diverticulosis of colon (without mention of hemorrhage) Diverticulosis Essential hypertension, benign Hyperlipidemia LDL goal <100 11/10/2005 Onychomycosis Paroxysmal atrial fibrillation (HCC) 02/2021 Dr. Ojeda Type II diabetes mellitus ([facility]) 11/10/2005 Unspecified hemorrhoids without mention of complication Hemorrhoids ALLERGIES Augmentin [Amoxicillin-Pot Clavulanate] MEDICATIONS Current Outpatient Medications Medication Sig RENAL VITAMIN 0.8 mg tab Take 1 tablet by mouth every afternoon. tamsulosin (FLOMAX) 0.4 mg Take 1 capsule by mouth daily at bedtime. atorvastatin (LIPITOR) 20 mg tablet Take 1 tablet by mouth once daily. For cholesterol. blood sugar diagnostic (FREESTYLE TEST) test strip Use as instructed once daily ferrous sulfate 325 mg (65 mg iron) tablet Take 325 mg by mouth daily with breakfast. finasteride (PROSCAR) 5 mg tablet Take 1 tablet by mouth once daily. rivaroxaban (XARELTO) 15 mg tablet Take 1 tablet by mouth daily with dinner. carvedilol (COREG) 3.125 mg tablet Take 3.125 mg by mouth twice daily. calcitriol (ROCALTROL) 0.25 mcg capsule Take 0.25 mcg by mouth once daily. (Patient not taking: Reported on 11/09/2023) No current facility-administered medications for this visit. Medications and allergies reviewed by this provider. SOCIAL HISTORY Social History Tobacco Use Smoking status: Former Smokeless tobacco: Former Types: Chew Tobacco comments: not active user Vaping Use Vaping Use: Never used Substance Use Topics Alcohol use: Not Currently Drug use: No REVIEW OF SYSTEMS All other reviewed and negative other than HPI. OBJECTIVE: BP 126/72 Pulse 73 Resp 16 Wt 71.8 kg (158 lb 3.2 oz) BMI 24.96 kg/m? . Vital signs reviewed by this provider. APPEARANCE Well appearing, alert, in no acute distress, well-hydrated, well nourished. EYES PERRLA, conjunctiva and sclera normal. HEART RRR with normal S1 and S2, no murmurs, no gallops, no JVD appreciated LUNG clear to auscultation. No wheezes, rhonchi or rales EXTREMITIES Extremities normal, No deformities, No skin discoloration, and No edema SKIN Skin color, texture, turgor normal, no suspicious rashes or lesions to exposed skin Hepatitis B Vaccine(1 of 3 - Risk Dialysis 4-dose series) Never done RSV Vaccine(1 - 1-dose 60+ series) Never done DTaP,Tdap,Td Vaccine(1 - Tdap) due on 05/03/2024 HbA1C due on 02/18/2024 Diabetic Foot Exam due on 05/03/2024 LDL Cholesterol due on 08/20/2024 Dilated Retinal Exam due on 11/05/2024 Influenza Vaccine Completed Advance Directive Discussion Completed Depression Assessment Completed Shingrix Vaccine Completed Covid-19 Vaccine Completed Pneumococcal Vaccine: 65+ Completed HPV Vaccine Aged Out Fecal Occult Blood Discontinued ASSESSMENT/PLAN: 1. 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 [facility] 11-09-2023 History of Present illness Narrative 11/09/2023 Patient presents with: F/U 6 months SUBJECTIVE: This is a 83 year old that is here today for Above Complaints. DIABETES MELLITUS: Since our last visit he denies excessive thirst or increased frequency of urination, chest pain or dyspnea , numbness, tingling or pain in extremities, new or unusual visual symptoms, low sugar/hypoglycemic reactions, weight loss/gain, lightheadedness/dizziness, and bowel changes/loose stools Follows a diabetic diet most of the time. He reports checking his glucose on a three times per week schedule with sugars in the less than 100 range. Patient's last HgA1C was Hemoglobin A1C (%) Date Value 08/20/2023 5.4 10/31/2022 6.1 10/27/2021 6.1 04/23/2021 6.4 ) Last Ophthalmology exam was within the past 3 months ESRD: Following with Dr. Bertrand. Receiving dialysis three days a week. CAD/A-fib: follows with [facility] cardiology with last office visit on 08/15/2023. No medication changes at that time. Taking Xeralto as prescribed. Denies bleeding symptoms, SOB, dyspnea, chest pain, palpitations or leg edema BPH: follow with Dr. Rothman. Last office visit in April. Taking medications as prescribed without side effects. Getting up 1-2 times per night. Denies other urinary symptoms PAST MEDICAL HISTORY Diagnosis Date Basal cell carcinoma (BCC) of skin of neck 06/2015 Benign non-nodular prostatic hyperplasia with lower urinary tract symptoms 07/19/2016 Chronic anticoagulation CKD (chronic kidney disease), stage IV ([facility]) Dr. Bertrand Coronary artery disease involving tangirnaq coronary artery of tangirnaq heart without angina pectoris [facility] Cyst of epididymis 06/23/2015 Diverticulosis of colon (without mention of hemorrhage) Diverticulosis Essential hypertension, benign Hyperlipidemia LDL goal <100 11/10/2005 Onychomycosis Paroxysmal atrial fibrillation ([facility]) 02/2021 Dr. Ojeda Type II diabetes mellitus ([facility]) 11/10/2005 Unspecified hemorrhoids without mention of complication Hemorrhoids ALLERGIES Augmentin [Amoxicillin-Pot Clavulanate] MEDICATIONS Current Outpatient Medications Medication Sig RENAL VITAMIN 0.8 mg tab Take 1 tablet by mouth every afternoon. tamsulosin (FLOMAX) 0.4 mg Take 1 capsule by mouth daily at bedtime. atorvastatin (LIPITOR) 20 mg tablet Take 1 tablet by mouth once daily. For cholesterol. blood sugar diagnostic (FREESTYLE TEST) test strip Use as instructed once daily ferrous sulfate 325 mg (65 mg iron) tablet Take 325 mg by mouth daily with breakfast. finasteride (PROSCAR) 5 mg tablet Take 1 tablet by mouth once daily. rivaroxaban (XARELTO) 15 mg tablet Take 1 tablet by mouth daily with dinner. carvedilol (COREG) 3.125 mg tablet Take 3.125 mg by mouth twice daily. calcitriol (ROCALTROL) 0.25 mcg capsule Take 0.25 mcg by mouth once daily. (Patient not taking: Reported on 11/09/2023) No current facility-administered medications for this visit. Medications and allergies reviewed by this provider. SOCIAL HISTORY Social History Tobacco Use Smoking status: Former Smokeless tobacco: Former Types: Chew Tobacco comments: not active user Vaping Use Vaping Use: Never used Substance Use Topics Alcohol use: Not Currently Drug use: No REVIEW OF SYSTEMS All other reviewed and negative other than HPI. OBJECTIVE: BP 126/72 Pulse 73 Resp 16 Wt 71.8 kg (158 lb 3.2 oz) BMI 24.96 kg/m . Vital signs reviewed by this provider. APPEARANCE Well appearing, alert, in no acute distress, well-hydrated, well nourished. EYES PERRLA, conjunctiva and sclera normal. HEART RRR with normal S1 and S2, no murmurs, no gallops, no JVD appreciated LUNG clear to auscultation. No wheezes, rhonchi or rales EXTREMITIES Extremities normal, No deformities, No skin discoloration, and No edema SKIN Skin color, texture, turgor normal, no suspicious rashes or lesions to exposed skin Hepatitis B Vaccine(1 of 3 - Risk Dialysis 4-dose series) Never done RSV Vaccine(1 - 1-dose 60+ series) Never done DTaP,Tdap,Td Vaccine(1 - Tdap) due on 05/03/2024 HbA1C due on 02/18/2024 Diabetic Foot Exam due on 05/03/2024 LDL Cholesterol due on 08/20/2024 Dilated Retinal Exam due on 11/05/2024 Influenza Vaccine Completed Advance Directive Discussion Completed Depression Assessment Completed Shingrix Vaccine Completed Covid-19 Vaccine Completed Pneumococcal Vaccine: 65+ Completed HPV Vaccine Aged Out Fecal Occult Blood Discontinued ASSESSMENT/PLAN: 1. 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 - eGFR: Stable - Counseled on avoiding NSAIDs, adequate hydration - Counseled on low sodium diet - Follow up with kidney medicine 2. Encounter for immunization - ICD9: V03.89, ICD10: Z23 - [employer] COVID-19 VACCINE (2022- SEASON) AGE 12+ YR 3. Hypertensive heart and chronic kidney disease without heart failure, with stage 5 chronic kidney disease, or end stage renal disease (HCC) - ICD9: 404.92, ICD10: I13.11 - Controlled - Continue current medications - Recommend home blood pressure monitoring, to bring results to next visit - Encouraged sodium restriction, DASH or Mediterranean diet - Recommend regular aerobic exercise - Follow up in 6 months for hypertension visit 4. 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 Secondary hyperparathyroidism of renal origin (HCC) - ICD9: 588.81, ICD10: N25.81 - follow-up with kidney medicine 6. Paroxysmal atrial fibrillation (HCC) - ICD9: 427.31, ICD10: I48.0 -stable - continue current medications - follow-up with cardiology as recommended 7. Chronic anticoagulation - ICD9: V58.61, ICD10: Z79.01 - continue medication 8. Atherosclerosis of coronary artery of tangirnaq heart without angina pectoris, unspecified vessel or lesion type - ICD9: 414.01, ICD10: I25.10 - plan as in #6 9. Benign non-nodular prostatic hyperplasia with lower urinary tract symptoms - ICD9: 600.91, ICD10: N40.1 - continue current medications - follow-up with Dr. Rothman as recommended Cornelia Samson APRN.CNP Prescription instructions reviewed with patient as applicable. Patient advised if symptoms do not improve or if symptoms worsen sooner, to contact their primary care physician. Potential red flag symptoms discussed with the patient. Reviewed appropriate action plan to take if red flag symptoms occur. Patient agreeable to treatment plan. I spent a total of 30 minutes on the date of the service which included preparing to see the patient, [id number] patient care, completing clinical documentation, obtaining and/or reviewing separately obtained history, performing a medically appropriate examination, counseling and educating the patient/family/caregiver, and ordering medications, tests, or procedures. documented in this encounter [facility] 09-18-2023 Miscellaneous Notes Carly from [facility] calling requesting copy of immunization record for flu shot information to be faxed to [phone]. Printed and faxed as requested. documented in this encounter [facility] 09-07-2023 Miscellaneous Notes Pt called and is notified of providers results and instructions. Pt voices understanding. Princess Baker, RN Phoned patient and left message with his to have him call the office for results, he did not give permission to discuss results with his . ----- Message from Yovany Kearney MD sent at 09/07/2023 6:35 AM EDT ----- Mild narrowing of carotids bilaterally. Consider repeat imaging in 1 year. Continue statin. documented in this encounter [facility] 08-21-2023 Miscellaneous Notes message sent. Elin Ibarra MA ----- Message from Yovany Kearney MD sent at 08/21/2023 8:06 AM EDT ----- Normal cholesterol with LDL <70 and A1c in normal range without rx for history of DM. No change in regimen. documented in this encounter [facility] 08-20-2023 Note HNO ID: [id number] Author: Yovany Kearney MD Service: ? Author Type: Physician Type: Progress Notes Filed: 08/20/2023 9:45 AM Note Text: Chief Complaint Patient presents with: ER F/U: Patient to ER on 08/10/22 for syncope episode in [facility]. Patient returned to ER for similar episode on 08/17/23 but did not pass out. Amlodipine was discontinued on 08/10/23. HPI Lela Salcido is a 83 year old male who presents here today for hospitalization and then subsequent ER Follow Up.. Accompanied today by and daughter. Patient admitted to [facility] from ED from 08/10 to 08/11 and then evalauted again in the ED on on 08/17 for an episode of syncope while at [facility] and then an episode of presyncope 1 week later. During first event, a bystander performed CPR, but ER physician did not feel this was cardiac event, but possibly symptomatic bradycardia. Admitted overnight with unremarkable labs and UA. Amlodipine was discontinued due to hypotension. Other medications unchanged and was discharged home. Patient had f/u OV with cardiology on 08/15 without change in regimen. Recent echo and stress testing negative. In the ED on 08/17 he complained of feeling lightheaded after sitting in [facility] for more than an hour, but did not pass out. Symptoms improved after he went downstairs at [facility]. VSS in the ED. Blood work unremarkable. CXR negative. Discharged home without change in regimen. Since discharge, patient has not had any recurrent episodes of lightheadedness or syncope. Tolerating PO diet. Taking medications as prescribed. Denies bleeding or significant bruising symptoms on his Xarelto. Going to dialysis 3 days per week and has not missed any. Walking on a daily basis without lightheadedness or syncope. Past medical history, appointments, medications, allergies reviewed. Previous Medical History PAST MEDICAL HISTORY Diagnosis Date Basal cell carcinoma (BCC) of skin of neck 06/2015 Benign non-nodular prostatic hyperplasia with lower urinary tract symptoms 07/19/2016 Chronic anticoagulation CKD (chronic kidney disease), stage IV (HCC) Dr. Bertrand Coronary artery disease involving tangirnaq coronary artery of tangirnaq heart without angina pectoris [facility] Cyst of epididymis 06/23/2015 Diverticulosis of colon (without mention of hemorrhage) Diverticulosis Essential hypertension, benign Hyperlipidemia LDL goal <100 11/10/2005 Onychomycosis Paroxysmal atrial fibrillation (HCC) 02/2021 Dr. Ojeda Type II diabetes mellitus (HCC) 11/10/2005 Unspecified hemorrhoids without mention of complication Hemorrhoids Previous Surgical History PAST SURGICAL HISTORY Procedure Laterality Date COLONOSCOPY FLX DX W/COLLJ SPEC WHEN PFRMD 01/30/2005 Colonoscopy-repeat in 3-2015 MAL LESION NECK,HAND,SCAL 1.1-2CM Left 07/14/2015 Exc. left mid retroauricular neck BCC PAST SURGICAL HISTORY OF 05/28/2008 cardiac stent x2 [facility] PAST SURGICAL HISTORY OF Right TESTICLE CYST REMOVAL PAST SURGICAL HISTORY OF Left 08/2021 Fistula in anticipation of dialysis RPR 1ST INGUN HRNA AGE 5 YRS/> REDUCIBLE Right Hernia repair, inguinal RPR 1ST INGUN HRNA AGE 5 YRS/> REDUCIBLE Left Hernia repair, inguinal XCAPSL CTRC RMVL INSJ IO LENS PROSTH W/O ECP 05/11/2004 Cataract Extraction with PC IOL Family History FAMILY HISTORY Problem Relation Age of Onset Diabetes Mother Heart Mother Hypertension Mother Heart Father Prostate Cancer Father Heart Brother coronary stent Prostate Cancer Brother other (diabetes mellitus [Other]) Daughter Patient Allergies ALLERGIES Allergen Reactions Augmentin [Amoxicil* Unknown Pt had fever Current Medications Current Outpatient Medications on File Prior to Visit Medication Sig tamsulosin (FLOMAX) 0.4 mg Take 1 capsule by mouth daily at bedtime. atorvastatin (LIPITOR) 20 mg tablet Take 1 tablet by mouth once daily. For cholesterol. calcitriol (ROCALTROL) 0.25 mcg capsule Take 0.25 mcg by mouth once daily. ferrous sulfate 325 mg (65 mg iron) tablet Take 325 mg by mouth daily with breakfast. finasteride (PROSCAR) 5 mg tablet Take 1 tablet by mouth once daily. rivaroxaban (XARELTO) 15 mg tablet Take 1 tablet by mouth daily with dinner. carvedilol (COREG) 3.125 mg tablet Take 3.125 mg by mouth twice daily. amLODIPine (NORVASC) 5 mg tablet Take 1 tablet by mouth once daily. (Patient not taking: Reported on 08/20/2023) blood sugar diagnostic (FREESTYLE TEST) test strip Use as instructed once daily aspirin, enteric coated (ADULT LOW DOSE ASPIRIN) 81 mg EC tablet Take 1 tablet by mouth once daily. (Patient not taking: Reported on 08/20/2023) No current facility-administered medications on file prior to visit. Social History Social History Tobacco Use Smoking status: Former Smokeless tobacco: Former Types: Chew Tobacco comments: not active user Vaping Use Vaping Use: Never used Substance Use Topics Alcoh (more content not included)... [facility] 08-20-2023 History of Present illness Narrative Chief Complaint Patient presents with: ER F/U: Patient to ER on 08/10/22 for syncope episode in [facility]. Patient returned to ER for similar episode on 08/17/23 but did not pass out. Amlodipine was discontinued on 08/10/23. REE Salcido is a 83 year old male who presents here today for hospitalization and then subsequent ER Follow Up.. Accompanied today by and daughter. Patient admitted to [facility] from ED from 08/10 to 08/11 and then evalauted again in the ED on on 08/17 for an episode of syncope while at [facility] and then an episode of presyncope 1 week later. During first event, a bystander performed CPR, but ER physician did not feel this was cardiac event, but possibly symptomatic bradycardia. Admitted overnight with unremarkable labs and UA. Amlodipine was discontinued due to hypotension. Other medications unchanged and was discharged home. Patient had f/u OV with cardiology on 08/15 without change in regimen. Recent echo and stress testing negative. In the ED on 08/17 he complained of feeling lightheaded after sitting in [facility] for more than an hour, but did not pass out. Symptoms improved after he went downstairs at [facility]. VSS in the ED. Blood work unremarkable. CXR negative. Discharged home without change in regimen. Since discharge, patient has not had any recurrent episodes of lightheadedness or syncope. Tolerating PO diet. Taking medications as prescribed. Denies bleeding or significant bruising symptoms on his Xarelto. Going to dialysis 3 days per week and has not missed any. Walking on a daily basis without lightheadedness or syncope. Past medical history, appointments, medications, allergies reviewed. Previous Medical History PAST MEDICAL HISTORY Diagnosis Date Basal cell carcinoma (BCC) of skin of neck 06/2015 Benign non-nodular prostatic hyperplasia with lower urinary tract symptoms 07/19/2016 Chronic anticoagulation CKD (chronic kidney disease), stage IV (HCC) Dr. Bertrand Coronary artery disease involving tangirnaq coronary artery of tangirnaq heart without angina pectoris [facility] Cyst of epididymis 06/23/2015 Diverticulosis of colon (without mention of hemorrhage) Diverticulosis Essential hypertension, benign Hyperlipidemia LDL goal <100 11/10/2005 Onychomycosis Paroxysmal atrial fibrillation (HCC) 02/2021 Dr. Ojeda Type II diabetes mellitus (HCC) 11/10/2005 Unspecified hemorrhoids without mention of complication Hemorrhoids Previous Surgical History PAST SURGICAL HISTORY Procedure Laterality Date COLONOSCOPY FLX DX W/COLLJ SPEC WHEN PFRMD 01/30/2005 Colonoscopy-repeat in MAL LESION NECK,HAND,SCAL 1.1-2CM Left 07/14/2015 Exc. left mid retroauricular neck BCC PAST SURGICAL HISTORY OF 05/28/2008 cardiac stent x2 [facility] PAST SURGICAL HISTORY OF Right TESTICLE CYST REMOVAL PAST SURGICAL HISTORY OF Left 08/2021 Fistula in anticipation of dialysis RPR 1ST INGUN HRNA AGE 5 YRS/> REDUCIBLE Right Hernia repair, inguinal RPR 1ST INGUN HRNA AGE 5 YRS/> REDUCIBLE Left Hernia repair, inguinal XCAPSL CTRC RMVL INSJ IO LENS PROSTH W/O ECP 05/11/2004 Cataract Extraction with PC IOL Family History FAMILY HISTORY Problem Relation Age of Onset Diabetes Mother Heart Mother Hypertension Mother Heart Father Prostate Cancer Father Heart Brother coronary stent Prostate Cancer Brother other (diabetes mellitus [Other]) Daughter Patient Allergies ALLERGIES Allergen Reactions Augmentin [Amoxicil* Unknown Pt had fever Current Medications Current Outpatient Medications on File Prior to Visit Medication Sig tamsulosin (FLOMAX) 0.4 mg Take 1 capsule by mouth daily at bedtime. atorvastatin (LIPITOR) 20 mg tablet Take 1 tablet by mouth once daily. For cholesterol. calcitriol (ROCALTROL) 0.25 mcg capsule Take 0.25 mcg by mouth once daily. ferrous sulfate 325 mg (65 mg iron) tablet Take 325 mg by mouth daily with breakfast. finasteride (PROSCAR) 5 mg tablet Take 1 tablet by mouth once daily. rivaroxaban (XARELTO) 15 mg tablet Take 1 tablet by mouth daily with dinner. carvedilol (COREG) 3.125 mg tablet Take 3.125 mg by mouth twice daily. amLODIPine (NORVASC) 5 mg tablet Take 1 tablet by mouth once daily. (Patient not taking: Reported on 08/20/2023) blood sugar diagnostic (FREESTYLE TEST) test strip Use as instructed once daily aspirin, enteric coated (ADULT LOW DOSE ASPIRIN) 81 mg EC tablet Take 1 tablet by mouth once daily. (Patient not taking: Reported on 08/20/2023) No current facility-administered medications on file prior to visit. Social History Social History Tobacco Use Smoking status: Former Smokeless tobacco: Former Types: Chew Tobacco comments: not active user Vaping Use Vaping Use: Never used Substance Use Topics Alcohol use: Not Currently Drug use: No Review of Symptoms REVIEW OF SYSTEMS GENERAL: No weight loss, malaise or fevers RESPIRATORY: Negative for cough, hemoptysis, wheezing, COPD, dyspnea or shortness of breath CARDIOVASCULAR: Negative for chest pain, leg swelling, hypertension, CHF or palpitations GI: No nausea, vomiting, or diarrhea : No history of dysuria, frequency or incontinence SKIN: Negative for lesions, rash, and itching EXAM: BP 130/76 Pulse 73 Resp 16 Wt 70.3 kg (155 lb) SpO2 98% BMI 24.46 kg/m BP w/Orthostatic Vitals Date and Time Orthostatic BP Orthostatic Pulse BP Pulse BP Position BP Site BP Cuff Size 08/20/23 0913 130/70 74 -- -- Standing Right Arm Large Adult 08/20/23 0912 138/70 77 -- -- Supine Right Arm Large Adult 08/20/2337 -- -- 130/76 73 -- -- -- Peak Flow Date and Time PF Resp 08/20/23 0837 -- 16 General Appearance: Well appearing, alert, in no acute distress, well-hydrated, well nourished.. Skin: Skin color, texture, turgor normal, no suspicious rashes or lesions. Neck: no bruits bilaterally. Lungs: Lungs clear to auscultation. No wheezing, rhonchi, rales.. Heart: RRR without murmur, gallop, or rubs. No ectopy. Abdomen: Normal abdominal exam, Abdomen soft, non-tender. Bowel sounds normal. No masses, organomegaly. Extremities: No deformities, edema, skin discoloration, clubbing or cyanosis. Good capillary refill. Health Maintenance List Hepatitis B Vaccine(1 of 3 - Risk 3-dose series) Never done LDL Cholesterol due on 04/27/2023 HbA1C due on 05/01/2023 Influenza Vaccine(1) due on 07/27/2023 DTaP,Tdap,Td Vaccine(1 - Tdap) due on 05/03/2024 Dilated Retinal Exam due on 11/09/2023 Diabetic Foot Exam due on 05/03/2024 Advance Directive Discussion Completed Depression Assessment Completed Shingrix Vaccine Completed Covid-19 Vaccine Completed Pneumococcal Vaccine: 65+ Completed HPV Vaccine Aged Out Fecal Occult Blood Discontinued ASSESSMENT/PLAN: 1. Syncope and collapse - ICD9: 780.2, ICD10: R55 (primary diagnosis) No recurrent symptoms since ER visit on 08/17. Normal exam and vitals today. Labs in the ER and hospital were stable/unremarkable. No changes to regimen per cardiology. No cardiac events noted when on tele and HR is controlled on beta silvestre today. Will obtain US of his carotids for further workup. Advised pushing PO fluids, eating prior to [facility], and getting up and moving around so he is not seated for prolonged periods of time. Red flags for re-assessment reviewed with patient in detail. - US CAROTID ARTERIES [facility] 2. Near syncope - ICD9: 780.2, ICD10: R55 See above - US CAROTID ARTERIES [facility] 3. Hypotension, unspecified hypotension type - ICD9: 458.9, ICD10: I95.9 Resolved. Orthos negative. No changes to regimen. 4. Atherosclerosis of coronary artery of tangirnaq heart without angina pectoris, unspecified vessel or lesion type - ICD9: 414.01, ICD10: I25.10 No changes per cardiology. Asymptomatic on medical management. Will monitor. Red flags for re-assessment reviewed with patient in detail. - LIPID PANEL, NONFASTING 5. Paroxysmal atrial fibrillation (HCC) - ICD9: 427.31, ICD10: I48.0 Rate controllled on beta silvestre. Continue anticoagulation per cardiology 6. Chronic anticoagulation - ICD9: V58.61, ICD10: Z79.01 7. 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, without long-term current use of insulin (HCC) - ICD9: 250.40, 585.4, ICD10: E11.22, N18.4 - Controlled - Continue current medications - Blood glucose monitoring on a once daily schedule - HGB A1C 8. Encounter for immunization - ICD9: V03.89, ICD10: Z23 - INFLU[employer]ZA VACCINE, PRSV FREE, AGE 65+ YR, HIGH DOSE, QUADRIVALENT (FLUZONE HIGH-DOSE) 9. 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 10. Secondary hyperparathyroidism of renal origin (HCC) - ICD9: 588.81, ICD10: N25.81 Continue dialysis 3 days per week and f/u with nephrology. I spent a total of 40 minutes on the date of the service which included preparing to see the patient, [id number] patient care, completing clinical documentation, obtaining and/or reviewing separately obtained history, performing a medically appropriate examination, counseling and educating the patient/family/caregiver, and ordering medications, tests, or procedures. Yovany Kearney MD documented in this encounter [facility] 05-17-2023 Miscellaneous Notes Patient phones requesting refills as follows: Requested Prescriptions Pending Prescriptions Disp Refills tamsulosin (FLOMAX) 0.4 mg 30 capsule 5 Sig: Take 1 capsule by mouth daily at bedtime. SHONNA 05/03/23 NOV 11/09/23 Please review and advise. Yary Solis LPN documented in this encounter [facility] 05-16-2023 Miscellaneous Notes Patient notified and verbalized understanding. Elin Ibarra MA Labs ordered by Dr. Kalee Bertrand. A1c borderline prediabetic range at 5.7. cholesterol in good range. Continue to work on low carb diet and exercise as able. Kidney function worse compared to last check and is borderline CKD stage V range. Patient should be hearing from Dr. Bertrand about this since she ordered these labs. If not, would recommend calling her office today for further recommendations. Lipid and A1C received from [facility]. Given to Dr. Kearney for review. Elin Ibarra MA documented in this encounter [facility] 05-03-2023 Note HNO ID: [id number] Author: Yovany Kearney MD Service: ? Author Type: Physician Type: Progress Notes Filed: 05/08/2023 4:19 PM Note Text: Chief Complaint Patient presents with: Follow Up: 6 month HPI Lela Salcido is a 83 year old male who presents here today for Above Complaints. Has been in good health without hospitalizations or ER visits. No falls since last OV. DIABETES MELLITUS: Mr. Salcido was last seen 6 months ago. Since our last visit he denies excessive thirst or increased frequency of urination, numbness, tingling or pain in extremities, new or unusual visual symptoms, and low sugar/hypoglycemic reactions. Follows a diabetic diet most of the time. He is compliant with medication(s) and is tolerating med(s) without any side effects. He reports checking his glucose on a weekly schedule with sugars in the fasting <120 range. Patient's last HgA1C was Hemoglobin A1C (%) Date Value 10/31/2022 6.1 04/27/2022 6.5 10/27/2021 6.1 04/23/2021 6.4 ) Last Ophthalmology exam was within the past 12 months Last Podiatry exam was more than 12 months ago. Patient has appointment scheduled with Dr. Bertrand in 2 weeks for CKD stage IV. Has fistula in place in case of dialysis. Creatinine stable on last check. Eating low sodium diet and avoids NSAIDs as directed. CAD/a fib: Asymptomatic and doing well on medical management with ASA, statin, beta silvestre, and Xarelto. Managed by [facility] cardiology. Denies bleeing or bruising with anticoagulation. No change to regimen at last OV with cardiology in July. Following up once per year. BPH: Following up with Dr. Jones with last OV 1 month ago. Started on Proscar and continued on Flomax nightly without side effects. Getting up 2times per night due to water intake before bed. Denies other urinary symptoms. Recommending f/u in 1 year. PHQ-2 / Depression screen He in the past two weeks denies having felt down, depressed, hopeless or with little interest or pleasure in doing things. Past medical history, appointments, medications, allergies reviewed. Previous Medical History PAST MEDICAL HISTORY Diagnosis Date Basal cell carcinoma (BCC) of skin of neck 06/2015 Benign non-nodular prostatic hyperplasia with lower urinary tract symptoms 07/19/2016 Chronic anticoagulation CKD (chronic kidney disease), stage IV (HCC) Dr. Bertrand Coronary artery disease involving tangirnaq coronary artery of tangirnaq heart without angina pectoris [facility] Cyst of epididymis 06/23/2015 Diverticulosis of colon (without mention of hemorrhage) Diverticulosis Essential hypertension, benign Hyperlipidemia LDL goal <100 11/10/2005 Paroxysmal atrial fibrillation (HCC) 02/2021 Dr. Ojeda Type II diabetes mellitus (HCC) 11/10/2005 Unspecified hemorrhoids without mention of complication Hemorrhoids Previous Surgical History PAST SURGICAL HISTORY Procedure Laterality Date COLONOSCOPY FLX DX W/COLLJ SPEC WHEN PFRMD 01/30/2005 Colonoscopy-repeat in -2014 MAL LESION NECK,HAND,SCAL 1.1-2CM Left 07/14/2015 Exc. left mid retroauricular neck BCC PAST SURGICAL HISTORY OF 05/28/2008 cardiac stent x2 [facility] PAST SURGICAL HISTORY OF Right TESTICLE CYST REMOVAL PAST SURGICAL HISTORY OF Left 08/2021 Fistula in anticipation of dialysis RPR 1ST INGUN HRNA AGE 5 YRS/> REDUCIBLE Right Hernia repair, inguinal RPR 1ST INGUN HRNA AGE 5 YRS/> REDUCIBLE Left Hernia repair, inguinal XCAPSL CTRC RMVL INSJ IO LENS PROSTH W/O ECP 05/11/2004 Cataract Extraction with PC IOL Family History FAMILY HISTORY Problem Relation Age of Onset Diabetes Mother Heart Mother Hypertension Mother Heart Father Prostate Cancer Father Heart Brother coronary stent Prostate Cancer Brother other (diabetes mellitus [Other]) Daughter Patient Allergies ALLERGIES Allergen Reactions Augmentin [Amoxicil* Unknown Pt had fever Current Medications Current Outpatient Medications on File Prior to Visit Medication Sig tamsulosin (FLOMAX) 0.4 mg Take 1 capsule by mouth daily at bedtime. calcitriol (ROCALTROL) 0.25 mcg capsule Take 0.25 mcg by mouth once daily. ferrous sulfate 325 mg (65 mg iron) tablet Take 325 mg by mouth daily with breakfast. finasteride (PROSCAR) 5 mg tablet Take 1 tablet by mouth once daily. rivaroxaban (XARELTO) 15 mg tablet Take 1 tablet by mouth daily with dinner. carvedilol (COREG) 3.125 mg tablet Take 3.125 mg by mouth twice daily. blood sugar diagnostic (FREESTYLE TEST) test strip Use as instructed once daily amLODIPine (NORVASC) 5 mg tablet Take 1 tablet by mouth once daily. atorvastatin (LIPITOR) 20 mg tablet Take 1 tablet by mouth once daily. For cholesterol. aspirin, enteric coated (ADULT LOW DOSE ASPIRIN) 81 mg EC tablet Take 1 tablet by mouth once daily. (Patient taking differently: Take 81 mg by mouth.) No current facility-administered medications on file prior to visit. Social History Soc (more content not included)... [facility] 03-12-2023 Miscellaneous Notes Patient walked in requesting refill on test strips. Rx sent to [facility]. documented in this encounter [facility] 11-16-2022 Miscellaneous Notes Patient has been identified by name and date of : Yes Last office visit in this department: 10/31/2022 Labs-10/31/22 NOV-05/03/23 med filled 04/27/22 RX INSTRUCTIONS: Patient aware RX will be sent to pharmacy. No need to notify patient. Patient phones requesting refills as follows: Requested Prescriptions Pending Prescriptions Disp Refills tamsulosin (FLOMAX) 0.4 mg 30 capsule 5 Sig: Take 1 capsule by mouth daily at bedtime. Please review and advise. Sana Sherwood documented in this encounter [facility] 11-01-2022 Miscellaneous Notes Spoke with and information listed below given. verbalizes understanding. Luisa Farr LPN Message left for patient to call back for update. Ritu Tucker LPN ----- Message from Yovany Kearney MD sent at 10/31/2022 5:23 PM EST ----- Diabetes well controlled. A1c down to 6.1. continue current regimen. documented in this encounter [facility] 10-31-2022 History of Present illness Narrative Chief Complaint Patient presents with: Follow Up: 6 month HPI Lela Salcido is a 82 year old male who presents here today for 6 month follow up. Accompanied to day by and daughter. DIABETES MELLITUS: Mr. Salcido was last seen 6 months ago. Since our last visit he denies excessive thirst or increased frequency of urination, numbness, tingling or pain in extremities, new or unusual visual symptoms, and low sugar/hypoglycemic reactions. Follows a diabetic diet most of the time. He reports checking his glucose on a every other day schedule with sugars in the fasting 80's range. Patient's last HgA1C was Hemoglobin A1C (%) Date Value 04/27/2022 6.5 10/27/2021 6.1 04/23/2021 6.4 ) Last Ophthalmology exam was within the past 12 months. Has appointment with Optho on 11/09-Dr. Montes Last Podiatry exam was within the past 12 months Patient has appointment scheduled with Dr. Bertrand in November for CKD stage IV. Has fistula in place in case of dialysis. Creatinine stable at 2.88 on last check. Eating low sodium diet and avoids NSAIDs as directed. CAD/a fib: Asymptomatic and doing well on medical management with ASA, statin, beta silvestre, and Xarelto. Managed by Denies bleeing or bruising with anticoagulation. No change to regimen at last OV with cardiology in July. Following up once per year. BPH: Referred to urology Dr. Jones for inability to urinate after fistula placement. Required catheter for about a week and symptoms improved. Started on Proscar and continued on Flomax nightly without side effects. Getting up 2-3 times per night due to water intake before bed. Denies other urinary symptoms. Past medical history, appointments, medications, allergies reviewed. Previous Medical History PAST MEDICAL HISTORY Diagnosis Date Basal cell carcinoma (BCC) of skin of neck 06/2015 Benign non-nodular prostatic hyperplasia with lower urinary tract symptoms 07/19/2016 Chronic anticoagulation CKD (chronic kidney disease), stage IV (HCC) Dr. Bertrand Coronary artery disease involving tangirnaq coronary artery of tangirnaq heart without angina pectoris [facility] Cyst of epididymis 06/23/2015 Diverticulosis of colon (without mention of hemorrhage) Diverticulosis Essential hypertension, benign Hyperlipidemia LDL goal <100 11/10/2005 Paroxysmal atrial fibrillation (HCC) 02/2021 Type II diabetes mellitus (HCC) 11/10/2005 Unspecified hemorrhoids without mention of complication Hemorrhoids Previous Surgical History PAST SURGICAL HISTORY Procedure Laterality Date COLONOSCOPY FLX DX W/COLLJ SPEC WHEN PFRMD 01/30/2005 Colonoscopy-repeat in MAL LESION NECK,HAND,SCAL 1.1-2CM Left 07/14/2015 Exc. left mid retroauricular neck BCC PAST SURGICAL HISTORY OF 05/28/2008 cardiac stent x2 [facility] PAST SURGICAL HISTORY OF Right TESTICLE CYST REMOVAL PAST SURGICAL HISTORY OF Left 08/2021 Fistula in anticipation of dialysis RPR 1ST INGUN HRNA AGE 4 YRS/> REDUCIBLE Right Hernia repair, inguinal RPR 1ST INGUN HRNA AGE 5 YRS/> REDUCIBLE Left Hernia repair, inguinal XCAPSL CTRC RMVL INSJ IO LENS PROSTH W/O ECP 05/11/2004 Cataract Extraction with PC IOL Family History FAMILY HISTORY Problem Relation Age of Onset Diabetes Mother Heart Mother Hypertension Mother Heart Father Prostate Cancer Father Heart Brother coronary stent Prostate Cancer Brother other (diabetes mellitus [Other]) Daughter Patient Allergies ALLERGIES Allergen Reactions Augmentin [Amoxicil* Unknown Pt had fever Current Medications Current Outpatient Medications on File Prior to Visit Medication Sig calcitriol (ROCALTROL) 0.25 mcg capsule Take 0.25 mcg by mouth once daily. ferrous sulfate 325 mg (65 mg iron) tablet Take 325 mg by mouth daily with breakfast. tamsulosin (FLOMAX) 0.4 mg Take 1 capsule by mouth daily at bedtime. finasteride (PROSCAR) 5 mg tablet Take 1 tablet by mouth once daily. amLODIPine (NORVASC) 5 mg tablet Take 1 tablet by mouth once daily. atorvastatin (LIPITOR) 20 mg tablet Take 1 tablet by mouth once daily. For cholesterol. blood sugar diagnostic (FREESTYLE TEST) test strip Use as instructed once daily rivaroxaban (XARELTO) 15 mg tablet Take 1 tablet by mouth daily with dinner. carvedilol (COREG) 3.125 mg tablet Take 3.125 mg by mouth twice daily. aspirin, enteric coated (ADULT LOW DOSE ASPIRIN) 81 mg EC tablet Take 1 tablet by mouth once daily. (Patient taking differently: Take 81 mg by mouth.) No current facility-administered medications on file prior to visit. Social History Social History Tobacco Use Smoking status: Former Smokeless tobacco: Former Types: Chew Tobacco comments: not active user Vaping Use Vaping Use: Never used Substance Use Topics Alcohol use: Not Currently Drug use: No Review of Symptoms REVIEW OF SYSTEMS GENERAL: No weight loss, malaise or fevers RESPIRATORY: Negative for cough, hemoptysis, wheezing, COPD, dyspnea or shortness of breath CARDIOVASCULAR: Negative for chest pain, leg swelling, hypertension, CHF or palpitations GI: No nausea, vomiting, or diarrhea SKIN: Negative for lesions, rash, and itching EXAM: BP 132/72 Pulse 73 Resp 16 Wt 73.3 kg (161 lb 9.6 oz) SpO2 100% BMI 25.50 kg/m General Appearance: Well appearing, alert, in no acute distress, well-hydrated, well nourished.. Skin: Skin color, texture, turgor normal, no suspicious rashes or lesions. Lungs: Lungs clear to auscultation. No wheezing, rhonchi, rales.. Heart: irregularly irregular rhythma without murmur, gallop, or rubs. Abdomen: Normal abdominal exam, Abdomen soft, non-tender. Bowel sounds normal. No masses, organomegaly. Extremities: No deformities, edema, skin discoloration, clubbing or cyanosis. Good capillary refill. . Health Maintenance List ADVANCE DIRECTIVE DISCUSSION Never done DEPRESSION ASSESSMENT Never done COVID-19 VACCINE(5 - Booster for Moderna series) due on 07/20/2022 INFLUENZA(1) due on 07/27/2022 HBA1C due on 10/27/2022 DTAP,TDAP,TD(1 - Tdap) due on 04/27/2023 DILATED RETINAL EXAM due on 12/23/2022 LDL CHOLESTEROL due on 04/27/2023 DIABETIC FOOT EXAM due on 04/27/2023 SHINGRIX VACCINE Completed PNEUMOCOCCAL: 65+ Completed FECAL OCCULT BLOOD Discontinued Data reviewed Component Latest Ref Rng & Units 04/27/2022 Protein, Total 6.3 - 8.0 g/dL 6.8 Albumin 3.9 - 4.9 g/dL 3.8 (L) Calcium 8.5 - 10.2 mg/dL 8.9 Bilirubin, Total 0.2 - 1.3 mg/dL 0.6 Alkaline Phosphatase 38 - 113 U/L 71 AST 14 - 40 U/L 15 ALT 10 - 54 U/L 7 (L) Glucose 74 - 99 mg/dL 135 (H) BUN 9 - 24 mg/dL 47 (H) Creatinine 0.73 - 1.22 mg/dL 2.94 (H) Sodium 136 - 144 mmol/L 138 Potassium 3.7 - 5.1 mmol/L 4.4 Chloride 97 - 105 mmol/L 107 (H) CO2 22 - 30 mmol/L 19 (L) Anion Gap 9 - 18 mmol/L 12 eGFR >=60 mL/min/1.73m 20 (L) Total Cholesterol, Nonfasting <200 mg/dL 96 Triglycerides, Nonfasting <150 mg/dL 38 HDL Cholesterol, Nonfasting >39 mg/dL 33 (L) LDL Cholesterol, Nonfasting <100 mg/dL 55 Non HDL Cholesterol, Nonfasting <130 mg/dL 63 VLDL Cholesterol, Nonfasting <30 mg/dL 8 Total Chol/HDL Ratio, Nonfasting <5.10 mg/dL 2.91 LDL/HDL Ratio, Nonfasting <2.54 mg/dL 1.67 Hemoglobin A1C 4.3 - 5.6 % 6.5 (H) Estimated Average Glucose mg/dL 140 ASSESSMENT/PLAN: 1. 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 - Blood glucose monitoring on a every other day schedule - Encouraged regular aerobic exercise and weight loss - Follow up in 6 months, sooner should any other issues arise. - Discussed diabetic education issues of senior living diabetic complications, hypoglycemic symptoms, hyperglycemic symptoms, diet, medications- side effects and need for compliance, importance of exercise, and importance of annual examinations with Opthalmology with patient. - HGB A1C 2. Atherosclerosis of coronary artery of tangirnaq heart without angina pectoris, unspecified vessel or lesion type - ICD9: 414.01, ICD10: I25.10 Asymptomatic on medical management. F/u with cardiology. No changes today. 3. Paroxysmal atrial fibrillation (HCC) - ICD9: 427.31, ICD10: I48.0 Rate controlled without beta silvestre. Continue anticoagulation. Red flags for re-assessment reviewed with patient in detail. 4. CKD (chronic kidney disease), stage IV (HCC) - ICD9: 585.4, ICD10: N18.4 - eGFR: Stable - Counseled on avoiding regular use of NSAIDs, adequate hydration, potential risk of IV dye - Recommend maintaining A1c < 7% - Recommend maintaining blood pressure under 130/80 - Counseled on renal diet (low sodium/low potassium/low phosphorus) - Follow up with nephrology 5. Essential hypertension, benign - ICD9: 401.1, ICD10: I10 - suboptimal control, didn't get his amlodipine today. - Continue current medication(s) - Encouraged dietary sodium restriction/DASH diet - Recommended regular aerobic exercise. - Reviewed risks of HTN and principles of treatment - Goal of BP <140/90 - AMLODIPINE 5 MG TABLET 6. Hyperlipidemia LDL goal <100 - ICD9: 272.4, ICD10: E78.5 - good control - Continue current medication. - Encouraged following a low fat, low cholesterol diet. - Discussed the benefits of regular aerobic exercise and weight loss. - ATORVASTATIN 20 MG TABLET 7. Encounter for immunization - ICD9: V03.89, ICD10: Z23 - INFLUENZA SEASONAL QUADRIVALENT HIGH DOSE AGE 65+ 8. Need for COVID-19 vaccine - ICD9: V04.89, ICD10: Z23 - PFIZER-BIONTECH COVID-19 BIVALENT BOOSTER VACCINE, AGE 12+ YR Yovany Kearney MD documented in this encounter [facility] 07-20-2022 History of Present illness Narrative Patient presents for Shingrix vaccine. Denies any problems at this time. Tolerated injection well. Ramandeep Escobar LPN documented in this encounter [facility] 07-04-2022 Miscellaneous Notes Order approved as requested. Patient scheduled for nurse visit 07/20/22 to receive Shingrix vaccine. Please place order at this time. Ramandeep Escobar LPN documented in this encounter [facility] 05-11-2022 Miscellaneous Notes Pt called and is notified of providers message and instructions. Pt voices understanding. Princess Baker RN Repeat BP in good range. No change to regimen. Manual Readin/67 Pulse: 71 Reason for blood pressure check - Last BP elevated Patient is: Taking medication as prescribed Yes Took medication today Yes If no, date medication last taken N/A Experiencing side effects No BP was elevated at last appt 04/27/22. No BP medication changes were made at that time. Taking all medications as prescribed. Denies any chest pain, shortness of breath, dizziness, or headaches. No caffeine use. Past personal history of tobacco use; no current exposure. Alert and oriented. Pt has been identified by name and birthdate: Yes Allergies reviewed: Yes Latex allergy: no. Medication - prescribed and OTC reviewed and updated: Yes Do you need any prescription refills prior to your next visit: No Health Maintenance: Reviewed and not up to date and provider notified Patient advised to continue with current medications and would be contacted if any further instructions after review by PCP. Ramandeep Escobar LPN documented in this encounter [facility] 05-11-2022 History of Present illness Narrative Manual Readin/67 Pulse: 71 Reason for blood pressure check - Last BP elevated Patient is: Taking medication as prescribed Yes Took medication today Yes If no, date medication last taken N/A Experiencing side effects No BP was elevated at last appt 04/27/22. No BP medication changes were made at that time. Taking all medications as prescribed. Denies any chest pain, shortness of breath, dizziness, or headaches. No caffeine use. Past personal history of tobacco use; no current exposure. Alert and oriented. Pt has been identified by name and birthdate: Yes Allergies reviewed: Yes Latex allergy: no. Medication - prescribed and OTC reviewed and updated: Yes Do you need any prescription refills prior to your next visit: No Health Maintenance: Reviewed and not up to date and provider notified Patient advised to continue with current medications and would be contacted if any further instructions after review by PCP. Patient to also receive Shingrix vaccine. Ramandeep Escobar LPN documented in this encounter [facility] 05-03-2022 Miscellaneous Notes Order for shingrix vaccine filed. Cornelia Samson APRN.DELMA Patient scheduled for nurse visit 05/11/22 to receive Shingrix vaccine. Please place order at this time. Ramandeep Escobar LPN documented in this encounter [facility] 04-27-2022 History of Present illness Narrative Chief Complaint Patient presents with: Follow Up: 6 month HPI Lela Salcido is a 82 year old male who presents here today for 6 month follow. States that he has not had any falls since last OV, but is more unsteady on his feet. Has cane at home, but has not been using it. Completed PT, but has not been doing home exercises. DIABETES MELLITUS: Mr. Salcido was last seen 6 months ago. Since our last visit he denies excessive thirst or increased frequency of urination, numbness, tingling or pain in extremities, new or unusual visual symptoms and low sugar/hypoglycemic reactions. Follows a diabetic diet most of the time. He reports checking his glucose on a 2-3 times weekly schedule with sugars in the 80-85 range. Patient's last HgA1C was Hemoglobin A1C (%) Date Value 10/27/2021 6.1 04/23/2021 6.4 ) Last Ophthalmology exam was within the past 12 months Last Podiatry exam was more than 12 months ago Patient has appointment scheduled with Dr. Bertrand next week for CKD stage IV. Has fistula in place in case of dialysis. Eating low sodium diet and avoids NSAIDs as directed. CAD/a fib: Asymptomatic and doing well on medical management with ASA, statin, beta silvestre, and Xarelto. Denies bleeing or bruising with anticoagulation. No change to regimen at last OV with cardiology in July. Following up once per year. BPH: Referred to urology Dr. Jones for inability to urinate after fistula placement. Required catheter for about a week and symptoms improved. Started on Proscar and continued on Flomax nightly without side effects. Getting up 3-4 times per night due to water intake before bed. Denies other urinary symptoms. States that he had 3rd COVID vaccine in the fall. Discussed he would be due for 2nd booster. Will go to the health department. Past medical history, appointments, medications, allergies reviewed. Previous Medical History PAST MEDICAL HISTORY Diagnosis Date Basal cell carcinoma (BCC) of skin of neck 06/2015 Benign non-nodular prostatic hyperplasia with lower urinary tract symptoms 07/19/2016 Chronic anticoagulation CKD (chronic kidney disease), stage IV (HCC) Coronary artery disease involving tangirnaq coronary artery of tangirnaq heart without angina pectoris [facility] Cyst of epididymis 06/23/2015 Diverticulosis of colon (without mention of hemorrhage) Diverticulosis Essential hypertension, benign Hyperlipidemia LDL goal <100 11/10/2005 Paroxysmal atrial fibrillation (HCC) 02/2021 Type II diabetes mellitus (HCC) 11/10/2005 Unspecified hemorrhoids without mention of complication Hemorrhoids Previous Surgical History PAST SURGICAL HISTORY Procedure Laterality Date COLONOSCOPY FLX DX W/COLLJ SPEC WHEN PFRMD 01/30/2005 Colonoscopy-repeat in -2014 MAL LESION NECK,HAND,SCAL 1.1-2CM Left 07/14/2015 Exc. left mid retroauricular neck BCC PAST SURGICAL HISTORY OF 05/28/2008 cardiac stent x2 [facility] PAST SURGICAL HISTORY OF Right TESTICLE CYST REMOVAL PAST SURGICAL HISTORY OF Left 08/2021 Fistula in anticipation of dialysis RPR 1ST INGUN HRNA AGE 5 YRS/> REDUCIBLE Right Hernia repair, inguinal RPR 1ST INGUN HRNA AGE 5 YRS/> REDUCIBLE Left Hernia repair, inguinal XCAPSL CTRC RMVL INSJ IO LENS PROSTH W/O ECP 05/11/2004 Cataract Extraction with PC IOL Family History FAMILY HISTORY Problem Relation Age of Onset Diabetes Mother Heart Mother Hypertension Mother Heart Father Prostate Cancer Father Heart Brother coronary stent Prostate Cancer Brother other (diabetes mellitus [Other]) Daughter Patient Allergies ALLERGIES Allergen Reactions Augmentin [Amoxicil* Unknown Pt had fever Current Medications Current Outpatient Medications on File Prior to Visit Medication Sig amLODIPine (NORVASC) 5 mg tablet Take 1 tablet by mouth once daily. atorvastatin (LIPITOR) 20 mg tablet Take 1 tablet by mouth once daily. For cholesterol. blood sugar diagnostic (FREESTYLE TEST) test strip Use as instructed once daily rivaroxaban (XARELTO) 15 mg tablet Take 1 tablet by mouth daily with dinner. tamsulosin (FLOMAX) 0.4 mg Take 1 capsule by mouth daily at bedtime. carvedilol (COREG) 3.125 mg tablet Take 3.125 mg by mouth twice daily. aspirin, enteric coated (ADULT LOW DOSE ASPIRIN) 81 mg EC tablet Take 1 tablet by mouth once daily. lisinopril (ZESTRIL, PRINIVIL) 5 mg tablet Take 1 tablet by mouth once daily. No current facility-administered medications on file prior to visit. Social History Social History Tobacco Use Smoking status: Former Smoker Quit date: 04/27/1961 Years since quittin.0 Smokeless tobacco: Former User Types: Chew Tobacco comment: not active user Vaping Use Vaping Use: Never used Substance Use Topics Alcohol use: Not Currently Drug use: No Review of Symptoms REVIEW OF SYSTEMS GENERAL: No weight loss, malaise or fevers RESPIRATORY: Negative for cough, hemoptysis, wheezing, COPD, dyspnea or shortness of breath CARDIOVASCULAR: Negative for chest pain, leg swelling, hypertension, CHF or palpitations GI: No nausea, vomiting, or diarrhea SKIN: Negative for lesions, rash, and itching EXAM: BP 140/56 Pulse 65 Resp 16 Wt 73.9 kg (163 lb) SpO2 97% BMI 25.72 kg/m General Appearance: Well appearing, alert, in no acute distress, well-hydrated, well nourished.. Skin: Skin color, texture, turgor normal, no suspicious rashes or lesions. Lungs: Lungs clear to auscultation. No wheezing, rhonchi, rales.. Heart: Negative findings: no murmurs, clicks, or gallops, Positive findings: irregularly irregular rhythm. Abdomen: Normal abdominal exam, Abdomen soft, non-tender. Bowel sounds normal. No masses, organomegaly. Extremities: No deformities, edema, skin discoloration, clubbing or cyanosis. Good capillary refill. . Feet: Shoes and socks removed, No deformities, ulcers, calluses, normal distal pulses and sensitive to 10 gm monofilament Health Maintenance List DTAP,TDAP,TD(1 - Tdap) due on 05/19/2009 SHINGRIX VACCINE(2 of 3) due on 01/22/2013 COVID-19 VACCINE(3 - Booster for Moderna series) due on 06/19/2021 ADVANCE DIRECTIVE DISCUSSION Never done HBA1C due on 04/27/2022 LDL CHOLESTEROL due on 04/23/2022 DIABETIC FOOT EXAM due on 04/27/2022 DILATED RETINAL EXAM due on 12/23/2022 INFLUENZA Completed PNEUMOCOCCAL: 65+ Completed FECAL OCCULT BLOOD Discontinued ASSESSMENT/PLAN: 1. 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 - Continue current medications - Blood glucose monitoring on a once a day schedule - Encouraged regular aerobic exercise and weight loss - Follow up in 6 months, sooner should any other issues arise. - Discussed diabetic education issues of terminal manager diabetic complications, hypoglycemic symptoms, hyperglycemic symptoms, diet, medications- side effects and need for compliance, importance of exercise and importance of annual examinations with Opthalmology with patient. - HGB A1C - COMP METABOLIC PANEL 2. Essential hypertension, benign - ICD9: 401.1, ICD10: I10 - good control - Continue current medication(s) - Encouraged dietary sodium restriction/DASH diet - Recommended regular aerobic exercise. - Reviewed risks of HTN and principles of treatment - Goal of BP <140/90 - COMP METABOLIC PANEL 3. Hyperlipidemia LDL goal <100 - ICD9: 272.4, ICD10: E78.5 - to be determined upon return of lab results - Continue current medication. - Encouraged following a low fat, low cholesterol diet. - Discussed the benefits of regular aerobic exercise and weight loss. - LIPID PANEL, NONFASTING 4. Atherosclerosis of coronary artery of tangirnaq heart without angina pectoris, unspecified vessel or lesion type - ICD9: 414.01, ICD10: I25.10 Asymptomatic on medical management. Continue current regimen. F/u recommendations from cardiology. 5. Paroxysmal atrial fibrillation (HCC) - ICD9: 427.31, ICD10: I48.0 Rate controlled. Asymptomatic. No changes. 6. Chronic anticoagulation - ICD9: V58.61, ICD10: Z79.01 No bleeding/bruising on anticoagluation. Continue for a fib. 7. CKD (chronic kidney disease), stage IV (HCC) - ICD9: 585.4, ICD10: N18.4 Keep f/u appointment with nephrology as scheduled. 8. Benign non-nodular prostatic hyperplasia with lower urinary tract symptoms - ICD9: 600.91, ICD10: N40.1 Stable nocturia on current regimen. Continue flomax and proscar as prescribed. - TAMSULOSIN 0.4 MG CAPSULE Yovany Kearney MD documented in this encounter [facility] documented as of this encounter (statuses as of 05/02/2022) [facility]08-[facility]-2016 History of Past illness Narrative* Problem Noted Date Resolved Date Hyperkalemia 07/19/2016 05/07/2017 Cyst of epididymis 06/23/2015 05/07/2017 Disorders of bursae and tend ons in shoulder region, unspecified 11/10/2005 12/25/2014 Unspecified hemorrhoids without mention of compl ication 12/25/2014 documented as of this encounter (statuses as of 05/03/2022) [facility] History of Past illness Narrative* Problem Noted Date Resolved Date Hyperkalemia 07/19/2016 05/07/2017 Cyst of epididymis 06/23/2015 05/07/2017 Disorders of bursae and tend ons in shoulder region, unspecified 11/10/2005 12/25/2014 Unspecified hemorrhoids without mention of compl ication 12/25/2014 documented as of this encounter (statuses as of 05/11/2022) [facility] History of Past illness Narrative* Problem Noted Date Resolved Date Hyperkalemia 07/19/2016 05/07/2017 Cyst of epididymis 06/23/2015 05/07/2017 Disorders of bursae and tend ons in shoulder region, unspecified 11/10/2005 12/25/2014 Unspecified hemorrhoids without mention of compl ication 12/25/2014 documented as of this encounter (statuses as of 05/11/2022) [address]24-2016 History of Past illness Narrative* Problem Noted Date Resolved Date Hyperkalemia 07/19/2016 05/07/2017 Cyst of epididymis 06/23/2015 05/07/2017 Disorders of bursae and tend ons in shoulder region, unspecified 11/10/2005 12/25/2014 Unspecified hemorrhoids without mention of compl ication 12/25/2014 documented as of this encounter (statuses as of 07/04/2022) [address]24-2016 History of Past illness Narrative* Problem Noted Date Resolved Date Hyperkalemia 07/19/2016 05/07/2017 Cyst of epididymis 06/23/2015 05/07/2017 Disorders of bursae and tend ons in shoulder region, unspecified 11/10/2005 12/25/2014 Unspecified hemorrhoids without mention of compl ication 12/25/2014 documented as of this encounter (statuses as of 07/20/2022) [address]24-2016 History of Past illness Narrative* Problem Noted Date Resolved Date Hyperkalemia 07/19/2016 05/07/2017 Cyst of epididymis 06/23/2015 05/07/2017 Disorders of bursae and tend ons in shoulder region, unspecified 11/10/2005 12/25/2014 Unspecified hemorrhoids without mention of compl ication 12/25/2014 documented as of this encounter (statuses as of 10/31/2022) [place] [address]-24-2016 History of Past illness Narrative* Problem Noted Date Resolved Date Hyperkalemia 07/19/2016 05/07/2017 Cyst of epididymis 06/23/2015 05/07/2017 Disorders of bursae and tend ons in shoulder region, unspecified 11/10/2005 12/25/2014 Unspecified hemorrhoids without mention of compl ication 12/25/2014 documented as of this encounter (statuses as of 11/01/2022) [address]24-2016 History of Past illness Narrative* Problem Noted Date Resolved Date Hyperkalemia 07/19/2016 05/07/2017 Cyst of epididymis 06/23/2015 05/07/2017 Disorders of bursae and tend ons in shoulder region, unspecified 11/10/2005 12/25/2014 Unspecified hemorrhoids without mention of compl ication 12/25/2014 documented as of this encounter (statuses as of 11/17/2022) [facility]08-24-2016 History of Past illness Narrative* Problem Noted Date Resolved Date Hyperkalemia 07/19/2016 05/07/2017 Cyst of epididymis 06/23/2015 05/07/2017 Disorders of bursae and tend ons in shoulder region, unspecified 11/10/2005 12/25/2014 Unspecified hemorrhoids without mention of compl ication 12/25/2014 documented as of this encounter (statuses as of 05/16/2023) [facility]-24-2016 History of Past illness Narrative* Problem Noted Date Resolved Date Hyperkalemia 07/19/2016 05/07/2017 Cyst of epididymis 06/23/2015 05/07/2017 Disorders of bursae and tend ons in shoulder region, unspecified 11/10/2005 12/25/2014 Unspecified hemorrhoids without mention of compl ication 12/25/2014 documented as of this encounter (statuses as of 05/17/2023) [facility]-24-2016 History of Past illness Narrative* Problem Noted Date Diagnosed Date Resolved Date Hyperkalemia 07/19/2016 05/07/2017 Cyst of epididymis 06/23/2015 7 Disorders of bursae and tend ons in shoulder region, unspecified 11/10/2005 12/25/2014 Unspecified hemorrhoids with out mention of complication 12/25/2014 documented as of this encounter (statuses as of 07/04/2023) [facility]-24-2016 History of Past illness Narrative* Problem Noted Date Diagnosed Date Resolved Date Hyperkalemia 07/19/2016 05/07/2017 Cyst of epididymis 06/23/2015 7 Disorders of bursae and tend ons in shoulder region, unspecified 11/10/2005 12/25/2014 Unspecified hemorrhoids with out mention of complication 12/25/2014 documented as of this encounter (statuses as of 08/20/2023) [place] [address]-24-2016 History of Past illness Narrative* Problem Noted Date Diagnosed Date Resolved Date Hyperkalemia 07/19/2016 05/07/2017 Cyst of epididymis 06/23/2015 7 Disorders of bursae and tend ons in shoulder region, unspecified 11/10/2005 12/25/2014 Unspecified hemorrhoids with out mention of complication 12/25/2014 documented as of this encounter (statuses as of 08/21/2023) [address]24-2016 History of Past illness Narrative* Problem Noted Date Diagnosed Date Resolved Date Hyperkalemia 07/19/2016 05/07/2017 Cyst of epididymis 06/23/2015 7 Disorders of bursae and tend ons in shoulder region, unspecified 11/10/2005 12/25/2014 Unspecified hemorrhoids with out mention of complication 12/25/2014 documented as of this encounter (statuses as of 09/07/2023) [place] [address]-24-2016 History of Past illness Narrative* Problem Noted Date Diagnosed Date Resolved Date Hyperkalemia 07/19/2016 05/07/2017 Cyst of epididymis 06/23/2015 7 Disorders of bursae and tend ons in shoulder region, unspecified 11/10/2005 12/25/2014 Unspecified hemorrhoids with out mention of complication 12/25/2014 documented as of this encounter (statuses as of 09/18/2023) [facility]-24-2016 History of Past illness Narrative* Problem Noted Date Diagnosed Date Resolved Date Hyperkalemia 07/19/2016 05/07/2017 Cyst of epididymis 06/23/2015 7 Disorders of bursae and tend ons in shoulder region, unspecified 11/10/2005 12/25/2014 Unspecified hemorrhoids with out mention of complication 12/25/2014 documented as of this encounter (statuses as of 11/10/2023) [facility] Diagnosis 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, without long-term current use of insulin (HCC)- Primary Essential hypertension, benign Hyperlipidemia LDL goal <100 Other and unspecified hyperlipidemia Atherosclerosis of coronary artery of [place] heart without angina pectoris, unspecified vessel or lesion type Paroxysmal atrial fibrillation (HCC) Atrial fibrillation Chronic anticoagulation Long-term (current) use of anticoagulants CKD (chronic kidney disease), stage IV (HCC) Chronic kidney disease, Stage IV (severe) Benign non-nodular prostatic hyperplasia with lower urinary tract symptoms [facility] Diagnosis Need for vaccination- Primary Need for prophylactic vaccination and inoculation against unspecified single disease [facility] Diagnosis Essential hypertension, benign- Primary Need for vaccination Need for prophylactic vaccination and inoculation against unspecified single disease [facility] [place] [facility] Diagnosis Encounter for immunization- Primary Need for other specified prophylactic vaccination against single bacterial disease [facility] [place] [facility] Diagnosis Encounter for immunization- Primary Need for other specified prophylactic vaccination against single bacterial disease [facility] Diagnosis 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, without long-term current use of insulin (HCC)- Primary Atherosclerosis of coronary artery of [place] heart without angina pectoris, unspecified vessel or lesion type Paroxysmal atrial fibrillation (HCC) Atrial fibrillation CKD (chronic kidney disease), stage IV (HCC) Chronic kidney disease, Stage IV (severe) Essential hypertension, benign Hyperlipidemia LDL goal <100 Other and unspecified hyperlipidemia Encounter for immunization Need for other specified prophylactic vaccination against single bacterial disease Need for COVID-19 vaccine [facility] Diagnosis Benign non-nodular prostatic hyperplasia with lower urinary tract symptoms [facility] Benign non-nodular prostatic hyperplasia with lower urinary tract symptoms [facility] Diagnosis 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, without long-term current use of insulin (HCC) [facility] [place] [facility]* Diagnosis Syncope and collapse- Primary Near syncope Syncope and collapse Hypotension, unspecified hypotension type Atherosclerosis of coronary artery of [place] heart without angina pectoris, unspecified vessel or lesion type Paroxysmal atrial fibrillation (HCC) Atrial fibrillation Chronic anticoagulation Long-term (current) use of anticoagulants 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, without long-term current use of insulin (HCC) Encounter for immunization Need for other specified prophylactic vaccination against single bacterial disease 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) Renal dialysis status Secondary hyperparathyroidism of renal origin (HCC) Secondary hyperparathyroidism (of renal origin) documented [facility] this [facility] [place] [facility]* Diagnosis 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, without long-term current use of insulin (HCC)- Primary Encounter for immunization Need for other specified prophylactic vaccination against single bacterial disease Hypertensive heart and chronic kidney disease without heart failure, with stage 5 chronic kidney disease, or end stage renal disease (HCC) 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) Renal dialysis status Secondary hyperparathyroidism of renal origin (HCC) Secondary hyperparathyroidism (of renal origin) Paroxysmal atrial fibrillation (HCC) Atrial fibrillation Chronic anticoagulation Long-term (current) use of anticoagulants Atherosclerosis of coronary artery of tang[place] heart without angina pectoris, unspecified vessel or lesion type Benign non-nodular prostatic hyperplasia with lower urinary tract symptoms [facility] this encounter [facility] (narrative[facility] Outpatient Procedure (Routine) - Authorized Specialty Diagnoses / Procedures Referred By Christin coffman [facility] Diagnoses Syncope and collapse Near syncope Procedures US CAROTID ARTERIES MJ [facility]AS LAB DUPLEX SCAN EXTRACRANIAL ART COMPL BI STUDY Yovany Kearney MD [address] [place] [address] [facility] [place] [address] [place] [address] Referral ID Status Reason Start Date Expiration Date Visits Requested Visits Authorized [id number] Authorized Auto-Generat ed Referral 08/20/2023 08/19/2024 1 1 [facility] Summary Purpose Family History No Family History Records FoundNo Family History Records FoundNo Family History Records Found Advance Directives No Advanced Directives Records FoundNo Advanced Directives Records FoundNo Advanced Directives Records Found Additional Source Comments (unrecognized sect ion and content) No Status Records FoundNo Status Records FoundNo Status Records Found INFORMATION SOURCE (unrecogn ized section and content) DATE CREATED AUTHOR AUTHOR'S ORGANIZ ATION 05/16/2018 [facility] DATE CREATED AUTHOR AUTHOR'S ORGANIZ ATION 11/11/2023 [facility] Source Comments (unrecognize d section and content) In the event this informatio n is protected by the Federal Confidentiality of Alcohol and Drug Abuse Patient Records regulations: The Federal rules restrict any use of the information to criminally investigate or prosecute any alcohol or drug abuse patient.[facility] the event this information is protected by the Federal Confidentiality of Alcohol and Drug Abuse Patient Records regulations: The Federal rules restrict any use of the information to criminally investigate or prosecute any alcohol or drug abuse patient.[facility] the event this information is protected by the Federal Confidentiality of Alcohol and Drug Abuse Patient Records regulations: The Federal rules restrict any use of the information to criminally investigate or prosecute any alcohol or drug abuse patient.[facility] the event this information is protected by the Federal Confidentiality of Alcohol and Drug Abuse Patient Records regulations: The Federal rules restrict any use of the information to criminally investigate or prosecute any alcohol or drug abuse patient.[facility] Hospital[facility] the event this information is protected by the Federal Confidentiality of Alcohol and Drug Abuse Patient Records regulations: The Federal rules restrict any use of the information to criminally investigate or prosecute any alcohol or drug abuse patient.[facility] Hospital[facility] the event this information is protected by the Federal Confidentiality of Alcohol and Drug Abuse Patient Records regulations: The Federal rules restrict any use of the information to criminally investigate or prosecute any alcohol or drug abuse patient.[facility] Hospital[facility] the event this information is protected by the Federal Confidentiality of Alcohol and Drug Abuse Patient Records regulations: The Federal rules restrict any use of the information to criminally investigate or prosecute any alcohol or drug abuse patient.[facility] Hospital[facility] the event this information is protected by the Federal Confidentiality of Alcohol and Drug Abuse Patient Records regulations: The Federal rules restrict any use of the information to criminally investigate or prosecute any alcohol or drug abuse patient.[facility] Hospital[facility] the event this information is protected by the Federal Confidentiality of Alcohol and Drug Abuse Patient Records regulations: The Federal rules restrict any use of the information to criminally investigate or prosecute any alcohol or drug abuse patient.[facility] Hospital[facility] the event this information is protected by the Federal Confidentiality of Alcohol and Drug Abuse Patient Records regulations: The Federal rules restrict any use of the information to criminally investigate or prosecute any alcohol or drug abuse patient.[facility] HospitalIn the event this information is protected by the Federal Confidentiality of Alcohol and Drug Abuse Patient Records regulations: The Federal rules restrict any use of the information to criminally investigate or prosecute any alcohol or drug abuse patient.[facility] HospitalIn the event this information is protected by the Federal Confidentiality of Alcohol and Drug Abuse Patient Records regulations: The Federal rules restrict any use of the information to criminally investigate or prosecute any alcohol or drug abuse patient.[facility] the event this information is protected by the Federal Confidentiality of Alcohol and Drug Abuse Patient Records regulations: The Federal rules restrict any use of the information to criminally investigate or prosecute any alcohol or drug abuse patient.[facility] HospitalIn the event this information is protected by the Federal Confidentiality of Alcohol and Drug Abuse Patient Records regulations: The Federal rules restrict any use of the information to criminally investigate or prosecute any alcohol or drug abuse patient.[facility] HospitalIn the event this information is protected by the Federal Confidentiality of Alcohol and Drug Abuse Patient Records regulations: The Federal rules restrict any use of the information to criminally investigate or prosecute any alcohol or drug abuse patient.[facility] HospitalIn the event this information is protected by the Federal Confidentiality of Alcohol and Drug Abuse Patient Records regulations: The Federal rules restrict any use of the information to criminally investigate or prosecute any alcohol or drug abuse patient.[facility] HospitalIn the event this information is protected by the Federal Confidentiality of Alcohol and Drug Abuse Patient Records regulations: The Federal rules restrict any use of the information to criminally investigate or prosecute any alcohol or drug abuse patient.[facility] Reason for Visit (unrecogniz ed section and content) Reason Comments Orders Reason Comments Blood Pressure Check Reason Comments Imm/Inj Reason Comments Results Reason Comments Refill Request Reason Comments Outside Labs-[facility] Ordered Reason Comments ER F/U Patient to ER on for syncope episode in [place]. Patient returned to ER for similar episode on 08/17/23 but did not pass out. Amlodipine was discontinued on 08/10/23. Reason Comments [facility] requesting recor ds Reason Comments F/U 6 months Care Teams (unrecognized sec tion and content) Dance Instructor Relationship Specialty Start Date End Date Yovany Kearney MD [address] [place], [place] [id number] PCP - General Family Practice 04/28/21 Dance Instructor Relationship Specialty Start Date End Date Yovany Kearney MD [address] [place], [place] [phone] PCP - General Family Practice 04/28/21 Dance Instructor Relationship Specialty Start Date End Date Yovany Kearney MD [address] [place], [place] [id number] PCP - General Family Medicine 04/28/21 Dance Instructor Relationship Specialty Start Date End Date Yovany Kearney MD [address] [place], [place] [id number] PCP - General Family Medicine 04/28/21 Dance Instructor Relationship Specialty Start Date End Date Yovany Kearney MD [address] [facility] [place] [address] PCP - General Family Medicine 04/28/21 Dance Instructor Relationship Specialty Start Date End Date Yovany Kearney MD [address] [place] [address] PCP - General Family Medicine 04/28/21 Dance Instructor Relationship Specialty Start Date End Date Yovany Kearney MD [address] [place] [address] PCP - General Family Medicine 04/28/21 Dance Instructor Relationship Specialty Start Date End Date Yovany Kearney MD [address] [place] [address] PCP - General Family Medicine 04/28/21 Dance Instructor Relationship Specialty Start Date End Date Yovany Kearney MD [address] [place] [address] PCP - General Family Medicine 04/28/21 Dance Instructor Relationship Specialty Start Date End Date Yovany Kearney MD [address] [place] [address] PCP - General Family Medicine 04/28/21 Dance Instructor Relationship Specialty Start Date End Date Yovany Kearney MD [address] [place] [address] PCP - General Family Medicine 04/28/21 FOR RECORDS PERTAINING TO PATIENTS WHO ARE OR HAVE BEEN ENROLLED IN A CHEMICAL DEPENDENCY/SUBSTANCEABUSE PROGRAM, SOME INFORMATION MAY BE OMITTED. This clinical summary was aggregated from multiple sources. Caution should be exercised in using it in the provision of clinical care. This summary normalizes information from multiple sources, and as a consequence, information in this document may materially change the coding, format and clinical context of patient data. In addition, data may be omitted in some cases. CLINICAL DECISIONS SHOULD BE BASED ON THE PRIMARY CLINICAL RECORDS. [facility]. provides no warranty or guarantee of the accuracy or completeness of information in this document.
--- NOTE | 2023-11-23 07:09 | EDS_ITS ---
HPI History of Present Illness Chief Complaint: Syncope Informant: patient and spouse/S.O. Narrative Narrative: Patient presents after 3 syncopal episodes at [facility] this morning. Patient has had syncope in the past. But he has never had several episodes together. He does have a history of A-fib. He is also on dialysis. He had dialysis yesterday for 3-1/2 hours and they brought him to his normal dry weight. He states he has not been feeling sick at all. In fact he walked 5 miles with his dog last night and had no problems. He was sitting in [facility]. He states he just started to feel bad. He had no chest pain. He had no diaphoresis. He was not nauseated. He told somebody near him he might pass out. The person came over to help. Reportedly he did pass out but then woke back up and was feeling better but this happened 2 more times. He states right now he feels good. He has been eating and drinking normally. No diarrhea. No fevers. [facility] Medical History Anemia Atherosclerosis of coronary artery of [place] heart without angina pectoris Diabetes ESRD on dialysis Essential hypertension Former smoker History of renal disease Hyperlipidemia Longstanding persistent atrial fibrillation Loss of consciousness Loss of hearing Paroxysmal atrial fibrillation Problem with dialysis access Sinus bradycardia Syncope Urinary retention Wears dentures Wears glasses Home Medications tamsulosin 0.4 mg capsule 0.4 mg PO QHS prostate 12/16/18 [History Last Taken 08/09/23] finasteride 5 mg tablet 5 mg PO DAILY prostate 08/22/22 [History Last Taken 08/09/23] atorvastatin 20 mg tablet 20 mg PO DAILY cholesterol #90 tabs 03/28/23 [Rx Last Taken 08/09/23] rivaroxaban 15 mg tablet 15 mg PO DAILY blood thinner #90 tabs 03/28/23 [Rx Last Taken 08/24/23] carvedilol 3.125 mg tablet 3.125 mg PO BID blood pressure #60 tabs 08/15/23 [Rx Last Taken Unknown] vitamin B complex-vitamin C-folic acid 0.8 mg tablet (Renal Vitamin) tab PO 11/13/23 [History Last Taken Unknown] Allergy/AdvReac Type Severity Reaction Status Date / Time Penicillins Allergy Unknown Verified 11/23/23 06:21 Family History Mother Diabetes Surgical History History of arteriovenostomy for renal dialysis History of coronary artery stent placement (2007) Hx of colonoscopy Hx of inguinal hernia repair Hx of left cataract extraction Hx of right cataract extraction Status post repair of arteriovenous fistula Social History Smoking Status: Former smoker alcohol intake: never substance use type: does not use caffeine: No ROS ROS ED ROS Narrative A complete review of systems was performed and is negative except as documented in the history of present illness. Some specific details below. Constitutional: No recent fevers or chills. No malaise. He has been feeling perfectly fine. EYE: No discharge, visual complaints, or pain. He does not recall a decrease in his vision. ENT: No difficulty swallowing. No swelling. No pain. No reflux symptoms. CV: He has a history of atrial fibrillation. But he does not recall slow or fast or irregular heartbeats. EMS report has his heart rate at 42 initially when they arrived with significant hypotension. Respiratory: No recent pulmonary symptoms and none now. GI: No abdominal pain. No nausea vomiting diarrhea. No blood in stool. : No frequency dysuria or hematuria. Musculoskeletal: No recent trauma. He did not hurt himself in the fall. People were able to catch him and lowered him down slowly. No pains. No swelling. Skin: No rash. Nondiaphoretic. Neuro: No weakness or numbness. Endocrine: No polyuria or polydipsia. EXAM Physical Exam Narrative Exam Narrative: CONSTITUTIONAL: Patient is nontoxic in appearance. The patient looks comfortable. Work of breathing looks normal. HEENT: No notable trauma. Mucous membranes moist. EYES: No conjunctival injection. No proptosis. No notable pallor. NECK:No JVD. No stridor. CARDIOVASCULAR: Regular rate. Rate is about 80?90 at this time on the monitor. Irregular rhythm. No notable murmur. No JVD. RESPIRATORY: No respiratory distress. Breathing is unlabored. No wheezes. No rhonchi. No rales. No pain with a deep breath. No chest wall tenderness. GASTROINTESTINAL: Not distended. Bowel sounds are normal. No tenderness. No guarding. No rebound. No palpable mass. No bruit is heard. GENITOURINARY: No tenderness over the bladder. MUSCULOSKELETAL: Atraumatic. No peripheral edema at all. No cord. No tenderness along the deep venous system. No asymmetry. No distended veins. Normal frail in the left arm dialysis shunt. NEUROLOGICAL: Patient is alert and appropriate. No focal deficit noted. He is actually wide-awake and clear informant for the events that he recalls. But he does not recall passing out. He just recalls feeling ill. SKIN: No noted rashes. No diaphoresis. PSYCHIATRIC: Patient is calm. Mood is appropriate. Const Vital Signs: 11/23/23 06:21 11/23/23 06:26 11/23/23 06:27 Temperature 96.2 F L Temperature Source Temporal Pulse Rate 89 Respiratory Rate 16 Respiratory Pattern Normal Blood Pressure 135/80 H Blood Pressure Mean 98 Pulse Ox 96 Oxygen Delivery Method 11/23/23 07:21 Temperature Temperature Source Pulse Rate Respiratory Rate Respiratory Pattern Blood Pressure Blood Pressure Mean Pulse Ox Oxygen Delivery Method Room Air MDM MDM MDM Narrative Medical decision making narrative: My independent interpretation the patient's single view chest x-ray show what looks like prior rib fractures on the right that are healed. There is some loca lized eventration of the diaphragm on the right. There does appear to be a small hiatal hernia on the left. Lung gamez look overall clear. Final reading is pending. Patient CBC shows minimal anemia at 11.4 which I do not feel is the cause of his symptoms. Patient's electrolytes show chronic renal disease consistent with being on dialysis. Sodium is minimally low. Glucose was minimally up at 146. Magnesium was normal at 2.2. Troponin was normal at 10. Patient has been stable here. But EMS has him documented bradycardic and hypotensive on a couple vitals. Patient has had several episodes of syncope. He had 3 today with alert periods in between. I am concerned that this patient is not an appropriate patient for discharge. I think he is higher risk with his known atrial fibrillation and dialysis. He needs to be on meds to control his heart rate because of the atrial fibrillation but we are getting bradycardic episodes. It is possible that this patient may benefit from a pacemaker although we will let others and cardiology to sort that out. But I do not think he is a good patient for discharge. I discussed the case with the hospitalist and he will be brought into the hospital. Lab Data Attestation: I reviewed the patient's lab results. Labs: Laboratory Results - last 24 hr 11/23/23 07:22 WBC 5.7 RBC 3.29 L Hgb 11.4 L Hct 34.1 L MCV 103.6 H MCH 34.7 H MCHC 33.4 RDW Std Deviation 54.2 H RDW Coeff of Eduardo 14.2 Plt Count 184 MPV 9.2 Immature Gran % (Auto) 0.500 Neut % (Auto) 78.6 H Lymph % (Auto) 8.7 L [place] % (Auto) 7.1 Eos % (Auto) 4.2 Baso % (Auto) 0.9 Absolute Neuts (auto) 4.5 Absolute Lymphs (auto) 0.49 L Nucleated RBC % 0 Hypochromasia 1+ Anisocytosis 2+ Sodium 134 L Potassium 4.1 Chloride 97 L Carbon Dioxide 31.0 Anion Gap 6 BUN 29 H Creatinine 3.16 H Estim Creat Clear Calc 15.70 Est GFR (MDRD) Af Amer 24 L Est GFR (MDRD) Non-Af 20 L BUN/Creatinine Ratio 9.2 L Glucose 146 H Calcium 9.1 Magnesium 2.2 Troponin I High Sens 10 EKG Initial EKG: Comments: My independent interpretation of the patient's EKG shows atrial fibrillation. No ventricular ectopy. No acute ST elevation or depression. QRS duration and QTc are normal. Management Discussion w/another healthcare provider: Hospitalist Discharge Plan Triage Chief Complaint: Syncope ED Provider: Nicolas Alford Dx/Rx/DC Orders Clinical Impression: Recurrent syncope, History of bradycardia, History of chronic atrial fibrillation, Chronic kidney disease on chronic dialysis Prescriptions: No Action finasteride 5 mg tablet 5 mg PO DAILY carvedilol 3.125 mg tablet 3.125 mg PO BID Qty: 60 11RF Renal Vitamin 0.8 mg tablet PO Patient Comments: TAKE 1 TABLET BY MOUTH DAILY tamsulosin 0.4 MG capsule 0.4 mg PO QHS atorvastatin 20 mg tablet 20 mg PO DAILY Qty: 90 3RF rivaroxaban 15 mg tablet 15 mg PO DAILY Qty: 90 3RF Rx Instructions: must administer with evening meal Primary Care Provider: Torey Kearney Referrals: Torey Kearney MD [Primary Care Provider] -
[2023-11-23 07:30] LABS: Absolute Lymphocyte Count 0.49 X10^3/uL (0.83-4.51); Absolute Neutrophil Count 4.5 X10^3/uL (2.0-7.7); Basophil# 0.05 X10^3/uL; Basophil% 0.9 % (0-1); Eosinophil# 0.24 X10^3/uL; Eosinophils% 4.2 % (0-5); Hematocrit 34.1 % (40-54); Hemoglobin 11.4 g/dL (13.0-16.5); Lymphocyte # 0.49 X10^3/ul (0.83-4.51); Lymphocyte % 8.7 % (19-41); Mean Corp Hgb Conc 33.4 g/dL (32-36); Mean Corpuscular Hgb 34.7 pg (27.0-32.0); Mean Corpuscular Volume 103.6 fL (80-94); Mean Platelet Vol. 9.2 fl (6.2-12.0); Monocyte% 7.1 % (0-10); NRBC Flagged by Analyzer 0 % (0-5); Neutrophil # 4.45 X10^3/uL (2.7-7.7); Neutrophil % 78.6 % (47-70); POSITIVE DIFFERENTIAL YES; Platelet Count 184 K/mm3 (150-450); RBC Distribution Width CV 14.2 % (11.6-14.6); RBC Distribution Width SD 54.2 fl (35.1-43.9); Red Blood Count 3.29 M/mm3 (4.6-6.2); White Blood Count 5.7 K/mm3 (4.4-11.0)
--- NOTE | 2023-11-23 07:30 | RAD_ITS ---
INDICATION: chest pain EXAMINATION/TECHNIQUE: X-RAY - XR Chest 1 View COMPARISON: No relevant prior comparison study available FINDINGS: LINES/DEVICES: None. LUNGS: No consolidation, edema or effusion. No pneumothorax. MEDIASTINUM AND CARDIOVASCULAR STRUCTURES: Borderline cardiac silhouette. BONES AND SOFT TISSUES: No demonstrated acute osseous changes. RAD/Chest 1 View (Portable) IMPRESSION: No radiographic evidence of acute cardiopulmonary disease. Electronically Signed: Sergio Rivera MD at 8:53 EST ,
[2023-11-23 07:32] LABS: Differential Indicated SCAN CRITERIA MET
[2023-11-23 07:59] LABS: Anion Gap 6 (5-15); BUN 29 mg/dL (7-18); BUN/Creat Ratio 9.2 RATIO (10-20); Calcium,Total 9.1 mg/dL (8.5-10.1); Chloride 97 mmol/L (98-107); Creatinine, Serum 3.16 mg/dL (0.70-1.30); EST Glomerular Filtration Rate 20 mL/min (>60); Est Glom Filt Rate - Afr Amer 24 mL/min (>60); Glucose 146 mg/dL (74-106); Magnesium 2.2 mg/dL (1.6-2.6); Potassium 4.1 mmol/L (3.5-5.1); Sodium Level 134 mmol/L (136-145); Troponin-I HS (w/2H Reflex) 10 pg/mL (3.0-78.0)
[2023-11-23 08:17] LABS: Anisocytosis 2+; Hypochromasia 1+
--- NOTE | 2023-11-23 08:45 | PCM.HP.STD ---
HPI - General General Date of Admission: 11/23/23 Date of Service: 11/23/23 Chief Complaint: Syncope x 3 within 15 minutes of interval HPI Narrative LELA LYONS, is a 83 M history of A-fib was brought by EMS for 3 syncopal episodes in short time interval of 15 minutes. Patient was in the [facility] with his friend. As per the friend, he passed out for short period of time maybe about a minute. Patient denies feeling of dizziness lightheadedness sweating, chest pressure tightness or shortness of breath. No prodromal symptoms. Did not had fever or chills or URI symptoms or burning micturition. Patient was also admitted in July 2023 for syncope and at that time patient had dizziness and sweating. As per the forced vital of EMS heart rate was 42, BP 60/38 respiratory rate 12 but no hypoxia. After short time about 20 minutes vitals became normal. As per EMS note, patient was found pale and diaphoretic. Twelve-lead EKG 82/min similar to the previous EKG in July which was also A-fib. Patient denies any significant injury or fall. He said his friend held him therefore did not fall. [facility], [facility] Medical History Anemia Atherosclerosis of coronary artery of [place] heart without angina pectoris Diabetes ESRD on dialysis Essential hypertension Former smoker History of renal disease Hyperlipidemia Longstanding persistent atrial fibrillation Loss of consciousness Loss of hearing Paroxysmal atrial fibrillation Problem with dialysis access Sinus bradycardia Syncope Urinary retention Wears dentures Wears glasses Home Medications tamsulosin 0.4 mg capsule 0.4 mg PO QHS prostate 12/16/18 [History Last Taken 08/09/23] finasteride 5 mg tablet 5 mg PO DAILY prostate 08/22/22 [History Last Taken 08/09/23] atorvastatin 20 mg tablet 20 mg PO DAILY cholesterol #90 tabs 03/28/23 [Rx Last Taken 08/09/23] rivaroxaban 15 mg tablet 15 mg PO DAILY blood thinner #90 tabs 03/28/23 [Rx Last Taken 08/24/23] carvedilol 3.125 mg tablet 3.125 mg PO BID blood pressure #60 tabs 08/15/23 [Rx Last Taken Unknown] vitamin B complex-vitamin C-folic acid 0.8 mg tablet (Renal Vitamin) 1 tab PO Q24H 11/13/23 [History Last Taken Unknown] Allergy/AdvReac Type Severity Reaction Status Date / Time Penicillins Allergy Unknown Verified 11/23/23 06:21 Family History Mother Diabetes Surgical History History of arteriovenostomy for renal dialysis History of coronary artery stent placement (2007) Hx of colonoscopy Hx of inguinal hernia repair Hx of left cataract extraction Hx of right cataract extraction Status post repair of arteriovenous fistula Social History service: No Smoking Status: Former smoker alcohol intake: never substance use type: does not use caffeine: No ROS ROS Narrative Constitutional: Reports fatigue and weakness. No fever. HEENT: Reports systems reviewed and no addt'l complaints, except as documented Respiratory/Chest:No acute shortness of breath or respiratory distress or wheezing. CVS: A-fib. Denies any history of IA/CAD or heart failure Gastrointestinal: Denies coffee ground emesis, hematemesis or vomiting Genitourinary: Denies burning urination or new urinary tract symptoms Musculoskeletal: Denies acute joint pain or limited range of motion. No acute injury Neurologic: Denies seizure-like symptoms. skin: No ulcer. No rash Endocrinology: Reports systems reviewed and no addt'l complaints, except as documented Hematologic/Lymphatic: Reports systems reviewed and no addt'l complaints, except as documented Rest 14 ROS are negative except as mentioned in HPI Vital Signs Vital Signs Vital Signs: 11/23/23 06:21 11/23/23 06:26 11/23/23 06:27 Temperature 96.2 F L Temperature Source Temporal Pulse Rate 89 Respiratory Rate 16 Respiratory Pattern Normal Blood Pressure 135/80 H Blood Pressure Mean 98 Pulse Ox 96 Oxygen Delivery Method 11/23/23 07:21 Temperature Temperature Source Pulse Rate Respiratory Rate Respiratory Pattern Blood Pressure Blood Pressure Mean Pulse Ox Oxygen Delivery Method Room Air Weight Weight: 161 lb 9.581 oz Body Mass Index (BMI) 26.0 Physical Exam Narrative General: Alert, Oriented x3, Cooperative HEENT: Atraumatic, PERRLA, EOMI, Normocephalic Oral: Oral mucosa moist. No Gingival or Mucosal Lesions/ Ulcerations Neck: Supple, No JVD, Negative Carotid Bruits Lungs: Air entry diminished in bilateral lung bases. No crepitation/rhonchi Cardiovascular: Irregular rate and Rhythm, S1-S2 normal, No murmurs Abdomen: Bowel Sounds Present, Soft, Non Tender, Non-Distended : No renal angle tenderness. No suprapubic tenderness. Extremities: No edema, Capillary Refill Less than 3 Seconds Skin: No rashes, No breakdown Musculoskeletal: No Tenderness to Palpation of Joints or Extremities Neurological: Cranial nerves II-XII grossly intact, DTR 2+/4. No acute focal neurological deficit. Psych/Mental Status: Normal Affect, Appropriate. Results Lab / Micro Data 11/23/23 07:22 11/23/23 07:22 Labs: Laboratory Results - last 24 hr 11/23/23 07:22: WBC 5.7, RBC 3.29 L, Hgb 11.4 L, Hct 34.1 L, MCV 103.6 H, MCH 34.7 H, MCHC 33.4, RDW Std Deviation 54.2 H, RDW Coeff of Eduardo 14.2, Plt Count 184, MPV 9.2, Immature Gran % (Auto) 0.500, Neut % (Auto) 78.6 H, Lymph % (Auto) 8.7 L, [place] % (Auto) 7.1, Eos % (Auto) 4.2, Baso % (Auto) 0.9, Absolute Neuts (auto) 4.5, Absolute Lymphs (auto) 0.49 L, Nucleated RBC % 0, Hypochromasia 1+, Anisocytosis 2+, Sodium 134 L, Potassium 4.1, Chloride 97 L, Carbon Dioxide 31.0, Anion Gap 6, BUN 29 H, Creatinine 3.16 H, Estim Creat Clear Calc 15.70, Est GFR (MDRD) Af Amer 24 L, Est GFR (MDRD) Non-Af 20 L, BUN/Creatinine Ratio 9.2 L, Glucose 146 H, Calcium 9.1, Magnesium 2.2, Troponin I High Sens 10 Assessment & Plan Assessment/Plan (1) Recurrent syncope: PLAN: Plan This is a 83-year-old gentleman being admitted for 3 syncopal episodes in short period of 15 minutes. 1. Recurrent syncope with history of syncope in July 2023, exact etiology unclear with history of chronic A-fib on Xarelto: Patient is being admitted in PCU. Clinically from history it seems cardiac with a low heart rate and blood pressure but may be vasovagal syncope too. The patient did not show signs of hypotension or dehydration or hypovolemia. In PCU, patient had orthostatic vitals did not show any significant change in blood pressure and heart rate. Troponin x 2 normal. Serum magnesium normal. 2D echo is ordered. Hold carvedilol but rivaroxaban continued. His last echo in March 24 shows EF 70%, LA moderate to large. Stress test in in February 2021 did not show evidence of significant ischemia or infarction. 2. ESRD on hemodialysis: Patient follows Dr. Bertrand. His dialysis days are Sunday and Sunday. He had dialysis yesterday for 3 and half hours and was brought comfortably normal dry weight. Serum sodium 134, mild hyponatremia. 3. Dyslipidemia on statin. 4. BPH: On tamsulosin and finasteride continued. 5. Hypertension:Blood pressure in normal range. He is send during previous admission in July 2023 amlodipine was discontinued. VTE prophylaxis: Not indicated as the patient is already on rivaroxaban. Living will/advanced directive/end of life care: Patient does not have living will or advanced directive. He states his daughter is next of kin and helps in making the decision for his health. After discussion of benefits/risks procedures involved with full code, DNR CC arrest and DNR CC, the patient opted for DNRCC arrest with no intubation. He states when time comes he wants to go peacefully. Patient doesn't want artificial life support including intubation, tube feed, ventilator and/chest compression, central venous catheter, vasopressor and DC shock if needed Total time spent in [id number] encounter in discussion of advanced directive 17 minutes. Laboratory Results 11/23/23 07:22: WBC 5.7, RBC 3.29 L, Hgb 11.4 L, Hct 34.1 L, MCV 103.6 H, MCH 34.7 H, MCHC 33.4, RDW Std Deviation 54.2 H, RDW Coeff of Eduardo 14.2, Plt Count 184, MPV 9.2, Immature Gran % (Auto) 0.500, Neut % (Auto) 78.6 H, Lymph % (Auto) 8.7 L, [place] % (Auto) 7.1, Eos % (Auto) 4.2, Baso % (Auto) 0.9, Absolute Neuts (auto) 4.5, Absolute Lymphs (auto) 0.49 L, Nucleated RBC % 0, Hypochromasia 1+, Anisocytosis 2+, Sodium 134 L, Potassium 4.1, Chloride 97 L, Carbon Dioxide 31.0, Anion Gap 6, BUN 29 H, Creatinine 3.16 H, Estim Creat Clear Calc 15.70, Est GFR (MDRD) Af Amer 24 L, Est GFR (MDRD) Non-Af 20 L, BUN/Creatinine Ratio 9.2 L, Glucose 146 H, Calcium 9.1, Magnesium 2.2, Troponin I High Sens 10 11/23/23 09:41: Troponin I High Sens 9 Echocardiogram from 03/17/2021: Interpretation Summary The estimated ejection fraction is 70 %. Unable to assess diastolic dysfunction. The left atrium is moderately enlarged. The right atrium is moderately enlarged. Stress test from 03/17/2021: Impression: 1. There is no evidence of significant ischemia or infarction. 2. Estimated ejection fraction is greater than 70%. Charges/Coding Visit Charges Inpatient E&M: 37398 Init Hosp L3 Procedures Hospitalists Procedures: 97215 Advncd Care Plan 30 Min
--- NOTE | 2023-11-23 08:46 | NURSING ---
DR RAMIN GOMEZ
[2023-11-23 09:26] LABS: Reflex Troponin-HS? (from REC) Y
--- NOTE | 2023-11-23 09:44 | NURSING ---
PCU OBS RAMIN RECURRENT SYNCOPE, BRADYCARDIA
[2023-11-23 10:05] LABS: Troponin-I HS 9 pg/mL (3.0-78.0)
--- OUTSIDE RECORDS SUMMARY | 2023-11-23 10:45 | XMS RPT_ITS | CCD ---
Author Name Unknown Address [address] [place] [address] Organization [facility] Care Team Providers Care Wireless Manager Name Role Phone SOFIA KINCAID E Unavailable [...] Unavailable YOVANY KEARNEY Primary Care Unavailab YOVANY Dunbar Primary Care Unavailab YOVANY Dunbar Referring Unavailab YOVANY Dunbar Primary Care Unavailab YOVANY Dunbar Referring Unavailab YOVANY Dunbar Attending Unavailab YOVANY uDnbar Primary Care Unavailab samantha Allergies Allergy Classification Reported Allergen(s) Allergy Type Date of Onset Reaction(s) Facility (20 sources) AMOXICILLIN-POT CLAVULANATE; Translations: [AMOXICILLIN-POT CLAVULANATE] Propensity to adverse reactions to drug (disorder) 5 Unknown [facility] Other [facility] Medications Completed/Discontinued Medications Medication Drug Class(es) [...] disease (20 sources) Atherosclerotic heart disease of [place] coronary artery without angina pectoris; Translations: [Coronary [...] sources) Long-term current use of anticoagulant; Translations: [senior care (current) use of anticoagulants] Onset: 2 Episodic [...] 05-03-2023 05-03-2023 Episodic Other aftercare (1 source) senior care (current) use of anticoagulants; Translations: [Chronic anticoagulation] [...] 12:55-0500 Body weight 71.76 kg Cornelia Podlogar SEPTIC TANK SETTER.BOAT OUTFITTING SUPERVISOR Work Phone: [facility] 11-09-2023 12:55-0500 Diastolic blood pressure 72 mm[Hg] Cornelia Podlogar SEPTIC TANK SETTER.DELMA Work Phone: [facility] 11-09-2023 12:55-0500 Heart rate 73 /min Cornelia Podlogar SEPTIC TANK SETTER.BOAT OUTFITTING SUPERVISOR Work Phone: [facility] 11-09-2023 12:55-0500 Respiratory rate 16 /min Cornelia Podlogar SEPTIC TANK SETTER.BOAT OUTFITTING SUPERVISOR Work Phone: [facility] 11-09-2023 12:55-0500 Systolic blood pressure 126 mm[Hg] Cornelia Podlogar SEPTIC TANK SETTER.BOAT OUTFITTING SUPERVISOR Work Phone: [facility] 08-20-2023 08:37-0400 Body weight 70.31 kg Yovany Kearney MD Work Phone: [facility] 08-20-2023 08:37-0400 Diastolic blood pressure 76 mm[Hg] Yovany Kearney MD Work Phone: [facility] 08-20-2023 08:37-0400 Heart rate 73 /min Yovany Kearney MD Work Phone: [facility] 08-20-2023 08:37-0400 Respiratory rate 16 /min Yovany Kearney MD Work Phone: [facility] 08-20-2023 08:37-0400 SaO2% (BldA) [Mass fraction] 98 % Yovany Kearney MD Work Phone: [facility] 08-20-2023 08:37-0400 Systolic blood pressure 130 mm[Hg] Yovany Kearney MD Work Phone: [facility] 10-31-2022 08:34-0500 Body weight 73.3 kg Yovany Kearney MD Work Phone: [facility] 10-31-2022 08:34-0500 Diastolic blood pressure 72 mm[Hg] Yovany Kearney MD Work Phone: [facility] 10-31-2022 08:34-0500 Heart rate 73 /min Yovany Kearney MD Work Phone: [facility] 10-31-2022 08:34-0500 Respiratory rate 16 /min Yovany Kearney MD Work Phone: [facility] 10-31-2022 08:34-0500 SaO2% (BldA) [Mass fraction] 100 % Yovany Kearney MD Work Phone: [facility] 10-31-2022 08:34-0500 Systolic blood pressure 132 mm[Hg] Yovany Kearney MD Work Phone: [facility] 04-27-2022 14:37-0400 Diastolic blood pressure 64 mm[Hg] Yovany Kearney MD Work Phone: [facility] 04-27-2022 14:37-0400 Systolic blood pressure 136 mm[Hg] Yovany Kearney MD Work Phone: [facility] 04-27-2022 14:03-0400 Body weight 73.94 kg Yovany Kearney MD Work Phone: [facility] 04-27-2022 14:03-0400 Heart rate 65 /min Yovany Kearney MD Work Phone: [facility] 04-27-2022 14:03-0400 Respiratory rate 16 /min Yovany Kearney MD Work Phone: [facility] 04-27-2022 14:03-0400 SaO2% (BldA) [Mass fraction] 97 % Yovany Kearney MD Work Phone: [facility] Encounters Encounter Date Encounter Type Care Provider Facility Start: 11-09-2023 End: 11-09-2023 ambulatory CORNELIA PODLOGAR Facility:[facility] Start: 11-09-2023 End: 11-09-2023 Patient encounter procedure Cornelia Podlogkiara SEPTIC TANK SETTER.BOAT OUTFITTING SUPERVISOR Work Phone: [facility] Procedures Date Procedure Procedure Detail Performing Clinician Start: 11-09-2023 PFIZER-BIONTECH COVI D-19 VACCINE ( SEASON) AGE 12+ YR Cornelia Podlogkiara SEPTIC TANK SETTER.BOAT OUTFITTING SUPERVISOR Work Phone: Start: 08-20-2023 INFLUENZA VACCINE, P [...] 11-05-2024 Glaucoma screening Dilated Retinal E xam [facility] Start: 08-20-2024 Hepatitis B surface antibody level LDL Cholesterol [facility] Start: 05-03-2024 3 comp foot exam completed DIABETIC FOOT EXAM [facility] Start: 05-03-2024 Diabetic foot examination Diabetic F oot Exam [facility] Start: 05-03-2024 Urine microalbumin profile [facility] Immunizations Immunization Date Immunization Notes Care Provider Fa cility 11-09-2023 COVID-19 vaccine, ag e 12+ yr, season (PFIZER-BIONTECH) Cornelia Leonardologkiara SEPTIC TANK SETTER.BOAT OUTFITTING SUPERVISOR Work Phone: [facility] 08-20-2023 influenza (HD-IIV4) vaccine, age 65+ yr, high dose, quadrivalent, PF (FLUZONE HIGH-DOSE) Yovany Kearney MD Work Phone: [facility] 05-08-2023 COVID-19 vaccine, ag e 12+ yr, bivalent (PFIZER-BIONTECH) Yovany Kearney MD Work Phone: [facility] 10-31-2022 COVID-19 booster vaccine, age 12+ yr, bivalent (PFIZER-BIONTECH) Yovany Kearney MD Work Phone: [facility] 10-31-2022 influenza, high-dose , quadrivalent vaccine (FLUZONE HIGH DOSE QUADRIVALENT) Yovany Kearney MD Work Phone: [facility] 07-20-2022 zoster vaccine recombinant Mi Nurse Work Phone: [facility] Work Phone: 05-11-2022 zoster vaccine recombinant Mi Nurse Work Phone: [facility] Work Phone: 10-14-2021 influenza, high-dose , quadrivalent vaccine (FLUZONE HIGH DOSE QUADRIVALENT) Yovany Kearney MD Work Phone: [facility] 01-20-2021 COVID-19 vaccine, fu ll dose (MODERNA) Yovany Kearney MD Work Phone: [facility] 12-23-2020 COVID-19 vaccine, fu ll dose (MODERNA) Yovany Kearney MD Work Phone: [facility] 09-18-2020 influenza, high-dose , quadrivalent vaccine (FLUZONE HIGH DOSE QUADRIVALENT) Yovany Kearney MD Work Phone: [facility] 09-22-2019 influenza, high dose seasonal, preservative-free Yovany Kearney MD Work Phone: [facility] 08-22-2018 influenza, high dose seasonal, preservative-free Yovany Kearney MD Work Phone: [facility] Work Phone: 08-13-2017 influenza, high dose seasonal, preservative-free Yovany Kearney MD Work Phone: [facility] 02-05-2017 pneumococcal polysaccharide vaccine, 23 valent Yovany Kearney MD Work Phone: [facility] Work Phone: 09-16-2015 influenza, high dose seasonal, preservative-free Yovany Kearney MD Work Phone: [facility] 06-23-2015 pneumococcal conjuga te vaccine, 13 valent Yovany Kearney MD Work Phone: [facility] 08-31-2014 influenza, seasonal, injectable Yovany Kearney MD Work Phone: [facility] 08-27-2013 influenza virus vaccine, unspecified formulation Yovany Kearney MD Work Phone: [facility] Work Phone: 11-27-2012 zoster vaccine, live Gabriel Kearney MD Work Phone: [facility] 09-14-2012 influenza virus vaccine, unspecified formulation Yovany Kearney MD Work Phone: [facility] 09-11-2011 influenza virus vaccine, unspecified formulation Yovany Kearney MD Work Phone: [facility] Work Phone: 08-25-2010 influenza virus vaccine, unspecified formulation Yovany Kearney MD Work Phone: [facility] 09-10-2009 influenza virus vaccine, unspecified formulation Yovany Kearney MD Work Phone: [facility] Work Phone: 05-18-2009 tetanus and diphther ia toxoids, adsorbed, preservative free, for adult use (2 Lf of tetanus toxoid and 2 Lf of diphtheria toxoid) Yovany Kearney MD Work Phone: [facility] 10-10-2008 influenza virus vaccine, unspecified formulation Yovany Kearney MD Work Phone: [facility] Work Phone: 11-10-2005 influenza virus vaccine, unspecified formulation Yovany Kearney MD Work Phone: [facility] Work Phone: 10-01-2004 influenza virus vaccine, whole virus Yovany Kearney MD Work Phone: [facility] 12-14-2003 pneumococcal polysaccharide vaccine, 23 valent Yovany Kearney MD Work Phone: [facility] Payers Date Payer Category Payer Private Health Insurance [facility] [id number] 2021-Present [phone] [address] [place] [id number] O [id number] 2021 Private Health Insurance [facility] [employer] [id number] 2021-Present [phone] [address] [place] [address] O [id number] 2021 Unknown [id number] 2004 Medicare MEDICARE MEDICAR E A AND B [id number] 2004-Present [phone] [place] [address] Medicare [id number] 2004 Medicare MEDICARE MEDICAR E A AND B [id number] 2004-Present [phone] [place] [address] Medicare [id number] 2004 Medicare [id number] Medicare [id number] Social History Date Type Detail Facility Start: 04-27-2021 End: 10-31-2022 Tobacco smoking status NHIS Ex-smoker [facility] Work Phone: End: 04-27-1961 History of tobacco use Current smoker [facility] Work Phone: Start: 04-27-2021 End: 10-31-2022 Tobacco use and exposure Former smokeless tobacco user [facility] Work Phone: History of tobacco use [facility] Work Phone: Start: 04-27-2022 End: 11-09-2023 Alcohol intake Ex-drinker (finding) [facility] Start: 04-27-2022 End: 10-31-2022 Tobacco Comment not active user [facility] Start: 1940 Sex Assigned At Not on file [facility] Start: 04-17-2022 End: 04-27-2022 Exposure to SARS-CoV-2 (event) Not sure [facility] Start: 05-03-2023 End: 11-09-2023 History of Social function [facility] Work Phone: Start: 05-03-2023 End: 11-09-2023 Tobacco use panel [facility] Work Phone: Adult Depression Screening Assessment 0 [facility] Work Phone: Medical Equipment Procedure Code Equipment Code Equipment Origin al Text Equipment Identifier Dates Use as instructe d once daily Start: 10-27-2021 End: 03-12-2023 Clinical Notes 07-19-2016 to 11-09-2023 Cornelia Samson APRN.BOAT OUTFITTING SUPERVISOR - 11/09/2023 1:07 PM ESTTelephone Encounter - Irina Rey LPN - 09/18/2023 9:58 AM EDTTelephone Encounter - Princess Baker RN - 09/07/2023 3:29 PM EDT Note Date & Type Note Facility 11-09-2023 Note HNO ID: [id number] Author: Cornelia Samson APRN.BOAT OUTFITTING SUPERVISOR Service: ? Author Type: Nurse Practitioner Type: [...] three days a week. CAD/A-fib: follows with [facility] cardiology with last office visit on [...] (HCC) Dr. Bertrand Coronary artery disease involving [place] coronary artery of [place] heart without angina pectoris [facility] Cyst of epididymis 06/23/2015 Diverticulosis of colon (without mention of hemorrhage) Diverticulosis Essential hypertension, benign Hyperlipidemia LDL goal <100 11/10/2005 Onychomycosis Paroxysmal atrial fibrillation (HCC) 02/2021 Dr. Ojeda Type II diabetes mellitus ([facility]) 11/10/2005 Unspecified hemorrhoids without mention of complication [...] without long-term current use of insulin ([facility]) - ICD9: 250.40, 585.9, V45.11, ICD10: E11.22, N18.6, Z99.2 (primary diagnosis) - Controlled - Blood glucose monitoring on a once daily schedule - Counseled o (more content not included)... [facility] 11-09-2023 History of Present illness Narrative [...] three days a week. CAD/A-fib: follows with [facility] cardiology with last office visit on [...] CKD (chronic kidney disease), stage IV ([facility]) Dr. Bertrand Coronary artery disease involving [place] coronary artery of [place] heart without angina pectoris [facility] Cyst of epididymis 06/23/2015 Diverticulosis of colon (without mention of hemorrhage) Diverticulosis Essential hypertension, benign Hyperlipidemia LDL goal <100 11/10/2005 Onychomycosis Paroxysmal atrial fibrillation ([facility]) 02/2021 Dr. Ojeda Type II diabetes mellitus ([facility]) 11/10/2005 Unspecified hemorrhoids without mention of complication [...] immunization - ICD9: V03.89, ICD10: Z23 - Qardio COVID-19 VACCINE (2022- SEASON) AGE 12+ YR [...] medication 8. Atherosclerosis of coronary artery of [place] heart without angina pectoris, unspecified vessel or [...] which included preparing to see the patient, [id number] patient care, completing clinical documentation, obtaining and/or reviewing separately obtained history, performing a medically appropriate examination, counseling and educating the patient/family/caregiver, and ordering medications, tests, or procedures. documented in this encounter [facility] 09-18-2023 Miscellaneous Notes Carly from [facility] calling requesting copy of immunization record for flu shot information to be faxed to [phone]. Printed and faxed as requested. documented in this encounter [facility] 09-07-2023 Miscellaneous Notes Pt called and is [...] year. Continue statin. documented in this encounter [facility] 08-21-2023 Miscellaneous Notes message sent. Elin Ibarra MA ----- Message from Yovany Kearney MD sent at 08/21/2023 8:06 AM EDT ----- Normal cholesterol with LDL <70 and A1c in normal range without rx for history of DM. No change in regimen. documented in this encounter [facility] 08-20-2023 Note HNO ID: [id number] Author: Yovany Kearney MD Service: ? Author Type: Physician Type: Progress Notes Filed: 08/20/2023 9:45 AM Note Text: Chief Complaint Patient presents with: ER F/U: Patient to ER on 08/10/22 for syncope episode in [facility]. Patient returned to ER for similar episode on 08/17/23 but did not pass out. Amlodipine was discontinued on 08/10/23. HPI Lela Salcido is a 83 year old male who presents here today for hospitalization and then subsequent ER Follow Up.. Accompanied today by and daughter. Patient admitted to [facility] from ED from 08/10 to 08/11 and then evalauted again in the ED on on 08/17 for an episode of syncope while at [facility] and then an episode of presyncope 1 [...] complained of feeling lightheaded after sitting in [facility] for more than an hour, but did not pass out. Symptoms improved after he went downstairs at [facility]. VSS in the ED. Blood work unremarkable. [...] (HCC) Dr. Bertrand Coronary artery disease involving [place] coronary artery of [place] heart without angina pectoris [facility] [...] Use Topics Alcoh (more content not included)... [facility] 08-20-2023 History of Present illness Narrative Chief Complaint Patient presents with: ER F/U: Patient to ER on 08/10/22 for syncope episode in [facility]. Patient returned to ER for similar episode on 08/17/23 but did not pass out. Amlodipine was discontinued on 08/10/23. REE Salcido is a 83 year old male who presents here today for hospitalization and then subsequent ER Follow Up.. Accompanied today by and daughter. Patient admitted to [facility] from ED from 08/10 to 08/11 and then evalauted again in the ED on on 08/17 for an episode of syncope while at [facility] and then an episode of presyncope 1 [...] complained of feeling lightheaded after sitting in [facility] for more than an hour, but did not pass out. Symptoms improved after he went downstairs at [facility]. VSS in the ED. Blood work unremarkable. [...] (HCC) Dr. Bertrand Coronary artery disease involving [place] coronary artery of [place] heart without angina pectoris [facility] Cyst of epididymis 06/23/2015 Diverticulosis [...] Advised pushing PO fluids, eating prior to tenriism, and getting up and moving around so [...] regimen. 4. Atherosclerosis of coronary artery of [place] heart without angina pectoris, unspecified vessel or [...] which included preparing to see the patient, [id number] patient care, completing clinical documentation, obtaining and/or reviewing separately obtained history, performing a medically appropriate examination, counseling and educating the patient/family/caregiver, and ordering medications, tests, or procedures. Yovany Kearney MD documented in this encounter [facility] 05-17-2023 Miscellaneous Notes Patient phones requesting refills as follows: Requested Prescriptions Pending Prescriptions Disp Refills tamsulosin (FLOMAX) 0.4 mg 30 capsule 5 Sig: Take 1 capsule by mouth daily at bedtime. SHONNA 05/03/23 NOV 11/09/23 Please review and advise. Yary Solis LPN documented in this encounter [facility] 05-16-2023 Miscellaneous Notes Patient notified and verbalized [...] further recommendations. Lipid and A1C received from [facility]. Given to Dr. Kearney for review. Elin Ibarra MA documented in this encounter [facility] 05-03-2023 Note HNO ID: [id number] Author: Yovany Kearney MD Service: ? Author [...] statin, beta silvestre, and Xarelto. Managed by [facility] cardiology. Denies bleeing or bruising with [...] (HCC) Dr. Bertrand Coronary artery disease involving [place] coronary artery of [place] heart without angina pectoris [facility] Cyst of epididymis 06/23/2015 Diverticulosis [...] Social History Soc (more content not included)... [facility] 03-12-2023 Miscellaneous Notes Patient walked in requesting refill on test strips. Rx sent to [facility]. documented in this encounter [facility] 11-16-2022 Miscellaneous Notes Patient has been identified [...] daily at bedtime. Please review and advise. Snaa Sherwood documented in this encounter [facility] 11-01-2022 Miscellaneous Notes Spoke with and information listed below given. verbalizes understanding. Luisa Farr LPN Message left for patient to call back for update. Ritu Tucker LPN ----- Message from Yovany Kearney MD sent at 10/31/2022 5:23 PM EST ----- Diabetes well controlled. A1c down to 6.1. continue current regimen. documented in this encounter [facility] 10-31-2022 History of Present illness Narrative Chief [...] (HCC) Dr. Bertrand Coronary artery disease involving [place] coronary artery of [place] heart without angina pectoris [facility] [...] arise. - Discussed diabetic education issues of shelter diabetic complications, hypoglycemic symptoms, hyperglycemic symptoms, diet, medications- side effects and need for compliance, importance of exercise, and importance of annual examinations with Opthalmology with patient. - HGB A1C 2. Atherosclerosis of coronary artery of [place] heart without angina pectoris, unspecified vessel or [...] Yovany Kearney MD documented in this encounter [facility] 07-20-2022 History of Present illness Narrative Patient presents for Shingrix vaccine. Denies any problems at this time. Tolerated injection well. Ramandeep Escobar LPN documented in this encounter [facility] 07-04-2022 Miscellaneous Notes Order approved as requested. Patient scheduled for nurse visit 07/20/22 to receive Shingrix vaccine. Please place order at this time. Ramandeep Escobar LPN documented in this encounter [facility] 05-11-2022 Miscellaneous Notes Pt called and is [...] Ramandeep Escobar LPN documented in this encounter [facility] 05-11-2022 History of Present illness Narrative Manual [...] Ramandeep Escobar LPN documented in this encounter [facility] 05-03-2022 Miscellaneous Notes Order for shingrix vaccine filed. Cornelia Samson APRN.DELMA Patient scheduled for nurse visit 05/11/22 to receive Shingrix vaccine. Please place order at this time. Ramandeep Escobar LPN documented in this encounter [facility] 04-27-2022 History of Present illness Narrative Chief [...] stage IV (HCC) Coronary artery disease involving [place] coronary artery of [place] heart without angina pectoris [facility] [...] arise. - Discussed diabetic education issues of buttermaker continuous churn diabetic complications, hypoglycemic symptoms, hyperglycemic symptoms, diet, [...] NONFASTING 4. Atherosclerosis of coronary artery of [place] heart without angina pectoris, unspecified vessel or [...] Yovany Kearney MD documented in this encounter [facility] documented as of this encounter (statuses as of 05/02/2022) [facility] History of Past illness Narrative* Problem Noted Date Resolved Date Hyperkalemia 07/19/2016 05/07/2017 Cyst of epididymis 06/23/2015 05/07/2017 Disorders of bursae and tend ons in shoulder region, unspecified 11/10/2005 12/25/2014 Unspecified hemorrhoids without mention of compl ication 12/25/2014 documented as of this encounter (statuses as of 05/03/2022) [facility] History of Past illness Narrative* Problem Noted Date Resolved Date Hyperkalemia 07/19/2016 05/07/2017 Cyst of epididymis 06/23/2015 05/07/2017 Disorders of bursae and tend ons in shoulder region, unspecified 11/10/2005 12/25/2014 Unspecified hemorrhoids without mention of compl ication 12/25/2014 documented as of this encounter (statuses as of 05/11/2022) [facility] History of Past illness Narrative* Problem Noted Date Resolved Date Hyperkalemia 07/19/2016 05/07/2017 Cyst of epididymis 06/23/2015 05/07/2017 Disorders of bursae and tend ons in shoulder region, unspecified 11/10/2005 12/25/2014 Unspecified hemorrhoids without mention of compl ication 12/25/2014 documented as of this encounter (statuses as of 05/11/2022) [address] History of Past illness Narrative* Problem Noted Date Resolved Date Hyperkalemia 07/19/2016 05/07/2017 Cyst of epididymis 06/23/2015 05/07/2017 Disorders of bursae and tend ons in shoulder region, unspecified 11/10/2005 12/25/2014 Unspecified hemorrhoids without mention of compl ication 12/25/2014 documented as of this encounter (statuses as of 07/04/2022) [address] History of Past illness Narrative* Problem Noted Date Resolved Date Hyperkalemia 07/19/2016 05/07/2017 Cyst of epididymis 06/23/2015 05/07/2017 Disorders of bursae and tend ons in shoulder region, unspecified 11/10/2005 12/25/2014 Unspecified hemorrhoids without mention of compl ication 12/25/2014 documented as of this encounter (statuses as of 07/20/2022) [address] History of Past illness Narrative* Problem Noted Date Resolved Date Hyperkalemia 07/19/2016 05/07/2017 Cyst of epididymis 06/23/2015 05/07/2017 Disorders of bursae and tend ons in shoulder region, unspecified 11/10/2005 12/25/2014 Unspecified hemorrhoids without mention of compl ication 12/25/2014 documented as of this encounter (statuses as of 10/31/2022) [place] [id number] History of Past illness Narrative* Problem Noted Date Resolved Date Hyperkalemia 07/19/2016 05/07/2017 Cyst of epididymis 06/23/2015 05/07/2017 Disorders of bursae and tend ons in shoulder region, unspecified 11/10/2005 12/25/2014 Unspecified hemorrhoids without mention of compl ication 12/25/2014 documented as of this encounter (statuses as of 11/01/2022) [address] History of Past illness Narrative* Problem Noted Date Resolved Date Hyperkalemia 07/19/2016 05/07/2017 Cyst of epididymis 06/23/2015 05/07/2017 Disorders of bursae and tend ons in shoulder region, unspecified 11/10/2005 12/25/2014 Unspecified hemorrhoids without mention of compl ication 12/25/2014 documented as of this encounter (statuses as of 11/17/2022) [facility]-24-2016 History of Past illness Narrative* Problem Noted Date Resolved Date Hyperkalemia 07/19/2016 05/07/2017 Cyst of epididymis 06/23/2015 05/07/2017 Disorders of bursae and tend ons in shoulder region, unspecified 11/10/2005 12/25/2014 Unspecified hemorrhoids without mention of compl ication 12/25/2014 documented as of this encounter (statuses as of 05/16/2023) [facility]-24-2016 History of Past illness Narrative* Problem Noted Date Resolved Date Hyperkalemia 07/19/2016 05/07/2017 Cyst of epididymis 06/23/2015 05/07/2017 Disorders of bursae and tend ons in shoulder region, unspecified 11/10/2005 12/25/2014 Unspecified hemorrhoids without mention of compl ication 12/25/2014 documented as of this encounter (statuses as of 05/17/2023) [facility]-24-2016 History of Past illness Narrative* Problem Noted Date Diagnosed Date Resolved Date Hyperkalemia 07/19/2016 05/07/2017 Cyst of epididymis 06/23/2015 7 Disorders of bursae and tend ons in shoulder region, unspecified 11/10/2005 12/25/2014 Unspecified hemorrhoids with out mention of complication 12/25/2014 documented as of this encounter (statuses as of 07/04/2023) [facility] History of Past illness Narrative* Problem Noted Date Diagnosed Date Resolved Date Hyperkalemia 07/19/2016 05/07/2017 Cyst of epididymis 06/23/2015 7 Disorders of bursae and tend ons in shoulder region, unspecified 11/10/2005 12/25/2014 Unspecified hemorrhoids with out mention of complication 12/25/2014 documented as of this encounter (statuses as of 08/20/2023) [place] [id number] History of Past illness Narrative* Problem Noted Date Diagnosed Date Resolved Date Hyperkalemia 07/19/2016 05/07/2017 Cyst of epididymis 06/23/2015 7 Disorders of bursae and tend ons in shoulder region, unspecified 11/10/2005 12/25/2014 Unspecified hemorrhoids with out mention of complication 12/25/2014 documented as of this encounter (statuses as of 08/21/2023) [address]24-2016 History of Past illness Narrative* Problem Noted Date Diagnosed Date Resolved Date Hyperkalemia 07/19/2016 05/07/2017 Cyst of epididymis 06/23/2015 7 Disorders of bursae and tend ons in shoulder region, unspecified 11/10/2005 12/25/2014 Unspecified hemorrhoids with out mention of complication 12/25/2014 documented as of this encounter (statuses as of 09/07/2023) [place] [id number] History of Past illness Narrative* Problem Noted Date Diagnosed Date Resolved Date Hyperkalemia 07/19/2016 05/07/2017 Cyst of epididymis 06/23/2015 7 Disorders of bursae and tend ons in shoulder region, unspecified 11/10/2005 12/25/2014 Unspecified hemorrhoids with out mention of complication 12/25/2014 documented as of this encounter (statuses as of 09/18/2023) [facility] History of Past illness Narrative* Problem Noted Date Diagnosed Date Resolved Date Hyperkalemia 07/19/2016 05/07/2017 Cyst of epididymis 06/23/2015 7 Disorders of bursae and tend ons in shoulder region, unspecified 11/10/2005 12/25/2014 Unspecified hemorrhoids with out mention of complication 12/25/2014 documented as of this encounter (statuses as of 11/10/2023) [facility] Diagnosis 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, without long-term current use of insulin (HCC)- Primary Essential hypertension, benign Hyperlipidemia LDL goal <100 Other and unspecified hyperlipidemia Atherosclerosis of coronary artery of [place] without angina pectoris, unspecified vessel or lesion type Paroxysmal atrial fibrillation (HCC) Atrial fibrillation Chronic anticoagulation Long-term (current) use of anticoagulants CKD (chronic kidney disease), stage IV (HCC) Chronic kidney disease, Stage IV (severe) Benign non-nodular prostatic hyperplasia with lower urinary tract symptoms [facility] Diagnosis Need for vaccination- Primary Need for prophylactic vaccination and inoculation against unspecified single disease [facility] Diagnosis Essential hypertension, benign- Primary Need for vaccination Need for prophylactic vaccination and inoculation against unspecified single disease [facility] Diagnosis Encounter for immunization- Primary Need for other specified prophylactic vaccination against single bacterial disease [facility] Diagnosis Encounter for immunization- Primary Need for other specified prophylactic vaccination against single bacterial disease [facility] Diagnosis 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, without long-term current use of insulin (HCC)- Primary Atherosclerosis of coronary artery of [place] without angina pectoris, unspecified vessel or lesion type Paroxysmal atrial fibrillation (HCC) Atrial fibrillation CKD (chronic kidney disease), stage IV (HCC) Chronic kidney disease, Stage IV (severe) Essential hypertension, benign Hyperlipidemia LDL goal <100 Other and unspecified hyperlipidemia Encounter for immunization Need for other specified prophylactic vaccination against single bacterial disease Need for COVID-19 vaccine [facility] Diagnosis Benign non-nodular prostatic hyperplasia with lower urinary tract symptoms [facility] Benign non-nodular prostatic hyperplasia with lower urinary tract symptoms [facility] 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, without long-term current use of insulin (HCC) [facility] Diagnosis Syncope and collapse- Primary Near syncope Syncope and collapse Hypotension, unspecified hypotension type Atherosclerosis of coronary artery of [place] without angina pectoris, unspecified vessel or [...] (of renal origin) [facility] Diagnosis Controlled type 2 diabetes mellitus [...] of anticoagulants Atherosclerosis of coronary artery of [place] without angina pectoris, unspecified vessel or lesion type Benign non-nodular prostatic hyperplasia with lower urinary tract symptoms [facility] Outpatient Procedure (Routine) - Authorized Specialty Diagnoses / Procedures Referred By Christin coffman [facility] Diagnoses Syncope and collapse Near syncope Procedures US CAROTID ARTERIES MJ VAS LAB DUPLEX SCAN EXTRACRANIAL ART COMPL BI STUDY Yovany Kearney MD [address] [place] [address] [facility] [address] [place] [address] Referral ID Status Reason Start Date Expiration Date Visits Requested Visits Authorized [id number] Authorized Auto-Generat ed Referral 08/20/2023 08/19/2024 1 1 [facility] Summary Purpose Family History No Family History [...] DATE CREATED AUTHOR AUTHOR'S ORGANIZ ATION 05/16/2018 [facility] DATE CREATED AUTHOR AUTHOR'S ORGANIZ ATION 11/11/2023 [facility] Source Comments (unrecognize d section and content) In the event this informatio n is protected by the Federal Confidentiality of Alcohol and Drug Abuse Patient Records regulations: The Federal rules restrict any use of the information to criminally investigate or prosecute any alcohol or drug abuse patient.[facility] the event this information is protected by the Federal Confidentiality of Alcohol and Drug Abuse Patient Records regulations: The Federal rules restrict any use of the information to criminally investigate or prosecute any alcohol or drug abuse patient.[facility] the event this information is protected by the Federal Confidentiality of Alcohol and Drug Abuse Patient Records regulations: The Federal rules restrict any use of the information to criminally investigate or prosecute any alcohol or drug abuse patient.[facility] the event this information is protected by the Federal Confidentiality of Alcohol and Drug Abuse Patient Records regulations: The Federal rules restrict any use of the information to criminally investigate or prosecute any alcohol or drug abuse patient.[facility] the event this information is protected by the Federal Confidentiality of Alcohol and Drug Abuse Patient Records regulations: The Federal rules restrict any use of the information to criminally investigate or prosecute any alcohol or drug abuse patient.[facility] the event this information is protected by the Federal Confidentiality of Alcohol and Drug Abuse Patient Records regulations: The Federal rules restrict any use of the information to criminally investigate or prosecute any alcohol or drug abuse patient.[facility] the event this information is protected by the Federal Confidentiality of Alcohol and Drug Abuse Patient Records regulations: The Federal rules restrict any use of the information to criminally investigate or prosecute any alcohol or drug abuse patient.[facility] the event this information is protected by the Federal Confidentiality of Alcohol and Drug Abuse Patient Records regulations: The Federal rules restrict any use of the information to criminally investigate or prosecute any alcohol or drug abuse patient.[facility] the event this information is protected by the Federal Confidentiality of Alcohol and Drug Abuse Patient Records regulations: The Federal rules restrict any use of the information to criminally investigate or prosecute any alcohol or drug abuse patient.[facility] the event this information is protected by the Federal Confidentiality of Alcohol and Drug Abuse Patient Records regulations: The Federal rules restrict any use of the information to criminally investigate or prosecute any alcohol or drug abuse patient.[facility] the event this information is protected by the Federal Confidentiality of Alcohol and Drug Abuse Patient Records regulations: The Federal rules restrict any use of the information to criminally investigate or prosecute any alcohol or drug abuse patient.[facility] the event this information is protected by [...] or prosecute any alcohol or drug abuse patient.[facility] the event this information is protected by the Federal Confidentiality of Alcohol and Drug Abuse Patient Records regulations: The Federal rules restrict any use of the information to criminally investigate or prosecute any alcohol or drug abuse patient.[facility] the event this information is protected by the Federal Confidentiality of Alcohol and Drug Abuse Patient Records regulations: The Federal rules restrict any use of the information to criminally investigate or prosecute any alcohol or drug abuse patient.[facility] the event this information is protected by the Federal Confidentiality of Alcohol and Drug Abuse Patient Records regulations: The Federal rules restrict any use of the information to criminally investigate or prosecute any alcohol or drug abuse patient.[facility] the event this information is protected by the Federal Confidentiality of Alcohol and Drug Abuse Patient Records regulations: The Federal rules restrict any use of the information to criminally investigate or prosecute any alcohol or drug abuse patient.[facility] Reason for Visit (unrecogniz ed section and content) Reason Comments Orders Reason Comments Blood Pressure Check Reason Comments Imm/Inj Reason Comments Results Reason Comments Refill Request Reason Comments Outside Labs-[facility] Ordered Reason Comments ER F/U Patient to ER on for syncope episode in tenriism. Patient returned to ER for similar episode on 08/17/23 but did not pass out. Amlodipine was discontinued on 08/10/23. Reason Comments [facility] requesting recor ds Reason Comments F/U 6 months Care Teams (unrecognized sec tion and content) Wireless Manager Relationship Specialty Start Date End Date Yovany Kearney MD [address] [place], [place] [id number] PCP - General Family Practice 04/28/21 Wireless Manager Relationship Specialty Start Date End Date Yovany Kearney MD [address] [place], [place] [id number] PCP - General Family Practice 04/28/21 Wireless Manager Relationship Specialty Start Date End Date Yovany Kearney MD [address] [place], [place] [id number] PCP - General Family Medicine 04/28/21 Wireless Manager Relationship Specialty Start Date End Date Yovany Kearney MD [address] [place], [place] [id number] PCP - General Family Medicine 04/28/21 Wireless Manager Relationship Specialty Start Date End Date Yovany Kearney MD [address] [facility] [place] [address] PCP - General Family Medicine 04/28/21 Wireless Manager Relationship Specialty Start Date End Date Yovany Kearney MD [address] [place] [address] PCP - General Family Medicine 04/28/21 Wireless Manager Relationship Specialty Start Date End Date Yovany Kearney MD [address] [place] [address] PCP - General Family Medicine 04/28/21 Wireless Manager Relationship Specialty Start Date End Date Yovany Kearney MD [address] [place] [address] PCP - General Family Medicine 04/28/21 Wireless Manager Relationship Specialty Start Date End Date Yovany Kearney MD [address] [place] [address] PCP - General Family Medicine 04/28/21 Wireless Manager Relationship Specialty Start Date End Date Yovany Kearney MD [address] [place] [address] PCP - General Family Medicine 04/28/21 Wireless Manager Relationship Specialty Start Date End Date Yovany Kearney MD [address] [place] [address] PCP - General Family Medicine 04/28/21 FOR [...] BE BASED ON THE PRIMARY CLINICAL RECORDS. [facility]. provides no warranty or guarantee of the accuracy or completeness of information in this document.
--- NOTE | 2023-11-23 11:08 | ECHOCS_ITS ---
Reason For Study: Syncope Procedure This was a 2D Doppler, Color Flow transthoracic echocardiogram. Contrast injection was performed. Exam performed portable in patient room. Left Ventricle Normal size and thickness. Left ventricular systolic function is normal. The estimated ejection fraction is 55-60% %. Diastolic function is indeterminate. No regional wall motion abnormalities noted. Right Ventricle Normal RV size. Normal systolic function. Unable to estimate RV systolic pressure due to insufficient tricuspid regurgitant envelope. Atria There is moderate biatrial dilatation. Mitral Valve The mitral valve is structurally normal. No prolapse or stenosis seen. Trivial mitral valve insufficiency. Tricuspid Valve Normal tricuspid valve. Trivial tricuspid valve insufficiency. Aortic Valve The aortic valve is not well visualized in the short axis view. There is no aortic stenosis. No aortic valve insufficiency. Pulmonic Valve The pulmonic valve is not well visualized. Great Vessels Normal aortic root. Normal inferior vena cava. Pericardium/Pleural Epicardial fat. Trivial pericardial effusion. Medication Diluted definity 2.5ml given slow IV push to enhance endocardial definition. Performed a rapid injection of agitated mix of 9 cc saline and 1cc air to assess for atrial septal defect. MMode/2D Measurements & Calculations LVIDd: 4.2 cm IVSd: 0.80 cm Ao root diam: 3.0 cm LVIDs: 2.6 cm LVPWd: 0.84 cm LA dimension: 5.0 cm RVDd: 3.7 cm FS: 39.6 % LAV(MOD-bp): 100.8 ml LA A4 area: 30.0 cm2 RA A4 area: 29.3 cm2 LAV(MOD-bp) Indexed: 55.3 ml/m2 LAV(MOD-sp2): 101.1 ml LAV(MOD-sp4): 92.9 ml TAPSE: 2.1 cm Doppler Measurements & Calculations MV E max shadi: 107.1 cm/sec MV V2 max: 114.5 cm/sec Ao V2 max: 158.1 cm/sec MV max P.3 mmHg Ao max P.0 mmHg MV V2 mean: 59.8 cm/sec Ao V2 mean: 104.3 cm/sec MV mean P.8 mmHg Ao mean P.1 mmHg MV V2 VTI: 23.0 cm Ao V2 VTI: 31.1 cm AV (velocity ratio): 0.56 LV V1 max: 79.9 cm/sec PA V2 max: 78.2 cm/sec TR max shadi: 318.4 cm/sec LV V1 max P.6 mmHg PA V2 mean: 55.1 cm/sec TR max P.5 mmHg LV V1 mean P.3 mmHg LV V1 mean: 53.5 cm/sec LV V1 VTI: 17.4 cm ECHO/Echo Complete W/ Contrast Interpretation Summary The estimated ejection fraction is 55-60% %. Diastolic function is indeterminate. Normal systolic function. Normal size and thickness. Left ventricular systolic function is normal. No regional wall motion abnormalities noted. Ordering Physician: Joseluis Hernandez Performed By: Keyon Oneal RCS
[2023-11-23] MEDS: 0.9% Normal Saline (1000mL) 1,000 ML 75 ML IV (12:14)
[2023-11-23] MEDS: Finasteride 5 MG Tablet PO (12:18)
--- NOTE | 2023-11-23 16:30 | PCM.CONS.C ---
Assessment & Plan Assessment/Plan (1) Recurrent syncope: PLAN: Presentation is likely vasovagal syncope. EKG upon presentation showed atrial fibrillation with controlled heart rate and no acute ST-T wave changes. Echocardiogram today showed normal ejection fraction with no motion abnormalities. Troponins are negative. Patient said he has been hydrating himself well. He has been doing great with no chest pain or shortness of breath or palpitations or dizzy episodes. Continue to monitor patient on telemetry while inpatient. If no acute findings were noted during monitoring patient will need 30 days event monitor upon discharge. Also obtain tilt table test as outpatient. Advised the patient to hydrate himself well and use compression stockings. Follow-up with cardiology as outpatient (2) History of chronic atrial fibrillation: PLAN: Continue Xarelto for stroke prophylaxis. Continue home dose Coreg 3.125 mg twice daily for rate control. (3) Atherosclerosis of coronary artery of [place] heart without angina pectoris: QUALIFIERS: Coronary Disease-Associated Artery/Lesion type: [place] artery Qualified Code(s): I25.10 - Atherosclerotic heart disease of [place] coronary artery without angina pectoris PLAN: Patient has been doing great with no chest pain or shortness of breath. He has been walking a lot lately with no chest pain or shortness of breath. Continue Lipitor 20 mg daily. Continue Coreg 3.125 mg twice daily. He is on Xarelto for his atrial fibrillation HPI Consult Data Date of Consult: 11/23/23 HPI Narrative Reason for Consultation: Syncope HPI Narrative: LELA LYONS, is a 83 M who presents syncope while he was sitting at [employer]. An 83-year-old male patient with past medical history of CAD status post remote PCI, history of recurrent syncope, ESRD on hemodialysis who was brought to the emergency room after passing out while in [employer]. Patient was in charge today, setting and saying the prior and all of a sudden felt weak and then passed out. He does not remember passing out however he woke up while sitting on the chair and was told that he passed out. His friend called EMS, upon arrival of the EMS patient was pale and diaphoretic, his vital signs according to EMS:heart rate was 42, BP 60/38 respiratory rate 12 but no hypoxia. After short time about 20 minutes vitals became normal. Upon arrival to the ER, EKG showed atrial fibrillation with controlled heart rate, there was no acute ST-T wave changes. Troponins are negative. Orthostatics were negative. Patient is currently resting in bed comfortably with no chest pain or shortness of breath. He said he has multiple episodes of syncope in the past where he feels diaphoretic and clammy then passed out however this time he does not remember getting sweaty, all what he remembered is feeling weak and then passed out. He said he thinks it was only for a few seconds however he does not remember exactly. Patient usually follows up with Dr. Ojeda for his cardiac care. He has been doing great, denied any exertional chest pain or shortness of breath, he has been walking a lot lately with no chest pain or shortness of breath. He denied dizziness, denied palpitations. He had a stress test in 2020 that was normal. Echocardiogram today showed normal ejection fraction with no wall motion abnormalities. [facility] Medical History Anemia Atherosclerosis of coronary artery of [place] heart without angina pectoris Diabetes ESRD on dialysis Essential hypertension Former smoker History of renal disease Hyperlipidemia Longstanding persistent atrial fibrillation Loss of consciousness Loss of hearing Paroxysmal atrial fibrillation Problem with dialysis access Sinus bradycardia Syncope Urinary retention Wears dentures Wears glasses Home Medications tamsulosin 0.4 mg capsule 0.4 mg PO QHS prostate 12/16/18 [History Last Taken 08/09/23] finasteride 5 mg tablet 5 mg PO DAILY prostate 08/22/22 [History Last Taken 08/09/23] atorvastatin 20 mg tablet 20 mg PO DAILY cholesterol #90 tabs 03/28/23 [Rx Last Taken 08/09/23] rivaroxaban 15 mg tablet 15 mg PO DAILY blood thinner #90 tabs 03/28/23 [Rx Last Taken 08/24/23] carvedilol 3.125 mg tablet 3.125 mg PO BID blood pressure #60 tabs 08/15/23 [Rx Last Taken Unknown] vitamin B complex-vitamin C-folic acid 0.8 mg tablet (Renal Vitamin) 1 tab PO Q24H 11/13/23 [History Last Taken Unknown] Allergy/AdvReac Type Severity Reaction Status Date / Time Penicillins Allergy Unknown Verified 11/23/23 06:21 Family History Mother Diabetes Surgical History History of arteriovenostomy for renal dialysis History of coronary artery stent placement (2007) Hx of colonoscopy Hx of inguinal hernia repair Hx of left cataract extraction Hx of right cataract extraction Status post repair of arteriovenous fistula Social History service: No Smoking Status: Former smoker alcohol intake: never substance use type: does not use caffeine: No ROS ROS Narrative 12 points review of systems were obtained, negative other than what mentioned HPI. Physical Exam Const alert, oriented x3 and no apparent distress HEENT normocephalic and head/scalp atraumatic Eyes PERRL and EOMs intact bilaterally Neck full ROM Chest inspection of chest normal and palpation of chest normal Resp normal respiratory effort and clear to auscultation bilaterally Cardio regular rate, S1 normal heart sound and S2 normal heart sound; Negative for regular rhythm GI normal to inspection, nondistended, normoactive bowel sounds Extremity normal to inspection and full ROM Skin no rashes or lesions noted and no wounds Psych mental status grossly normal, thought process normal and cooperative Risk Stratification Risk Stratification Applicable: No Objective Data Vital Signs: Vital Signs Temp Pulse Resp BP Pulse Ox O2 Del Method 98.3 F 83 14 131/88 H 96 Room Air 11/23/23 11:49 11/23/23 11:49 11/23/23 11:49 11/23/23 11:49 11/23/23 14:22 11/23/23 14:22 Oxygen Delivery Method Room Air Weight: 154 lb 1.65 oz Body Mass Index (BMI) 24.8 Intake & Output: Intake and Output for Last 24 Hours 11/21/23 11/22/23 11/23/23 23:59 23:59 23:59 Intake Total 120 / 120 Balance 120 / 120 Lab / Micro Data 11/23/23 07:22 11/23/23 07:22 Labs: Laboratory Results - last 24 hr 11/23/23 07:22: WBC 5.7, RBC 3.29 L, Hgb 11.4 L, Hct 34.1 L, MCV 103.6 H, MCH 34.7 H, MCHC 33.4, RDW Std Deviation 54.2 H, RDW Coeff of Eduardo 14.2, Plt Count 184, MPV 9.2, Immature Gran % (Auto) 0.500, Neut % (Auto) 78.6 H, Lymph % (Auto) 8.7 L, [place] % (Auto) 7.1, Eos % (Auto) 4.2, Baso % (Auto) 0.9, Absolute Neuts (auto) 4.5, Absolute Lymphs (auto) 0.49 L, Nucleated RBC % 0, Hypochromasia 1+, Anisocytosis 2+, Sodium 134 L, Potassium 4.1, Chloride 97 L, Carbon Dioxide 31.0, Anion Gap 6, BUN 29 H, Creatinine 3.16 H, Estim Creat Clear Calc 15.70, Est GFR (MDRD) Af Amer 24 L, Est GFR (MDRD) Non-Af 20 L, BUN/Creatinine Ratio 9.2 L, Glucose 146 H, Calcium 9.1, Magnesium 2.2, Troponin I High Sens 10 11/23/23 09:41: Troponin I High Sens 9 Cardiology Labs/Tests 11/23/23 07:22: WBC 5.7, RBC 3.29 L, Hgb 11.4 L, Hct 34.1 L, MCV 103.6 H, MCH 34.7 H, MCHC 33.4, Plt Count 184, MPV 9.2, Immature Gran % (Auto) 0.500, Neut % (Auto) 78.6 H, Lymph % (Auto) 8.7 L, [place] % (Auto) 7.1, Eos % (Auto) 4.2, Baso % (Auto) 0.9, Absolute Neuts (auto) 4.5, Nucleated RBC % 0, Sodium 134 L, Potassium 4.1, Chloride 97 L, Carbon Dioxide 31.0, Anion Gap 6, BUN 29 H, Creatinine 3.16 H, Est GFR (MDRD) Af Amer 24 L, Est GFR (MDRD) Non-Af 20 L, BUN/Creatinine Ratio 9.2 L, Glucose 146 H, Calcium 9.1, Magnesium 2.2 Rhythm: EKG: ECHO: Stress Test: Cardiac Cath: PCI: CT Surgery: Holter monitor: EPS: PPM: CXR: Chest CT Scan: Radiography Diagnostic Testing: Radiology Impression Chest X-Ray 11/23/23 07:30 IMPRESSION: No radiographic evidence of acute cardiopulmonary disease. Electronically Signed: Sergio Rivera MD at 8:53 EST , Echocardiogram 11/23/23 11:08 Interpretation Summary The estimated ejection fraction is 55-60% %. Diastolic function is indeterminate. Normal systolic function. Normal size and thickness. Left ventricular systolic function is normal. No regional wall motion abnormalities noted. Ordering Physician: Joseluis Hernandez Performed By: Keyon Oneal RCS
[2023-11-23] MEDS: Rivaroxaban 15 MG Tablet PO (18:59)
[2023-11-23] MEDS: Tamsulosin HCl 0.4 MG Capsule 0.400000000000000022 MG PO (20:44)
[2023-11-23] MEDS: Atorvastatin Calcium 20 MG Tablet PO (20:44)
[2023-11-24 00:45] VITALS: BP 109/58; PULSE 91; RESP 17; TEMP 36.4; O2SAT 97
[2023-11-24 03:45] VITALS: BMI 24.8
[2023-11-24 06:00] VITALS: BP 118/81; PULSE 67; RESP 16; TEMP 36.9; O2SAT 97
[2023-11-24 06:35] LABS: Anion Gap 9 (5-15); BUN 45 mg/dL (7-18); BUN/Creat Ratio 11.9 RATIO (10-20); Calcium,Total 8.6 mg/dL (8.5-10.1); Chloride 106 mmol/L (98-107); Creatinine, Serum 3.77 mg/dL (0.70-1.30); EST Glomerular Filtration Rate 16 mL/min (>60); Est Glom Filt Rate - Afr Amer 20 mL/min (>60); Estimated Creatinine Clearance 13.16 ml/min; Glucose 129 mg/dL (74-106); Potassium 4.2 mmol/L (3.5-5.1); Sodium Level 139 mmol/L (136-145)
--- NOTE | 2023-11-24 07:58 | PCM.DC ---
Discharge Instructions Diet Discharge Diet: 2000 mg Sodium Diet Activity Discharge Activity: Return to Normal Activity Weight Bearing Status: Weight bearing as tolerated Dressing / Incision Call your doctor if you observe: Fever of 101 or Higher, Coldness, Increased Pain, Numbness or Tingling, Change in Color, Inability to urinate, Inability to have a bowel movement, Shortness of breath, Dizziness, Fainting spells, Swelling in the ankles, Chest pain, Prolonged hiccupping, Increased palpitations (irregular heartbeat) and Calf discomfort Follow Up Care When: IN 2 WEEKS Test Results: Test results from this visit will be discussed in further detail at your follow-up appointment, if applicable. Discharge Plan Admission Admit Date/Time: 11/23/23 08:45 Primary Reason for Your Visit: Recurrent syncope most likely vasovagal. Attending Provider: Joseluis Hernandez Primary Care Provider: Torey Kearney Consulting Providers: Janusz Quiñonez Discharge Orders/Prescriptions Prescriptions: Continued finasteride 5 mg tablet 5 mg PO DAILY Renal Vitamin 0.8 mg tablet 1 tab PO Q24H Patient Comments: TAKE 1 TABLET BY MOUTH DAILY tamsulosin 0.4 MG capsule 0.4 mg PO QHS carvedilol 3.125 mg tablet 3.125 mg PO BID Qty: 60 11RF Rx Instructions: Hold for heart less than 50 or systolic blood pressure less than 90 mmHg. atorvastatin 20 mg tablet 20 mg PO DAILY Qty: 90 3RF rivaroxaban 15 mg tablet 15 mg PO DAILY Qty: 90 3RF Rx Instructions: must administer with evening meal Other Ambulatory Orders: 30 Day Event Recorder Preventi (Urgent) Timeframe: 1 Day Facility: [facility] - Location: Cardiovascular Services Ordered By: Dr. Joseluis Hernandez Referrals / Follow Up: Torey Kearney MD [Primary Care Provider] - Jay Ojeda MD [Med Staff - Active Staff] - Within 1 Month (To schedule tilt table test for vasovagal syncope.) Disposition Disposition (needs filled in before D/C Order can be placed): Home, Self Care
--- NOTE | 2023-11-24 08:03 | DS.PCM_ITS ---
Providers Date of Admission: 11/23/23 Date of Discharge: 11/24/23 Primary Care Physician: Dr. Torey Kearney MD Consultations 11/23/23 12:55 Consult: Cardiology Routine Consulting Provider: Janusz Quiñonez Reason for Consult: cardiac syncope? EMERGENT Consult: No MD Notified: Yes Date Notified: 11/23/23 Time Notified: 12:56 Method of Notification: Text Reason For Visit: SYNCOPE Diagnosis Discharge Diagnosis (1) Recurrent syncope: Status: Acute Code(s): R55 - Syncope and collapse (2) History of chronic atrial fibrillation: Status: Acute Code(s): Z86.79 - Personal history of other diseases of the circulatory system (3) Atherosclerosis of coronary artery of [place] heart without angina pectoris: Status: Chronic Code(s): I25.10 - Atherosclerotic heart disease of [place] coronary artery without angina pectoris Qualifiers: Coronary Disease-Associated Artery/Lesion type: [place] artery Qualified Code(s): I25.10 - Atherosclerotic heart disease of [place] coronary artery without angina pectoris Plan This is a 83-year-old gentleman being admitted for 3 syncopal episodes in short period of 15 minutes. 1. Recurrent syncope with history of syncope in July 2023, exact etiology unclear with history of chronic A-fib on Xarelto: Patient is being admitted in PCU. Clinically from history it seems cardiac with a low heart rate and blood pressure but may be vasovagal syncope too. The patient did not show signs of hypotension or dehydration or hypovolemia. In PCU, patient had orthostatic vitals did not show any significant change in blood pressure and heart rate. Troponin x 2 normal. Serum magnesium normal. 2D echo is ordered. Hold carvedilol but rivaroxaban continued. His last echo in March 24 shows EF 70%, LA moderate to large. Stress test in in February 2021 did not show evidence of significant ischemia or infarction. 11/24:2 serial troponins negative. ACS ruled out. Discussed with the fuller brush worker Dr. Quiñonez. Consult appreciated. Patient is on lowest dose of Coreg, resumed with holding parameters. Continue rivaroxaban. 2D echo reviewed no change from previous echo. EF 55 to 60%. Patient advised 30-day event monitor and tilt table test as an outpatient mentioned in discharge instructions. Follow-up fuller brush worker Dr. Ojeda in about 1 month. 2. ESRD on hemodialysis: Patient follows Dr. Bertrand. His dialysis days are Sunday and Sunday. He had dialysis yesterday for 3 and half hours and was brought comfortably normal dry weight. Serum sodium 134, mild hyponatremia. 11/24: Sodium 139. Potassium normal. Patient is due for dialysis today. Therefore discharge will need to attend dialysis before 12 noon. 3. Dyslipidemia on statin. 4. BPH: On tamsulosin and finasteride continued. 5. Hypertension:Blood pressure in normal range. He is send during previous admission in July 2023 amlodipine was discontinued. VTE prophylaxis: Not indicated as the patient is already on rivaroxaban. Discharge medication reconciliation done. Discharge follow-up instructions completed. Discharge process discussed with the patient and all questions were answered to patient's satisfaction. Follow with PCP in 1 to 2 weeks Total time spent, exact 35 minutes on discharge meds reconciliation, examination, coordination of care with nurses and ancillary staff, review of imaging and blood test and discussion with the patient on follow-up instructions. Living will/advanced directive/end of life care: Patient does not have living will or advanced directive. He states his daughter is next of kin and helps in making the decision for his health. After discussion of benefits/risks procedures involved with full code, DNR CC arrest and DNR CC, the patient opted for DNRCC arrest with no intubation. He states when time comes he wants to go peacefully. Patient doesn't want artificial life support including intubation, tube feed, ventilator and/chest compression, central venous catheter, vasopressor and DC shock if needed Clinical Impression(s) from Imaging Studies Chest X-Ray 11/23/23 07:30 IMPRESSION: No radiographic evidence of acute cardiopulmonary disease. Electronically Signed: Sergio Rivera MD at 8:53 EST , Echocardiogram 11/23/23 11:08 Interpretation Summary The estimated ejection fraction is 55-60% %. Diastolic function is indeterminate. Normal systolic function. Normal size and thickness. Left ventricular systolic function is normal. No regional wall motion abnormalities noted. Echocardiogram from 03/17/2021: Interpretation Summary The estimated ejection fraction is 70 %. Unable to assess diastolic dysfunction. The left atrium is moderately enlarged. The right atrium is moderately enlarged. Stress test from 03/17/2021: Impression: 1. There is no evidence of significant ischemia or infarction. 2. Estimated ejection fraction is greater than 70%. Medications at Discharge Home Medications tamsulosin 0.4 mg capsule 0.4 mg PO QHS prostate 12/16/18 finasteride 5 mg tablet 5 mg PO DAILY prostate 08/22/22 atorvastatin 20 mg tablet 20 mg PO DAILY cholesterol #90 tabs 03/28/23 rivaroxaban 15 mg tablet 15 mg PO DAILY blood thinner #90 tabs 03/28/23 vitamin B complex-vitamin C-folic acid 0.8 mg tablet (Renal Vitamin) 1 tab PO Q24H 11/13/23 carvedilol 3.125 mg tablet 3.125 mg PO BID blood pressure #60 tabs 11/24/[address] monitor reviewed. Usually heart rate in 70s to 80, A-fib. One-time missed heartbeat. No chest pain or shortness of breath. Physical exam General: Alert, Oriented x3, Cooperative HEENT: Atraumatic, PERRLA, EOMI, Normocephalic Oral: No Gingival or Mucosal Lesions/ Ulcerations Neck: Supple, No JVD, Negative Carotid Bruits Lungs: Air entry diminished in bilateral lung bases. No crepitation/rhonchi Cardiovascular: Irregular rate and rhythm, Normal S1, Normal S2, No murmurs Abdomen: Bowel Sounds Present, Soft, Non Tender, Non-Distended : on HDNo renal angle tenderness. No suprapubic tenderness. Extremities: No edema, Capillary Refill Less than 3 Seconds Skin: No rashes, No breakdown Musculoskeletal: No Tenderness to Palpation of Joints or Extremities Neurological: Cranial nerves II-XII grossly intact, DTR 2+/4. No acute focal neurological deficit. Psych/Mental Status: Normal Affect, Appropriate. Weight / BMI Weight Weight: 153 lb 14.122 oz Body Mass Index (BMI) 24.8 ABG / Lab / Microbiology Data 11/23/23 07:22 11/24/23 06:04 Laboratory: Laboratory Results - last 24 hr 11/23/23 07:22: Hypochromasia 1+, Anisocytosis 2+ 11/23/23 09:41: Troponin I High Sens 9 11/24/23 06:04: Sodium 139, Potassium 4.2, Chloride 106, Carbon Dioxide 24.0, Anion Gap 9, BUN 45 H, Creatinine 3.77 H, Estim Creat Clear Calc 13.16, Est GFR (MDRD) Af Amer 20 L, Est GFR (MDRD) Non-Af 16 L, BUN/Creatinine Ratio 11.9, Glucose 129 H, Calcium 8.6, Phosphorus 4.0 Radiography Diagnostic Testing: Radiology Impression Chest X-Ray 11/23/23 07:30 IMPRESSION: No radiographic evidence of acute cardiopulmonary disease. Electronically Signed: Sergio Rivera MD at 8:53 EST , Echocardiogram 11/23/23 11:08 Interpretation Summary The estimated ejection fraction is 55-60% %. Diastolic function is indeterminate. Normal systolic function. Normal size and thickness. Left ventricular systolic function is normal. No regional wall motion abnormalities noted. Ordering Physician: Joseluis Hernandez Performed By: Keyon Oneal RCS D/C Instructions Discharge Diet: 2000 mg Sodium Diet Weight Bearing Status: Weight bearing as tolerated Call your doctor if you observe: Fever of 101 or Higher, Coldness, Increased Pain, Numbness or Tingling, Change in Color, Inability to urinate, Inability to have a bowel movement, Shortness of breath, Dizziness, Fainting spells, Swelling in the ankles, Chest pain, Prolonged hiccupping, Increased palpitations (irregular heartbeat) and Calf discomfort When: IN 2 WEEKS Meaningful Use Info Meaningful Use Diagnoses (Choose all that apply): None applicable Discharge Plan Admission Admit Date/Time: 11/23/23 08:45 Primary Reason for Your Visit: Recurrent syncope most likely vasovagal. Attending Provider: Joseluis Hernandez Primary Care Provider: Torey Kearney Consulting Providers: Janusz Quiñonez Discharge Orders/Prescriptions Prescriptions: Continued finasteride 5 mg tablet 5 mg PO DAILY Renal Vitamin 0.8 mg tablet 1 tab PO Q24H Patient Comments: TAKE 1 TABLET BY MOUTH DAILY tamsulosin 0.4 MG capsule 0.4 mg PO QHS carvedilol 3.125 mg tablet 3.125 mg PO BID Qty: 60 11RF Rx Instructions: Hold for heart less than 50 or systolic blood pressure less than 90 mmHg. atorvastatin 20 mg tablet 20 mg PO DAILY Qty: 90 3RF rivaroxaban 15 mg tablet 15 mg PO DAILY Qty: 90 3RF Rx Instructions: must administer with evening meal Other Ambulatory Orders: 30 Day Event Recorder Preventi (Urgent) Timeframe: 1 Day Facility: [facility] - Location: Cardiovascular Services Ordered By: Dr. Joseluis Hernandez Referrals / Follow Up: Torey Kearney MD [Primary Care Provider] - Jay Ojeda MD [Med Staff - Active Staff] - Within 1 Month (To schedule tilt table test for vasovagal syncope.) Disposition Disposition (needs filled in before D/C Order can be placed): Home, Self Care Charges/Coding Visit Charges Inpatient E&M: 66857 Disch Hosp >30min
== END 2023-11-24 08:02 | disposition home or self-care (01) ==
LOC: ED 08:57 → PCU 10:24
PROVIDERS: Admitting Provider Internal Medicine; Emergency Provider Emergency Medicine; PCP Family Medicine; Visit Provider Internal Medicine
DX: R55 Syncope and collapse (principal); Z99.2 Dependence on renal dialysis; E11.22 Type 2 diabetes mellitus with diabetic chronic kidney disease; I12.0 Hypertensive chronic kidney disease with stage 5 chronic kidney disease or end stage renal disease; N18.6 End stage renal disease; I48.11 Longstanding persistent atrial fibrillation; I25.10 Atherosclerotic heart disease of native coronary artery without angina pectoris; E78.5 Hyperlipidemia, unspecified; Z87.891 Personal history of nicotine dependence; E87.1 Hypo-osmolality and hyponatremia; N40.0 Benign prostatic hyperplasia without lower urinary tract symptoms; Z79.899 Other long term (current) drug therapy; Z79.01 Long term (current) use of anticoagulants
CPT/HCPCS: 71045; 80048; 83735; 84100; 84484; 85025; 93005; 93306; 94668; 96360; 96361; 99221; 99285; J7030; Q9957; A4216; C8929; G0378

== ENCOUNTER → 2024-01-23 | Outpatient (CLI) | payer MEDICARE, OTHER, SELFPAY ==
[2024-01-23 14:49] LABS: Absolute Lymphocyte Count 0.79 X10^3/uL (0.83-4.51); Absolute Neutrophil Count 5.6 X10^3/uL (2.0-7.7); Basophil# 0.08 X10^3/uL; Eosinophil# 0.42 X10^3/uL; Eosinophils% 5.4 % (0-5); Hematocrit 32.8 % (40-54); Hemoglobin 11.1 g/dL (13.0-16.5); Lymphocyte # 0.79 X10^3/ul (0.83-4.51); Lymphocyte % 10.1 % (19-41); Mean Corp Hgb Conc 33.8 g/dL (32-36); Mean Corpuscular Hgb 34.7 pg (27.0-32.0); Mean Corpuscular Volume 102.5 fL (80-94); Mean Platelet Vol. 8.9 fl (6.2-12.0); Monocyte# 0.83 X10^3/uL; Monocyte% 10.7 % (0-10); NRBC Flagged by Analyzer 0 % (0-5); Neutrophil # 5.62 X10^3/uL (2.7-7.7); Neutrophil % 72.2 % (47-70); Platelet Count 247 K/mm3 (150-450); RBC Distribution Width CV 14.5 % (11.6-14.6); RBC Distribution Width SD 54.6 fl (35.1-43.9); White Blood Count 7.8 K/mm3 (4.4-11.0)
[2024-01-23 15:09] LABS: Anion Gap 9 (5-15); BUN 36 mg/dL (7-18); Calcium,Total 8.8 mg/dL (8.5-10.1); Chloride 94 mmol/L (98-107); Creatinine, Serum 3.61 mg/dL (0.70-1.30); EST Glomerular Filtration Rate 17 mL/min (>60); Est Glom Filt Rate - Afr Amer 21 mL/min (>60); Glucose 106 mg/dL (74-106); Potassium 4.1 mmol/L (3.5-5.1); Sodium Level 131 mmol/L (136-145)
--- OUTSIDE RECORDS SUMMARY | 2024-01-23 23:35 | XMS RPT_ITS | CCD ---
Author Name Unknown Address [address] [place] [address] Organization [facility] Care Team Providers Care Buckle Wire Inserter Name Role Phone SOFIA KINCAID E Unavailable Unavailable SOFIA KINCAID E Unavailable Unavailable CODI SOFIA Unavailable Unavailable GIOVANY KINCAIDNETH Unavailable Unavailable CEBUL, AKOSUA Unavailable Unavailable GIOVANY KINCAIDNETH Unavailable Unavailable SOFIA KINCAID Unavailable Unavailable CEBULAKOSUA Unavailable Unavailable Yovany Kearney MD Primary Care Provider Yovany Kearney MD Primary Care Provider Yovany Kearney MD Primary Care Provider YOVANY KEARNEY Primary Care Unavailab YOVANY Dunbar Referring Unavailab YOVANY Dunbar Attending UnavailYOVANY Rain Primary Care Unavailab YOVANY Dunbar Attending Unavailab YOVANY Dunbar Primary Care Unavailab YOVANY Dunbar Primary Care Unavailab YOVANY Dunbar Attending Unavailab YOVANY Dunbar Primary Care Unavailab CORNELIA Jain Attending Unavailable YOVANY KEARNEY Primary Care Unavailab YOVANY Dunbar Referring Unavailab le Allergies Allergy Classification Reported Allergen(s) Allergy Type Date of Onset Reaction(s) Facility (20 sources) AMOXICILLIN-POT CLAVULANATE; Translations: [AMOXICILLIN-POT CLAVULANATE] Propensity to adverse reactions to drug (disorder) 5 Unknown [facility] Other [facility] Medications Completed/Discontinued Medications Medication Drug Class(es) [...] disease (20 sources) Atherosclerotic heart disease of [place] coronary artery without angina pectoris; Translations: [Coronary atherosclerosis] Onset: 8 Chronic Delirium, dementia, and amnestic and other cognitive disorders (18 sources) Senile asthenia; Translations: [Age-related physical debility] [...] Chronic Hypertension with complications and secondary hypertension (3 sources) 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; Translations: [Hypertensive heart and chronic kidney disease without heart failure, with stage 5 chronic kidney disease, or end stage renal disease] Onset: 3 11-09-2023 Chronic Other circulatory disease (1 source) Low blood pressure; Translations: [Hypotension, unspecified] 08-20-2023 Episodic Other diseases of kidney and ureters (8 sources) Hyperparathyroidism due to renal insufficiency; Translations: [Secondary hyperparathyroidism of renal origin] Onset: 3 08-20-2023 Chronic Other diseases of kidney and ureters (1 source) Secondary hyperparathyroidism of renal origin; Translations: [Secondary hyperparathyroidism of renal origin (HCC)] Onset: 3 Chronic Unclassified (1 source) Unknown / UNK(Unknown) Onset: 8 Past or Other Problems Problem Classification Problem Date Documented Da te Episodic/Chronic E Codes: Fall (18 sources) Fall in home; Translations: [Unspecified fall, initial encounter] Onset: 12-16-2021 12-16-2021 Episodic Immunizations and screening for infectious disease (10 sources) Vaccination needed; Translations: [Encounter for immunization] Onset: 05-03-2023 Episodic Mycoses (10 sources) Onychomycosis; Translations: [Tinea unguium] Onset: 05-03-2023 05-03-2023 Episodic Other aftercare (20 sources) Long-term current use of anticoagulant; Translations: [dining car steward (current) use of anticoagulants] Onset: 12-14-2021 Episodic Other aftercare (1 source) senior living (current) use of anticoagulants; Translations: [Chronic anticoagulation] Onset: 12-14-2021 Episodic Other circulatory disease (1 source) Hypotension, unspecified; Translations: [Hypotension, unspecified hypotension type] Onset: 08-20-2023 Episodic Other nervous system disorders (18 sources) Abnormal gait; Translations: [Unsteadiness on feet] Onset: 12-16-2021 12-16-2021 Episodic Other non-epithelial cancer of skin (18 sources) 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; Translations: [Unspecified malignant neoplasm of skin of scalp and neck] Onset: 07-02-2015 07-02-2015 Episodic Syncope (4 sources) Syncope and collapse; Translations: [Syncope and collapse] Onset: 08-20-2023 08-20-2023 Episodic Results Test Name Value Interpretation Reference Range Facil ity Vital Signs Date Time Vital Sign Value Performing Clinician Romulo martinez 11-09-2023 12:55-0500 Body weight 71.76 kg Corneila Samson APRN.DELMA Work Phone: [facility] 11-09-2023 12:55-0500 Diastolic blood pressure 72 mm[Hg] Cornelia Samson APRN.CNP Work Phone: [facility] 11-09-2023 12:55-0500 Heart rate 73 /min Cornelia Samson APRN.CNP Work Phone: [facility] 11-09-2023 12:55-0500 Respiratory rate 16 /min Cornelia Podlogar IMPORT AND EXPORT CLERK.[employer]AD[employer] TEACHER Work Phone: [facility] 11-09-2023 12:55-0500 Systolic blood pressure 126 mm[Hg] Cornelia Podlogar IMPORT AND EXPORT CLERK.[employer]AD[employer] 7 AND 8 TEACHER Work Phone: [facility] 08-20-2023 08:37-0400 Body weight 70.31 kg Yovany Kearney MD Work Phone: [facility] 08-20-2023 08:37-0400 Diastolic blood pressure 76 mm[Hg] Yovany Kearney MD Work Phone: [facility] 08-20-2023 08:37-0400 Heart rate 73 /min Yovany Kearney MD Work Phone: [facility] 08-20-2023 08:37-0400 Respiratory rate 16 /min Yovany Kearney MD Work Phone: [facility] 08-20-2023 08:37-0400 SaO2% (BldA) [Mass fraction] 98 % Yovany Kearney MD Work Phone: [facility] 08-20-2023 08:37-0400 Systolic blood pressure 130 mm[Hg] Yovany Kearney MD Work Phone: [facility] 10-31-2022 08:34-0500 Body weight 73.3 kg Yovany Kearney MD Work Phone: [facility] 10-31-2022 08:34-0500 Diastolic blood pressure 72 mm[Hg] Yovany Kearney MD Work Phone: [facility] 10-31-2022 08:34-0500 Heart rate 73 /min Yovany Kearney MD Work Phone: [facility] 10-31-2022 08:34-0500 Respiratory rate 16 /min Yovany Kearney MD Work Phone: [facility] 10-31-2022 08:34-0500 SaO2% (BldA) [Mass fraction] 100 % Yovany Kearney MD Work Phone: [facility] 10-31-2022 08:34-0500 Systolic blood pressure 132 mm[Hg] Yovany Kearney MD Work Phone: [facility] 04-27-2022 14:37-0400 Diastolic blood pressure 64 mm[Hg] Yovany Kearney MD Work Phone: [facility] 04-27-2022 14:37-0400 Systolic blood pressure 136 mm[Hg] Yovany Kearney MD Work Phone: [facility] 04-27-2022 14:03-0400 Body weight 73.94 kg Yovany Kearney MD Work Phone: [facility] 04-27-2022 14:03-0400 Heart rate 65 /min Yovany Kearney MD Work Phone: [facility] 04-27-2022 14:03-0400 Respiratory rate 16 /min Yovany Kearney MD Work Phone: [facility] 04-27-2022 14:03-0400 SaO2% (BldA) [Mass fraction] 97 % Yovany Kearney MD Work Phone: [facility] Encounters Encounter Date Encounter Type Care Provider Facility Start: 11-30-2023 End: 12-01-2023 ambulatory YOVANY KEARNEY Facility:[facility] Start: 11-27-2023 ambulatory Yovany Kearney MD Work Phone: [facility] Start: 11-09-2023 End: 11-09-2023 ambulatory YOVANY KEARNEY Facility:[facility] Start: 11-09-2023 End: 11-09-2023 Patient encounter procedure Cornelia Samson APRN.[employer]AD[employer] 7 [employer] TEACHER Work Phone: [facility] Procedures Date Procedure Procedure Detail Performing Clinician Start: 11-09-2023 Dep-[facility] COVI D-19 VACCINE (2022- SEASON) AGE 12+ YR Cornelia Samson APRN.CNP Work Phone: Start: 08-20-2023 INFLUENZA VACCINE, P [...] 11-05-2024 Glaucoma screening Dilated Retinal E xam [facility] Start: 08-20-2024 Hepatitis B surface antibody level LDL Cholesterol [facility] Start: 05-03-2024 3 comp foot exam completed DIABETIC FOOT EXAM [facility] Start: 05-03-2024 Diabetic foot examination Diabetic F oot Exam [facility] Start: 05-03-2024 Urine microalbumin profile [facility] Immunizations Immunization Date Immunization Notes Care Provider Sole escamilla 11-09-2023 COVID-19 vaccine, ag e 12+ yr, season (PFIZER-BIONTECH) Cornelia Podlogkiara IMPORT AND EXPORT CLERK.GRAD[employer] 7 AND 8 TEACHER Work Phone: [facility] 08-20-2023 influenza (HD-IIV4) vaccine, age 65+ yr, high dose, quadrivalent, PF (FLUZONE HIGH-DOSE) Yovany Kearney MD Work Phone: [facility] 05-08-2023 COVID-19 vaccine, ag e 12+ yr, bivalent (PFIZER-BIONTECH) Yovany Kearney MD Work Phone: [facility] 10-31-2022 COVID-19 booster vaccine, age 12+ yr, bivalent (PFIZER-BIONTECH) Yovany Kearney MD Work Phone: [facility] 10-31-2022 influenza, high-dose , quadrivalent vaccine (FLUZONE HIGH DOSE QUADRIVALENT) Yovany Kearney MD Work Phone: [facility] 07-20-2022 zoster vaccine recombinant Mi Nurse Work Phone: [facility] Work Phone: 05-11-2022 zoster vaccine recombinant Mi Nurse Work Phone: [facility] Work Phone: 10-14-2021 influenza, high-dose , quadrivalent vaccine (FLUZONE HIGH DOSE QUADRIVALENT) Yovany Kearney MD Work Phone: [facility] 01-20-2021 COVID-19 vaccine, fu ll dose (MODERNA) Yovany Kearney MD Work Phone: [facility] 12-23-2020 COVID-19 vaccine, fu ll dose (MODERNA) Yovany Kearney MD Work Phone: [facility] 09-18-2020 influenza, high-dose , quadrivalent vaccine (FLUZONE HIGH DOSE QUADRIVALENT) Yovany Kearney MD Work Phone: [facility] 09-22-2019 influenza, high dose seasonal, preservative-free Yovany Kearney MD Work Phone: [facility] 08-22-2018 influenza, high dose seasonal, preservative-free Yovany eKarney MD Work Phone: [facility] Work Phone: 08-13-2017 influenza, high dose seasonal, preservative-free Yovany Kearney MD Work Phone: [facility] 02-05-2017 pneumococcal polysaccharide vaccine, 23 valent Yovany Kearney MD Work Phone: [facility] Work Phone: 09-16-2015 influenza, high dose seasonal, preservative-free Yovany Kearney MD Work Phone: [facility] 06-23-2015 pneumococcal conjuga te vaccine, 13 valent Yovany Kearney MD Work Phone: [facility] 08-31-2014 influenza, seasonal, injectable Yovany Kearney MD Work Phone: [facility] 08-27-2013 influenza virus vaccine, unspecified formulation Yovany Kearney MD Work Phone: [facility] Work Phone: 11-27-2012 zoster vaccine, live Gabriel Kearney MD Work Phone: [facility] 09-14-2012 influenza virus vaccine, unspecified formulation Yovany Kearney MD Work Phone: [facility] 09-11-2011 influenza virus vaccine, unspecified formulation Yovany Kearney MD Work Phone: [facility] Work Phone: 08-25-2010 influenza virus vaccine, unspecified formulation Yovany Kearney MD Work Phone: [facility] 09-10-2009 influenza virus vaccine, unspecified formulation Yovany Kearney MD Work Phone: [facility] Work Phone: 05-18-2009 tetanus and diphther ia toxoids, adsorbed, preservative free, for adult use (2 Lf of tetanus toxoid and 2 Lf of diphtheria toxoid) Yovany Kearney MD Work Phone: [facility] 10-10-2008 influenza virus vaccine, unspecified formulation Yovany Kearney MD Work Phone: [facility] Work Phone: 11-10-2005 influenza virus vaccine, unspecified formulation Yovany Kearney MD Work Phone: [facility] Work Phone: 10-01-2004 influenza virus vaccine, whole virus Yovany Kearney MD Work Phone: [facility] 12-14-2003 pneumococcal polysaccharide vaccine, 23 valent Yovany Kearney MD Work Phone: [facility] Payers Date Payer Category Payer Private Health Insurance [employer] [id number] 2021-Present [phone] [address] [place] [address] [facility] [id number] 2021 Private Health Insurance [employer] [id number] 2021-Present [phone] [address] [place] [address] HMO [id number] 2021 [facility] [id number] 2004 Medicare MEDICARE MEDICAR E A AND B [id number] 2004-Present [phone] [place] [address] Medicare [id number] 2004 Medicare MEDICARE MEDICAR E A AND B [id number] 2004-Present [phone] [place] [address] Medicare [id number] 2004 Medicare [id number] Medicare [id number] Social History Date Type Detail Facility Start: 04-27-2021 End: 10-31-2022 Tobacco smoking status NHIS Ex-smoker [facility] Work Phone: End: 04-27-1961 History of tobacco use Current smoker [facility] Work Phone: Start: 04-27-2021 End: 10-31-2022 Tobacco use and exposure Former smokeless tobacco user [facility] Work Phone: History of tobacco use [facility] Work Phone: Start: 04-27-2022 End: 11-09-2023 Alcohol intake Ex-drinker (finding) [facility] Start: 04-27-2022 End: 10-31-2022 Tobacco Comment not active user [facility] Start: 1940 Sex Assigned At Not on file [facility] Start: 04-17-2022 End: 04-27-2022 Exposure to SARS-CoV-2 (event) Not sure [facility] Start: 05-03-2023 End: 11-30-2023 History of Social function [facility] Work Phone: Start: 05-03-2023 End: 11-30-2023 Tobacco use panel [facility] Work Phone: Adult Depression Screening Assessment 0 [facility] Work Phone: Medical Equipment Procedure Code Equipment Code Equipment Origin al Text Equipment Identifier Dates Use as instructe d once daily Start: 10-27-2021 End: 03-12-2023 Clinical Notes 07-19-2016 to 11-30-2023 Katelynn Barron, MA - 11/27/2023 3:51 PM ESTCornelia Samson APRN.[employer]AD[employer] 7 [employer] 8 TEACHER - 11/09/2023 1:07 PM ESTTelephone Encounter - Irina Rey LPN - 09/18/2023 9:58 AM EDT Note Date & Type Note Facility 11-30-2023 Note HNO ID: [id number] Author: YOVANY KEARNEY MD Service: ? Author Type: Physician Type: Progress Notes Filed: 11/30/2023 09:31 Note Text: Chief Complaint Patient presents with: Transition Of Care: TCM-Hosp follow up HPI Lela Salcido is a 83 year old male who presents here today for Above Complaints. Accompanied today by and daughter. Patient admitted to [facility] from 11/23 to 11/24 for recurrent syncopal episodes (3 over period of 15 minutes). Admitted to PCU. Orthostatic vitals negative. Troponin's negative x2. Cardiology consulted. 2D echo showed EF 55-60% without changes from previous. Lowest dose of Coreg resumed with hold parameters in place. Cardiology ordered 30 day holter and tilt table testing to be completed on discharge. F/u with Dr. Ojeda's office in 1 month. Recommended f/u with our office in 1-2 weeks. Since discharge, patient has not had any recurrent syncope, lightheadedness/dizziness, chest pain, palpitations, or SOB, nausea, vomiting, diarrhea. Patient states that they called him yesterday and Holter is in the mail, but has not received it yet. Has not scheduled tilt table yet. Appointment with cardiology on 12/17. Tolerating PO diet. Pushing PO fluids. Sugars have been in good range. Checking 2-3 times per week when fasting. Denies sugars <70 or hypoglycemia symptoms. TRANSITION CARE MANAGEMENT (TCM) INITIAL CONTACT Cold Roll Inspector Outreach Provider Action/FYI: Patient was admitted to the hospital on 11/23/2023 for syncope and collaspe and D/C on 11/24/2023. Was instructed to follow up with PCP and Dr. Ojeda office. Patient indicated that he has an appointment with [facility] but not until 12/17/2022. Patient indicated that he really doesn't want to wait that long for the appointment. He is concerned because he passed out and his heart stopped Patient wanted an appointment this week with the PCP. Initial contact with patient post discharge, spoke to patient. Patient identified by name and . TRANSITION CARE MANAGEMENT INITIAL OUTREACH DOCUMENTATION: No flowsheet data found. SUMMARY: -Pt discharged from [facility] on 11/24/2023. -Admitted for: Recurrent syncope Do you have a hospital follow up appointment with your PCP? Appointment on 11/30/[address] Kearney. Yes. Remind patient of appointment date, time, and location. If not within 14 calendar days of discharge - please reschedule accordingly. MEDICATIONS: Many patients have questions or concerns about their medications once they are home. Were you prescribed any new medications? No Were you told to hold any medications? No Were any of your medications discontinued? No Do you have any questions about getting or taking your medications? No Your discharge instructions/After visit Summary (AVS) are important in guiding you through the recovery process. Is there anything I might help you understand? No Do you have all the necessary equipment and supplies at home? Yes Medical records from recent hospitalization: Placed for provider to review Past medical history, appointments, medications, allergies reviewed. Previous Medical History PAST MEDICAL HISTORY Diagnosis Date Basal cell carcinoma (BCC) of skin of neck 06/2015 Benign non-nodular prostatic hyperplasia with lower urinary tract symptoms 07/19/2016 Chronic anticoagulation CKD (chronic kidney disease), stage IV (HCC) Dr. Bertrand Coronary artery disease involving [place] coronary artery of [place] heart without angina pectoris [facility] Cyst of epididymis 06/23/2015 Diverticulosis of colon (without mention of hemorrhage) Diverticulosis Essential hypertension, benign Hyperlipidemia LDL goal <100 11/10/2005 Onychomycosis Paroxysmal atrial fibrillation (HCC) 02/2021 Dr. Ojeda Type II diabetes mellitus (HCC) 11/10/2005 Unspecified hemorrhoids without mention of complication Hemorrhoids Previous Surgical History PAST SURGICAL HISTORY Procedure Laterality Date COLONOSCOPY FLX DX W/COLLJ SPEC WHEN PFRMD 01/30/2005 Colonoscopy-repeat in 3-2014 MAL LESION NECK,HAND,SCAL 1.1-2CM Left 07/14/2015 Exc. [...] [Other]) Daughter Patient Allergies ALLERGIES Allergen Reactions Augmenti (more content not included)... [facility] 11-27-2023 Note HNO ID: [id number] Author: KATELYNN BARRON MA Service: ? Author Type: Cold Roll Inspector Type: Progress Notes Filed: 12/28/2023 03:06 Note Text: TRANSITION CARE MANAGEMENT (TCM) INITIAL CONTACT Cold Roll Inspector Outreach Provider Action/FYI: Patient was admitted to the hospital on 11/23/2023 for syncope and collaspe and D/C on 11/24/2023. Was instructed to follow up with PCP and Dr. Ojeda office. Patient indicated that he has an appointment with [facility] but not until 12/17/2022. Patient indicated that he really doesn't want to wait that long for the appointment. He is concerned because he passed out and his heart stopped Patient wanted an appointment this week with the PCP. Initial contact with patient post discharge, spoke to patient. Patient identified by name and . TRANSITION CARE MANAGEMENT INITIAL OUTREACH DOCUMENTATION: No flowsheet data found. SUMMARY: -Pt discharged from [facility] on 11/24/2023. -Admitted for: Recurrent syncope Do you have a hospital follow up appointment with your PCP? Appointment on 11/30/[address] Kearney. Yes. Remind patient of appointment date, time, and location. If not within 14 calendar days of discharge - please reschedule accordingly. MEDICATIONS: Many patients have questions or concerns about their medications once they are home. Were you prescribed any new medications? No Were you told to hold any medications? No Were any of your medications discontinued? No Do you have any questions about getting or taking your medications? No Your discharge instructions/After visit Summary (AVS) are important in guiding you through the recovery process. Is there anything I might help you understand? No Do you have all the necessary equipment and supplies at home? Yes Medical records from recent hospitalization: Placed for provider to review [facility] 11-27-2023 History of Present illness Narrative TRANSITION CARE MANAGEMENT (TCM) INITIAL CONTACT Cold Roll Inspector Outreach Provider Action/FYI: Patient was admitted to the hospital on 11/23/2023 for syncope and collaspe and D/C on 11/24/2023. Was instructed to follow up with PCP and Dr. Ojeda office. Patient indicated that he has an appointment with [facility] but not until 12/17/2022. Patient indicated that he really doesn't want to wait that long for the appointment. He is concerned because he passed out and his heart stopped Patient wanted an appointment this week with the PCP. Initial contact with patient post discharge, spoke to patient. Patient identified by name and . TRANSITION CARE MANAGEMENT INITIAL OUTREACH DOCUMENTATION: No flowsheet data found. SUMMARY: -Pt discharged from [facility] on 11/24/2023. -Admitted for: Recurrent syncope Do you have a hospital follow up appointment with your PCP? Appointment on 11/30/[address] Kearney. Yes. Remind patient of appointment date, time, and location. If not within 14 calendar days of discharge - please reschedule accordingly. MEDICATIONS: Many patients have questions or concerns about their medications once they are home. Were you prescribed any new medications? No Were you told to hold any medications? No Were any of your medications discontinued? No Do you have any questions about getting or taking your medications? No Your discharge instructions/After visit Summary (AVS) are important in guiding you through the recovery process. Is there anything I might help you understand? No Do you have all the necessary equipment and supplies at home? Yes Medical records from recent hospitalization: Placed for provider to review documented in this encounter [facility] 11-27-2023 Note Patient Outreach (FA MPWS) LELA SALCIDO ([id number]) 1940 M Date Time Provider Department 11/27/23 YOVANY KEARNEY During your visit today, we recorded the following information about you: Katelynn Barron MA 12/28/2023 3:06 AM Signed TRANSITION CARE MANAGEMENT (TCM) INITIAL CONTACT Cold Roll Inspector Outreach Provider Action/FYI: Patient was admitted to the hospital on 11/23/2023 for syncope and collaspe and D/C on 11/24/2023. Was instructed to follow up with PCP and Dr. Ojeda office. Patient indicated that he has an appointment with [facility] but not until 12/17/2022. Patient indicated that he really doesn't want to wait that long for the appointment. He is concerned because he passed out and his heart stopped Patient wanted an appointment this week with the PCP. Initial contact with patient post discharge, spoke to patient. Patient identified by name and . TRANSITION CARE MANAGEMENT INITIAL OUTREACH DOCUMENTATION: No flowsheet data found. SUMMARY: -Pt discharged from [facility] on 11/24/2023. -Admitted for: Recurrent syncope Do you have a hospital follow up appointment with your PCP? Appointment on 11/30/[address] Kearney. Yes. Remind patient of appointment date, time, and location. If not within 14 calendar days of discharge - please reschedule accordingly. MEDICATIONS: Many patients have questions or concerns about their medications once they are home. Were you prescribed any new medications? No Were you told to hold any medications? No Were any of your medications discontinued? No Do you have any questions about getting or taking your medications? No Your discharge instructions/After visit Summary (AVS) are important in guiding you through the recovery process. Is there anything I might help you understand? No Do you have all the necessary equipment and supplies at home? Yes Medical records from recent hospitalization: Placed for provider to review Allergies As of Date: 11/27/2023 Noted Allergy Reaction AUGMENTIN (AMOXICILLIN-POT CLAVUL*07/26/2015 16 - Unknown Comments: Pt had fever Date Reviewed: 11/09/2023 Reviewed by: Ritu Tucker LPN - Fully Assessed Prescriptions as of 12/28/2023 - atorvastatin (LIPITOR) 20 mg tablet Take 1 tablet by mouth once daily. For cholesterol. - tamsulosin (FLOMAX) 0.4 mg Take 1 capsule by mouth daily at bedtime. - RENAL VITAMIN 0.8 mg tab Take 1 tablet by mouth every afternoon. - blood sugar diagnostic (FREESTYLE TEST) test strip Use as instructed once daily - calcitriol (ROCALTROL) 0.25 mcg capsule Take 0.25 mcg by mouth once daily. - ferrous sulfate 325 mg (65 mg iron) tablet Take 325 mg by mouth daily with breakfast. - finasteride (PROSCAR) 5 mg tablet Take 1 tablet by mouth once daily. - rivaroxaban (XARELTO) 15 mg tablet Take 1 tablet by mouth daily with dinner. - carvedilol (COREG) 3.125 mg tablet Take 3.125 mg by mouth twice daily. Problem List As Of Date 11/27/2023 Noted Resolved Unspecified hemorrhoids without mention of comp* 12/25/2014 BENIGN HYPERTENSION [I10] Hyperlipidemia LDL goal <100 [E78.5] 11/10/2005 Disorders of bursae and tendons in shoulder reg*11/10/2005 12/25/2014 Controlled type 2 diabetes mellitus with stage *11/10/2005 Coronary atherosclerosis [I25.10] 06/22/2008 Cyst of epididymis [N50.3] 06/23/2015 05/07/2017 Cancer of skin of neck [C44.40] 07/02/2015 Atherosclerosis of coronary artery of [place] he*11/29/2015 Hyperkalemia [E87.5] 07/19/2016 05/07/2017 Benign non-nodular prostatic hyperplasia with l*07/19/2016 CKD (chronic kidney disease), stage IV (HCC) [N* Paroxysmal atrial fibrillation (HCC) [I48.0] Chronic anticoagulation [Z79.01] 12/14/2021 Fall at home [W19.XXXA, Y92.009] 12/16/2021 Unsteady gait [R26.81] 12/16/2021 Age-related physical debility [R54] 12/16/2021 Onychomycosis [B35.1] 05/03/2023 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, [facility] on 12/28/23 [facility] 11-09-2023 Note HNO ID: [id number] Author: Cornelia Samson APRN.[employer] Service: ? Author Type: Nurse Practitioner Type: [...] three days a week. CAD/A-fib: follows with [facility] cardiology with last office visit on 08/15/2023. [...] CKD (chronic kidney disease), stage IV ([facility]) Dr. Bertrand Coronary artery disease involving [place] coronary artery of [place] heart without angina pectoris [facility] Cyst of epididymis 06/23/2015 Diverticulosis of colon (without mention of hemorrhage) Diverticulosis Essential hypertension, benign Hyperlipidemia LDL goal <100 11/10/2005 Onychomycosis Paroxysmal atrial fibrillation (HCC) 02/2021 Dr. Ojeda Type II diabetes mellitus ([facility]) 11/10/2005 Unspecified hemorrhoids without mention of complication [...] without long-term current use of insulin ([facility]) - ICD9: 250.40, 585.9, V45.11, ICD10: E11.22, N18.6, Z99.2 (primary diagnosis) - Controlled - Blood glucose monitoring on a once daily schedule - Counseled o (more content not included)... [facility] 11-09-2023 History of Present illness Narrative 11/09/2023 [...] three days a week. CAD/A-fib: follows with [facility] cardiology with last office visit on 08/15/2023. [...] CKD (chronic kidney disease), stage IV ([facility]) Dr. Bertrand Coronary artery disease involving [place] coronary artery of [place] heart without angina pectoris [facility] Cyst of epididymis 06/23/2015 Diverticulosis of colon (without mention of hemorrhage) Diverticulosis Essential hypertension, benign Hyperlipidemia LDL goal <100 11/10/2005 Onychomycosis Paroxysmal atrial fibrillation (HCC) 02/2021 Dr. Ojeda Type II diabetes mellitus ([facility]) 11/10/2005 Unspecified hemorrhoids without mention of complication [...] immunization - ICD9: V03.89, ICD10: Z23 - [employer] COVID-19 VACCINE (2022- SEASON) AGE 12+ YR [...] medication 8. Atherosclerosis of coronary artery of [place] heart without angina pectoris, unspecified vessel or [...] which included preparing to see the patient, [id number] patient care, completing clinical documentation, obtaining and/or reviewing separately obtained history, performing a medically appropriate examination, counseling and educating the patient/family/caregiver, and ordering medications, tests, or procedures. documented in this encounter [facility] 09-18-2023 Miscellaneous Notes Carly from [facility] calling requesting copy of immunization record for flu shot information to be faxed to [phone]. Printed and faxed as requested. documented in this encounter [facility] 09-07-2023 Miscellaneous Notes Pt called and is [...] year. Continue statin. documented in this encounter [facility] 08-21-2023 Miscellaneous Notes message sent. Elin Ibarra MA ----- Message from Yovany Kearney MD sent at 08/21/2023 8:06 AM EDT ----- Normal cholesterol with LDL <70 and A1c in normal range without rx for history of DM. No change in regimen. documented in this encounter [facility] 08-20-2023 Note HNO ID: [id number] Author: Yovany Kearney MD Service: ? Author Type: Physician Type: Progress Notes Filed: 08/20/2023 9:45 AM Note Text: Chief Complaint Patient presents with: ER F/U: Patient to ER on 08/10/22 for syncope episode in worship. Patient returned to ER for similar episode on 08/17/23 but did not pass out. Amlodipine was discontinued on 08/10/23. HPI Lela Salcido is a 83 year old male who presents here today for hospitalization and then subsequent ER Follow Up.. Accompanied today by and daughter. Patient admitted to [facility] from ED from 08/10 to 08/11 and then evalauted again in the ED on on 08/17 for an episode of syncope while at worship and then an episode of presyncope 1 [...] complained of feeling lightheaded after sitting in worship for more than an hour, but did not pass out. Symptoms improved after he went downstairs at worship. VSS in the ED. Blood work unremarkable. [...] (HCC) Dr. Bertrand Coronary artery disease involving [place] coronary artery of [place] heart without angina pectoris [facility] [...] Use Topics Alcoh (more content not included)... [facility] 08-20-2023 History of Present illness Narrative Chief Complaint Patient presents with: ER F/U: Patient to ER on 08/10/22 for syncope episode in worship. Patient returned to ER for similar episode on 08/17/23 but did not pass out. Amlodipine was discontinued on 08/10/23. HPI Lela Salcido is a 83 year old male who presents here today for hospitalization and then subsequent ER Follow Up.. Accompanied today by and daughter. Patient admitted to [facility] from ED from 08/10 to 08/11 and then evalauted again in the ED on on 08/17 for an episode of syncope while at worship and then an episode of presyncope 1 [...] complained of feeling lightheaded after sitting in worship for more than an hour, but did not pass out. Symptoms improved after he went downstairs at worship. VSS in the ED. Blood work unremarkable. [...] (HCC) Dr. Bertrand Coronary artery disease involving [place] coronary artery of [place] heart without angina pectoris [facility] Cyst of epididymis 06/23/2015 Diverticulosis [...] BP Position BP Site BP Cuff Size 08/20/2313 130/70 74 -- -- Standing Right Arm Large Adult 08/20/23 0912 138/70 77 -- -- Supine Right Arm Large Adult 08/20/2337 -- -- 130/76 73 -- -- -- Peak Flow Date and Time PF Resp 08/20/2337 -- 16 General Appearance: Well appearing, alert, [...] Advised pushing PO fluids, eating prior to worship, and getting up and moving around so [...] regimen. 4. Atherosclerosis of coronary artery of [place] heart without angina pectoris, unspecified vessel or [...] which included preparing to see the patient, [id number] patient care, completing clinical documentation, obtaining and/or reviewing separately obtained history, performing a medically appropriate examination, counseling and educating the patient/family/caregiver, and ordering medications, tests, or procedures. Yovany Kearney MD documented in this encounter [facility] 05-17-2023 Miscellaneous Notes Patient phones requesting refills as follows: Requested Prescriptions Pending Prescriptions Disp Refills tamsulosin (FLOMAX) 0.4 mg 30 capsule 5 Sig: Take 1 capsule by mouth daily at bedtime. SHONNA 05/03/23 NOV 11/09/23 Please review and advise. Yary Solis LPN documented in this encounter [facility] 05-16-2023 Miscellaneous Notes Patient notified and verbalized [...] further recommendations. Lipid and A1C received from [facility]. Given to Dr. Kearney for review. Elin Ibarra MA documented in this encounter [facility] 05-03-2023 Note HNO ID: [id number] Author: Yovany Kearney MD Service: ? Author [...] statin, beta silvestre, and Xarelto. Managed by [facility] cardiology. Denies bleeing or bruising with anticoagulation. [...] (HCC) Dr. Bertrand Coronary artery disease involving [place] coronary artery of [place] heart without angina pectoris [facility] Cyst of epididymis 06/23/2015 Diverticulosis [...] Social History Soc (more content not included)... [facility] 03-12-2023 Miscellaneous Notes Patient walked in requesting refill on test strips. Rx sent to [facility]. documented in this encounter [facility] 11-16-2022 Miscellaneous Notes Patient has been identified [...] advise. Sana Sherwood documented in this encounter [facility] 11-01-2022 Miscellaneous Notes Spoke with and information listed below given. verbalizes understanding. Luisa Farr LPN Message left for patient to call back for update. Ritu Tucker LPN ----- Message from Yovany Kearney MD sent at 10/31/2022 5:23 PM EST ----- Diabetes well controlled. A1c down to 6.1. continue current regimen. documented in this encounter [facility] 10-31-2022 History of Present illness Narrative Chief [...] (HCC) Dr. Bertrand Coronary artery disease involving [place] coronary artery of [place] heart without angina pectoris [facility] Cyst of epididymis 06/23/2015 Diverticulosis [...] arise. - Discussed diabetic education issues of assisted diabetic complications, hypoglycemic symptoms, hyperglycemic symptoms, diet, medications- side effects and need for compliance, importance of exercise, and importance of annual examinations with Opthalmology with patient. - HGB A1C 2. Atherosclerosis of coronary artery of [place] heart without angina pectoris, unspecified vessel or [...] Yovany Kearney MD documented in this encounter [facility] 07-20-2022 History of Present illness Narrative Patient presents for Shingrix vaccine. Denies any problems at this time. Tolerated injection well. Ramandeep Escobar LPN documented in this encounter [facility] 07-04-2022 Miscellaneous Notes Order approved as requested. Patient scheduled for nurse visit 07/20/22 to receive Shingrix vaccine. Please place order at this time. Ramandeep Escobar LPN documented in this encounter [facility] 05-11-2022 Miscellaneous Notes Pt called and is [...] Ramandeep Escobar LPN documented in this encounter [facility] 05-11-2022 History of Present illness Narrative Manual [...] Ramandeep Escobar LPN documented in this encounter [facility] 05-03-2022 Miscellaneous Notes Order for shingrix vaccine filed. Cornelia Samson APRN.DELMA Patient scheduled for nurse visit 05/11/22 to receive Shingrix vaccine. Please place order at this time. Ramandeep Escobar LPN documented in this encounter [facility] 04-27-2022 History of Present illness Narrative Chief [...] stage IV (HCC) Coronary artery disease involving [place] coronary artery of [place] heart without angina pectoris [facility] Cyst of epididymis 06/23/2015 Diverticulosis [...] arise. - Discussed diabetic education issues of assisted diabetic complications, hypoglycemic symptoms, hyperglycemic symptoms, diet, [...] NONFASTING 4. Atherosclerosis of coronary artery of [place] heart without angina pectoris, unspecified vessel or [...] Yovany Kearney MD documented in this encounter [facility] documented as of this encounter (statuses as of 05/02/2022) [facility] History of Past illness Narrative* Problem Noted Date Resolved Date Hyperkalemia 07/19/2016 05/07/2017 Cyst of epididymis 06/23/2015 05/07/2017 Disorders of bursae and tend ons in shoulder region, unspecified 11/10/2005 12/25/2014 Unspecified hemorrhoids without mention of compl ication 12/25/2014 documented as of this encounter (statuses as of 05/03/2022) [facility] History of Past illness Narrative* Problem Noted Date Resolved Date Hyperkalemia 07/19/2016 05/07/2017 Cyst of epididymis 06/23/2015 05/07/2017 Disorders of bursae and tend ons in shoulder region, unspecified 11/10/2005 12/25/2014 Unspecified hemorrhoids without mention of compl ication 12/25/2014 documented as of this encounter (statuses as of 05/11/2022) [place] [id number] History of Past illness Narrative* Problem Noted Date Resolved Date Hyperkalemia 07/19/2016 05/07/2017 Cyst of epididymis 06/23/2015 05/07/2017 Disorders of bursae and tend ons in shoulder region, unspecified 11/10/2005 12/25/2014 Unspecified hemorrhoids without mention of compl ication 12/25/2014 documented as of this encounter (statuses as of 05/11/2022) [place] [id number] History of Past illness Narrative* Problem Noted Date Resolved Date Hyperkalemia 07/19/2016 05/07/2017 Cyst of epididymis 06/23/2015 05/07/2017 Disorders of bursae and tend ons in shoulder region, unspecified 11/10/2005 12/25/2014 Unspecified hemorrhoids without mention of compl ication 12/25/2014 documented as of this encounter (statuses as of 07/04/2022) [place] [id number] History of Past illness Narrative* Problem Noted Date Resolved Date Hyperkalemia 07/19/2016 05/07/2017 Cyst of epididymis 06/23/2015 05/07/2017 Disorders of bursae and tend ons in shoulder region, unspecified 11/10/2005 12/25/2014 Unspecified hemorrhoids without mention of compl ication 12/25/2014 documented as of this encounter (statuses as of 07/20/2022) [place] [id number] History of Past illness Narrative* Problem Noted Date Resolved Date Hyperkalemia 07/19/2016 05/07/2017 Cyst of epididymis 06/23/2015 05/07/2017 Disorders of bursae and tend ons in shoulder region, unspecified 11/10/2005 12/25/2014 Unspecified hemorrhoids without mention of compl ication 12/25/2014 documented as of this encounter (statuses as of 10/31/2022) [address]24-2016 History of Past illness Narrative* Problem Noted Date Resolved Date Hyperkalemia 07/19/2016 05/07/2017 Cyst of epididymis 06/23/2015 05/07/2017 Disorders of bursae and tend ons in shoulder region, unspecified 11/10/2005 12/25/2014 Unspecified hemorrhoids without mention of compl ication 12/25/2014 documented as of this encounter (statuses as of 11/01/2022) [facility] History of Past illness Narrative* Problem Noted Date Resolved Date Hyperkalemia 07/19/2016 05/07/2017 Cyst of epididymis 06/23/2015 05/07/2017 Disorders of bursae and tend ons in shoulder region, unspecified 11/10/2005 12/25/2014 Unspecified hemorrhoids without mention of compl ication 12/25/2014 documented as of this encounter (statuses as of 11/17/2022) [address]24-2016 History of Past illness Narrative* Problem Noted Date Resolved Date Hyperkalemia 07/19/2016 05/07/2017 Cyst of epididymis 06/23/2015 05/07/2017 Disorders of bursae and tend ons in shoulder region, unspecified 11/10/2005 12/25/2014 Unspecified hemorrhoids without mention of compl ication 12/25/2014 documented as of this encounter (statuses as of 05/16/2023) [facility] History of Past illness Narrative* Problem Noted Date Resolved Date Hyperkalemia 07/19/2016 05/07/2017 Cyst of epididymis 06/23/2015 05/07/2017 Disorders of bursae and tend ons in shoulder region, unspecified 11/10/2005 12/25/2014 Unspecified hemorrhoids without mention of compl ication 12/25/2014 documented as of this encounter (statuses as of 05/17/2023) [facility] History of Past illness Narrative* Problem Noted Date Diagnosed Date Resolved Date Hyperkalemia 07/19/2016 05/07/2017 Cyst of epididymis 06/23/2015 7 Disorders of bursae and tend ons in shoulder region, unspecified 11/10/2005 12/25/2014 Unspecified hemorrhoids with out mention of complication 12/25/2014 documented as of this encounter (statuses as of 07/04/2023) [address]24-2016 History of Past illness Narrative* Problem Noted Date Diagnosed Date Resolved Date Hyperkalemia 07/19/2016 05/07/2017 Cyst of epididymis 06/23/2015 7 Disorders of bursae and tend ons in shoulder region, unspecified 11/10/2005 12/25/2014 Unspecified hemorrhoids with out mention of complication 12/25/2014 documented as of this encounter (statuses as of 08/20/2023) [address]24-2016 History of Past illness Narrative* Problem Noted Date Diagnosed Date Resolved Date Hyperkalemia 07/19/2016 05/07/2017 Cyst of epididymis 06/23/2015 7 Disorders of bursae and tend ons in shoulder region, unspecified 11/10/2005 12/25/2014 Unspecified hemorrhoids with out mention of complication 12/25/2014 documented as of this encounter (statuses as of 08/21/2023) [address]24-2016 History of Past illness Narrative* Problem Noted Date Diagnosed Date Resolved Date Hyperkalemia 07/19/2016 05/07/2017 Cyst of epididymis 06/23/2015 7 Disorders of bursae and tend ons in shoulder region, unspecified 11/10/2005 12/25/2014 Unspecified hemorrhoids with out mention of complication 12/25/2014 documented as of this encounter (statuses as of 09/07/2023) [place] [address]-24-2016 History of Past illness Narrative* Problem Noted Date Diagnosed Date Resolved Date Hyperkalemia 07/19/2016 05/07/2017 Cyst of epididymis 06/23/2015 7 Disorders of bursae and tend ons in shoulder region, unspecified 11/10/2005 12/25/2014 Unspecified hemorrhoids with out mention of complication 12/25/2014 documented as of this encounter (statuses as of 09/18/2023) [place] [address]24-2016 History of Past illness Narrative* Problem Noted Date Diagnosed Date Resolved Date Hyperkalemia 07/19/2016 05/07/2017 Cyst of epididymis 06/23/2015 7 Disorders of bursae and tend ons in shoulder region, unspecified 11/10/2005 12/25/2014 Unspecified hemorrhoids with out mention of complication 12/25/2014 documented as of this encounter (statuses as of 11/10/2023) [address]24[address]2016 History of Past illness Narrative* Problem Noted Date Diagnosed Date Resolved Date Hyperkalemia 07/19/2016 05/07/2017 Cyst of epididymis 06/23/2015 7 Disorders of bursae and tend ons in shoulder region, unspecified 11/10/2005 12/25/2014 Unspecified hemorrhoids with out mention of complication 12/25/2014 documented as of this encounter (statuses as of 12/28/2023) [facility] Diagnosis 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, without long-term current use of insulin (HCC)- Primary Essential hypertension, benign Hyperlipidemia LDL goal <100 Other and unspecified hyperlipidemia Atherosclerosis of coronary artery of [place] heart without angina pectoris, unspecified vessel or lesion type Paroxysmal atrial fibrillation (HCC) Atrial fibrillation Chronic anticoagulation Long-term (current) use of anticoagulants CKD (chronic kidney disease), stage IV (HCC) Chronic kidney disease, Stage IV (severe) Benign non-nodular prostatic hyperplasia with lower urinary tract symptoms [facility] Need for vaccination- Primary Need for prophylactic vaccination and inoculation against unspecified single disease [facility] Diagnosis Essential hypertension, benign- Primary Need for vaccination Need for prophylactic vaccination and inoculation against unspecified single disease [facility] Diagnosis Encounter for immunization- Primary Need for other specified prophylactic vaccination against single bacterial disease [facility] Encounter for immunization- Primary Need for other specified prophylactic vaccination against single bacterial disease [facility] Diagnosis 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, without long-term current use of insulin (HCC)- Primary Atherosclerosis of coronary artery of [place] heart without angina pectoris, unspecified vessel or lesion type Paroxysmal atrial fibrillation (HCC) Atrial fibrillation CKD (chronic kidney disease), stage IV (HCC) Chronic kidney disease, Stage IV (severe) Essential hypertension, benign Hyperlipidemia LDL goal <100 Other and unspecified hyperlipidemia Encounter for immunization Need for other specified prophylactic vaccination against single bacterial disease Need for COVID-19 vaccine [facility] Diagnosis Benign non-nodular prostatic hyperplasia with lower urinary tract symptoms [facility] Diagnosis Benign non-nodular prostatic hyperplasia with lower urinary tract symptoms [facility] Diagnosis 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, without long-term current use of insulin (HCC) [facility] Diagnosis Syncope and collapse- Primary Near syncope Syncope and collapse Hypotension, unspecified hypotension type Atherosclerosis of coronary artery of [place] heart without angina pectoris, unspecified vessel or [...] (of renal origin) [facility] Diagnosis Controlled type 2 diabetes mellitus [...] of anticoagulants Atherosclerosis of coronary artery of [place] heart without angina pectoris, unspecified vessel or lesion type Benign non-nodular prostatic hyperplasia with lower urinary tract symptoms [facility] Outpatient Procedure (Routine) - Authorized Specialty Diagnoses / Procedures Referred By Christin coffman [facility] Diagnoses Syncope and collapse Near syncope Procedures US CAROTID ARTERIES MJ VAS LAB DUPLEX SCAN EXTRACRANIAL ART COMPL BI STUDY Yovany Kearney MD [address] [place] [address] [facility] [place] [address] [place] [id number] Referral ID Status Reason Start Date Expiration Date Visits Requested Visits Authorized [id number] Authorized Auto-Generat ed Referral 08/20/2023 08/19/2024 1 1 [facility] Summary Purpose Family History No Family History Records FoundNo Family History Records FoundNo Family History Records Found Advance Directives No Advanced Directives Records FoundNo Advanced Directives Records FoundNo Advanced Directives Records Found Additional Source Comments (unrecognized sect ion and content) No Status Records FoundNo Status Records FoundNo Status Records Found INFORMATION SOURCE (unrecogn ized section and content) DATE CREATED AUTHOR AUTHOR'S NICK ATION 05/16/2018 [place] [facility] DATE CREATED AUTHOR AUTHOR'S NICK ATION 12/29/2023 [facility] Source Comments (unrecognize d section and content) In the event this informatio n is protected by the Federal Confidentiality of Alcohol and Drug Abuse Patient Records regulations: The Federal rules restrict any use of the information to criminally investigate or prosecute any alcohol or drug abuse patient.[facility] the event this information is protected by the Federal Confidentiality of Alcohol and Drug Abuse Patient Records regulations: The Federal rules restrict any use of the information to criminally investigate or prosecute any alcohol or drug abuse patient.[facility] event this information is protected by the Federal Confidentiality of Alcohol and Drug Abuse Patient Records regulations: The Federal rules restrict any use of the information to criminally investigate or prosecute any alcohol or drug abuse patient.[facility]ima[facility] the event this information is protected by the Federal Confidentiality of Alcohol and Drug Abuse Patient Records regulations: The Federal rules restrict any use of the information to criminally investigate or prosecute any alcohol or drug abuse patient.[facility]imaIn the event this information is protected by the Federal Confidentiality of Alcohol and Drug Abuse Patient Records regulations: The Federal rules restrict any use of the information to criminally investigate or prosecute any alcohol or drug abuse patient.[facility]imaIn the event this information is protected by the Federal Confidentiality of Alcohol and Drug Abuse Patient Records regulations: The Federal rules restrict any use of the information to criminally investigate or prosecute any alcohol or drug abuse patient.[facility]ima[facility] the event this information is protected by the Federal Confidentiality of Alcohol and Drug Abuse Patient Records regulations: The Federal rules restrict any use of the information to criminally investigate or prosecute any alcohol or drug abuse patient.[facility]ima[facility] the event this information is protected by the Federal Confidentiality of Alcohol and Drug Abuse Patient Records regulations: The Federal rules restrict any use of the information to criminally investigate or prosecute any alcohol or drug abuse patient.[facility]ima[facility] the event this information is protected by the Federal Confidentiality of Alcohol and Drug Abuse Patient Records regulations: The Federal rules restrict any use of the information to criminally investigate or prosecute any alcohol or drug abuse patient.[facility]imaIn the event this information is protected by the Federal Confidentiality of Alcohol and Drug Abuse Patient Records regulations: The Federal rules restrict any use of the information to criminally investigate or prosecute any alcohol or drug abuse patient.[facility]imaIn the event this information is protected by the Federal Confidentiality of Alcohol and Drug Abuse Patient Records regulations: The Federal rules restrict any use of the information to criminally investigate or prosecute any alcohol or drug abuse patient.[facility]imaIn the event this information is protected by the Federal Confidentiality of Alcohol and Drug Abuse Patient Records regulations: The Federal rules restrict any use of the information to criminally investigate or prosecute any alcohol or drug abuse patient.[facility]ima[facility] the event this information is protected by the Federal Confidentiality of Alcohol and Drug Abuse Patient Records regulations: The Federal rules restrict any use of the information to criminally investigate or prosecute any alcohol or drug abuse patient.[facility]imaIn the event this information is protected by the Federal Confidentiality of Alcohol and Drug Abuse Patient Records regulations: The Federal rules restrict any use of the information to criminally investigate or prosecute any alcohol or drug abuse patient.[facility]imaIn the event this information is protected by the Federal Confidentiality of Alcohol and Drug Abuse Patient Records regulations: The Federal rules restrict any use of the information to criminally investigate or prosecute any alcohol or drug abuse patient.[facility]imaIn the event this information is protected by the Federal Confidentiality of Alcohol and Drug Abuse Patient Records regulations: The Federal rules restrict any use of the information to criminally investigate or prosecute any alcohol or drug abuse patient.[facility]imaIn the event this information is protected by the Federal Confidentiality of Alcohol and Drug Abuse Patient Records regulations: The Federal rules restrict any use of the information to criminally investigate or prosecute any alcohol or drug abuse patient.[facility]imaIn the event this information is protected by the Federal Confidentiality of Alcohol and Drug Abuse Patient Records regulations: The Federal rules restrict any use of the information to criminally investigate or prosecute any alcohol or drug abuse patient.[facility] Reason for Visit (unrecogniz ed section and content) Reason Comments Orders Reason Comments Blood Pressure Check Reason Comments Imm/Inj Reason Comments Results Reason Comments Refill Request Reason Comments Outside Labs-[facility] Ordered Reason Comments ER F/U Patient to ER on for syncope episode in worship. Patient returned to ER for similar episode on 08/17/23 but did not pass out. Amlodipine was discontinued on 09/15/23. Reason Comments [facility] requesting recor ds Reason Comments F/U 6 months Care Teams (unrecognized sec tion and content) Buckle Wire Inserter Relationship Specialty Start Date End Date Yovany Kearney MD [address] [facility] [place] [address] PCP - General Family Practice 04/28/21 Buckle Wire Inserter Relationship Specialty Start Date End Date Yovany Kearney MD [address] [facility] [place] [address] PCP - General Family Practice 04/28/21 Buckle Wire Inserter Relationship Specialty Start Date End Date Yovany Kearney MD [address] [place] [address] PCP - General Family Medicine 04/28/21 Buckle Wire Inserter Relationship Specialty Start Date End Date Yovany Kearney MD [address] [place] [address] PCP - General Family Medicine 04/28/21 Buckle Wire Inserter Relationship Specialty Start Date End Date Yovany Kearney MD [address] [place] [address] PCP - General Family Medicine 04/28/21 Buckle Wire Inserter Relationship Specialty Start Date End Date Yovany Kearney MD [address] [place] [address] PCP - General Family Medicine 04/28/21 Buckle Wire Inserter Relationship Specialty Start Date End Date Yovany Kearney MD [address] [facility] [place] [address] PCP - General Family Medicine 04/28/21 Buckle Wire Inserter Relationship Specialty Start Date End Date Yovany Kearney MD [address] [facility] [place] [address] PCP - General Family Medicine 04/28/21 Buckle Wire Inserter Relationship Specialty Start Date End Date Yovany Kearney MD [address] [place] [address] PCP - General [facility] 04/28/21 Buckle Wire Inserter Relationship Specialty Start Date End Date Yovany Kearney MD [address] [place], [place] [id number] PCP - [facility] 04/28/21 Buckle Wire Inserter Relationship Specialty Start Date End Date Yovany Kearney MD [address] [place], [place] [id number] PCP - General Family [facility] 04/28/21 FOR RECORDS PERTAINING TO PATIENTS WHO [...] BE BASED ON THE PRIMARY CLINICAL RECORDS. [facility]. provides no warranty or guarantee of the accuracy or completeness of information in this document.
== END | disposition home or self-care (01) ==
LOC: PAVLAB 14:24
PROVIDERS: PCP Family Medicine; Referring Provider Physician Assistant; Visit Provider Physician Assistant
DX: T82.898A Other specified complication of vascular prosthetic devices, implants and grafts, initial encounter (principal)
CPT/HCPCS: 36415; 80048; 85025

== ENCOUNTER 2024-02-11 08:59 | Day surgery (SDC) | payer MEDICARE, OTHER, SELFPAY ==
[2024-02-08 08:31] VITALS: BMI 25.4
--- NOTE | 2024-02-11 11:36 | PCM.HP.BLA ---
History and Physical Date of Admission: 02/11/24 Intake Visit Reasons: LOW AFT Chief Complaint: access running slow Inspectors And Regulatory Officers Required: No Is patient in pain?: No Allergies Penicillins Allergy (Verified 01/23/24 13:51) Unknown Medications tamsulosin 0.4 mg capsule 0.4 mg PO QHS prostate 12/16/18 [History Confirmed 01/23/24] finasteride 5 mg tablet 5 mg PO DAILY prostate 08/22/22 [History Confirmed 01/23/24] atorvastatin 20 mg tablet 20 mg PO DAILY cholesterol #90 tabs 03/28/23 [Rx Confirmed 01/23/24] rivaroxaban 15 mg tablet 15 mg PO DAILY blood thinner #90 tabs 03/28/23 [Rx Confirmed 01/23/24] vitamin B complex-vitamin C-folic acid 0.8 mg tablet (Renal Vitamin) 1 tab PO Q24H 11/13/23 [History Confirmed 01/23/24] carvedilol 3.125 mg tablet 3.125 mg PO BID blood pressure #60 tabs 11/24/23 [Rx Confirmed 01/23/24] PFSH Medical History Anemia Atherosclerosis of coronary artery of [place] heart without angina pectoris Chronic kidney disease on chronic dialysis Diabetes ESRD on dialysis Essential hypertension Former smoker History of renal disease Hyperlipidemia Longstanding persistent atrial fibrillation Loss of consciousness Loss of hearing Paroxysmal atrial fibrillation Problem with dialysis access Sinus bradycardia Syncope Urinary retention Wears dentures Wears glasses Surgical History History of arteriovenostomy for renal dialysis History of coronary artery stent placement (2007) Hx of colonoscopy Hx of inguinal hernia repair Hx of left cataract extraction Hx of right cataract extraction Status post repair of arteriovenous fistula Family History Mother Diabetes Social History Smoking Status: Former smoker alcohol intake: never substance use type: does not use caffeine: No HPI HPI Surgical H&P: Yes HPI: Patient is an 83 y/o M I am following for problem with dialysis access specifically decreased arterial flows. Patient notes he was told the fistula is running slow. He is able to complete his dialysis treatments. He dialyzes on T, Th and Sat. He is maintained on Xarelto daily. Patient's last fistulogram was completed on 08/27/23. Findings included Moderate left forearm fistula anastomotic stenosis. High-grade mid forearm venous stenosis. This was treated with a 6 x 2 conquest angioplasty at the anastomosis and mid forearm. ROS General General: No weight change, appetite, fatigue, colon cancer, breast cancer or weakness HEENT HEENT: No difficulty swallowing, eye injury, eye surgery, swollen glands or hoarseness Endo Endocrine: No thyroid disease, diabetes mellitus, thyroid cancer, Hair loss, heat intolerance or cold intolerance Skin Skin: No rash or changing moles Breast Breast: No left breast lump, right breast lump, nipple discharge, breast pain, abnormal mammogram, abnormal US or breast enlargement Musc Musculoskeletal: No back problems, arthritis, rheumatoid arthritis, gout or joint pain Cardio Cardiovascular: No murmur, pacemaker, heart disease, atrial fibrillation, high blood pressure, heart attack, heart stent, palpitations, shortness of breat with exertion or chest pain Psych Psychiatric: No depression, anxiety or hearing voices Resp Respiratory: No shortness of breath, No sleep apnea, No cough, No COPD, No asthma, No emphysema and No wheezing Gastro Gastrointestinal: No abdominal pain, No nausea or vomiting, No diarrhea, No constipation, No blood in stool, No acid reflux, No hemorrhoids, No ulcers, No gallbladder problem and No black,tarry stools [place]ima Hematologic: No blood thinners, No blood disorders, No bleeding, No anemia and No blood clots Neuro Neurologic: No system reviewed and no additional complaints, except as documented, No as per HPI, No abnormal gait, No abnormal hearing, No abnormal movements, No abnormal speech, No behavioral changes, No burning sensations, No confusion, No convulsions, No disequilibrium, No dizziness, No localized weakness, No frequent falls, No headache(s), No lack of coordination, No loss of vision, No memory loss, No numbness, No other visual disturbances, No radicular pain, No restless legs, No sensory deficit, No syncope, No tingling, No tremor(s), No weakness and No other Exam Const General: cooperative, healthy appearing, comfortable and no acute distress [facility] Head: normal to inspection Eyes General: appearance normal, both eyes and all related structures Neck Neck: normal visual inspection Neck mass: No Chest Chest palpation & inspection: normal inspection of the chest Resp Effort & Inspection: normal respiratory effort Auscultation: clear to auscultation bilaterally Cardio Rate: regular rate Rhythm: regular rhythm GI Inspection: normal to inspection Musc Cervical Spine: normal cervical lordosis Skin General: no rashes or lesions noted Neuro General: no focal motor deficits and CN's II-XI intact bilaterally Extrem Other: Left forearm AV fistula- good pulse, diminished thrill and bruit near the anastomosis superior to mid forearm region. Psych Appearance: grossly normal Affect: normal affect Assessment and Plan Assessment and Plan (1) Problem with dialysis access: Status: Acute Qualifiers: Encounter type: initial encounter Qualified Code(s): T82.898A - Other specified complication of vascular prosthetic devices, implants and grafts, initial encounter Plan: Dr. Borden will plan to perform a non-urgent left forearm fistulogram. Procedure details, risks and benefits have been explained. Patient will need to hold his Xarelto for 3 days prior to the procedure. Patient has had the opportunity to ask and have questions answered. Patient verbally agrees to proceed with the proposed procedure. I have examined the patient and the H&P has been reviewed. There are no clinical changes since date of exam. Frederick Borden M.D., F.A.C.S.
--- NOTE | 2024-02-11 12:34 | OP.PCM_ITS ---
Report of Operation Date of Procedure: 02/11/24 Pre-Operative Diagnosis: Diminished flow left forearm radiocephalic arterioveno us hemodialysis fistula Post-Operative Diagnosis: Diminished flow left forearm radiocephalic arteriovenous hemodialysis fistula with high-grade mid forearm and proximal forearm venous stenosis Surgery/Procedure Performed:: Left upper extremity fistulogram with 6 x 4 conquest angioplasty and 7 x 2 Cutting Balloon angioplasty Description of Surgical Findings:: Timeout and informed consent was obtained. 83-year-old gentleman was taken to the special procedures lab placed on the table. The left upper extremity was sterilely prepped and draped. He received 50 mcg of fentanyl and 1 mg of Versed is intravenous sedation. The vein appeared to be quite bulbous and pulsatile close the radial arterial anastomosis. It appeared clinically that this was an outflow issue. 2% lidocaine was instilled micropuncture needle inserted and a 6 Senegalese short sheath dilator was inserted antegrade with flow close to the shad stomosis. Isovue contrast was used as a imaging agent a total of 30 cc was used. Images were obtained in the forearm demonstrated that in the mid forearm there is a high-grade 90% area of stenosis and in the more proximal forearm over approximately 2-1/2 to 3 cm there is a high-grade 95% area of stenosis. The patient received 5000 units of heparin. Initially over an 035 angled Glidewire I placed a 6 x 4 conquest balloon and repetitive angioplasty was performed of the mid forearm and of the proximal forearm stenoses. After several different insufflations holding for at least 2 minutes per insufflation images demonstrated improvement but residual stenosis at each site. Side up sheath to a 7 Senegalese sheath and then placed an SV 5 wire and then used a 7 x 2 Cutting Balloon and repetitive angioplasty was performed at the mid fistula site and at the more outflow site in the proximal forearm. Final imaging demonstrated dramatic improvement in both areas of stenosis with a central resolution. Imaging was completed for the upper arm and chest outflow area demonstrating patency. On the very initial review that had been obtained there was so much stent outflow stenosis at the arterial anastomosis could be identified and was felt to be widely patent The sheath was removed few sutures of 4-0 nylon was placed there was good pulse thrill and bruit at the completion no apparent complication blood loss was minimal Images demonstrate a left forearm radiocephalic arteriovenous hemodialysis fistula. The previous stenosis of the proximal fistula adjacent to the arterial anastomosis did not appear to be recurrent. There was a high-grade area of short stenosis of less than a centimeter within the mid forearm and then a very high-grade area of stenosis over at least a 2 and half centimeter area in the more proximal forearm there was good upper arm cephalic and basilic vein outflow and good central venous outflow. Subsequent to the conquest balloon and subsequent Cutting Balloon angioplasty there appears to be resolution of the stenosis of the forearm. Frederick Borden M.D., F.A.C.S. Surgeon: Frederick Borden Type of Anesthesia: IV Sedation and Local
== END 2024-02-11 14:00 | disposition home or self-care (01) ==
PROVIDERS: PCP Family Medicine; Referring Provider Surgery; Visit Provider Surgery
DX: T82.898A Other specified complication of vascular prosthetic devices, implants and grafts, initial encounter (principal); Z99.2 Dependence on renal dialysis; E11.59 Type 2 diabetes mellitus with other circulatory complications; E11.22 Type 2 diabetes mellitus with diabetic chronic kidney disease; N18.6 End stage renal disease; I12.0 Hypertensive chronic kidney disease with stage 5 chronic kidney disease or end stage renal disease; I48.0 Paroxysmal atrial fibrillation; I87.2 Venous insufficiency (chronic) (peripheral); I25.10 Atherosclerotic heart disease of native coronary artery without angina pectoris; E78.5 Hyperlipidemia, unspecified; Z87.891 Personal history of nicotine dependence; Z79.01 Long term (current) use of anticoagulants; Z79.899 Other long term (current) drug therapy; Z95.5 Presence of coronary angioplasty implant and graft; X58.XXXA Exposure to other specified factors, initial encounter
CPT/HCPCS: 36902; 99152; 99153; C1725; Q9967; C1769; C1894

== ENCOUNTER → 2024-07-14 | Outpatient (CLI) | payer MEDICARE, OTHER, SELFPAY ==
--- NOTE | 2024-07-14 12:33 | AVDS_ITS ---
Reason For Study: AVF Evaluation Left Velocities Inflow Rad A = 138.9/84.5 cm/s Inflow Rad A = 855.4 ml/min Prox Anas = 146.6/92.2 cm/s Prox Anas = 915.5 ml/min Prox Graft = 125.9/71.5 cm/s Prox Graft = 977.8 ml/min Mid Graft = 115.5/79.2 cm/s Mid Graft = 1197 ml/min Dist Graft = 524.9/268.6 cm/s Dist Graft = 2633 ml/min Outflow Ceph = 18.5/11.9 cm/s Outflow Ceph = 236.8 ml/min Outflow Basilic = 77.3/44.3 cm/s Outflow Basilic = 554.6 ml/min. VL/AV Fistula/Dialysis Graft Scan Interpretation Summary Patent left radio-cephalic fistula with adequate flow volume. Stenosis at dista l fistula/outflow Ordering Physician: Eder Portillo Referring Physician: Bravo Kearney Performed By: Neil Macedo RVT
== END | disposition home or self-care (01) ==
LOC: CVS 12:33
PROVIDERS: PCP Family Medicine; Referring Provider Surgery Trauma Surgery; Visit Provider Surgery Trauma Surgery
DX: T82.858A Stenosis of other vascular prosthetic devices, implants and grafts, initial encounter (principal)
CPT/HCPCS: 93990

== ENCOUNTER 2024-08-06 08:09 | Day surgery (SDC) | payer MEDICARE, OTHER, SELFPAY ==
[2024-07-29 09:18] VITALS: BMI 25.8
--- NOTE | 2024-08-06 12:42 | OP.PCM_ITS ---
Report of Operation Date of Procedure: 08/06/24 Pre-Operative Diagnosis: Malfunction of AV fistula Post-Operative Diagnosis: Same Surgery/Procedure Performed:: Fistulogram with angioplasty Intravascular ultrasound evaluation of cephalic fistula Surgeon: Eder Portillo Type of Anesthesia: Local and Sedation,Conscious Estimated Blood Loss (mL): 3 Description of Procedure: HPI: Patient is an 84-year-old male with prior left radiocephalic AV fistula creation whose had diminished access flow measurements over the last several months suggesting worsening clearance. He had a duplex that revealed significant stenosis at the distal aspect of the fistula. He is taken now for fistulogram with possible invention. Description of procedure: Upon obtaining form consent and verification correct patient procedure site patient was taken to [facility] Rips[facility] Operator he was positioned prepped and draped in usual sterile fashion. Time was performed consultation administered Versed and fentanyl. Skin overlying the fistula was anesthetized 1% lidocaine and the vessel accessed in a period fashion with a micropuncture needle wire. This then exchanged out for the 6 Bangladeshi fistula sheath which was then advanced in position. Digital subtraction angiography was performed the venous outflow of the fistula which revealed severe stenosis just below the antecubital crease. Completion imaging was performed of the remainder of the venous outflow tract up to and including the vena cava which revealed patent central venous system with no evidence of obstruction or compression, as well as patent multivessel outflow in the upper arm with no significant stenosis. The distal fistula then compressed and hand-injection angiography refluxing into the arterial portion was performed which revealed patent arterial anastomosis and proximal fistula with no stenosis. Patient was in heparinized allowed to circulate for 3 minutes. A BMW wire was advanced to the sheath and utilized to traverse the area of stenosis. Intravascular sound probe was then advanced and recorded pullback performed of the cephalic vein in the upper arm through to the cephalic fistula into the sheath ultimately. This confirmed 80% stenosis of the fistula and a fairly focal segment approximately 5 cm in length. A 7 mm x 40 angio sculpt balloon was then advanced in position inflated for multiple inflations across the stenosis and then deflated and withdrawn. Repeat angiography revealed satisfactory lesion response and no extravasation dissection. A 7 x 80 [employer] [place] paclitaxel notably was then advanced in position inflated to nominal for 3 minutes across the lesion and then deflated withdrawn. Completion angiography confirmed satisfactory lesion response. Wires and catheters then withdrawn and a nylon suture placed at the access site after which the sheath was withdrawn and manual pressure held till hemostasis was obtained. Patient was taken the recovery room with dissipated discharged home.
== END 2024-08-06 13:01 | disposition home or self-care (01) ==
PROVIDERS: PCP Family Medicine; Referring Provider Surgery Trauma Surgery; Visit Provider Surgery Trauma Surgery
DX: T82.858A Stenosis of other vascular prosthetic devices, implants and grafts, initial encounter (principal); I12.0 Hypertensive chronic kidney disease with stage 5 chronic kidney disease or end stage renal disease; N18.6 End stage renal disease; I48.11 Longstanding persistent atrial fibrillation; E11.22 Type 2 diabetes mellitus with diabetic chronic kidney disease; Y82.8 Other medical devices associated with adverse incidents; I25.10 Atherosclerotic heart disease of native coronary artery without angina pectoris; R33.9 Retention of urine, unspecified; E78.5 Hyperlipidemia, unspecified; Z95.5 Presence of coronary angioplasty implant and graft; Z86.2 Personal history of diseases of the blood and blood-forming organs and certain disorders involving the immune mechanism; Z99.2 Dependence on renal dialysis; Z88.0 Allergy status to penicillin; Z87.891 Personal history of nicotine dependence; Z79.899 Other long term (current) drug therapy; Z79.01 Long term (current) use of anticoagulants
CPT/HCPCS: 36902; 37252; 76937; 99152; 99153; C1725; C1753; C2623; Q9967; C1769

== ENCOUNTER 2024-12-01 18:29 | Inpatient (IN) | payer MEDICARE, OTHER, SELFPAY ==
[2024-12-01] VITALS (9 sets, daily range): BP systolic 105–128; BP diastolic 57–95; PULSE 69–110; RESP 14–20; TEMP 36.1; O2SAT 93–100
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
--- NOTE | 2024-12-01 19:50 | CT_ITS ---
EXAM: CT HEAD WITHOUT INTRAVENOUS CONTRAST CLINICAL INDICATION: trauma pain. TECHNIQUE: Multiple axial images were obtained of the head without intravenous contrast. This CT exam was performed using one or more of the following dose reduction techniques: automated exposure control, adjustment of the mA and/or kV according to patient size, and/or use of iterative reconstruction technique. COMPARISON: 11/14/2021. FINDINGS: BRAIN AND EXTRA-AXIAL SPACES: There is non-specific periventricular hypoattenuation which is most commonly related to chronic microvascular ischemic disease in a patient of this age. There is no mass, mass-effect, or shift of the midline structures. No evidence of acute infarct or acute intracranial hemorrhage. There is no evidence of pathologic extra-axial fluid. There is no hydrocephalus. Patent basal cisterns. BONES/JOINTS: Age-indeterminate bilateral nasal bone fractures. No discrete lytic or blastic abnormalities. VASCULATURE: Arteriosclerosis. SINUSES: Hyperdensity within the left maxillary sinus may be posttraumatic blood. Alternatively, consider inspissated content or fungal elements. MASTOID AIR CELLS: No significant effusion. ORBITS: No acute findings. NASAL CAVITY/SEPTUM: Opacities within the nasal cavity extending into the nasopharynx. CT/Brain/Head without Contrast IMPRESSION: 1. Hyperdensity within the left maxillary sinus may be posttraumatic blood. Alternatively, consider inspissated content or fungal elements. No discrete maxillary sinus or additional facial bone fracture. 2. Otherwise, no acute intracranial pathology. Chronic microvascular ischemic changes. Electronically Signed: Speedy Pickering DO at 20:38 EST ,
[2024-12-01 20:09] LABS: Hematocrit 28.9 % (40-54); Hemoglobin 9.5 g/dL (13.0-16.5); Mean Corp Hgb Conc 32.9 g/dL (32-36); Mean Corpuscular Hgb 33.7 pg (27.0-32.0); Mean Corpuscular Volume 102.5 fL (80-94); Mean Platelet Vol. 9.3 fl (6.2-12.0); Platelet Count 254 K/mm3 (150-450); RBC Distribution Width CV 14.1 % (11.6-14.6); RBC Distribution Width SD 53.2 fl (35.1-43.9); Red Blood Count 2.82 M/mm3 (4.6-6.2); White Blood Count 8.8 K/mm3 (4.4-11.0)
[2024-12-01] MEDS: Mixture 30 ML Bottle TOPICAL (20:12)
--- NOTE | 2024-12-01 21:38 | ED.RN ---
Pt went to sit in triage chair while waiting for to come get him. Pt stating he did not feel good. Pt was unable to respond, was falling over in chair and became very pale. This nurse yelled for help and episode lasted for roughly a couple of seconds.
--- NOTE | 2024-12-01 21:42 | ED.RN ---
pt sitting in waiting room hallway waiting for to bring car around when the triage nurse yelled for help. pt states that i didnt feel right. triage nurse said he was unresponsive for a moment.
--- NOTE | 2024-12-01 21:55 | EKG12_ITS ---
Test Reason : DYSRHYTHMIA Blood Pressure : */* mmHG Vent. Rate : 107 BPM Atrial Rate : * BPM P-R Int : * ms QRS Dur : 74 ms QT Int : 362 ms P-R-T Axes : * 62 25 degrees QTcB Int : 483 ms Atrial fibrillation with rapid ventricular response with premature ventricular or aberrantly conducte d complexes Nonspecific ST abnormality Abnormal ECG Confirmed by Aiden Goins ([id number]), editor sound RONA DAHL ([id number]) on 12/02/2024 1:29:53 PM Referred By: Confirmed By: Aiden Goins
[2024-12-01] MEDS: 0.9% Normal Saline (1000mL) 1,000 ML 999 ML IV (22:23)
[2024-12-01 23:59] LABS: Anion Gap 11 (5-15); BUN 73 mg/dL (7-18); BUN/Creat Ratio 13.6 RATIO (10-20); Calcium,Total 8.3 mg/dL (8.5-10.1); Chloride 101 mmol/L (98-107); Creatinine, Serum 5.36 mg/dL (0.70-1.30); EST Glomerular Filtration Rate 11 mL/min (>60); Est Glom Filt Rate - Afr Amer 13 mL/min (>60); Glucose 158 mg/dL (74-106); Potassium 3.7 mmol/L (3.5-5.1); Sodium Level 136 mmol/L (136-145)
[2024-12-02] VITALS (22 sets, daily range): BP systolic 85–213; BP diastolic 52–82; PULSE 99–140; RESP 16–21; TEMP 36.1–37.3; O2SAT 95–100; BMI 23.7
[2024-12-02 00:21] LABS: Hematocrit 30.6 % (40-54); Hemoglobin 10.2 g/dL (13.0-16.5)
--- NOTE | 2024-12-02 00:42 | PCM.HP.STD ---
[facility] - General General Date of Admission: 12/02/24 Date of Service: 12/02/24 Chief Complaint: Syncopal episodes with nosebleed HPI Narrative LELA LYONS, is a 84 M who presented to [facility] ED on 12/01/2024 with a spontaneous nosebleed. Patient has history of ESRD on HD, CAD with stenting and chronic A-fib. He is on Xarelto and Plavix at home. Denies prior history of nosebleeds. Patient reported a fall 4 days ago while at the store and he hit his face/head with a fall. Did not have any loss of consciousness and did not come to the ED after that. Did have bruising around both eyes but no vision issues. He did have a small nosebleed shortly after that fall but it resolved on its own. He then developed a spontaneous nosebleed today. The nosebleed lasted for a few hours without stopping so he came in for further evaluation. Vitals on arrival to the ED were unremarkable. Initial hemoglobin was 9.5, slightly down from baseline around 10-11. However on recheck hemoglobin was 10.2. BMP showed elevated creatinine but was otherwise unremarkable. CT brain was unremarkable. ED physician was able to get nosebleed to stop and plan was to discharge the patient home. Patient notably had a syncopal episode after he arrived with EMS, but he was given IV fluids here and orthostatics were checked prior to discharge and were negative. However, while waiting room waiting for his to pick him up he had another simple episode without getting up. He denied any prodromal symptoms prior to this. He was taken back to a room and was noted to be in A-fib with mild RVR but was otherwise hemodynamically stable. He did have a small mount of blood coming up the right side of his nose as well as spitting up some blood from his mouth. However this was much improved from his bleed from earlier. Given these events, felt uncomfortable taking the patient home and requested he be monitored here, and hospitalist was contacted for admission. I saw the patient at bedside in the ED, was present. Patient had a vomitus bag in front of him and had bloody streaks noted on several tissues in the bag. He did not have any active bleeding noted from the nose. Stated he has continued to spit out small amounts of blood. He denies any lightheadedness or dizziness at rest. However, he did report the symptoms when staff tried to get him to the bedside commode not long before I saw him. Patient otherwise denies any acute pain or discomfort. No other acute concerns at this time. [facility] Medical History Chronic kidney disease on chronic dialysis ESRD on dialysis Anemia Longstanding persistent atrial fibrillation Hyperlipidemia Essential hypertension Problem with dialysis access Urinary retention Loss of hearing Wears glasses Wears dentures Diabetes History of renal disease Loss of consciousness Former smoker Paroxysmal atrial fibrillation Atherosclerosis of coronary artery of [place] heart without angina pectoris Sinus bradycardia Syncope Home Medications ?Medication ?Instructions ?Recorded ?Last Taken ?Type tamsulosin 0.4 mg capsule 0.4 mg PO QHS prostate 12/16/18 08/09/23 History finasteride 5 mg tablet 5 mg PO DAILY prostate 08/22/22 08/09/23 History atorvastatin 20 mg tablet 20 mg PO DAILY cholesterol #90 tabs 03/28/23 08/09/23 Rx vitamin B complex-vitamin C-folic 1 tab PO Q24H 11/13/23 Unknown History acid 0.8 mg tablet (Renal Vitamin) rivaroxaban 15 mg tablet 15 mg PO DAILY blood thinner #30 03/31/24 08/04/24 Rx tabs clopidogrel 75 mg tablet (Plavix) 75 mg PO DAILY #30 tabs 08/06/24 Unknown Rx carvedilol 3.125 mg tablet 3.125 mg PO BID blood pressure #60 08/26/24 Unknown Rx tabs calcitriol 0.25 mcg capsule 0.25 mcg PO QDAY 09/30/24 Unknown History Allergy/AdvReac Type Severity Reaction Status Date / Time Penicillins Allergy Severe Anaphylaxis Verified 12/01/24 18:30 Family History Mother Diabetes Surgical History Status post repair of arteriovenous fistula History of arteriovenostomy for renal dialysis Hx of right cataract extraction Hx of left cataract extraction Hx of colonoscopy Hx of inguinal hernia repair History of coronary artery stent placement (2007) Social History Smoking Status: Former smoker alcohol intake: never substance use type: does not use caffeine: No ROS Constitutional Constitutional: Denies chills, fatigue, fever(s) or weakness Eyes Eyes: Denies change in vision ENT HEENT: Reports epistaxis; Denies headache(s), nasal congestion, nasal discharge, sinus pressure or sore throat Cardiovascular Cardiovascular: Reports lightheadedness and syncope; Denies chest pain, dyspnea on exertion, edema, palpitations or rapid heart rate Respiratory/Chest Respiratory/Chest: Denies cough, shortness of breath at rest or shortness of breath with exertion Gastrointestinal Gastrointestinal: Denies abdominal pain Genitourinary Genitourinary: Denies dysuria Musculoskeletal Musculoskeletal: Denies arthralgias or myalgias Neurologic Neurologic: Reports dizziness; Denies abnormal speech, confusion, focal weakness, headache(s), numbness or paresthesias Vital Signs Vital Signs Vital Signs: 12/01/24 18:30 12/01/24 19:21 12/01/24 20:00 Temperature 97 F L Temperature Source Temporal Pulse Rate 91 69 83 Pulse Rate [Lying] Pulse Rate [Sitting (for 1 minute prior to obtaining)] Respiratory Rate 18 16 16 Blood Pressure 124/95 H 119/71 105/89 H Blood Pressure [Lying] Blood Pressure [Sitting (for 1 minute prior to obtaining)] Blood Pressure [Standing (for 1 minute prior to obtaining)] Blood Pressure Mean 104 87 94 Blood Pressure Mean [Lying] Blood Pressure Mean [Sitting (for 1 minute prior to obtaining)] Blood Pressure Mean [Standing (for 1 minute prior to obtaining)] Pulse Ox 99 98 93 Oxygen Delivery Method Room Air Room Air Room Air 12/01/24 21:35 12/01/24 21:44 12/01/24 21:52 Temperature Temperature Source Pulse Rate 83 105 H Pulse Rate [Lying] 79 Pulse Rate [Sitting (for 1 minute prior to obtaining)] 82 Respiratory Rate 20 H 18 Blood Pressure 128/87 H 120/57 L Blood Pressure [Lying] 116/75 Blood Pressure [Sitting (for 1 minute prior to obtaining)] 111/79 Blood Pressure [Standing (for 1 minute prior to obtaining)] 111/83 H Blood Pressure Mean 100 78 Blood Pressure Mean [Lying] 88 Blood Pressure Mean [Sitting (for 1 minute prior to obtaining)] 89 Blood Pressure Mean [Standing (for 1 minute prior to obtaining)] 92 Pulse Ox 99 99 Oxygen Delivery Method Room Air Room Air 12/01/24 22:00 12/01/24 22:48 12/01/24 23:00 Temperature Temperature Source Pulse Rate 96 110 H Pulse Rate [Lying] Pulse Rate [Sitting (for 1 minute prior to obtaining)] Respiratory Rate 17 14 Blood Pressure 116/66 124/67 H 124/67 H Blood Pressure [Lying] Blood Pressure [Sitting (for 1 minute prior to obtaining)] Blood Pressure [Standing (for 1 minute prior to obtaining)] Blood Pressure Mean 82 86 86 Blood Pressure Mean [Lying] Blood Pressure Mean [Sitting (for 1 minute prior to obtaining)] Blood Pressure Mean [Standing (for 1 minute prior to obtaining)] Pulse Ox 100 100 Oxygen Delivery Method Room Air Room Air 12/02/24 00:00 12/02/24 00:41 Temperature 97.3 F L Temperature Source Pulse Rate 105 H 120 H Pulse Rate [Lying] Pulse Rate [Sitting (for 1 minute prior to obtaining)] Respiratory Rate 17 16 Blood Pressure 132/76 H 122/70 H Blood Pressure [Lying] Blood Pressure [Sitting (for 1 minute prior to obtaining)] Blood Pressure [Standing (for 1 minute prior to obtaining)] Blood Pressure Mean 94 87 Blood Pressure Mean [Lying] Blood Pressure Mean [Sitting (for 1 minute prior to obtaining)] Blood Pressure Mean [Standing (for 1 minute prior to obtaining)] Pulse Ox 99 99 Oxygen Delivery Method Room Air Physical Exam Const alert, oriented x3, no apparent distress and average body habitus Constitutional Narrative: Elderly male, mildly fatigued appearing, bruising noted on the face from recent fall, otherwise sitting up comfortably in bed, conversing normally, in no acute distress. General Appearance: cooperative and comfortable HEENT normocephalic, hearing grossly normal bilaterally, nasal mucous membranes and turbinates normal and moist oral mucous membranes HEENT Narrative: Bruising noted on face. No active nosebleed noted. Eyes PERRL, EOMs intact bilaterally and conjunctivae normal Neck full ROM Chest inspection of chest normal Resp normal respiratory effort, normal air movement, no use of accessory muscles and clear to auscultation bilaterally Cardio no murmurs and peripheral pulses 2+ throughout Cardio Narrative: A-fib, rate controlled. GI normal to inspection, nondistended, normoactive bowel sounds, soft to palpation, non-tender and non-distended Back/Spine normal ROM Extremity normal to inspection, full ROM and no pedal edema Skin no rashes or lesions noted Neuro moves all extremities and no focal motor deficits Speech: speech normal Motor Exam: strength 5/5 throughout Psych mental status grossly normal Results Lab / Micro Data 12/01/24 21:47 12/01/24 21:47 Labs: Laboratory Results - last 24 hr 12/01/24 19:45: WBC 8.8, RBC 2.82 L, Hgb 9.5 L, Hct 28.9 L, MCV 102.5 H, MCH 33.7 H, MCHC 32.9, RDW Std Deviation 53.2 H, RDW Coeff of Eduardo 14.1, Plt Count 254, MPV 9.3 12/01/24 21:47: Hgb 10.2 L, Hct 30.6 L, Sodium 136, Potassium 3.7, Chloride 101, Carbon Dioxide 24.0, Anion Gap 11, BUN 73 H, Creatinine 5.36 H, Est GFR (MDRD) Af Amer 13 L, Est GFR (MDRD) Non-Af 11 L, BUN/Creatinine Ratio 13.6, Glucose 158 H, Calcium 8.3 L Imaging Radiology Impression Brain CT 12/01/24 19:50 IMPRESSION: 1. Hyperdensity within the left maxillary sinus may be posttraumatic blood. Alternatively, consider inspissated content or fungal elements. No discrete maxillary sinus or additional facial bone fracture. 2. Otherwise, no acute intracranial pathology. Chronic microvascular ischemic changes. Electronically Signed: Speedy Pickering, at 20:38 EST , Assessment & Plan Assessment/Plan (1) Recurrent syncope: (2) Acute anterior epistaxis: PLAN: Plan Patient is an 84-year-old male who presented to [facility] ED on 12/02/2024 with syncopal episodes and an episode of prolonged epistaxis. 1. Syncopal episodes ? Admit under observation status to PCU. Unclear etiology for syncopal episodes. Could be secondary to blood loss/fluid losses from epistaxis but orthostatics have been negative. Has cardiac history as noted below, cannot rule out arrhythmia. Last echo in 10/2023 showed EF 55 to 60%, diastolic dysfunction indeterminate, moderate biatrial dilatation, no other abnormalities. Repeat echo ordered. Continue cardiac monitoring. If echo and cardiac monitoring are unremarkable, may need to consider cardiac event monitor on discharge. 2. Epistaxis with mild acute blood loss anemia in setting of chronic anemia of renal disease ? Patient at high risk for bleeding given he is on Xarelto and Plavix and has poor platelet function due to ESRD. Bleeding controlled in the ED with balloon inflation of the nose. Hemoglobin dropped to 9.5 from baseline around 10-11 on initial check here, but recheck hemoglobin was 10.2. Follow-up a.m. CBC. 3. ESRD on HD ? Follows with Dr. Bertrand with nephrology. Nephrology consulted. Has HD on Sunday, next HD session planned for 12/02. 4. History of CAD with stenting, hypertension, hyperlipidemia, chronic A-fib ? Follows with [facility]. Mild A-fib with RVR in the ED, otherwise hemodynamically stable. Continue home statin, Plavix, Xarelto and Coreg. 5. BPH with obstructive symptoms ? Stable. Continue home Flomax and finasteride. DVT prophylaxis: Not indicated, on Xarelto CODE STATUS: DNR CCA, DNI Expected disposition: Home, 1 to 2 days Total clinical time spent by myself addressing the patient's medical issues, reviewing all the data, and collaborating with patient's care team: 55 minutes. Charges/Coding Visit Charges Inpatient E&M: 90645 Init Hosp L2
--- NOTE | 2024-12-02 01:41 | ED.RN ---
Patient calls out stating he is unable to urinate using the male purewick. This RN assisted patient up to bedside commode, patient still continues to have trouble urinating. Pt's nose started to drip a little bit. Assisted patient back into bed. Pt states that this happens sometimes at home. This RN did a bladder scan and found [id number] in his bladder. Pt was instructed to try to lie in bed and relax while holding the urinal. Dr Vanda rodrigez.
--- NOTE | 2024-12-02 02:00 | ECHOD_ITS ---
Reason For Study: SYNCOPE Procedure This was a 2D Doppler, Color Flow transthoracic echocardiogram. The study was technically difficult. Exam performed portable in ICU/CCU. Left Ventricle Normal LV size. The estimated ejection fraction is 65 %. No evidence for diastolic dysfunction. No regional wall motion abnormalities noted. Right Ventricle Normal RV size. Normal systolic function. Atria There is mild biatrial dilatation. No doppler evidence for ASD. Mitral Valve There is no mitral valve stenosis. No mitral valve insufficiency. Tricuspid Valve There is no tricuspid stenosis. Trivial tricuspid valve insufficiency. Pulmonary artery systolic pressure is 30-35 mmHg. Aortic Valve Trisinus/trileaflet aortic valve. There is no aortic stenosis. No aortic valve insufficiency. Pulmonic Valve There is no pulmonic valvular stenosis. No pulmonic valve insufficiency. Great Vessels Normal aortic root. Pericardium/Pleural No pericardial effusion. MMode/2D Measurements & Calculations LVIDd: 4.2 cm IVSd: 1.2 cm LVOT diam: 2.1 cm LVIDs: 2.5 cm LVPWd: 1.0 cm LVOT area: 3.3 cm2 RVDd: 4.3 cm FS: 40.2 % asc Aorta Diam: 2.8 cm LAV(MOD-bp): 59.8 ml LVAd ap4: 20.9 cm2 LAV(MOD-bp) Indexed: 33.3 ml/m2 LVLd ap4: 6.9 cm LAV(MOD-sp2): 66.5 ml EDV(MOD-sp4): 53.2 ml LAV(MOD-sp4): 53.0 ml EDV(sp4-el): 53.7 ml LVAs ap4: 9.8 cm2 LVLs ap4: 6.1 cm ESV(MOD-sp4): 15.1 ml ESV(sp4-el): 13.4 ml EF(MOD-sp4): 71.6 % EF(sp4-el): 75.0 % LVAd ap2: 17.2 cm2 SV(MOD-sp4): 38.1 ml SV(MOD-sp2): 23.5 ml LVLd ap2: 6.8 cm SI(MOD-sp4): 21.2 ml/m2 SI(MOD-sp2): 13.1 ml/m2 EDV(MOD-sp2): 36.5 ml EDV(sp2-el): 36.8 ml LVAs ap2: 9.3 cm2 LVLs ap2: 5.9 cm ESV(MOD-sp2): 13.0 ml ESV(sp2-el): 12.4 ml EF(MOD-sp2): 64.4 % SV(sp4-el): 40.3 ml Ao sinus diam: 3.[address] Junction: 2.3 cm LA dimension(2D): 4.7 cm LA A4 area: 22.2 cm2 RA A4 area: 23.3 cm2 TAPSE: 2.3 cm Time Measurements MV dec time: 0.12 sec Doppler Measurements & Calculations MV E max quintin: 107.5 cm/sec Lat Peak E' Quintin: 13.1 cm/sec Med Peak E' Quintin: 11.3 cm/sec E/E' lat: 8.2 E/E' med: 9.5 Ao V2 max: 196.2 cm/sec LV V1 max: 105.4 cm/sec SV(LVOT): 55.6 ml Ao max P.4 mmHg LV V1 max P.5 mmHg Ao V2 mean: 136.1 cm/sec LV V1 mean P.8 mmHg Ao mean P.2 mmHg LV V1 mean: 80.0 cm/sec Ao V2 VTI: 26.9 cm LV V1 VTI: 16.8 cm AV (velocity ratio): 0.63 STEPHANE(I,D): 2.1 cm2 STEPHANE(V,D): 1.8 cm2 PA V2 max: 101.7 cm/sec TR max quintin: 265.4 cm/sec TR max P.2 mmHg ECHO/Echo Complete Interpretation Summary The estimated ejection fraction is 65 %. No evidence for diastolic dysfunction. There is mild biatrial dilatation. Ordering Physician: Rafael Bojorquez Performed By: Mimi Mijares RDCS
[2024-12-02 07:04] LABS: Hematocrit 21.8 % (40-54); Hemoglobin 7.2 g/dL (13.0-16.5); Mean Corpuscular Hgb 34.4 pg (27.0-32.0); Mean Corpuscular Volume 104.3 fL (80-94); Mean Platelet Vol. 9.3 fl (6.2-12.0); Platelet Count 258 K/mm3 (150-450); RBC Distribution Width CV 14.4 % (11.6-14.6); Red Blood Count 2.09 M/mm3 (4.6-6.2); White Blood Count 9.5 K/mm3 (4.4-11.0)
--- NOTE | 2024-12-02 07:24 | PCM.PN.HOSP ---
Reason for Visit Reason for Visit: Diagnoses Epistaxis (12/02/24) Syncope and collapse (12/02/24) Subjective Subjective Patient is an 84-year-old gentleman admitted 4-day history of epistaxis. He had intervention performed in the ED and prior to being discharged developed syncopal episode necessitating patient being admitted to a monitored bed for subsequent management Objective Data Objective Data Vital Signs: Vital Signs Temp Pulse Resp BP Pulse Ox O2 Del Method 97.6 F L 120 H 16 127/71 H 100 Room Air 12/02/24 03:31 12/02/24 03:31 12/02/24 03:31 12/02/24 03:31 12/02/24 03:31 12/02/24 03:31 Oxygen Delivery Method Room Air Weight: 70.7 kg Body Mass Index (BMI) 23.7 Intake & Output: Intake and Output for Last 24 Hours 11/30/24 12/01/24 12/02/24 23:59 23:59 23:59 Intake Total 1000 / 1000 Output Total 450 / 450 Balance 550 / 550 Lab / Micro Data 12/02/24 06:51 12/01/24 21:47 Labs: Laboratory Results - last 24 hr 12/01/24 19:45: WBC 8.8, RBC 2.82 L, Hgb 9.5 L, Hct 28.9 L, MCV 102.5 H, MCH 33.7 H, MCHC 32.9, RDW Std Deviation 53.2 H, RDW Coeff of Eduardo 14.1, Plt Count 254, MPV 9.3 12/01/24 21:47: Hgb 10.2 L, Hct 30.6 L, Sodium 136, Potassium 3.7, Chloride 101, Carbon Dioxide 24.0, Anion Gap 11, BUN 73 H, Creatinine 5.36 H, Est GFR (MDRD) Af Amer 13 L, Est GFR (MDRD) Non-Af 11 L, BUN/Creatinine Ratio 13.6, Glucose 158 H, Calcium 8.3 L 12/02/24 06:51: WBC 9.5, RBC 2.09 L, Hgb 7.2 L, Hct 21.8 L, MCV 104.3 H, MCH 34.4 H, MCHC 33.0, RDW Std Deviation 55.0 H, RDW Coeff of Eduardo 14.4, Plt Count 258, MPV 9.3 Radiography Diagnostic Testing: Radiology Impression Brain CT 12/01/24 19:50 IMPRESSION: 1. Hyperdensity within the left maxillary sinus may be posttraumatic blood. Alternatively, consider inspissated content or fungal elements. No discrete maxillary sinus or additional facial bone fracture. 2. Otherwise, no acute intracranial pathology. Chronic microvascular ischemic changes. Electronically Signed: Speedy Pickering, at 20:38 EST , Physical Exam Narrative GENERAL: cooperative HEENT: Atraumatic; normocephalic EYES; Anicteric, Normal Conjunctiva NECK; supple, normal thyroid, RESPIRATORY: Diminished to auscultation CARDIOVASCULAR: Regular S1 S2, GI: soft, normoactive bowel sounds, : No Renal angle tenderness; EXTREMITIES: No edema, no clubbing, MUSCULOSKELETAL: no muscle wasting NEURO: Awake; no lateralizing signs. SKIN: No Rash PSYCH; Flat affect Assessment & Plan Assessment/Plan (1) Recurrent syncope: (2) Acute anterior epistaxis: PLAN: Plan Patient is an 84-year-old gentleman admitted 4-day history of epistaxis. He had intervention performed in the ED and prior to being discharged developed syncopal episode necessitating patient being admitted to a monitored bed for subsequent management 1. Syncopal episode ? Admitted to a monitored bed for continuous telemetry monitoring as part of his management ordered every shift orthostatic checks as well as echo and serial cardiac enzymes 3. Epistaxis ? Secondary to use of Xarelto and Plavix. Held offending medications 3. Acute blood loss anemia ? Exacerbated by the use of systemic anticoagulant and antiplatelet Xarelto and Plavix anemia; monitoring H&H and transfuse if patient becomes symptomatic or hemoglobin falls below 7 4. End-stage renal disease ? Patient is on hemodialysis on Tuesdays and Saturdays. Consult was placed with patient's pointing machine operator Dr. Bertrand for dialysis orders 5. Coronary artery disease ? With previous PCI patient is on guideline directed medical therapy 6. Hypertension ? Blood pressure controlled, home medications continued with dose adjustment as needed 7. Paroxysmal A-fib ? Patient is on systemic anticoagulation with Coumadin held 8. Dyslipidemia ?Patient is on statin therapy, continued at home dose 9. BPH with lower urinary obstructive symptoms - Patient treated with tamsulosin 10. DVT prophylaxis ? Patient was already on systemic anticoagulation with Xarelto being held given patient Epistatus Time spent in the patient's overall evaluation,decision-making process, review of diagnostic data, adjustment of management, discussion with other providers, nursing nursing and ancillary staff involved in patient's care documentation, 50 Minutes Charges/Coding Visit Charges Inpatient E&M: 25773 [facility] Hosp L3
[2024-12-02 08:08] LABS: Anion Gap 11 (5-15); BUN 112 mg/dL (7-18); BUN/Creat Ratio 21.3 RATIO (10-20); Calcium,Total 7.7 mg/dL (8.5-10.1); Chloride 103 mmol/L (98-107); Creatinine, Serum 5.25 mg/dL (0.70-1.30); EST Glomerular Filtration Rate 11 mL/min (>60); Est Glom Filt Rate - Afr Amer 14 mL/min (>60); Estimated Creatinine Clearance 9.95 ml/min; Glucose 164 mg/dL (74-106); Potassium 4.1 mmol/L (3.5-5.1); Sodium Level 136 mmol/L (136-145)
[2024-12-02] MEDS: Carvedilol 3.125 MG TABLET PO (08:22)
[2024-12-02] MEDS: 0.9% Normal Saline 1,000 ML IV.SOLN. 1000 ML OPERA.SITE ×2 (09:14→10:53)
[2024-12-02] MEDS: PureFlow B 3K Dialysis Soln 1 BAG 6 BAG PF (09:14)
[2024-12-02] MEDS: 0.9% Saline Lock 10 ML Syringe IV (09:14)
[2024-12-02 10:02] LABS: Hemoglobin 6.4 g/dL (13.0-16.5)
--- NOTE | 2024-12-02 11:45 | CON.PCM.RE_ITS ---
Assessment & Plan Assessment/Plan (1) ESRD (end stage renal disease) on dialysis: PLAN: seen on dialysis, not able to tolerate fluid removal with hypotension, tachycardia, nausea. HD TTS (2) Closed head injury without loss of consciousness: PLAN: CT head no ICH (3) Anticoagulated: (4) Syncope: QUALIFIERS: Syncope type: unspecified Qualified Code(s): R55 - Syncope and collapse PLAN: with hypotension (5) Atrial fibrillation with RVR: (6) Acute blood loss anemia: PLAN: hgb 6.4g today, was 11.5g on 11/24/24 at chronic dialysis center. Suggest blood transfusion (7) Epistaxis: PLAN: from anticoagulation HPI Consult Data Date of Consult: 12/02/24 HPI Narrative Reason for Consultation: ESRD HD TTS HPI Narrative: LELA LYONS, is a 84 M with ESRD on HD TTS admitted for syncope, afib with rvr, hypotension with acute anemia, epistaxis. He had epistaxis since last and last night. Hgb dropped to 6.4g today. Last hgb on 11/24/24 at dialysis was 11.5g. He is on xarelto, plavix. Denied hematochezia, melena. NO palpitations, chest pain, shortness of breath. He had sycope last week while at drugstore to fiber picker his prescription and near syncope at the dialysis center last week. He is currently on dialysis in ICU. He has nausea with low BP's, not able to tolerate much fluid removal on dialysis. He remains tachycardic with HR in the 130-140's. [facility] Medical History Chronic kidney disease on chronic dialysis ESRD on dialysis Anemia Longstanding persistent atrial fibrillation Hyperlipidemia Essential hypertension Problem with dialysis access Urinary retention Loss of hearing Wears glasses Wears dentures Diabetes History of renal disease Loss of consciousness Former smoker Paroxysmal atrial fibrillation Atherosclerosis of coronary artery of tribal heart without angina pectoris Sinus bradycardia Syncope Home Medications ?Medication ?Instructions ?Recorded ?Last Taken ?Type tamsulosin 0.4 mg capsule 0.4 mg PO QHS prostate 12/16/18 08/09/23 History finasteride 5 mg tablet 5 mg PO DAILY prostate 08/22/22 08/09/23 History atorvastatin 20 mg tablet 20 mg PO DAILY cholesterol #90 tabs 03/28/23 08/09/23 Rx vitamin B complex-vitamin C-folic 1 tab PO Q24H 11/13/23 Unknown History acid 0.8 mg tablet (Renal Vitamin) rivaroxaban 15 mg tablet 15 mg PO DAILY blood thinner #30 03/31/24 08/04/24 Rx tabs clopidogrel 75 mg tablet (Plavix) 75 mg PO DAILY #30 tabs 08/06/24 Unknown Rx carvedilol 3.125 mg tablet 3.125 mg PO BID blood pressure #60 08/26/24 Unknown Rx tabs calcitriol 0.25 mcg capsule 0.25 mcg PO QDAY 09/30/24 Unknown History Allergy/AdvReac Type Severity Reaction Status Date / Time Penicillins Allergy Severe Anaphylaxis Verified 12/01/24 18:30 Family History Mother Diabetes Surgical History Status post repair of arteriovenous fistula History of arteriovenostomy for renal dialysis Hx of right cataract extraction Hx of left cataract extraction Hx of colonoscopy Hx of inguinal hernia repair History of coronary artery stent placement (2007) Social History Smoking Status: Former smoker alcohol intake: never substance use type: does not use caffeine: No ROS Constitutional Constitutional: Denies chills, fever(s) or malaise Eyes Eyes: Denies loss of vision ENT HEENT: Reports epistaxis Cardiovascular Cardiovascular: Denies chest pain, dyspnea on exertion or edema Respiratory/Chest Respiratory/Chest: Denies dyspnea on exertion or shortness of breath at rest Gastrointestinal Gastrointestinal: Denies abdominal pain, hematemesis, hematochezia or melena Genitourinary Genitourinary: Denies hematuria Musculoskeletal Musculoskeletal: Denies muscle cramps Neurologic Neurologic: Denies focal weakness Psychiatric Psychiatric: Denies confusion Hematologic/Lymphatic Hematologic/Lymphatic: Reports anemia, easy bleeding and easy bruising Physical Exam Const alert, oriented x3 and no apparent distress Constitutional Narrative: periorbital ecchymosis from fall, syncope last week General Appearance: well developed HEENT HEENT Narrative: periorbital, nasal swelling, ecchymosis Resp clear to auscultation bilaterally Cardio Rhythm: abnormal rhythm irregularly irregular (tachycardia) GI non-tender and non-distended Auscultation: normoactive bowel sounds Palpation: soft Extremity no clubbing, cyanosis or edema General Extremity: AV fistula Skin Skin Narrative: facial ecchymosis General Skin Exam: ecchymosis Neuro moves all extremities and no focal motor deficits Psych cooperative Lab / Micro Data 12/02/24 09:40 12/02/24 06:51 Labs: Laboratory Results - last 24 hr 12/01/24 19:45: WBC 8.8, RBC 2.82 L, Hgb 9.5 L, Hct 28.9 L, MCV 102.5 H, MCH 33.7 H, MCHC 32.9, RDW Std Deviation 53.2 H, RDW Coeff of Eduardo 14.1, Plt Count 254, MPV 9.3 12/01/24 21:47: Hgb 10.2 L, Hct 30.6 L, Sodium 136, Potassium 3.7, Chloride 101, Carbon Dioxide 24.0, Anion Gap 11, BUN 73 H, Creatinine 5.36 H, Est GFR (MDRD) Af Amer 13 L, Est GFR (MDRD) Non-Af 11 L, BUN/Creatinine Ratio 13.6, Glucose 158 H, Calcium 8.3 L 12/02/24 06:51: WBC 9.5, RBC 2.09 L, Hgb 7.2 L, Hct 21.8 L, MCV 104.3 H, MCH 34.4 H, MCHC 33.0, RDW Std Deviation 55.0 H, RDW Coeff of Eduardo 14.4, Plt Count 258, MPV 9.3, Sodium 136, Potassium 4.1, Chloride 103, Carbon Dioxide 22.0, Anion Gap 11, BUN 112 H*, Creatinine 5.25 H, Estim Creat Clear Calc 9.95, Est GFR (MDRD) Af Amer 14 L, Est GFR (MDRD) Non-Af 11 L, BUN/Creatinine Ratio 21.3 H , Glucose 164 H, Calcium 7.7 L 12/02/24 09:40: Hgb 6.4 L, Hct 19.0 L, Blood Type O POSITIVE, Antibody Screen NEGATIVE, Crossmatch See Detail Imaging Radiology Impression Brain CT 12/01/24 19:50 IMPRESSION: 1. Hyperdensity within the left maxillary sinus may be posttraumatic blood. Alternatively, consider inspissated content or fungal elements. No discrete maxillary sinus or additional facial bone fracture. 2. Otherwise, no acute intracranial pathology. Chronic microvascular ischemic changes. Electronically Signed: Speedy Pickering DO at 20:38 EST ,
--- NOTE | 2024-12-02 13:02 | CHAPLAIN ---
Type of Pastoral Visit _x__ Initial Visit ___ Follow-up Visit ___ On-call Visit ___ General Patient Visit ___ Spiritual Assessment ___ Family Conference ___ Bereavement ___ Rapid Response ___ Code Blue ___ Other (describe below) Pastoral Care Referral From _x__ Patient ___ Family ___ Nurse ___ Physician ___ Shoe Dresser ___ Wolf Hunter ___ Other (describe below) Sacrament/Intervention _x__ Active listening ___ Anointing ___ Spiritism ___ Bereavement ___ Communion ___ Kelli exploration ___ ___ Life review _x__ Prayer ___ Reconciliation ___ Sacrament of Sick _x__ Supportive presence ___ Wedding ___ Other (describe below) Pastoral Comments patient is receiving his dialysis treatment and his spouse is at the bedside; pt is resting quietly but opens his eyes and engages with this production planner; pt states that he isn't so well but that he has hope to get better; patient states that a prayer would be good; spouse is also offered support; no other needs identified
[2024-12-02] MEDS: Folic Acid/Vitamin B Comp W-C 1 Capsule 1 CAP PO (14:40)
[2024-12-02] MEDS: Finasteride 5 MG Tablet PO (14:41)
--- NOTE | 2024-12-02 17:04 | NURSING ---
Report called to LESA Robles.
[2024-12-02] MEDS: Tamsulosin HCl 0.4 MG Capsule PO (21:37)
[2024-12-02] MEDS: Atorvastatin Calcium 20 MG Tablet PO (21:37)
[2024-12-03] VITALS (9 sets, daily range): BP systolic 117–131; BP diastolic 46–77; PULSE 94–108; RESP 16–22; TEMP 36.9–37.4; O2SAT 94–98; BMI 23.7
--- NOTE | 2024-12-03 07:59 | PN.HOSP_ITS ---
Reason for Visit Reason for Visit: Diagnoses Epistaxis (12/02/24) Syncope and collapse (12/02/24) Subjective Subjective Patient seen was transfused 1 unit PRBC the day prior. Hemoglobin up to 7.1. Objective Data Objective Data Vital Signs: Vital Signs Temp Pulse Resp BP Pulse Ox O2 Del Method 98.6 F 103 H 18 121/74 H 98 Room Air 12/03/24 04:00 12/03/24 04:00 12/03/24 04:00 12/03/24 04:00 12/03/24 04:00 12/03/24 04:00 Oxygen Delivery Method Room Air Weight: 70.8 kg Body Mass Index (BMI) 23.7 Intake & Output: Intake and Output for Last 24 Hours 12/01/24 12/02/24 12/03/24 23:59 23:59 23:59 Intake Total 1620 / 1620 Output Total 580 / 880 500 / 500 Balance 1040 / 740 -500 / -500 Lab / Micro Data 12/03/24 06:17 12/03/24 06:17 Labs: Laboratory Results - last 24 hr 12/02/24 06:51: Sodium 136, Potassium 4.1, Chloride 103, Carbon Dioxide 22.0, Anion Gap 11, BUN 112 H*, Creatinine 5.25 H, Estim Creat Clear Calc 9.95, Est GFR (MDRD) Af Amer 14 L, Est GFR (MDRD) Non-Af 11 L, BUN/Creatinine Ratio 21.3 H , Glucose 164 H, Calcium 7.7 L 12/02/24 09:40: Hgb 6.4 L, Hct 19.0 L, Blood Type O POSITIVE, Antibody Screen NEGATIVE, Crossmatch See Detail Physical Exam Narrative GENERAL: cooperative HEENT: Atraumatic; normocephalic EYES; Anicteric, Normal Conjunctiva NECK; supple, normal thyroid, RESPIRATORY: Diminished to auscultation CARDIOVASCULAR: Regular S1 S2, GI: soft, normoactive bowel sounds, : No Renal angle tenderness; EXTREMITIES: No edema, no clubbing, MUSCULOSKELETAL: no muscle wasting NEURO: Awake; no lateralizing signs. SKIN: No Rash PSYCH; Flat affect Assessment & Plan Assessment/Plan (1) Recurrent syncope: (2) Acute anterior epistaxis: PLAN: Plan Patient is an 84-year-old gentleman admitted 4-day history of epistaxis. He had intervention performed in the ED and prior to being discharged developed syncopal episode necessitating patient being admitted to a monitored bed for subsequent management 1. Syncopal episode ? Admitted to a monitored bed for continuous telemetry monitoring as part of his management ordered every shift orthostatic checks as well as echo and serial cardiac enzymes 3. Epistaxis ? Secondary to use of Xarelto and Plavix. Held offending medications ? 12/03/2024; patient had packing of his left nostril performed in the ED scheduled to have removal by ENT on 12/04/2019 3. Acute blood loss anemia ? Exacerbated by the use of systemic anticoagulant and antiplatelet Xarelto and Plavix anemia; monitoring H&H and transfuse if patient becomes symptomatic or hemoglobin falls below 7 ? 12/03/2024; patient was transfused 1 unit PRBC the day prior hemoglobin up to 7.1, repeated H&H and if remains stable patient will be discharged home with repeat H&H as outpatient otherwise 4. End-stage renal disease ? Patient is on hemodialysis on Tuesdays and Saturdays. Consult was placed with patient's butcher meat Dr. Bertrand for dialysis orders 5. Coronary artery disease ? With previous PCI patient is on guideline directed medical therapy 6. Hypertension ? Blood pressure controlled, home medications continued with dose adjustment as needed 7. Paroxysmal A-fib ? Patient is on systemic anticoagulation with Coumadin held 8. Dyslipidemia ?Patient is on statin therapy, continued at home dose 9. BPH with lower urinary obstructive symptoms - Patient treated with tamsulosin 10. DVT prophylaxis ? Patient was already on systemic anticoagulation with Xarelto being held given patient Epistaxis Time spent in the patient's overall evaluation,decision-making process, review of diagnostic data, adjustment of management, discussion with other providers, nursing nursing and ancillary staff involved in patient's care documentation, 36 Minutes Charges/Coding Visit Charges Inpatient E&M: 22700 Subs Hosp L2
[2024-12-03 08:00] LABS: Absolute Lymphocyte Count 0.61 X10^3/uL (0.83-4.51); Absolute Neutrophil Count 7.9 X10^3/uL (2.0-7.7); Basophil# 0.04 X10^3/uL; Basophil% 0.4 % (0-1); Eosinophil# 0.04 X10^3/uL; Eosinophils% 0.4 % (0-5); Hematocrit 21.3 % (40-54); Hemoglobin 7.1 g/dL (13.0-16.5); Lymphocyte # 0.61 X10^3/ul (0.83-4.51); Lymphocyte % 6.2 % (19-41); Mean Corp Hgb Conc 33.3 g/dL (32-36); Mean Corpuscular Hgb 33.5 pg (27.0-32.0); Mean Corpuscular Volume 100.5 fL (80-94); Mean Platelet Vol. 9.7 fl (6.2-12.0); Monocyte# 0.93 X10^3/uL; Monocyte% 9.5 % (0-10); NRBC Flagged by Analyzer 0 % (0-5); Neutrophil # 7.93 X10^3/uL (2.7-7.7); Neutrophil % 80.8 % (47-70); Platelet Count 232 K/mm3 (150-450); RBC Distribution Width SD 62.6 fl (35.1-43.9); Red Blood Count 2.12 M/mm3 (4.6-6.2); White Blood Count 9.8 K/mm3 (4.4-11.0)
[2024-12-03 08:43] LABS: Anion Gap 10 (5-15); BUN 90 mg/dL (7-18); BUN/Creat Ratio 21.5 RATIO (10-20); Calcium,Total 8.7 mg/dL (8.5-10.1); Chloride 104 mmol/L (98-107); Creatinine, Serum 4.19 mg/dL (0.70-1.30); EST Glomerular Filtration Rate 14 mL/min (>60); Est Glom Filt Rate - Afr Amer 18 mL/min (>60); Estimated Creatinine Clearance 12.47 ml/min; Glucose 154 mg/dL (74-106); Magnesium 2.4 mg/dL (1.6-2.6); Phosphorus 2.7 mg/dL (2.5-4.9); Potassium 3.7 mmol/L (3.5-5.1); Sodium Level 138 mmol/L (136-145)
[2024-12-03] MEDS: Folic Acid/Vitamin B Comp W-C 1 Capsule 1 CAP PO (09:12)
[2024-12-03] MEDS: Finasteride 5 MG Tablet PO (09:12)
[2024-12-03] MEDS: Carvedilol 3.125 MG TABLET PO ×2 (09:12→16:14)
[2024-12-03 11:26] LABS: Hematocrit 20.1 % (40-54)
--- NOTE | 2024-12-03 11:30 | CASEMGMT ---
LESA BALLESTEROS Face to Face with patient for initial transition planning/care coordination assessment. LESA BALLESTEROS introduced self and role at [facility]. Patient lying in bed, alert and oriented. Patient willing to participate in assessment and is able to answer all questions appropriately. Care providers, pharmacy, and demographics verified. Strata: 2 PCP: Christel Specialists: Jerzy, cutting machine tender decorative; Lynette, electrical prospecting operator; Karen, urologist; Preferred Pharmacy: [facility] Insurance: [id number] Prescription Benefit: yes Living Will/HPOA: yes, daughter LNOK: , daughter Living Arrangements: Patient lives with in a 2 story home with bed and bath on first floor. Patient states he was independent at home. Transportation: DME/HHC: Patient has shower chair, cane, grab bars at home. No previous HHC or SNF. Patient has outpatient HD on TTS 0530 at [facility]. Patient wishes to discharge home will monitor progress with therapy. LESA BALLESTEROS reviewed possible SNF vs HHC at discharge pending therapy evals, patient voiced understanding. Patient states he has no further needs or concerns at this time. CM to follow for discharge planning needs that may arise. Disposition Plan: TBD, anticipate HHC vs SNF pending progress with therapy. Ariadna MACIAS, RN, CM
[2024-12-03] MEDS: Ferrous Sulfate 325 MG Tablet PO (12:26)
[2024-12-03] MEDS: 0.9% Saline Lock 10 ML Syringe IV (16:14)
[2024-12-03] MEDS: Atorvastatin Calcium 20 MG Tablet PO (20:23)
[2024-12-03] MEDS: Tamsulosin HCl 0.4 MG Capsule PO (20:23)
[2024-12-04] VITALS (13 sets, daily range): BP systolic 93–226; BP diastolic 46–94; PULSE 84–110; RESP 16–18; TEMP 36.8–37.4; O2SAT 95–100; BMI 25.9; BMI 25.6
[2024-12-04 07:25] LABS: Hematocrit 23.1 % (40-54); Hemoglobin 7.4 g/dL (13.0-16.5); Mean Corpuscular Hgb 31.4 pg (27.0-32.0); Mean Corpuscular Volume 97.9 fL (80-94); Mean Platelet Vol. 9.3 fl (6.2-12.0); POSITIVE COUNT YES; POSITIVE MORPHOLOGY YES; Platelet Count 223 K/mm3 (150-450); RBC Distribution Width SD 69.9 fl (35.1-43.9); Red Blood Count 2.36 M/mm3 (4.6-6.2); White Blood Count 10.5 K/mm3 (4.4-11.0)
[2024-12-04 07:28] LABS: Differential Indicated MANUAL DIFF
[2024-12-04 07:50] LABS: Anion Gap 7 (5-15); BUN 89 mg/dL (7-18); BUN/Creat Ratio 19.1 RATIO (10-20); Calcium,Total 8.8 mg/dL (8.5-10.1); Chloride 109 mmol/L (98-107); Creatinine, Serum 4.67 mg/dL (0.70-1.30); EST Glomerular Filtration Rate 13 mL/min (>60); Est Glom Filt Rate - Afr Amer 15 mL/min (>60); Estimated Creatinine Clearance 11.19 ml/min; Glucose 158 mg/dL (74-106); Sodium Level 140 mmol/L (136-145)
[2024-12-04] MEDS: 0.9% Saline Lock 10 ML Syringe IV (08:05)
[2024-12-04] MEDS: PureFlow B 3K Dialysis Soln 1 BAG 6 BAG PF (08:06)
[2024-12-04] MEDS: 0.9% Normal Saline 1,000 ML IV.SOLN. 1000 ML OPERA.SITE (08:06)
[2024-12-04 08:16] LABS: Anisocytosis 2+; Eosinophil 1 % (0-5); Lymphocyte 6 % (19-41); Metamyelocyte 3 % (0-1); Monocyte 4 % (0-10); Neutrophil-Band 2 % (0-5); Neutrophil-Segmented 84 % (47-70); Red Cell Morphology N CHROM NORMAL (NORM C&C); Total Cells Counted 100 (MANUAL DIFF)
[2024-12-04 08:17] LABS: Absolute Lymphocyte Count 0.63 X10^3/uL (0.83-4.51); Platelet Estimate ADEQUATE (ADEQ)
--- NOTE | 2024-12-04 08:33 | PN.HOSP_ITS ---
Reason for Visit Reason for Visit: Diagnoses Epistaxis (12/02/24) Syncope and collapse (12/02/24) Subjective Subjective Patient seen hemoglobin came up to only 7.1 following transfusion. Did discuss with the case with patient's grandson son who is a family practice physician in [place]. We both agree that patient will need to undergo subsequent evaluation including possible EGD consult subsequently placed to GI Objective Data Objective Data Vital Signs: Vital Signs Temp Pulse Resp BP Pulse Ox O2 Del Method 98.5 F 98 16 141/71 H 99 Room Air 12/04/24 03:00 12/04/24 08:30 12/04/24 08:30 12/04/24 08:30 12/04/24 08:30 12/04/24 08:30 Oxygen Delivery Method Room Air Weight: 77.3 kg Body Mass Index (BMI) 25.9 Intake & Output: Intake and Output for Last 24 Hours 12/02/24 12/03/24 12/04/24 23:59 23:59 23:59 Intake Total 1620 / 1620 759 / 759 Output Total 580 / 880 1350 / 1350 400 / 400 Balance 1040 / 740 -591 / -591 -400 / -400 Lab / Micro Data 12/04/24 11:10 12/04/24 06:55 Labs: Laboratory Results - last 24 hr 12/02/24 09:40: Crossmatch See Detail 12/03/24 06:17: Sodium 138, Potassium 3.7, Chloride 104, Carbon Dioxide 24.0, Anion Gap 10, BUN 90 H, Creatinine 4.19 H, Estim Creat Clear Calc 12.47, Est GFR (MDRD) Af Amer 18 L, Est GFR (MDRD) Non-Af 14 L, BUN/Creatinine Ratio 21.5 H, G lucose 154 H, Calcium 8.7, Phosphorus 2.7, Magnesium 2.4 12/03/24 11:19: Hgb 7.0 L, Hct 20.1 L 12/04/24 06:55: WBC 10.5, RBC 2.36 L, Hgb 7.4 L, Hct 23.1 L, MCV 97.9 H, MCH 31.4, MCHC 32.0, RDW Std Deviation 69.9 H, RDW Coeff of Eduardo 20.0 H, Plt Count 223, MPV 9.3, Neut % (Auto) Not Reportable, Absolute Neuts (auto) 9.0 H, A bsolute Lymphs (auto) 0.63 L, Total Counted 100, Neutrophils % (Manual) 84 H, Band Neutrophils % 2, Lymphocytes % (Manual) 6 L, Monocytes % (Manual) 4, Eosinophils % (Manual) 1, Metamyelocytes % 3 H, Diff Path Review May foll, Platelet Estimate ADEQUATE, RBC Morphology N CHROM, Anisocytosis 2+, Sodium 140, Potassium 4.0, Chloride 109 H, Carbon Dioxide 24.0, Anion Gap 7, BUN 89 H, C reatinine 4.67 H, Estim Creat Clear Calc 11.19, Est GFR (MDRD) Af Amer 15 L, Est GFR (MDRD) Non-Af 13 L, BUN/Creatinine Ratio 19.1, Glucose 158 H, Calcium 8.8 Radiography Diagnostic Testing: Radiology Impression Echocardiogram 12/02/24 02:00 Interpretation Summary The estimated ejection fraction is 65 %. No evidence for diastolic dysfunction. There is mild biatrial dilatation. Ordering Physician: Rafael Bojorquez Performed By: Mimi Mijares RDCS Physical Exam Narrative GENERAL: cooperative HEENT: Atraumatic; normocephalic EYES; Anicteric, Normal Conjunctiva NECK; supple, normal thyroid, RESPIRATORY: Diminished to auscultation CARDIOVASCULAR: Regular S1 S2, GI: soft, normoactive bowel sounds, : No Renal angle tenderness; EXTREMITIES: No edema, no clubbing, MUSCULOSKELETAL: no muscle wasting NEURO: Awake; no lateralizing signs. SKIN: No Rash PSYCH; Flat affect Assessment & Plan Assessment/Plan (1) Recurrent syncope: (2) Acute anterior epistaxis: PLAN: Plan Patient is an 84-year-old gentleman admitted 4-day history of epistaxis. He had intervention performed in the ED and prior to being discharged developed syncopal episode necessitating patient being admitted to a monitored bed for subsequent management 1. Syncopal episode ? Admitted to a monitored bed for continuous telemetry monitoring as part of his management ordered every shift orthostatic checks as well as echo and serial cardiac enzymes ? 12/04/2024; patient 2D echo the estimated ejection fraction is 65 %. No evidence for diastolic dysfunction. There is mild biatrial dilatation. 3. Epistaxis ? Secondary to use of Xarelto and Plavix. Held offending medications ? 12/03/2024; patient had packing of his left nostril performed in the ED scheduled to have removal by ENT on 12/04/2024 ? 12/04/2024; patient epistaxis appears to have resolved with no recurrent 3. Acute blood loss anemia ? Exacerbated by the use of systemic anticoagulant and antiplatelet Xarelto and Plavix anemia; monitoring H&H and transfuse if patient becomes symptomatic or hemoglobin falls below 7 ? 12/03/2024; patient was transfused 1 unit PRBC the day prior hemoglobin up to 7.1, repeated H&H and if remains stable patient will be discharged home with repeat H&H as outpatient otherwise ? 12/04/2024; patient hemoglobin came up to only 7.1 following additional PRBC transfusion. Case was discussed with patient's grand son who is a physician in [place] decision was made to consult GI to rule out other causes of patient's anemia. 4. End-stage renal disease ? Patient is on hemodialysis on Tuesdays and Saturdays. Consult was placed with patient's anode crew supervisor Dr. Bertrand for dialysis orders 5. Coronary artery disease ? With previous PCI patient is on guideline directed medical therapy 6. Hypertension ? Blood pressure controlled, home medications continued with dose adjustment as needed ? 12/04/2024; patient blood pressure levels have been on the low side did explain to patient grandson this may be secondary to patient being on 2 alpha blockers finasteride and tamsulosin. Will continue with monitoring. 7. Paroxysmal A-fib ? Patient is on systemic anticoagulation with Coumadin held 8. Dyslipidemia ?Patient is on statin therapy, continued at home dose 9. BPH with lower urinary obstructive symptoms - Patient treated with tamsulosin 10. DVT prophylaxis ? Patient was already on systemic anticoagulation with Xarelto being held given patient Epistaxis Time spent in the patient's overall evaluation,decision-making process, review of diagnostic data, adjustment of management, discussion with other providers, nursing nursing and ancillary staff involved in patient's care documentation, 52 Minutes Charges/Coding Visit Charges Inpatient E&M: 17530 Subs Hosp L3
--- NOTE | 2024-12-04 08:56 | PCM.PN.REN ---
Subjective Subjective seen on dialysis, proceeding with stable BP readings. Large melenotic stool observed. Patient feeling better after 2 units of blood. Hgb improved to 8.3g. Objective Data Objective Data Vital Signs: Vital Signs Temp Pulse Resp BP Pulse Ox O2 Del Method 98.5 F 98 16 141/71 H 99 Room Air 12/04/24 03:00 12/04/24 08:30 12/04/24 08:30 12/04/24 08:30 12/04/24 08:30 12/04/24 08:30 Oxygen Delivery Method Room Air Weight: 77.3 kg Body Mass Index (BMI) 25.9 Intake & Output: Intake and Output for Last 24 Hours 12/02/24 12/03/24 12/04/24 23:59 23:59 23:59 Intake Total 1620 / 1620 759 / 759 Output Total 580 / 880 1350 / 1350 400 / 400 Balance 1040 / 740 -591 / -591 -400 / -400 Lab / Micro Data 12/04/24 11:10 12/04/24 06:55 Labs: Laboratory Results - last 24 hr 12/02/24 09:40: Crossmatch See Detail 12/03/24 11:19: Hgb 7.0 L, Hct 20.1 L 12/04/24 06:55: WBC 10.5, RBC 2.36 L, Hgb 7.4 L, Hct 23.1 L, MCV 97.9 H, MCH 31.4, MCHC 32.0, RDW Std Deviation 69.9 H, RDW Coeff of Eduardo 20.0 H, Plt Count 223, MPV 9.3, Neut % (Auto) Not Reportable, Absolute Neuts (auto) 9.0 H, Absolute Lymphs (auto) 0.63 L, Total Counted 100, Neutrophils % (Manual) 84 H, Band Neutrophils % 2, Lymphocytes % (Manual) 6 L, Monocytes % (Manual) 4, Eosinophils % (Manual) 1, Metamyelocytes % 3 H, Diff Path Review May foll, Platelet Estimate ADEQUATE, RBC Morphology N CHROM, Anisocytosis 2+, Sodium 140, Potassium 4.0, Chloride 109 H, Carbon Dioxide 24.0, Anion Gap 7, BUN 89 H, Creatinine 4.67 H, Estim Creat Clear Calc 11.19, Est GFR (MDRD) Af Amer 15 L, Est GFR (MDRD) Non-Af 13 L, BUN/Creatinine Ratio 19.1, Glucose 158 H, Calcium 8.8 Radiography Diagnostic Testing: Radiology Impression Echocardiogram 12/02/24 02:00 Interpretation Summary The estimated ejection fraction is 65 %. No evidence for diastolic dysfunction. There is mild biatrial dilatation. Ordering Physician: Rafael Bojorquez Performed By: Mimi Mijares RDCS Physical Exam Const alert, oriented x3 and no apparent distress Constitutional Narrative: periorbital ecchymosis from fall, syncope last week General Appearance: well developed Resp clear to auscultation bilaterally Cardio Rhythm: abnormal rhythm irregularly irregular (tachycardia) GI non-tender and non-distended Auscultation: normoactive bowel sounds Palpation: soft Extremity no clubbing, cyanosis or edema General Extremity: AV fistula Skin Skin Narrative: facial ecchymosis General Skin Exam: ecchymosis Neuro moves all extremities and no focal motor deficits Psych cooperative Assessment & Plan Assessment/Plan (1) ESRD (end stage renal disease) on dialysis: PLAN: seen on dialysis,. HD TTS (2) Acute blood loss anemia: PLAN: hgb 8.3g today after blood transfusion. Hgg 11.5g on 11/24/24 at chronic dialysis center. (3) Syncope: QUALIFIERS: Syncope type: unspecified Qualified Code(s): R55 - Syncope and collapse PLAN: with hypotension from acute anemia, blood loss (4) Atrial fibrillation with RVR: PLAN: rate and BP improved (5) Epistaxis: PLAN: from anticoagulation
[2024-12-04 10:03] LABS: Pathologist Review Reviewed
[2024-12-04 11:26] LABS: Hematocrit 24.6 % (40-54); Hemoglobin 8.3 g/dL (13.0-16.5); POSITIVE COUNT YES; POSITIVE MORPHOLOGY YES
[2024-12-04] MEDS: Folic Acid/Vitamin B Comp W-C 1 Capsule 1 CAP PO (12:49)
[2024-12-04] MEDS: Finasteride 5 MG Tablet PO (12:50)
[2024-12-04] MEDS: Ferrous Sulfate 325 MG Tablet PO (12:50)
[2024-12-04] MEDS: Carvedilol 3.125 MG TABLET PO (12:50)
--- NOTE | 2024-12-04 14:04 | PCM.DC.SUM ---
Providers Date of Admission: 12/02/24 Date of Discharge: 12/04/24 Primary Care Physician: Dr. Torey Kearney MD Consultations 12/02/24 02:00 Consult: Nephrology Routine Consulting Provider: Kalee Bertrand Reason for Consult: ESRD on HD EMERGENT Consult: No Notified: Yes Date Notified: 12/02/24 Time Notified: 00:50 Method of Notification: Answering Service 12/04/24 11:09 Consult: Gastroenterology Routine Consulting Provider: Stephanie [facility] Reason for Consult: anemia EMERGENT Consult: No Notified: Yes Date Notified: 12/04/24 Time Notified: 11:09 Method of Notification: Text Reason For Visit: SYNCOPE Diagnosis Discharge Diagnosis (1) Recurrent syncope: Status: Acute Code(s): R55 - Syncope and collapse (2) Acute anterior epistaxis: Status: Acute Code(s): R04.0 - Epistaxis Plan Patient is an 84-year-old gentleman admitted 4-day history of epistaxis. He had intervention performed in the ED and prior to being discharged developed syncopal episode necessitating patient being admitted to a monitored bed for subsequent management 1. Syncopal episode ? Admitted to a monitored bed for continuous telemetry monitoring as part of his management ordered every shift orthostatic checks as well as echo and serial cardiac enzymes ? 12/04/2024; patient 2D echo the estimated ejection fraction is 65 %. No evidence for diastolic dysfunction. There is mild biatrial dilatation. 3. Epistaxis ? Secondary to use of Xarelto and Plavix. Held offending medications ? 12/03/2024; patient had packing of his left nostril performed in the ED scheduled to have removal by ENT on 12/04/2024 ? 12/04/2024; patient epistaxis appears to have resolved with no recurrent 3. Acute blood loss anemia ? Exacerbated by the use of systemic anticoagulant and antiplatelet Xarelto and Plavix anemia; monitoring H&H and transfuse if patient becomes symptomatic or hemoglobin falls below 7 ? 12/03/2024; patient was transfused 1 unit PRBC the day prior hemoglobin up to 7.1, repeated H&H and if remains stable patient will be discharged home with repeat H&H as outpatient otherwise ? 12/04/2024; patient hemoglobin came up to only 7.1 following additional PRBC transfusion. Case was discussed with patient's grand son who is a physician in [place] decision was made to consult GI to rule out other causes of patient's anemia. ? Consult was placed to Friend from her liver requested a different GI doctor. Did explain to patient and family that with his hemoglobin being stable he could be discharged to follow-up as outpatient with the supervisor statement clerks of his choice 4. End-stage renal disease ? Patient is on hemodialysis on Tuesdays and Saturdays. Consult was placed with patient's marine firer Dr. Bertrand for dialysis orders 5. Coronary artery disease ? With previous PCI patient is on guideline directed medical therapy 6. Hypertension ? Blood pressure controlled, home medications continued with dose adjustment as needed ? 12/04/2024; patient blood pressure levels have been on the low side did explain to patient grandson this may be secondary to patient being on 2 alpha blockers finasteride and tamsulosin. Will continue with monitoring. ? Prescription was written for midodrine 5 mg p.o. 3 times daily on discharge 7. Paroxysmal A-fib ? Patient is on systemic anticoagulation with Coumadin held 8. Dyslipidemia ?Patient is on statin therapy, continued at home dose 9. BPH with lower urinary obstructive symptoms - Patient treated with tamsulosin 10. DVT prophylaxis ? Patient was already on systemic anticoagulation with Xarelto being held given patient Epistaxis Time spent in the patient's overall evaluation,decision-making process, review of diagnostic data, adjustment of management, discussion with other providers, nursing nursing and ancillary staff involved in patient's care documentation, 52 Minutes Medications at Discharge Home Medications tamsulosin 0.4 mg capsule 0.4 mg PO QHS prostate 12/16/18 finasteride 5 mg tablet 5 mg PO DAILY prostate 08/22/22 atorvastatin 20 mg tablet 20 mg PO DAILY cholesterol #90 tabs 03/28/23 vitamin B complex-vitamin C-folic acid 0.8 mg tablet (Renal Vitamin) 1 tab PO Q24H dialysis patient 11/13/23 rivaroxaban 15 mg tablet 15 mg PO DAILY blood thinner #30 tabs 03/31/24 carvedilol 3.125 mg tablet 3.125 mg PO BID blood pressure #60 tabs 08/26/24 calcitriol 0.25 mcg capsule 0.25 mcg PO QDAY md ordered 09/30/24 ferrous sulfate 325 mg (65 mg iron) tablet (Feosol) 325 mg PO DAILY suppliment 12/02/24 midodrine 5 mg tablet 5 mg PO TID #60 tabs 12/04/24 Physical Exam Narrative GENERAL: cooperative HEENT: Atraumatic; normocephalic EYES; Anicteric, Normal Conjunctiva NECK; supple, normal thyroid, RESPIRATORY: Diminished to auscultation CARDIOVASCULAR: Regular S1 S2, GI: soft, normoactive bowel sounds, : No Renal angle tenderness; EXTREMITIES: No edema, no clubbing, MUSCULOSKELETAL: no muscle wasting NEURO: Awake; no lateralizing signs. SKIN: No Rash PSYCH; Flat affect Weight / BMI Weight Weight: 76.41 kg Body Mass Index (BMI) 25.6 ABG / Lab / Microbiology Data 12/04/24 11:10 12/04/24 06:55 Laboratory: Laboratory Results - last 24 hr 12/02/24 09:40: Crossmatch See Detail 12/04/24 06:55: WBC 10.5, RBC 2.36 L, Hgb 7.4 L, Hct 23.1 L, MCV 97.9 H, MCH 31.4, MCHC 32.0, RDW Std Deviation 69.9 H, RDW Coeff of Eduardo 20.0 H, Plt Count 223, MPV 9.3, Neut % (Auto) Not Reportable, Absolute Neuts (auto) 9.0 H, Absolute Lymphs (auto) 0.63 L, Total Counted 100, Neutrophils % (Manual) 84 H, Band Neutrophils % 2, Lymphocytes % (Manual) 6 L, Monocytes % (Manual) 4, Eosinophils % (Manual) 1, Metamyelocytes % 3 H, Diff Path Review Reviewed, Platelet Estimate ADEQUATE, RBC Morphology N CHROM, Anisocytosis 2+, Sodium 140, Potassium 4.0, Chloride 109 H, Carbon Dioxide 24.0, Anion Gap 7, BUN 89 H, Creatinine 4.67 H, Estim Creat Clear Calc 11.19, Est GFR (MDRD) Af Amer 15 L, Est GFR (MDRD) Non-Af 13 L, BUN/Creatinine Ratio 19.1, Glucose 158 H, Calcium 8.8 12/04/24 11:10: Hgb 8.3 L, Hct 24.6 L D/C Instructions Discharge Diet: No restrictions Discharge Activity: Return to Normal Activity Call your doctor if you observe: Fever of 101 or Higher, Shortness of breath, Fainting spells and Chest pain DC O2, CPAP, BIPAP Needs Home O2 Discharge instructions: No Meaningful Use Info Meaningful Use Meaningful Use Diagnoses (Choose all that apply): None applicable Ischemic Stroke Statin Dosing Therapy Reference: STATIN DOSE THERAPY REFERENCE: * Patients > 75 years receive moderate or high dose statin therapy. * Patients 75 years or YOUNGER should receive HIGH intensity statin dose unless contraindicated. You will be required to document reason for non-treatment if statin daily dose does not meet guidelines. HIGH DOSE STATIN THERAPY DAILY Atorvastatin > than or = to 40 mg Rosuvastatin > than or = to 20 mg Amlodipine + Atorvastatin > than or = to 2.5/40 mg Ezetimibe + Simvastatin 10/80 mg Simvastatin 80mg Discharge Plan Admission Admit Date/Time: 12/02/24 11:39 Attending Provider: Ray Arevalo Primary Care Provider: Torey Kearney Consulting Providers: Rafael Bojorquez; Kalee Bertrand Discharge Orders/Prescriptions Prescriptions: New midodrine 5 mg tablet 5 mg PO TID Qty: 60 0RF Rx Instructions: do not give last dose of day after 6PM or within 4 hrs of bedtime Continued finasteride 5 mg tablet 5 mg PO DAILY calcitriol 0.25 mcg capsule 0.25 mcg PO QDAY Renal Vitamin 0.8 mg tablet 1 tab PO Q24H Patient Comments: TAKE 1 TABLET BY MOUTH DAILY tamsulosin 0.4 MG capsule 0.4 mg PO QHS ferrous sulfate [Feosol] 325 mg (65 mg iron) tablet 325 mg PO DAILY atorvastatin 20 mg tablet 20 mg PO DAILY Qty: 90 3RF carvedilol 3.125 mg tablet 3.125 mg PO BID Qty: 60 11RF Rx Instructions: Hold for heart less than 50 or systolic blood pressure less than 90 mmHg. Held rivaroxaban 15 mg tablet 15 mg PO DAILY Qty: 30 12RF Hold Instructions: Resume on 12/18/24. Until cleared by GI Rx Instructions: must administer with evening meal Referrals / Follow Up: Torey Kearney MD [Primary Care Provider] - (Within 1 to 2 days to be referred to GI) Aj Weeks MD [Med Staff - Active Staff] - (3 days for follow-up, call for appointment. ) Disposition Disposition (needs filled in before D/C Order can be placed): Home, Self Care Charges/Coding Visit Charges Inpatient E&M: 84163 Disch Hosp >30min
--- NOTE | 2024-12-04 15:09 | CASEMGMT ---
Patient has order for discharge. Therapy recommending walker and additional therapy at discharge. RN CM in to discuss needs at discharge, family at bedside. Patient agreeable to walker, prefers [facility], and would like outpatient therapy. Patient prefers [facility] for outpatient therapy and prefers to [facility] call patient to schedule. Patient denies further needs or concerns at discharge. Patient and family had no further questions. Scripts received for walker and outpatient therapy. RN CM sent referral to [facility] via [facility] and arranged for walker to be delivered to room. RN CM sent referral to [facility] with requests to call patient to schedule appt, script provided in discharge packet. RN CM updated discharge plan.
== END 2024-12-04 16:23 | disposition home or self-care (01) | DRG 813 ==
LOC: ED 12-02 00:29 → ICU 12-02 01:43 → PCU 12-02 17:06
PROVIDERS: Admitting Provider Hospitalist; Emergency Provider Emergency Medicine; PCP Family Medicine; Visit Provider Internal Medicine
DX: D68.32 Hemorrhagic disorder due to extrinsic circulating anticoagulants (principal); N18.6 End stage renal disease; I12.0 Hypertensive chronic kidney disease with stage 5 chronic kidney disease or end stage renal disease; N13.8 Other obstructive and reflux uropathy; D62 Acute posthemorrhagic anemia; D63.1 Anemia in chronic kidney disease; Z66 Do not resuscitate; I48.0 Paroxysmal atrial fibrillation; R55 Syncope and collapse; E11.22 Type 2 diabetes mellitus with diabetic chronic kidney disease; Z99.2 Dependence on renal dialysis; I25.10 Atherosclerotic heart disease of native coronary artery without angina pectoris; W19.XXXA Unspecified fall, initial encounter; E78.5 Hyperlipidemia, unspecified; S00.11XA Contusion of right eyelid and periocular area, initial encounter; I95.9 Hypotension, unspecified; S00.12XA Contusion of left eyelid and periocular area, initial encounter; R04.0 Epistaxis; T45.515A Adverse effect of anticoagulants, initial encounter; T45.525A Adverse effect of antithrombotic drugs, initial encounter; N40.1 Benign prostatic hyperplasia with lower urinary tract symptoms; Y92.512 Supermarket, store or market as the place of occurrence of the external cause; Z79.01 Long term (current) use of anticoagulants; Z79.02 Long term (current) use of antithrombotics/antiplatelets; Z79.899 Other long term (current) drug therapy; Z88.0 Allergy status to penicillin; Z95.5 Presence of coronary angioplasty implant and graft; Z87.891 Personal history of nicotine dependence
CPT/HCPCS: 36415; 51702; 70450; 80048; 83735; 84100; 85014; 85018; 85025; 85027; 86850; 86900; 86901; 90937; 93005; 93306; 94668; 97162; 97165; 97802; 99252; 99285; P9016; A4216; G0257; G0463

== ENCOUNTER 2025-11-12 10:16 | Emergency (ER) | payer MEDICARE, OTHER, SELFPAY ==
[2025-11-12] VITALS (8 sets, daily range): BP systolic 112–135; BP diastolic 57–83; PULSE 85–133; RESP 12–22; TEMP 36.6–37.1; O2SAT 93–98; BMI 25.6
--- NOTE | 2025-11-12 10:35 | EKG12_ITS ---
Test Reason : Blood Pressure : */* mmHG Vent. Rate : 90 BPM Atrial Rate : * BPM P-R Int : * ms QRS Dur : 82 ms QT Int : 378 ms P-R-T Axes : * 84 26 degrees QTcB Int : 462 ms Atrial fibrillation Abnormal ECG Confirmed by Aiden Goins ([id number]), medical transcription editor RONA DAHL ([id number]) on 11/13/2025 10:34:45 AM Referred By: Confirmed By: Aiden Goins
--- NOTE | 2025-11-12 10:36 | EX.ED.DYSGE1 ---
HPI History of Present Illness Chief Complaint: Palpitations Narrative Narrative: Patient is a 85-year-old male with a past medical history of chronic kidney disease on dialysis, hypertension, atrial fibrillation on Xarelto who presented to the emergency department chief complaint of elevated heart rate. According to at bedside he had a appointment yesterday with his doctor and everything was normal. He had dialysis this morning and they came out and said that his heart rate was elevated therefore they advised them to come to the emergency department to be evaluated. Patient himself has no complaints and overall feels well. He states he has been taking his medications as prescribed. 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 Sinus bradycardia Syncope Home Medications ?Medication ?Instructions ?Recorded ?Last Taken ?Type tamsulosin 0.4 mg capsule 0.4 mg PO QHS prostate 12/16/18 11/11/25 History finasteride 5 mg tablet 5 mg PO DAILY prostate 08/22/22 11/11/25 History atorvastatin 20 mg tablet 20 mg PO DAILY cholesterol #90 tabs 03/28/23 11/11/25 Rx vitamin B complex-vitamin C-folic 1 tab PO Q24H dialysis patient 11/13/23 11/11/25 History acid 0.8 mg tablet (Renal Vitamin) calcitriol 0.25 mcg capsule 0.25 mcg PO QDAY md ordered 09/30/24 11/11/25 History carvedilol 3.125 mg tablet 3.125 mg PO BID blood pressure #60 09/11/25 11/12/25 Rx tabs carvedilol 6.25 mg tablet 6.25 mg PO BID 30 days #60 tabs 11/12/25 Unknown Rx cholecalciferol (vitamin D3) 1,250 1,250 mcg PO QMONTH 11/12/25 10/10/25 History mcg (50,000 unit) capsule Allergy/AdvReac Type Severity Reaction Status Date / Time Penicillins Allergy Severe Anaphylaxis Verified 11/12/25 10:19 Family History Mother Diabetes Surgical History Status post repair of arteriovenous fistula History of arteriovenostomy for renal dialysis Hx of right cataract extraction Hx of left cataract extraction Hx of colonoscopy Hx of inguinal hernia repair History of coronary artery stent placement (2007) Social History Smoking Status: Former smoker alcohol intake: never substance use type: does not use caffeine: No ROS ROS ED ROS Narrative Constitutional: Denies any fevers, chills, headache Eyes: Denies double vision Cardiovascular: Denies chest pain, palpitations Respiratory: Denies coughing wheezing shortness of breath Abdomen: Denies any abdominal pain nausea vomiting diarrhea : Denies urinary symptoms Neurological: Denies numbness, weakness, tingling Musculoskeletal: Denies back pain Skin: Denies any rashes or lesions EXAM Physical Exam Narrative Exam Narrative: General: Patient was lying in bed rest comfortably did not appear to be in acute distress Head: Atraumatic, normocephalic Eyes: PERRL bilaterally, EOMI bilaterally, no conjunctival injection noted Neck: Soft, supple, trachea midline Cardiovascular: Patient tachycardic with an irregular irregular rhythm Respiratory: Clear to auscultation bilaterally Abdomen: Soft, nondistended, nontender to palpation Extremities: +5/5 strength in the bilateral upper lower extremity, no pedal edema on exam Neurological: Patient following commands that he was at [facility] the year is 2024 Skin: Warm, dry, tact Const Vital Signs: 11/12/25 10:16 11/12/25 10:16 11/12/25 10:35 Temperature 97.9 F Temperature Source Temporal Pulse Rate 115 H 133 H Respiratory Rate 12 Respiratory Effort Blood Pressure 135/83 H Blood Pressure Mean 100 Pulse Ox 98 93 Oxygen Delivery Method Room Air Room Air 11/12/25 11:16 11/12/25 12:00 11/12/25 12:24 Temperature 98.4 F 98.7 F Temperature Source Oral Oral Pulse Rate 95 85 Respiratory Rate 17 22 H Respiratory Effort Normal Non-Labored Blood Pressure 124/68 H 112/73 Blood Pressure Mean 86 86 Pulse Ox 97 96 Oxygen Delivery Method Room Air Room Air 11/12/25 13:00 11/12/25 13:22 11/12/25 14:00 Temperature 98.7 F 98.7 F Temperature Source Oral Pulse Rate 95 94 96 Respiratory Rate 22 H 20 H 20 H Respiratory Effort Blood Pressure 126/57 H 126/57 H 127/63 H Blood Pressure Mean 80 80 84 Pulse Ox 95 94 96 Oxygen Delivery Method Room Air Room Air MDM MDM MDM Narrative Medical decision making narrative: Patient is a 85-year-old male who presented to the emergency department with a chief complaint of elevated heart rate from dialysis. On the differential diagnose includes but not limited to electrolyte abnormality, atrial fibrillation with rapid ventricular response, pneumonia, pneumothorax. Once workup is obtained and reviewed he will be reevaluated. Daughter arrived at bedside and confirmed that he is not on Xarelto Patient's CBC was reviewed and showed a white blood count is normal at 7.9, hemoglobin 12.1 which is stable patient does have a macrocytic anemia with a MCV of 107.1. Patient INR normal at 1.1, PT of 14.3. Her sodium was 138, Tessman normal 3.8, creatinine was 2.35 he is on dialysis, magnesium level normal at 2, TSH normal at 1.34. Patient's free T4 and T3 normal at 1.40 and 2.5 respectively. Patient's chest x-ray reviewed Mobisyl by radiology and showed no acute cardiopulmonary processes per radiology does have mild interstitial prominence nonspecific for them. Patient is EKG reviewed showed atrial fibrillation with a rate of 127 beats per minutes. After 5 of Lopressor patient's heart rate did normalize to atrial fibrillation with a controlled rate of 90 bpm. I reached out to on-call outdoor illuminating engineer Dr. Goins who would recommend increasing his carvedilol to 6.25 twice daily and given his recurrent nosebleeds while on anticoagulation they did feel that this was contraindicated therefore we will continue to hold off on anticoagulation. I did review his previous EKGs in the chart as well and he was in atrial fibrillation at that point time as well. Patient ambulated well here in the emergency department no tachycardia. He was advised to follow-up with cardiology in the outpatient setting and return with worsening symptoms or other concerns. All question concerns answered is discharged home in stable condition Lab Data Labs: Laboratory Results - last 24 hr 11/12/25 10:55 WBC 7.9 RBC 3.50 L Hgb 12.1 L Hct 37.5 L MCV 107.1 H MCH 34.6 H MCHC 32.3 RDW Std Deviation 61.1 H RDW Coeff of Eduardo 15.5 H Plt Count 168 MPV 9.6 Immature Gran % (Auto) 1.100 H Neut % (Auto) 82.0 H Lymph % (Auto) 3.8 L Jasper % (Auto) 9.5 Eos % (Auto) 2.8 Baso % (Auto) 0.8 Absolute Neuts (auto) 6.5 Absolute Lymphs (auto) 0.30 L Nucleated RBC % 0 PT 14.3 INR 1.1 APTT 31.8 Sodium 138 Potassium 3.8 Chloride 96 L Carbon Dioxide 29.5 Anion Gap 12 BUN 15 Creatinine 2.35 H Estim Creat Clear Calc 21.83 L Est GFR (MDRD) Non-Af 26 L BUN/Creatinine Ratio 6.4 L Glucose 142 H Calcium 9.0 Magnesium 2.0 TSH 1.340 Free T4 1.40 Free T3 pg/dL 2.5 Radiography Diagnostic Testing: Clinical Impression(s) from Imaging Studies Chest X-Ray 11/12/25 11:30 IMPRESSION: Mild interstitial prominence, nonspecific. Reading Location: [id number] Discharge Plan Triage Chief Complaint: Palpitations ED Provider: Josr Cooper Dx/Rx/DC Orders Clinical Impression: Atrial fibrillation with rapid ventricular response, Diabetes, Essential hypertension, ESRD (end stage renal disease) on dialysis Prescriptions: New carvedilol 6.25 mg tablet 6.25 mg PO BID 30 Days Qty: 60 0RF Rx Instructions: must administer with a meal/food No Action finasteride 5 mg tablet 5 mg PO DAILY calcitriol 0.25 mcg capsule 0.25 mcg PO QDAY Renal Vitamin 0.8 mg tablet 1 tab PO Q24H Patient Comments: TAKE 1 TABLET BY MOUTH DAILY tamsulosin 0.4 MG capsule 0.4 mg PO QHS cholecalciferol (vitamin D3) 1,250 mcg (50,000 unit) capsule 1,250 mcg PO QMONTH atorvastatin 20 mg tablet 20 mg PO DAILY Qty: 90 3RF carvedilol 3.125 mg tablet 3.125 mg PO BID Qty: 60 11RF Rx Instructions: Hold for heart less than 50 or systolic blood pressure less than 90 mmHg. Primary Care Provider: Torey Keraney Referrals: Torey Kearney MD [Primary Care Provider, Family Practice] Activity Restrictions/Additional Instructions: Follow-up with your outdoor illuminating engineer in the outpatient setting. Take the new prescription as prescribed this will replace your old prescription for your carvedilol. Return with worsening symptoms or any other concerns your blood work here today did not show any acute findings. Print Language: Irish Disposition Disposition: Home, Self Care
[2025-11-12 11:02] LABS: Hematocrit 37.5 % (40-54); Hemoglobin 12.1 g/dL (13.0-16.5); Immature Granulocytes Count 0.090 X10^3/uL (0.0-0.0); Mean Corp Hgb Conc 32.3 g/dL (32-36); Mean Corpuscular Volume 107.1 fL (80-94); Mean Platelet Vol. 9.6 fl (6.2-12.0); NRBC Flagged by Analyzer 0 % (0-5); POSITIVE DIFFERENTIAL YES; Platelet Count 168 K/mm3 (150-450); RBC Distribution Width CV 15.5 % (11.6-14.6); RBC Distribution Width SD 61.1 fl (35.1-43.9); Red Blood Count 3.50 M/mm3 (4.6-6.2); White Blood Count 7.9 K/mm3 (4.4-11.0)
[2025-11-12 11:11] LABS: Prothrombin Time (Protime)PT. 14.3 SECONDS (11.7-14.9)
[2025-11-12 11:12] LABS: Partial Thromboplast Time 31.8 Seconds (24.1-36.2)
--- NOTE | 2025-11-12 11:30 | RAD_ITS ---
PROCEDURE: CHEST PA AND LATERAL 11/12/2025 REASON FOR EXAM: PALPITATIONS TECHNIQUE: Procedure Code: RADCXR Modality: DX Procedure: CHEST PA AND LATERAL COMPARISON: 11/23/2023 FINDINGS: Cardiomediastinal silhouette is within normal limits. Mild interstitial prominence bilaterally. Mild atelectasis at the lung bases. No focal consolidation in either lung. No significant pleural effusion. No pneumothorax. Osteopenia and degenerative changes in the spine. RAD/Chest PA and Lateral IMPRESSION: Mild interstitial prominence, nonspecific. Reading Location: [id number]
[2025-11-12 11:55] LABS: Anion Gap 12 (5-15); BUN 15 mg/dL (4-19); BUN/Creat Ratio 6.4 RATIO (10-20); Calcium,Total 9.0 mg/dL (7.6-11.0); Carbon Dioxide 29.5 mmol/L (21.0-32.0); Chloride 96 mmol/L (98-108); Estimated Creatinine Clearance 21.83 ml/min (50-250); Free T3 2.5 pg/mL (2.18-3.98); Glucose 142 mg/dL (70-99); Magnesium 2.0 mg/dL (1.5-2.2); Potassium 3.8 mmol/L (3.3-5.1)
--- NOTE | 2025-11-12 12:34 | EKG12_ITS ---
Test Reason : AF Blood Pressure : */* mmHG Vent. Rate : 127 BPM Atrial Rate : * BPM P-R Int : * ms QRS Dur : 66 ms QT Int : 326 ms P-R-T Axes : * 85 17 degrees QTcB Int : 473 ms Atrial fibrillation with rapid ventricular response Nonspecific ST and T wave abnormality Abnormal ECG Confirmed by Aiden Goins ([id number]), newspaper editor managing RONA DAHL ([id number]) on 11/13/2025 10:34:56 AM Referred By: Confirmed By: Aiden Goins
== END 2025-11-12 15:10 | disposition home or self-care (01) ==
PROVIDERS: Emergency Provider Emergency Medicine; PCP Family Medicine; Visit Provider Emergency Medicine
DX: I48.91 Unspecified atrial fibrillation (principal); I12.0 Hypertensive chronic kidney disease with stage 5 chronic kidney disease or end stage renal disease; N18.6 End stage renal disease; E11.22 Type 2 diabetes mellitus with diabetic chronic kidney disease; Z99.2 Dependence on renal dialysis; I25.10 Atherosclerotic heart disease of native coronary artery without angina pectoris; E78.5 Hyperlipidemia, unspecified; Z79.899 Other long term (current) drug therapy; Z87.891 Personal history of nicotine dependence; Z79.01 Long term (current) use of anticoagulants
CPT/HCPCS: 71046; 80048; 83735; 84439; 84443; 84481; 85025; 85610; 85730; 93005; 96374; 99283; A4216